=== PATIENT | male | born 1945 | race Caucasian/White ===

== ENCOUNTER 2017-08-07 07:53 | Inpatient (IN) | payer MEDICARE, OTHER ==
[2017-08-07] MEDS: FOLIC ACID 1 MG TAB PO (09:00)
[2017-08-07] MEDS: ENOXAPARIN 40 MG/0.4 ML SYRINGE (J1650) SC (09:00)
[2017-08-07] MEDS: THIAMINE 100 MG TAB PO (09:00)
[2017-08-07 09:31] LABS: BASO # 0.1 10^3/uL (0.0-0.2); BASO % 0.8 % (0.0-1.0); EOS # 0.2 10^3/uL (0.0-0.50); EOS % 1.8 % (0.0-3.0); HEMATOCRIT 31.6 % (42.0-52.0); HEMOGLOBIN 11.3 g/dl (13.5-17.5); IMMATURE GRANULOCYTE % 0.3 % (0-3.0); LYMPH # 0.7 10^3/uL (1.5-4.5); LYMPH % 6.9 % (24.0-44.0); MEAN CORPUSCULAR HEMOGLOBIN 30.7 pg (27.0-33.0); MEAN CORPUSCULAR HGB CONC 35.8 g/dl (32.0-36.5); MEAN CORPUSCULAR VOLUME 85.9 fl (80.0-96.0); MONO # 1.3 10^3/uL (0.0-0.8); NEUTROPHILS # 8.2 10^3/uL (1.8-7.7); NEUTROPHILS % 78.2 % (36.0-66.0); PLATELET COUNT, AUTOMATED 610 10^3/uL (150-450); RED BLOOD COUNT 3.68 10^6/uL (4.30-6.10); RED CELL DISTRIBUTION WIDTH 13.3 % (11.5-14.5); WHITE BLOOD COUNT 10.5 10^3/uL (4.0-10.0)
[2017-08-07 09:49] LABS: ALBUMIN 3.4 GM/DL (3.2-5.2); ALBUMIN/GLOBULIN RATIO 0.79 (1.00-1.93); ALKALINE PHOSPHATASE 136 U/L (45-117); ALT/SGPT 34 U/L (12-78); ANION GAP 12 MEQ/L (8-16); AST/SGOT 28 U/L (7-37); BILIRUBIN,TOTAL 0.5 MG/DL (0.2-1.0); BLOOD UREA NITROGEN 9 MG/DL (7-18); CALCIUM LEVEL 8.9 MG/DL (8.8-10.2); CARBON DIOXIDE LEVEL 22 MEQ/L (21-32); CHLORIDE LEVEL 92 MEQ/L (98-107); CPK CREATINE PHOSPHOKINASE 120 U/L (39-308); CREATININE FOR GFR 0.65 MG/DL (0.70-1.30); ETHYL ALCOHOL (ETHANOL) < 0.003 % (0.000-0.010); GLOMERULAR FILTRATION RATE > 60.0 (>42); GLUCOSE, FASTING 98 MG/DL (70-100); INR 1.14; MAGNESIUM LEVEL 1.8 MG/DL (1.8-2.4); NT-PRO BNP 3193 PG/ML (<125); PROTHROMBIN TIME 14.8 SECONDS (12.4-14.5); SODIUM LEVEL 126 MEQ/L (136-145); TOTAL PROTEIN 7.7 GM/DL (6.4-8.2); TROPONIN I < 0.02 NG/ML (< 0.10)
[2017-08-07 09:54] LABS: CK-MB VALUE MASS 3.5 NG/ML (<3.6); MB/CK RELATIVE INDEX 2.91 (< OR =4)
[2017-08-07] MEDS: FUROSEMIDE 40 MG/4 ML VIAL (J1940) IV ×2 (10:00→17:49)
[2017-08-07] MEDS ORDERED: ISOVUE-370 76% 100ML VIAL (Q9967) As Ordered (10:01)
[2017-08-07] MEDS ORDERED: IPRATROPIUM 0.5MG/ALBUTEROL 2.5MG INH SOL UD 3ML (DUONEB)(J7620) NEB (11:45)
[2017-08-07 11:53] LABS: REASON FOR REVIEW PLATELET MORPHOLOGY; SLIDE REVIEW Report; SOURCE PERIPHERAL SMEAR
[2017-08-07 12:05] LABS: CHOLESTEROL LEVEL 73 MG/DL (<200); CHOLESTEROL RISK RATIO 1.921 (<5); HDL CHOLESTEROL 38 MG/DL (>40); LDL CHOLESTEROL 25.2 MG/DL (<100); NON-HDL-C 35 MG/DL; TRIGLYCERIDES LEVEL 49 MG/DL (<150)
[2017-08-07] MEDS ORDERED: ACETAMINOPHEN TAB 650MG DOSE (2X325MG) PO (12:15)
[2017-08-07] MEDS: IPRATROPIUM 0.5MG/ALBUTEROL 2.5MG INH SOL UD 3ML (DUONEB)(J7620) NEB ×2 (13:49→20:00)
[2017-08-07] MEDS: SYMBICORT 160/4.5MCG INHALER 6GM INH (20:31)
[2017-08-07] MEDS: METOPROLOL TART 25 MG TABLET PO (21:00)
[2017-08-07] MEDS: NICOTINE 21MG/24HR 1 EA TRANSDERMAL TD (21:55)
[2017-08-08] MEDS: IPRATROPIUM 0.5MG/ALBUTEROL 2.5MG INH SOL UD 3ML (DUONEB)(J7620) NEB ×4 (00:47→20:00)
[2017-08-08] MEDS: FUROSEMIDE 40 MG/4 ML VIAL (J1940) IV (02:51)
[2017-08-08 05:09] LABS: BASO # 0.1 10^3/uL (0.0-0.2); BASO % 0.8 % (0.0-1.0); EOS # 0.3 10^3/uL (0.0-0.50); EOS % 3.2 % (0.0-3.0); IMMATURE GRANULOCYTE % 0.4 % (0-3.0); LYMPH # 1.1 10^3/uL (1.5-4.5); LYMPH % 13.1 % (24.0-44.0); MEAN CORPUSCULAR HEMOGLOBIN 30.3 pg (27.0-33.0); MEAN CORPUSCULAR HGB CONC 35.7 g/dl (32.0-36.5); MEAN CORPUSCULAR VOLUME 84.8 fl (80.0-96.0); MONO # 1.6 10^3/uL (0.0-0.8); MONO % 19.3 % (0.0-5.0); NEUTROPHILS # 5.3 10^3/uL (1.8-7.7); NEUTROPHILS % 63.2 % (36.0-66.0); PLATELET COUNT, AUTOMATED 560 10^3/uL (150-450); RED CELL DISTRIBUTION WIDTH 13.2 % (11.5-14.5); WHITE BLOOD COUNT 8.3 10^3/uL (4.0-10.0)
[2017-08-08 05:22] LABS: ANION GAP 8 MEQ/L (8-16); BLOOD UREA NITROGEN 12 MG/DL (7-18); CALCIUM LEVEL 8.4 MG/DL (8.8-10.2); CARBON DIOXIDE LEVEL 27 MEQ/L (21-32); CHLORIDE LEVEL 92 MEQ/L (98-107); CREATININE FOR GFR 0.77 MG/DL (0.70-1.30); GLOMERULAR FILTRATION RATE > 60.0 (>42); GLUCOSE, FASTING 101 MG/DL (70-100); SODIUM LEVEL 127 MEQ/L (136-145)
[2017-08-08] MEDS: SYMBICORT 160/4.5MCG INHALER 6GM INH ×2 (07:18→20:44)
[2017-08-08 08:30] LABS: FERRITIN 621 NG/ML (26-388); IRON (FE) 17 UG/DL (65-175); PERCENT SATURATION 8.1 % (19.7-50.0); TOTAL IRON BINDING CAPACITY 209 UG/DL (250-450)
[2017-08-08] MEDS: CALCIUM CARBONATE 500 MG CHEW U/D PO (09:19)
[2017-08-08] MEDS: FUROSEMIDE 100 MG/10 ML VIAL (J1940) IV ×2 (09:19→17:12)
[2017-08-08] MEDS: NICOTINE 21MG/24HR 1 EA TRANSDERMAL TD (09:19)
[2017-08-08] MEDS: ATORVASTATIN 20 MG TAB PO (09:19)
[2017-08-08] MEDS: TAMSULOSIN 0.4 MG CAP PO (09:19)
[2017-08-08] MEDS: FERROUS SULFATE 325MG TAB PO (09:20)
[2017-08-08] MEDS: FOLIC ACID 1 MG TAB PO (09:20)
[2017-08-08] MEDS: MULTIVITAMINS/MINERALS THERAP 1 TAB PO (09:20)
[2017-08-08] MEDS: LISINOPRIL 40 MG TAB PO (09:20)
[2017-08-08] MEDS: amLODIPine 10 MG TAB PO (09:20)
[2017-08-08] MEDS: APIXABAN 5 MG TAB (ELIQUIS) PO ×2 (09:20→21:30)
[2017-08-08] MEDS: THIAMINE 100 MG TAB PO (09:20)
[2017-08-08] MEDS: ASCORBIC ACID 500 MG TAB PO (09:20)
[2017-08-08] MEDS: METOPROLOL TART 25 MG TABLET PO ×2 (09:20→21:30)
[2017-08-08 12:03] LABS: VITAMIN B12 LEVEL 1072 PG/ML (247-911)
[2017-08-08 12:22] LABS: FOLATE > 24.0 NG/ML (>5.4)
[2017-08-09] MEDS: IPRATROPIUM 0.5MG/ALBUTEROL 2.5MG INH SOL UD 3ML (DUONEB)(J7620) NEB ×4 (01:53→20:00)
[2017-08-09] MEDS: FUROSEMIDE 100 MG/10 ML VIAL (J1940) IV (02:22)
[2017-08-09 04:55] LABS: BASO # 0.1 10^3/uL (0.0-0.2); BASO % 0.7 % (0.0-1.0); EOS # 0.2 10^3/uL (0.0-0.50); EOS % 2.2 % (0.0-3.0); HEMATOCRIT 27.8 % (42.0-52.0); HEMOGLOBIN 9.8 g/dl (13.5-17.5); IMMATURE GRANULOCYTE % 0.6 % (0-3.0); LYMPH % 10.1 % (24.0-44.0); MEAN CORPUSCULAR HEMOGLOBIN 30.2 pg (27.0-33.0); MEAN CORPUSCULAR HGB CONC 35.3 g/dl (32.0-36.5); MEAN CORPUSCULAR VOLUME 85.5 fl (80.0-96.0); MONO # 1.8 10^3/uL (0.0-0.8); MONO % 17.9 % (0.0-5.0); NEUTROPHILS % 68.5 % (36.0-66.0); PLATELET COUNT, AUTOMATED 543 10^3/uL (150-450); RED BLOOD COUNT 3.25 10^6/uL (4.30-6.10); RED CELL DISTRIBUTION WIDTH 13.1 % (11.5-14.5); WHITE BLOOD COUNT 10.3 10^3/uL (4.0-10.0)
[2017-08-09 05:09] LABS: ANION GAP 7 MEQ/L (8-16); BLOOD UREA NITROGEN 14 MG/DL (7-18); CALCIUM LEVEL 8.7 MG/DL (8.8-10.2); CARBON DIOXIDE LEVEL 28 MEQ/L (21-32); CHLORIDE LEVEL 91 MEQ/L (98-107); CREATININE FOR GFR 0.86 MG/DL (0.70-1.30); GLOMERULAR FILTRATION RATE > 60.0 (>42); GLUCOSE, FASTING 106 MG/DL (70-100); SODIUM LEVEL 126 MEQ/L (136-145)
[2017-08-09] MEDS: SYMBICORT 160/4.5MCG INHALER 6GM INH ×2 (07:34→20:25)
[2017-08-09] MEDS: THIAMINE 100 MG TAB PO (08:21)
[2017-08-09] MEDS: MULTIVITAMINS/MINERALS THERAP 1 TAB PO (08:21)
[2017-08-09] MEDS: ATORVASTATIN 20 MG TAB PO (08:22)
[2017-08-09] MEDS: FOLIC ACID 1 MG TAB PO (08:22)
[2017-08-09] MEDS: LISINOPRIL 40 MG TAB PO (08:22)
[2017-08-09] MEDS: ASCORBIC ACID 500 MG TAB PO (08:22)
[2017-08-09] MEDS: TAMSULOSIN 0.4 MG CAP PO (08:22)
[2017-08-09] MEDS: FERROUS SULFATE 325MG TAB PO (08:22)
[2017-08-09] MEDS: amLODIPine 10 MG TAB PO (08:22)
[2017-08-09] MEDS: APIXABAN 5 MG TAB (ELIQUIS) PO ×2 (08:22→20:27)
[2017-08-09] MEDS: NICOTINE 21MG/24HR 1 EA TRANSDERMAL TD (08:23)
[2017-08-09] MEDS: FUROSEMIDE 40 MG/4 ML VIAL (J1940) IV ×2 (08:24→18:17)
[2017-08-09] MEDS: METOPROLOL TART 50 MG TAB PO ×2 (08:55→20:27)
[2017-08-09] MEDS: CALCIUM CARBONATE 500 MG CHEW U/D PO ×2 (12:51→18:16)
[2017-08-10] MEDS: IPRATROPIUM 0.5MG/ALBUTEROL 2.5MG INH SOL UD 3ML (DUONEB)(J7620) NEB ×4 (02:00→19:25)
[2017-08-10] MEDS: FUROSEMIDE 40 MG/4 ML VIAL (J1940) IV ×2 (02:01→09:01)
[2017-08-10 05:06] LABS: BASO # 0.1 10^3/uL (0.0-0.2); BASO % 0.7 % (0.0-1.0); EOS # 0.4 10^3/uL (0.0-0.50); EOS % 3.7 % (0.0-3.0); HEMATOCRIT 29.3 % (42.0-52.0); HEMOGLOBIN 10.2 g/dl (13.5-17.5); IMMATURE GRANULOCYTE % 0.6 % (0-3.0); LYMPH # 1.2 10^3/uL (1.5-4.5); MEAN CORPUSCULAR HEMOGLOBIN 30.2 pg (27.0-33.0); MEAN CORPUSCULAR HGB CONC 34.8 g/dl (32.0-36.5); MEAN CORPUSCULAR VOLUME 86.7 fl (80.0-96.0); MONO % 21.6 % (0.0-5.0); NEUTROPHILS # 5.7 10^3/uL (1.8-7.7); NEUTROPHILS % 60.4 % (36.0-66.0); PLATELET COUNT, AUTOMATED 529 10^3/uL (150-450); RED BLOOD COUNT 3.38 10^6/uL (4.30-6.10); RED CELL DISTRIBUTION WIDTH 13.3 % (11.5-14.5); WHITE BLOOD COUNT 9.5 10^3/uL (4.0-10.0)
[2017-08-10 05:23] LABS: ANION GAP 8 MEQ/L (8-16); BLOOD UREA NITROGEN 18 MG/DL (7-18); CALCIUM LEVEL 8.7 MG/DL (8.8-10.2); CARBON DIOXIDE LEVEL 29 MEQ/L (21-32); CHLORIDE LEVEL 89 MEQ/L (98-107); GLOMERULAR FILTRATION RATE > 60.0 (>42); GLUCOSE, FASTING 94 MG/DL (70-100); POTASSIUM SERUM 4.3 MEQ/L (3.5-5.1); SODIUM LEVEL 126 MEQ/L (136-145)
[2017-08-10 05:45] LABS: POSITIVE DIFF POS FLAG
[2017-08-10] MEDS: METOPROLOL TART 50 MG TAB PO ×3 (06:00→21:00)
[2017-08-10] MEDS: SYMBICORT 160/4.5MCG INHALER 6GM INH ×2 (07:22→19:25)
[2017-08-10] MEDS: CALCIUM CARBONATE 500 MG CHEW U/D PO ×3 (08:00→16:51)
[2017-08-10] MEDS: ASCORBIC ACID 500 MG TAB PO (08:47)
[2017-08-10] MEDS: APIXABAN 5 MG TAB (ELIQUIS) PO ×2 (08:47→20:59)
[2017-08-10] MEDS: THIAMINE 100 MG TAB PO (08:47)
[2017-08-10] MEDS: FOLIC ACID 1 MG TAB PO (08:47)
[2017-08-10] MEDS: ATORVASTATIN 20 MG TAB PO (08:47)
[2017-08-10] MEDS: TAMSULOSIN 0.4 MG CAP PO (08:47)
[2017-08-10] MEDS: MULTIVITAMINS/MINERALS THERAP 1 TAB PO (08:48)
[2017-08-10] MEDS: FERROUS SULFATE 325MG TAB PO (08:48)
[2017-08-10] MEDS: NICOTINE 21MG/24HR 1 EA TRANSDERMAL TD (08:51)
[2017-08-10] MEDS: LISINOPRIL 40 MG TAB PO (08:52)
[2017-08-10] MEDS: amLODIPine 10 MG TAB PO (08:52)
[2017-08-11] MEDS: IPRATROPIUM 0.5MG/ALBUTEROL 2.5MG INH SOL UD 3ML (DUONEB)(J7620) NEB ×2 (01:55→07:32)
[2017-08-11] MEDS: METOPROLOL TART 50 MG TAB PO (05:16)
[2017-08-11 05:25] LABS: BASO # 0.1 10^3/uL (0.0-0.2); BASO % 0.8 % (0.0-1.0); EOS # 0.3 10^3/uL (0.0-0.50); EOS % 3.4 % (0.0-3.0); HEMATOCRIT 29.1 % (42.0-52.0); HEMOGLOBIN 10.2 g/dl (13.5-17.5); IMMATURE GRANULOCYTE % 0.4 % (0-3.0); LYMPH # 1.1 10^3/uL (1.5-4.5); MEAN CORPUSCULAR HEMOGLOBIN 29.9 pg (27.0-33.0); MEAN CORPUSCULAR HGB CONC 35.1 g/dl (32.0-36.5); MEAN CORPUSCULAR VOLUME 85.3 fl (80.0-96.0); MONO # 1.8 10^3/uL (0.0-0.8); MONO % 19.1 % (0.0-5.0); NEUTROPHILS # 5.9 10^3/uL (1.8-7.7); NEUTROPHILS % 64.3 % (36.0-66.0); PLATELET COUNT, AUTOMATED 532 10^3/uL (150-450); RED BLOOD COUNT 3.41 10^6/uL (4.30-6.10); RED CELL DISTRIBUTION WIDTH 13.2 % (11.5-14.5); WHITE BLOOD COUNT 9.2 10^3/uL (4.0-10.0)
[2017-08-11 05:45] LABS: ANION GAP 9 MEQ/L (8-16); BLOOD UREA NITROGEN 21 MG/DL (7-18); CALCIUM LEVEL 8.4 MG/DL (8.8-10.2); CARBON DIOXIDE LEVEL 25 MEQ/L (21-32); CHLORIDE LEVEL 90 MEQ/L (98-107); CREATININE FOR GFR 1.01 MG/DL (0.70-1.30); GLOMERULAR FILTRATION RATE > 60.0 (>42); GLUCOSE, FASTING 96 MG/DL (70-100); SODIUM LEVEL 124 MEQ/L (136-145)
[2017-08-11] MEDS: SYMBICORT 160/4.5MCG INHALER 6GM INH (07:32)
[2017-08-11] MEDS: CALCIUM CARBONATE 500 MG CHEW U/D PO ×2 (08:09→11:24)
[2017-08-11] MEDS: amLODIPine 10 MG TAB PO (08:09)
[2017-08-11] MEDS: ATORVASTATIN 20 MG TAB PO (08:09)
[2017-08-11] MEDS: TAMSULOSIN 0.4 MG CAP PO (08:09)
[2017-08-11] MEDS: APIXABAN 5 MG TAB (ELIQUIS) PO (08:09)
[2017-08-11] MEDS: FOLIC ACID 1 MG TAB PO (08:09)
[2017-08-11] MEDS: FUROSEMIDE 40 MG TAB PO (08:09)
[2017-08-11] MEDS: LISINOPRIL 40 MG TAB PO (08:10)
[2017-08-11] MEDS: THIAMINE 100 MG TAB PO (08:10)
[2017-08-11] MEDS: MULTIVITAMINS/MINERALS THERAP 1 TAB PO (08:10)
[2017-08-11] MEDS: NICOTINE 21MG/24HR 1 EA TRANSDERMAL TD (08:11)
[2017-08-11 09:51] LABS: CORTISOL AM 24.9 UG/DL (4.3-22.4)
[2017-08-11 10:17] LABS: OSMOLALITY SERUM 266 MOSM/KG (280-301)
[2017-08-11] MEDS ORDERED: METOPROLOL TART 25 MG TABLET PO (14:00)
== END 2017-08-11 13:10 | disposition home or self-care (01) | DRG 292 ==
LOC: M ED 07:53 → M ED INP 11:45 → M PCU 15:42
DX: I11.0 Hypertensive heart disease with heart failure (principal); J44.1 Chronic obstructive pulmonary disease with (acute) exacerbation; E87.1 Hypo-osmolality and hyponatremia; I48.92 Unspecified atrial flutter; I31.3 Pericardial effusion (noninflammatory); F10.20 Alcohol dependence, uncomplicated; D64.9 Anemia, unspecified; R91.8 Other nonspecific abnormal finding of lung field; E78.5 Hyperlipidemia, unspecified; I50.31 Acute diastolic (congestive) heart failure; F17.200 Nicotine dependence, unspecified, uncomplicated; Z79.01 Long term (current) use of anticoagulants; I27.20 Pulmonary hypertension, unspecified; I48.91 Unspecified atrial fibrillation; I49.1 Atrial premature depolarization; M54.5 Low back pain; D47.3 Essential (hemorrhagic) thrombocythemia; I08.2 Rheumatic disorders of both aortic and tricuspid valves

== ENCOUNTER 2017-09-04 11:36 | Inpatient (IN) | payer MEDICARE, OTHER ==
[2017-09-04 12:12] LABS: BASO # 0.1 10^3/uL (0.0-0.2); BASO % 0.6 % (0.0-1.0); EOS # 0.4 10^3/uL (0.0-0.50); EOS % 3.6 % (0.0-3.0); HEMATOCRIT 27.6 % (42.0-52.0); HEMOGLOBIN 9.6 g/dl (13.5-17.5); IMMATURE GRANULOCYTE % 0.4 % (0-3.0); LYMPH % 10.2 % (24.0-44.0); MEAN CORPUSCULAR HEMOGLOBIN 29.8 pg (27.0-33.0); MEAN CORPUSCULAR HGB CONC 34.8 g/dl (32.0-36.5); MEAN CORPUSCULAR VOLUME 85.7 fl (80.0-96.0); MONO % 10.2 % (0.0-5.0); NEUTROPHILS # 7.7 10^3/uL (1.8-7.7); PLATELET COUNT, AUTOMATED 360 10^3/uL (150-450); RED BLOOD COUNT 3.22 10^6/uL (4.30-6.10); RED CELL DISTRIBUTION WIDTH 14.6 % (11.5-14.5); WHITE BLOOD COUNT 10.2 10^3/uL (4.0-10.0)
[2017-09-04 12:17] LABS: INR 1.48; PROTHROMBIN TIME 18.3 SECONDS (12.4-14.5)
[2017-09-04 12:18] LABS: PARTIAL THROMBOPLASTIN TIME 37.8 SECONDS (26.8-37.9)
[2017-09-04 12:36] LABS: ANION GAP 11 MEQ/L (8-16); BLOOD UREA NITROGEN 13 MG/DL (7-18); CALCIUM LEVEL 8.2 MG/DL (8.8-10.2); CARBON DIOXIDE LEVEL 21 MEQ/L (21-32); CHLORIDE LEVEL 92 MEQ/L (98-107); CK-MB VALUE MASS 2.6 NG/ML (<3.6); CPK CREATINE PHOSPHOKINASE 102 U/L (39-308); CREATININE FOR GFR 0.81 MG/DL (0.70-1.30); ETHYL ALCOHOL (ETHANOL) 0.075 % (0.000-0.010); GLOMERULAR FILTRATION RATE > 60.0 (>42); GLUCOSE, FASTING 91 MG/DL (70-100); MAGNESIUM LEVEL 1.6 MG/DL (1.8-2.4); MB/CK RELATIVE INDEX 2.54 (< OR =4); POTASSIUM SERUM 4.7 MEQ/L (3.5-5.1); SODIUM LEVEL 124 MEQ/L (136-145); TROPONIN I < 0.02 NG/ML (< 0.10)
[2017-09-04] MEDS: FUROSEMIDE 40 MG/4 ML VIAL (J1940) IV (13:46)
[2017-09-04] MEDS: MAG SULF 1GM/100ML (MAG RUN) 1 GM in APPROPRIATE DILUENT 1 EA IV (13:47)
[2017-09-04] MEDS ORDERED: ALBUTEROL SULFATE 2.5 MG/0.5 ML INH NEB SOLN INH (14:45)
[2017-09-04] MEDS: ALBUTEROL SULFATE 2.5 MG/0.5 ML INH NEB SOLN NEB ×3 (16:29→23:29)
[2017-09-04] MEDS: VERAPAMIL 40 MG TAB PO ×2 (16:52→22:00)
[2017-09-04 17:05] LABS: CHOLESTEROL LEVEL 64 MG/DL (<200); CHOLESTEROL RISK RATIO 1.641 (<5); HDL CHOLESTEROL 39 MG/DL (>40); NON-HDL-C 25 MG/DL; TRIGLYCERIDES LEVEL 60 MG/DL (<150)
[2017-09-04] MEDS: CALCIUM CARBONATE 500 MG CHEW U/D PO (17:27)
[2017-09-04] MEDS: methylPREDNISolone INJ 125 MG/2 ML VIAL (J2930) IV (17:27)
[2017-09-04] MEDS: TORSEMIDE 20 MG TAB PO (17:27)
[2017-09-04 18:24] LABS: CPK CREATINE PHOSPHOKINASE 99 U/L (39-308); MB/CK RELATIVE INDEX 3.03 (< OR =4); TROPONIN I < 0.02 NG/ML (< 0.10)
[2017-09-04] MEDS: SYMBICORT 160/4.5MCG INHALER 6GM INH (20:43)
[2017-09-04] MEDS ORDERED: APIXABAN 5 MG TAB (ELIQUIS) PO (21:00)
[2017-09-04] MEDS: MULTIVITAMINS/MINERALS THERAP 1 TAB PO (22:21)
[2017-09-04] MEDS: TAMSULOSIN 0.4 MG CAP PO (22:21)
[2017-09-04] MEDS: MAGNESIUM CHLORIDE 64 MG TABCR (SLO MAG) PO (22:22)
[2017-09-05] MEDS: MAGNESIUM CHLORIDE 64 MG TABCR (SLO MAG) PO ×5 (00:37→21:27)
[2017-09-05 03:06] LABS: HEMATOCRIT 29.7 % (42.0-52.0); HEMOGLOBIN 10.4 g/dl (13.5-17.5); MEAN CORPUSCULAR HEMOGLOBIN 29.6 pg (27.0-33.0); MEAN CORPUSCULAR VOLUME 84.6 fl (80.0-96.0); PLATELET COUNT, AUTOMATED 378 10^3/uL (150-450); RED BLOOD COUNT 3.51 10^6/uL (4.30-6.10); RED CELL DISTRIBUTION WIDTH 14.4 % (11.5-14.5); WHITE BLOOD COUNT 5.5 10^3/uL (4.0-10.0)
[2017-09-05 03:15] LABS: ALBUMIN 3.4 GM/DL (3.2-5.2); ALBUMIN/GLOBULIN RATIO 0.85 (1.00-1.93); ALKALINE PHOSPHATASE 146 U/L (45-117); ALT/SGPT 30 U/L (12-78); ANION GAP 11 MEQ/L (8-16); AST/SGOT 15 U/L (7-37); BILIRUBIN,TOTAL 0.6 MG/DL (0.2-1.0); BLOOD UREA NITROGEN 16 MG/DL (7-18); CALCIUM LEVEL 8.5 MG/DL (8.8-10.2); CARBON DIOXIDE LEVEL 22 MEQ/L (21-32); CHLORIDE LEVEL 94 MEQ/L (98-107); CK-MB VALUE MASS 2.4 NG/ML (<3.6); CPK CREATINE PHOSPHOKINASE 101 U/L (39-308); CREATININE FOR GFR 0.89 MG/DL (0.70-1.30); GLOMERULAR FILTRATION RATE > 60.0 (>42); GLUCOSE, FASTING 145 MG/DL (70-100); MAGNESIUM LEVEL 1.7 MG/DL (1.8-2.4); MB/CK RELATIVE INDEX 2.37 (< OR =4); POTASSIUM SERUM 4.5 MEQ/L (3.5-5.1); SODIUM LEVEL 127 MEQ/L (136-145); TOTAL PROTEIN 7.4 GM/DL (6.4-8.2); TROPONIN I < 0.02 NG/ML (< 0.10)
[2017-09-05] MEDS: ALBUTEROL SULFATE 2.5 MG/0.5 ML INH NEB SOLN NEB ×4 (03:26→20:00)
[2017-09-05] MEDS: VERAPAMIL 40 MG TAB PO ×3 (05:47→21:28)
[2017-09-05] MEDS: methylPREDNISolone INJ 125 MG/2 ML VIAL (J2930) IV ×2 (05:47→17:26)
[2017-09-05] MEDS: SYMBICORT 160/4.5MCG INHALER 6GM INH ×2 (08:12→20:28)
[2017-09-05] MEDS: TIOTROPIUM INHALER/CAPSULE (SPIRIVA) INH (08:12)
[2017-09-05] MEDS: SPIRONOLACTONE 25 MG TAB PO (08:25)
[2017-09-05] MEDS: CALCIUM CARBONATE 500 MG CHEW U/D PO ×3 (08:25→17:26)
[2017-09-05] MEDS: THIAMINE 100 MG TAB PO (08:25)
[2017-09-05] MEDS: ATORVASTATIN 20 MG TAB PO (08:25)
[2017-09-05] MEDS: TORSEMIDE 20 MG TAB PO ×2 (08:25→17:27)
[2017-09-05] MEDS: MULTIVITAMINS/MINERALS THERAP 1 TAB PO ×2 (08:26→21:28)
[2017-09-05] MEDS: FOLIC ACID 1 MG TAB PO (08:26)
[2017-09-05] MEDS ORDERED: amLODIPine 10 MG TAB PO (09:00)
[2017-09-05] MEDS ORDERED: LISINOPRIL 20 MG TAB PO (09:00)
[2017-09-05] MEDS: APIXABAN 5 MG TAB (ELIQUIS) PO ×2 (09:00→21:28)
[2017-09-05 10:28] LABS: CPK CREATINE PHOSPHOKINASE 116 U/L (39-308); TROPONIN I < 0.02 NG/ML (< 0.10)
[2017-09-05 10:29] LABS: CK-MB VALUE MASS 2.7 NG/ML (<3.6); MB/CK RELATIVE INDEX 2.32 (< OR =4)
[2017-09-05] MEDS: TAMSULOSIN 0.4 MG CAP PO (21:28)
[2017-09-06] MEDS: ALBUTEROL SULFATE 2.5 MG/0.5 ML INH NEB SOLN NEB ×4 (02:00→20:00)
[2017-09-06] MEDS ORDERED: SLF 3 ML SYR IV (03:30)
[2017-09-06 04:54] LABS: HEMATOCRIT 25.5 % (42.0-52.0); MEAN CORPUSCULAR HEMOGLOBIN 29.4 pg (27.0-33.0); MEAN CORPUSCULAR HGB CONC 35.3 g/dl (32.0-36.5); MEAN CORPUSCULAR VOLUME 83.3 fl (80.0-96.0); PLATELET COUNT, AUTOMATED 370 10^3/uL (150-450); RED BLOOD COUNT 3.06 10^6/uL (4.30-6.10); RED CELL DISTRIBUTION WIDTH 14.6 % (11.5-14.5); WHITE BLOOD COUNT 14.2 10^3/uL (4.0-10.0)
[2017-09-06 05:15] LABS: ALBUMIN 3.3 GM/DL (3.2-5.2); ALBUMIN/GLOBULIN RATIO 0.97 (1.00-1.93); ALKALINE PHOSPHATASE 124 U/L (45-117); ALT/SGPT 36 U/L (12-78); ANION GAP 7 MEQ/L (8-16); AST/SGOT 20 U/L (7-37); BILIRUBIN,TOTAL 0.3 MG/DL (0.2-1.0); BLOOD UREA NITROGEN 33 MG/DL (7-18); CALCIUM LEVEL 8.6 MG/DL (8.8-10.2); CARBON DIOXIDE LEVEL 25 MEQ/L (21-32); CHLORIDE LEVEL 96 MEQ/L (98-107); CREATININE FOR GFR 1.08 MG/DL (0.70-1.30); GLOMERULAR FILTRATION RATE > 60.0 (>42); GLUCOSE, FASTING 155 MG/DL (70-100); POTASSIUM SERUM 4.2 MEQ/L (3.5-5.1); SODIUM LEVEL 128 MEQ/L (136-145); TOTAL PROTEIN 6.7 GM/DL (6.4-8.2)
[2017-09-06] MEDS: VERAPAMIL 40 MG TAB PO ×3 (05:55→21:56)
[2017-09-06] MEDS: methylPREDNISolone INJ 125 MG/2 ML VIAL (J2930) IV (05:58)
[2017-09-06] MEDS: SLF 3 ML SYR IV ×3 (05:58→21:56)
[2017-09-06] MEDS: ATORVASTATIN 20 MG TAB PO (08:43)
[2017-09-06] MEDS: MAGNESIUM CHLORIDE 64 MG TABCR (SLO MAG) PO ×4 (08:43→21:56)
[2017-09-06] MEDS: CALCIUM CARBONATE 500 MG CHEW U/D PO ×3 (08:43→16:52)
[2017-09-06 08:44] LABS: OSMOLALITY URINE 279 MOSM/KG (500-800)
[2017-09-06] MEDS: MULTIVITAMINS/MINERALS THERAP 1 TAB PO ×2 (08:44→21:56)
[2017-09-06] MEDS: FOLIC ACID 1 MG TAB PO (08:44)
[2017-09-06] MEDS: APIXABAN 5 MG TAB (ELIQUIS) PO ×2 (08:44→21:56)
[2017-09-06] MEDS: THIAMINE 100 MG TAB PO (08:44)
[2017-09-06] MEDS: TORSEMIDE 20 MG TAB PO ×2 (08:44→16:51)
[2017-09-06] MEDS: SPIRONOLACTONE 25 MG TAB PO (08:44)
[2017-09-06 08:48] LABS: SODIUM,RANDOM URINE 46 MEQ/L
[2017-09-06] MEDS: TIOTROPIUM INHALER/CAPSULE (SPIRIVA) INH (09:10)
[2017-09-06] MEDS: SYMBICORT 160/4.5MCG INHALER 6GM INH ×2 (09:10→21:50)
[2017-09-06] MEDS: TAMSULOSIN 0.4 MG CAP PO (21:56)
[2017-09-07] MEDS: ALBUTEROL SULFATE 2.5 MG/0.5 ML INH NEB SOLN NEB ×3 (02:00→14:38)
[2017-09-07] MEDS: SLF 3 ML SYR IV ×2 (05:54→14:00)
[2017-09-07] MEDS: VERAPAMIL 40 MG TAB PO ×3 (05:54→14:26)
[2017-09-07 07:13] LABS: HEMATOCRIT 29.3 % (42.0-52.0); HEMOGLOBIN 10.3 g/dl (13.5-17.5); MEAN CORPUSCULAR HEMOGLOBIN 29.7 pg (27.0-33.0); MEAN CORPUSCULAR HGB CONC 35.2 g/dl (32.0-36.5); MEAN CORPUSCULAR VOLUME 84.4 fl (80.0-96.0); PLATELET COUNT, AUTOMATED 421 10^3/uL (150-450); RED BLOOD COUNT 3.47 10^6/uL (4.30-6.10); WHITE BLOOD COUNT 13.1 10^3/uL (4.0-10.0)
[2017-09-07 07:34] LABS: ALBUMIN 3.8 GM/DL (3.2-5.2); ALBUMIN/GLOBULIN RATIO 0.97 (1.00-1.93); ALKALINE PHOSPHATASE 118 U/L (45-117); ALT/SGPT 64 U/L (12-78); ANION GAP 10 MEQ/L (8-16); AST/SGOT 34 U/L (7-37); BILIRUBIN,TOTAL 0.3 MG/DL (0.2-1.0); BLOOD UREA NITROGEN 36 MG/DL (7-18); CALCIUM LEVEL 9.1 MG/DL (8.8-10.2); CARBON DIOXIDE LEVEL 25 MEQ/L (21-32); CHLORIDE LEVEL 96 MEQ/L (98-107); CREATININE FOR GFR 1.07 MG/DL (0.70-1.30); GLOMERULAR FILTRATION RATE > 60.0 (>42); GLUCOSE, FASTING 118 MG/DL (70-100); POTASSIUM SERUM 4.2 MEQ/L (3.5-5.1); SODIUM LEVEL 131 MEQ/L (136-145); TOTAL PROTEIN 7.7 GM/DL (6.4-8.2)
[2017-09-07] MEDS: THIAMINE 100 MG TAB PO (07:39)
[2017-09-07] MEDS: CALCIUM CARBONATE 500 MG CHEW U/D PO ×2 (07:39→12:53)
[2017-09-07] MEDS: SPIRONOLACTONE 25 MG TAB PO (07:39)
[2017-09-07] MEDS: predniSONE 20 MG TAB PO (07:39)
[2017-09-07] MEDS: MULTIVITAMINS/MINERALS THERAP 1 TAB PO (07:40)
[2017-09-07] MEDS: FOLIC ACID 1 MG TAB PO (07:40)
[2017-09-07] MEDS: TORSEMIDE 20 MG TAB PO (07:40)
[2017-09-07] MEDS: APIXABAN 5 MG TAB (ELIQUIS) PO (07:40)
[2017-09-07] MEDS: ATORVASTATIN 20 MG TAB PO (07:40)
[2017-09-07] MEDS: MAGNESIUM CHLORIDE 64 MG TABCR (SLO MAG) PO ×2 (07:40→12:53)
[2017-09-07] MEDS: SYMBICORT 160/4.5MCG INHALER 6GM INH (09:06)
[2017-09-07] MEDS: TIOTROPIUM INHALER/CAPSULE (SPIRIVA) INH (09:06)
== END 2017-09-07 17:25 | disposition home or self-care (01) | DRG 314 ==
LOC: M MSPAV 09-06 11:49 → M ED 11:36 → M ED INP 14:15 → M PCU 17:02
DX: I27.29 Other secondary pulmonary hypertension (principal); I50.33 Acute on chronic diastolic (congestive) heart failure; J44.1 Chronic obstructive pulmonary disease with (acute) exacerbation; E87.1 Hypo-osmolality and hyponatremia; I31.3 Pericardial effusion (noninflammatory); I48.2 Chronic atrial fibrillation; I11.0 Hypertensive heart disease with heart failure; R55 Syncope and collapse; D64.9 Anemia, unspecified; E83.42 Hypomagnesemia; E78.5 Hyperlipidemia, unspecified; N40.0 Benign prostatic hyperplasia without lower urinary tract symptoms; R91.8 Other nonspecific abnormal finding of lung field; Z79.899 Other long term (current) drug therapy; Z79.01 Long term (current) use of anticoagulants; F17.200 Nicotine dependence, unspecified, uncomplicated; F10.10 Alcohol abuse, uncomplicated

== ENCOUNTER 2018-03-08 09:26 | Emergency (ER) | payer MEDICARE, OTHER ==
[2018-03-08 10:19] LABS: BASO # 0.1 10^3/uL (0.0-0.2); BASO % 0.8 % (0.0-1.0); EOS # 0.2 10^3/uL (0.0-0.50); HEMOGLOBIN 13.9 g/dl (13.5-17.5); IMMATURE GRANULOCYTE % 0.6 % (0-3.0); LYMPH % 9.9 % (24.0-44.0); MEAN CORPUSCULAR HEMOGLOBIN 32.3 pg (27.0-33.0); MEAN CORPUSCULAR HGB CONC 35.6 g/dl (32.0-36.5); MEAN CORPUSCULAR VOLUME 90.7 fl (80.0-96.0); MONO # 1.3 10^3/uL (0.0-0.8); NEUTROPHILS # 7.2 10^3/uL (1.8-7.7); NEUTROPHILS % 73.7 % (36.0-66.0); PLATELET COUNT, AUTOMATED 362 10^3/uL (150-450); RED CELL DISTRIBUTION WIDTH 14.4 % (11.5-14.5); WHITE BLOOD COUNT 9.8 10^3/uL (4.0-10.0)
[2018-03-08 10:41] LABS: ANION GAP 10 MEQ/L (8-16); BLOOD UREA NITROGEN 26 MG/DL (7-18); CALCIUM LEVEL 8.9 MG/DL (8.8-10.2); CARBON DIOXIDE LEVEL 25 MEQ/L (21-32); CHLORIDE LEVEL 91 MEQ/L (98-107); CREATININE FOR GFR 1.34 MG/DL (0.70-1.30); GLOMERULAR FILTRATION RATE 55.8 (>42); GLUCOSE, FASTING 102 MG/DL (70-100); POTASSIUM SERUM 4.5 MEQ/L (3.5-5.1); SODIUM LEVEL 126 MEQ/L (136-145)
[2018-03-08] MEDS: predniSONE 20 MG TAB PO (10:52)
[2018-03-08] MEDS: IPRATROPIUM 0.5MG/ALBUTEROL 2.5MG INH SOL UD 3ML (DUONEB)(J7620) NEB ×3 (10:54→11:30)
[2018-03-08 10:55] LABS: NT-PRO BNP 915 PG/ML (<125)
== END 2018-03-08 12:34 | disposition home or self-care (01) ==
LOC: M ED 09:26
DX: J44.1 Chronic obstructive pulmonary disease with (acute) exacerbation (principal); I48.91 Unspecified atrial fibrillation; I11.0 Hypertensive heart disease with heart failure; I50.9 Heart failure, unspecified
CPT/HCPCS: 71046

== ENCOUNTER 2018-09-28 16:22 | Inpatient (IN) | payer MEDICARE, OTHER ==
[~2018-09-28] VITALS: Ht 175.3 cm; Wt 75.9 kg
[2018-09-28] MEDS: NICOTINE 21MG/24HR 1 EA TRANSDERMAL TD SCH (09:00)
[~2018-09-28 16:22] MED LIST: ALBU17IN INH; ALDA25TA2 PO; ALEV220T26 PO; AMLO10TA5 PO; ATOR40TA75 PO; ATOR80TA59 PO; AZIT500T2 PO; CALC500C16 PO; DEMA20TA6 PO; ELIQ5TAB PO; FLOM0.4C39 PO; FOLI1TAB11 PO; LASI20TA3 PO; LISI-538 PO; LISI40TA PO; LISI40TA52 PO; MAGN64TASA PO; METO1TAB87 PO; METO25TA4 PO; METO50TA7 PO; PRED10TA2 PO; SPIR1CAP INH; SYMB16INH INH; THIA100TA PO; TYLE325T5 PO; VENTAER IN; VERA40TA PO; VITMTA PO
[2018-09-28 17:17] LABS: BASO # 0.1 10^3/uL (0.0-0.2); BASO % 0.4 % (0.0-1.0); EOS # 0.2 10^3/uL (0.0-0.50); EOS % 1.2 % (0.0-3.0); HEMOGLOBIN 13.5 g/dl (13.5-17.5); LYMPH # 1.2 10^3/uL (1.5-4.5); LYMPH % 7.2 % (24.0-44.0); MEAN CORPUSCULAR HEMOGLOBIN 32.5 pg (27.0-33.0); MEAN CORPUSCULAR HGB CONC 36.5 g/dl (32.0-36.5); MEAN CORPUSCULAR VOLUME 88.9 fl (80.0-96.0); MONO # 1.1 10^3/uL (0.0-0.8); MONO % 6.8 % (0.0-5.0); NEUTROPHILS # 13.7 10^3/uL (1.8-7.7); NEUTROPHILS % 83.9 % (36.0-66.0); PLATELET COUNT, AUTOMATED 346 10^3/uL (150-450); RED BLOOD COUNT 4.16 10^6/uL (4.30-6.10); WHITE BLOOD COUNT 16.3 10^3/uL (4.0-10.0)
[2018-09-28 17:25] LABS: INR 1.09; PROTHROMBIN TIME 14.2 SECONDS (12.1-14.4)
--- NOTE | 2018-09-28 17:26 | REP ---
CT of the brain without IV contrast for patient fall: The patient reportedly is an anticoagulant therapy. There is no hemorrhage, edema, mass effect or midline shift. There is no subdural hematoma. There are areas of decreased attenuation in the subcortical/periventricular white matter, unchanged, compatible with microvascular ischemic disease. This is unchanged. The ventricles and sulci are diffusely dilated compatible with diffuse volume loss. This is unchanged. There is a left middle cranial fossa arachnoid cyst, unchanged. The visualized paranasal sinuses and mastoid air cells are clear. Impression: There is no hemorrhage, edema, mass effect or midline shift. There is microvascular ischemia, unchanged. There is diffuse volume loss, unchanged. There is a left middle cranial fossa arachnoid cyst, unchanged. Electronically Signed by Blair Luther MD 09/28/2018 05:18 P
--- NOTE | 2018-09-28 17:45 | REP ---
Left knee five views: There are calcifications superomedial to the medial femoral condyle. These are nonspecific and could represent a avulsion fractures or could represent degenerative ligamentous Pelligrini Stieda calcification. Correlation with clinical point tenderness is recommended. Depending on symptomatology, CT might be considered for confirmation. There is no evidence of hemarthrosis. On the cross-table lateral view. There is no other evidence of fracture. Mineralization is normal. The joint spaces are unremarkable. Impression: Fracture versus Pelligrini Stieda calcification of the medial femoral condyle. Electronically Signed by Blair Luther MD 09/28/2018 05:37 P
--- NOTE | 2018-09-28 17:56 | REP ---
Fifth digit left hand four views: I suspect there is soft tissue injury. This should be confirmed clinically. There is no fracture or dislocation. There is no foreign body. There is mild joint space narrowing of the PIP and DIP articulations. Electronically Signed by Blair Luther MD 09/28/2018 05:48 P
--- NOTE | 2018-09-28 17:57 | REP ---
PA and lateral chest: Comparison is 03/08/2018. The lung lopez are clear. The cardiac size is normal. The jony, mediastinum, and skeletal structures are unremarkable. Impression: Negative PA and lateral chest. There is no interval change Electronically Signed by Blair Luther MD 09/28/2018 05:49 P
[2018-09-28 18:18] LABS: ALBUMIN 3.8 GM/DL (3.2-5.2); ALT/SGPT 60 U/L (12-78); BILIRUBIN,DIRECT 0.2 MG/DL (0.0-0.2); BILIRUBIN,TOTAL 0.5 MG/DL (0.2-1.0); BLOOD UREA NITROGEN 24 MG/DL (7-18); CARBON DIOXIDE LEVEL 22 MEQ/L (21-32); CHLORIDE LEVEL 87 MEQ/L (98-107); CK-MB VALUE MASS 50.9 NG/ML (<3.6); CPK CREATINE PHOSPHOKINASE 3928 U/L (39-308); CREATININE FOR GFR 1.13 MG/DL (0.70-1.30); ETHYL ALCOHOL (ETHANOL) 0.092 % (0.000-0.010); GLOMERULAR FILTRATION RATE > 60.0 (>42); GLUCOSE, FASTING 84 MG/DL (70-100); POTASSIUM SERUM 4.3 MEQ/L (3.5-5.1); SODIUM LEVEL 123 MEQ/L (136-145); TOTAL PROTEIN 6.7 GM/DL (6.4-8.2); TROPONIN I 0.03 NG/ML (< 0.10)
[2018-09-28] MEDS ORDERED: NS 1,000 ML IV ONE (18:30)
[2018-09-28] MEDS ORDERED: LIDOCAINE 2% MDV 20 ML VIAL SC ONE (18:45)
--- NOTE | 2018-09-28 19:48 | HPEPDOC ---
[facility] Medical History & Physical Date of Admission Sep 28, 2018 Date of Service: Sep 28, 2018 History and Physical CHIEF COMPLAINT: s/p fall, found on the ground HISTORY OF PRESENT ILLNESS: Pt is 73 y/o M with Hx of COPD, Afib on eliquis, ETOH use who was found on the floor by his . Pt's called EMS to bring him to ER. Upon my encounter in the ED, pt is awake and alert. Pt is in no acute distress. He states that he fell in his house while he was trying to go up the stairs. He did not loose consciousness, did not have any head trauma. He remembers what has happened, however he was not able to get up due to muscle weakness and fatigue. He denies any chest pain or palpitations. ED course: He found to have lacerations in finger and Lt knee which was sutured. CPK 3928 Cr. WNL. Hyponatremia Na 123. S/P [address] no hemorrhage, no acute finding. 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 REVIEW OF SYSTEMS: 10 point negative except above HOME MEDICATIONS: Please see below. PHYSICAL EXAMINATION: GENERAL APPEARANCE: pt is awake and alert oriented HEENT: facial erythema, no discharge, no head laceration, no ecchymoses CARDIOVASCULAR: S1 S2 no murmur LUNGS: scattered wheezing ABDOMEN: soft NT ND EXTREMITIES: Lt knee edematous with erythema , not warm, no drainage NEUROLOGICAL: CN intact, motor intact PSYCHIATRIC: mood affect NL LABORATORY DATA: See below. IMAGING: Head CT no acute finding CXR no infiltrates Lt Knee can not rule out fracture , possible calcification, recommended CT MICROBIOLOGY: Please see below. A/P 1-Fall 2-Syncope 3-Rhabdomyolysis 4-Hyponatremia 5-Alcoholic Liver Disease S/P IVF NS 1 Lt in ED cont 150 ml/hr will decrease in morning to 80 ml/hr Last Echo reviewed EF 65% Na 123 in the setting of daily beer use, monitor closely Wound care for laceration on finger and Lt knee CT of Lt knee to rule out fracture, consider Ortho consult SW/CM Consult for chronic ETOH Use PT/OT DVT Prophylaxis Vital Signs Vital Signs Date Time Temp Pulse Resp B/P (MAP) Pulse Ox O2 Delivery O2 Flow Rate FiO2 09/28/18 19:37 89 20 95 Room Air 09/28/18 19:30 141/81 (101) 09/28/18 18:31 97.9 Laboratory Data Labs 24H Laboratory Tests 2 09/28/18 16:54: Immature Granulocyte % (Auto) 0.5, White Blood Count 16.3H, Red Blood Count 4.16L, Hemoglobin 13.5, Hematocrit 37.0L, Mean Corpuscular Volume 88.9, Mean Corpuscular Hemoglobin 32.5, Mean Corpuscular Hemoglobin Concent 36.5, Red Cell Distribution Width 12.8, Platelet Count 346, Neutrophils (%) (Auto) 83.9H, Lymphocytes (%) (Auto) 7.2L, Monocytes (%) (Auto) 6.8H, Eosinophils (%) (Auto) 1.2, Basophils (%) (Auto) 0.4, Neutrophils # (Auto) 13.7H, Lymphocytes # (Auto) 1.2L, Monocytes # (Auto) 1.1H, Eosinophils # (Auto) 0.2, Basophils # (Auto) 0.1, Nucleated Red Blood Cells % (auto) 0.0, Prothrombin Time 14.2, Prothromb Time International Ratio 1.09, Activated Partial Thromboplast Time 31.0, Anion Gap 14, Glomerular Filtration Rate > 60.0, Calcium Level 9.0, Aspartate Amino Transf (AST/SGOT) 126H, Alanine Aminotransferase (ALT/SGPT) 60, Alkaline Phosphatase 104, Total Bilirubin 0.5, Direct Bilirubin 0.2, Total Creatine Kinase 3928H, Creatine Kinase MB 50.9H, Creatine Kinase MB Relative Index 1.30, Troponin I 0.03, Total Protein 6.7, Albumin 3.8, Albumin/Globulin Ratio 1.31, Ethyl Alcohol Level 0.092H CBC/BMP Laboratory Tests 09/28/18 16:54 Red Blood Count 4.16 L, Mean Corpuscular Volume 88.9, Mean Corpuscular Hemoglobin 32.5, Mean Corpuscular Hemoglobin Concent 36.5, Red Cell Distribution Width 12.8, Neutrophils (%) (Auto) 83.9 H, Lymphocytes (%) (Auto) 7.2 L, Monocytes (%) (Auto) 6.8 H, Eosinophils (%) (Auto) 1.2, Basophils (%) (Auto) 0.4, Neutrophils # (Auto) 13.7 H, Lymphocytes # (Auto) 1.2 L, Monocytes # (Auto) 1.1 H, Eosinophils # (Auto) 0.2, Basophils # (Auto) 0.1 Home Medications Scheduled Allopurinol (Allopurinol) 100 Mg Tablet, 100 MG PO BID TAKES WITH BREAKFAST AND DINNER Apixaban (Eliquis) 5 Mg Tab, 5 MG PO BID Atorvastatin Calcium (Atorvastatin Calcium) 20 Mg Tablet, 20 MG PO QHS Budesonide/Formoterol (Symbicort 160-4.5 Mcg Inhaler) 60 Puff/Inhaler Aers, 2 PUFF INH BID Calcium Carbonate (Calcium) 500 Mg Chw, 1,000 MG PO WM Folic Acid (Folic Acid) 1 Mg Tab, 1 MG PO DAILY Magnesium Chloride (Mag64) 64 Mg Tablet.dr, 64 MG PO BID Multivitamins (Thera M Plus Tablet) 1 Tab Tab, 1 TAB PO BID Spironolactone (Spironolactone) 25 Mg Tablet, 25 MG PO DAILY Tamsulosin HCl (Flomax) 0.4 Mg Cap, 0.4 MG PO QPM PATIENT TAKES AFTER DINNER Thiamine Hcl (Vitamin B-1) 100 Mg Tab, 100 MG PO DAILY Tiotropium Mckenna (Spiriva) 18 Mcg Cap, 1 INHALATION INH DAILY Torsemide (Torsemide) 20 Mg Tablet, 20 MG PO BID TAKES AT 0500 AND 1700 Verapamil HCl (Verapamil HCl) 40 Mg Tablet, 40 MG PO TID PATIENT TAKES AT 0200, 1000, AND 1800 Scheduled PRN Acetaminophen (Acetaminophen) 500 Mg Tablet, 500 MG PO QAM PRN for PAIN Albuterol Sulfate (Ventolin Hfa) 18 Gm Hfa.aer.ad, 2 PUFF INH Q4H PRN for SHORTNESS OF BREATH Miscellaneous Medications [Pharmacy Comment] MEDS VERIFIED WITH [facility] Allergies Coded Allergies: No Known Allergies (Unverified , 09/28/18) A-FIB/CHADSVASC A-FIB History Current/History of A-Fib/PAF?: Yes Current PO Anticoag Therapy: Yes LIEN SARGENT MD Sep 28, 2018 19:48
[2018-09-28] MEDS ORDERED: VENTAER INH (20:14)
[2018-09-28] MEDS ORDERED: ATOR40TA75 PO (20:14)
[2018-09-28] MEDS ORDERED: ACET-683 PO (20:14)
[2018-09-28] MEDS ORDERED: ATOR1TAB21 PO (20:25)
[2018-09-28] MEDS ORDERED: MAGN64TASA PO (20:25)
[2018-09-28] MEDS ORDERED: SPIR-10 PO (20:25)
[2018-09-28] MEDS ORDERED: TORS20TA2 PO (20:25)
[2018-09-28] MEDS ORDERED: VERA40TA PO (20:25)
[2018-09-28] MEDS ORDERED: ALLO10TA PO (20:26)
[2018-09-28] MEDS ORDERED: PHARMACY COMMENT (20:27)
[2018-09-28] MEDS: MAGNESIUM CHLORIDE 64 MG TABCR (SLO MAG) PO SCH (21:00)
[2018-09-28] MEDS ORDERED: ACETAMINOPHEN TAB 650MG DOSE (2X325MG) PO ONE (22:15)
[2018-09-28] MEDS ORDERED: IPRATROPIUM 0.5MG/ALBUTEROL 2.5MG INH SOL UD 3ML (DUONEB)(J7620) NEB PRN (22:45)
[2018-09-28 23:10] VITALS: BP 140/106
[2018-09-29] MEDS ORDERED: ACETAMINOPHEN TAB 650MG DOSE (2X325MG) PO PRN (00:45)
[2018-09-29] MEDS: VERAPAMIL 40 MG TAB PO SCH ×4 (00:49→22:02)
[2018-09-29] MEDS: ATORVASTATIN 20 MG TAB PO SCH ×2 (00:49→21:17)
[2018-09-29] MEDS: TAMSULOSIN 0.4 MG CAP PO SCH ×2 (00:49→18:08)
[2018-09-29] MEDS: APIXABAN 5 MG TAB (ELIQUIS) PO SCH ×3 (00:49→21:17)
[2018-09-29] MEDS: IPRATROPIUM 0.5MG/ALBUTEROL 2.5MG INH SOL UD 3ML (DUONEB)(J7620) NEB SCH ×4 (02:00→20:00)
[2018-09-29 04:00] VITALS: BP 130/72
[2018-09-29] MEDS ORDERED: HEPARIN SOD (PORCINE) 5000 UNITS/ML VIAL SC SCH (06:00)
[2018-09-29 06:23] LABS: HEMATOCRIT 37.3 % (42.0-52.0); HEMOGLOBIN 13.5 g/dl (13.5-17.5); MEAN CORPUSCULAR HEMOGLOBIN 33.3 pg (27.0-33.0); MEAN CORPUSCULAR HGB CONC 36.2 g/dl (32.0-36.5); MEAN CORPUSCULAR VOLUME 92.1 fl (80.0-96.0); PLATELET COUNT, AUTOMATED 314 10^3/uL (150-450); RED BLOOD COUNT 4.05 10^6/uL (4.30-6.10); WHITE BLOOD COUNT 9.8 10^3/uL (4.0-10.0)
[2018-09-29 06:35] LABS: INR 1.41; PROTHROMBIN TIME 17.5 SECONDS (12.1-14.4)
[2018-09-29 06:55] LABS: ALBUMIN 3.5 GM/DL (3.2-5.2); ALT/SGPT 78 U/L (12-78); BILIRUBIN,TOTAL 1.1 MG/DL (0.2-1.0); BLOOD UREA NITROGEN 20 MG/DL (7-18); CALCIUM LEVEL 8.8 MG/DL (8.8-10.2); CARBON DIOXIDE LEVEL 26 MEQ/L (21-32); CHLORIDE LEVEL 94 MEQ/L (98-107); CREATININE FOR GFR 0.95 MG/DL (0.70-1.30); GLOMERULAR FILTRATION RATE > 60.0 (>42); GLUCOSE, FASTING 94 MG/DL (70-100); MAGNESIUM LEVEL 1.9 MG/DL (1.8-2.4); POTASSIUM SERUM 3.9 MEQ/L (3.5-5.1); SODIUM LEVEL 127 MEQ/L (136-145); TOTAL PROTEIN 6.9 GM/DL (6.4-8.2)
[2018-09-29 08:00] VITALS: BP 154/83
[2018-09-29] MEDS ORDERED: GLUCAGON FOR INJ 1 MG VIAL (J1610) SC PRN (08:15)
[2018-09-29] MEDS ORDERED: ALBUTEROL SULFATE 2.5 MG/0.5 ML INH NEB SOLN INH PRN (08:15)
[2018-09-29] MEDS ORDERED: GLUCOSE 4 GM CHEW TABLET PO PRN (08:15)
[2018-09-29] MEDS ORDERED: DEXTROSE 50% 50 ML SYRINGE IV PRN (08:15)
[2018-09-29] MEDS: THIAMINE 100 MG TAB PO SCH (08:55)
[2018-09-29] MEDS: FOLIC ACID 1 MG TAB PO SCH (08:55)
[2018-09-29] MEDS: MULTIVITAMINS/MINERALS THERAP 1 TAB PO SCH ×2 (08:56→21:17)
[2018-09-29] MEDS: ALLOPURINOL 100 MG TAB PO SCH ×2 (08:56→21:17)
[2018-09-29] MEDS: MAGNESIUM CHLORIDE 64 MG TABCR (SLO MAG) PO SCH ×2 (08:57→21:17)
[2018-09-29] MEDS: NICOTINE 21MG/24HR 1 EA TRANSDERMAL TD SCH (08:57)
[2018-09-29] MEDS ORDERED: SPIRONOLACTONE 25 MG TAB PO SCH (09:00)
[2018-09-29 09:08] LABS: CPK CREATINE PHOSPHOKINASE 4706 U/L (39-308)
--- NOTE | 2018-09-29 10:02 | REP ---
CT LEFT KNEE: CT left knee was performed in the axial plane. Sagittal and coronal reconstruction images are performed. There is no evidence of acute fracture or dislocation. There are linear ligamentous calcifications seen along the medial femoral condyle at the insertion of the medial collateral ligament. Vascular calcifications are seen posteriorly. There is a mild medial joint space narrowing and mild subchondral sclerosis. There is mild patellofemoral compartment narrowing. There is mild diffuse subcutaneous soft tissue edema anteriorly. There is not a significant joint effusion. IMPRESSION: No acute fracture or dislocation. Mild ligamentous calcifications in the medial collateral ligament at its insertion on to the medial femoral condyle. Mild degenerative changes. Electronically Signed by Blair Lima MD 09/29/2018 04:29 P
[2018-09-29] MEDS: OXAZEPAM 15 MG CAP PO SCH ×3 (11:03→21:17)
--- NOTE | 2018-09-29 11:29 | IPNPDOC ---
Date Seen The patient was seen on 09/29/18. Progress Note SUBJECTIVE: Mr. Victoria is a 73 year-old man with Hx of COPD, A fib on Eliquis, ETOH use, who presented to the ER after a syncopal episode yesterday in which his found him on the floor. He reports that he was walking towards the stairs on his porch when he experienced sob and stopped walking to catch his breath. He stated that the next thing he knew, he had fallen down into the mulch and was too weak to stand or pull himself up. He reports being stuck in that location from 11:30 am to 4:00 pm until EMS was called and he was taken to the ER. Patient states that he thinks he blacked out during this episode and believes he came to shortly after the syncopal episode. He reports having 2 episodes like this in the past that prompted evaluation in the ER with no definitive etiology of his syncope. He states that he did not black out during these past episodes. Patient reports that he often has trouble with his balance and requires a few moments before ambulation to get his feet under him due to dizziness and leg weakness. Patient denies lightheadedness, headache, palpitations, convulsions, urination, defecation, biting tongue, or changes in vision before he fell. Mr. Victoria said he must have hit his head during his fall due to a small abrasion noticed on his left forehead by his hairline. He states that there is a little soreness in that area but no significant pain or lacerations. He thinks that he must have grabbed onto the railing during his fall which cut open the pa lmar aspect of his left 5th digit, requiring sutures. He states that the finger is bothersome but there is no significant pain. Any discomfort in his finger is relieved with Acetaminophen. He also has superficial abrasions, swelling and erythema located over his left knee. He states that there is only soreness of the knee, no sharp pain on movement or palpation, no decreased ROM and he is able to ambulate fine. Patient denies paresthesias, changes in sensation, or weakness more than normal of the left leg. Patient denies cp, sob different from his normal dyspnea on exertion, nausea, vomiting, fever, chills, headaches, or excessive fatigue. He reports a resting tremor and some constipation today. Patient denies signs of ETOH withdrawal such as hallucinations, visual changes, GI upset, diaphoresis, or palpitations. OBJECTIVE PHYSICAL EXAMINATION: VITAL SIGNS: Please see below. GENERAL: pleasant male sitting at the edge of his bed, AAOx3, NAD, speaking in full sentences although a little hard of hearing, comfortable appearing HEENT: Moist mucus membranes, EOMI, no JVD appreciated, superficial abrasion on left forehead by hairline, no head lacerations CARDIO: normal s1 and s2., no murmurs, gallops, rubs RESP: +wheezing ABDOMEN: no hepatosplenomegaly, no masses, nabsx4, no pain to palpation, no distension, no rebound rigidity or guarding EXTREMITIES: Left 5th digit is bandaged and has sutures, mild erythema and swelling, no discharge or purulent debris. Left knee sore to palpation over the knee cap. Normal ROM b/l of LE. Normal gait and no pain on ambulation. Erythema and swelling over the left knee with superficial abrasions, no lacerations present. Healed incision over medial left knee from arthroplasty performed in 1981. No pitting edema of legs b/l. Left elbow bandaged, no significant swelling or erythema. No cyanosis or clubbing. Ecchymoses present on left forearm, patient is on Eliquis for A fib. NEUROLOGICAL: Spontaneously moving all 4 limbs. Symmetric 5/5 strength in legs and ankles b/l. Symmetric sensation in legs b/l. PSYCHOLOGICAL: Appropriate affect LABORATORY DATA, IMAGING STUDIES, MICROBIOLOGY: Please see below. IMAGING: - Head CT: No acute findings - Knee X-ray: Fracture versus Pelligrini Stieda calcification of the medial femoral condyle. - Finger X-ray: I suspect there is soft tissue injury. This should be confirmed clinically. There is no fracture or dislocation. There is no foreign body. There is mild joint space narrowing of the PIP and DIP articulations. - Chest X-ray: Negative PA and lateral chest. There is no interval change - Left Leg CT: No acute fracture or dislocation. Mild ligamentous calcifications in the medial collateral ligament at its insertion on to the medial femoral condyle. Mild degenerative changes. DVT prophylaxis ordered?: Eliquis ASSESSMENT AND PLAN: This is a 73-year-old male who presented to the ER after a syncopal episode, left 5th digit laceration that required sutures, and left knee swelling and erythema PROBLEMS: 1. Fall, left knee and left 5th digit wound care - Monitor superficial wounds on left elbow, and left knee and sutures in left palmar 5th digit for signs of infection - Wound care - Will work with PT - Left Leg CT: No acute fracture or dislocation. Mild ligamentous calcifications in the medial collateral ligament at its insertion on to the medial femoral condyle. Mild degenerative changes. Will hold Ortho cx for now 2. Syncope -Do not suspect cardiac etiology, he is monitored on tele, 1x troponin negative, ETOH level was .09 on admission, likely secondary to patients ETOH abuse, he denied preceding cp, sob, palpitations, urinating or deficating himself prior to event, no light headedness either was admitted -CT head negative for intracranial bleed 3. Traumatic Rhabdomyolysis - likely 2/2 fall - Total CK: 4706 today up from 3928 yesterday, c/w IVF 4. Hyponatremia - Na 127 today in the setting of daily beer use, monitor closely - Has improved with IV fluid hydration - Will c/w IV fluid hydration for next 24 hours; with close follow up 5. Alcoholic Liver Disease -he will likely need outpt ref for ETOH abuse and work up, his AST is classically 2x ALT, he should have outpt work up for other causes of liver dysfunction such as hematochromatosis and autoimmune cirrhosis, liver u/s, afp- this doesn't have to be done right now 6. Tremulousness - possibly 2/2 ETOH withdrawal - Patient had resting tremor of his upper extremities on physical exam this morning, has denied visual or auditory hallucinations - Will start Serax to reduce tremors and taper as tolerated 7. Shortness of breath - Rhonchi heard throughout on physical exam, patient has history of COPD - Breathing treatments as needed -CXR without focal consolidation 8.-ETOH abuse PFS Consult for chronic ETOH Use, c/w thiamine and folate 9. DVT px -scd/teds DISPOSITION: Favorable but still guarded given heavy ETOH abuse and falls/passing out spells. Patient denies pain on ambulation and movement of left knee. He has preserved ROM and symmetric 5/5 strength and sensation in both lower extremities. Left Leg CT: No acute fracture or dislocation. Mild ligamentous calcifications in the medial collateral ligament at its insertion on to the medial femoral condyle. Mild degenerative changes. Left 5th digit sutures appear mildly erythematous with no significant swelling, pain, or purulent discharge. Continue Acetaminophen for pain control. Serax was given due to tremulousness 2/2 ETOH withdrawal. Wound care for left knee and left 5th digit, work with PT. Breathing treatments as needed for sob due to PMHx of COPD. Monitor hyponatremia and CK levels. VS, I&O, 24H, Fishbone Vital Signs/I&O Vital Signs Date Time Temp Pulse Resp B/P (MAP) Pulse Ox O2 Delivery O2 Flow Rate FiO2 09/29/18 08:56 91 154/83 09/29/18 08:00 97.3 20 97 09/28/18 19:37 Room Air I&O- Last 24 Hours up to 6 AM 09/29/18 06:00 Intake Total 0 ml Output Total 0 ml Balance 0 ml Laboratory Data 24H LABS Laboratory Tests 2 09/28/18 16:54: Immature Granulocyte % (Auto) 0.5, White Blood Count 16.3H, Red Blood Count 4.16L, Hemoglobin 13.5, Hematocrit 37.0L, Mean Corpuscular Volume 88.9, Mean Corpuscular Hemoglobin 32.5, Mean Corpuscular Hemoglobin Concent 36.5, Red Cell Distribution Width 12.8, Platelet Count 346, Neutrophils (%) (Auto) 83.9H, Lymphocytes (%) (Auto) 7.2L, Monocytes (%) (Auto) 6.8H, Eosinophils (%) (Auto) 1.2, Basophils (%) (Auto) 0.4, Neutrophils # (Auto) 13.7H, Lymphocytes # (Auto) 1.2L, Monocytes # (Auto) 1.1H, Eosinophils # (Auto) 0.2, Basophils # (Auto) 0.1, Nucleated Red Blood Cells % (auto) 0.0, Prothrombin Time 14.2, Prothromb Time International Ratio 1.09, Activated Partial Thromboplast Time 31.0, Anion Gap 14, Glomerular Filtration Rate > 60.0, Calcium Level 9.0, Aspartate Amino Transf (AST/SGOT) 126H, Alanine Aminotransferase (ALT/SGPT) 60, Alkaline Phosphatase 104, Total Bilirubin 0.5, Direct Bilirubin 0.2, Total Creatine Kinase 3928H, Creatine Kinase MB 50.9H, Creatine Kinase MB Relative Index 1.30, Troponin I 0.03, Total Protein 6.7, Albumin 3.8, Albumin/Globulin Ratio 1.31, Ethyl Alcohol Level 0.092H 09/29/18 05:59: Nucleated Red Blood Cells % (auto) 0.0, Prothrombin Time 17.5H, Prothromb Time International Ratio 1.41, Anion Gap 7L, Glomerular Filtration Rate > 60.0, Calcium Level 8.8, Aspartate Amino Transf (AST/SGOT) 192H, Alanine Aminotransferase (ALT/SGPT) 78, Alkaline Phosphatase 104, Total Bilirubin 1.1#H, Total Creatine Kinase 4706H, Total Protein 6.9, Albumin 3.5, Albumin/Globulin Ratio 1.03, Blood Urea Nitrogen 20H, Creatinine 0.95, Sodium Level 127L, Potassium Level 3.9, Chloride Level 94L, Carbon Dioxide Level 26, Magnesium Level 1.9 CBC/BMP Laboratory Tests 09/28/18 16:54 Red Blood Count 4.16 L, Mean Corpuscular Volume 88.9, Mean Corpuscular Hemoglobin 32.5, Mean Corpuscular Hemoglobin Concent 36.5, Red Cell Distribution Width 12.8, Neutrophils (%) (Auto) 83.9 H, Lymphocytes (%) (Auto) 7.2 L, Monocytes (%) (Auto) 6.8 H, Eosinophils (%) (Auto) 1.2, Basophils (%) (Auto) 0.4, Neutrophils # (Auto) 13.7 H, Lymphocytes # (Auto) 1.2 L, Monocytes # (Auto) 1.1 H, Eosinophils # (Auto) 0.2, Basophils # (Auto) 0.1 09/29/18 05:59 Red Blood Count 4.05 L, Mean Corpuscular Volume 92.1, Mean Corpuscular Hemoglobin 33.3 H, Mean Corpuscular Hemoglobin Concent 36.2, Red Cell Distribution Width 13.0, Calcium Level 8.8, Aspartate Amino Transf (AST/SGOT) 192 H, Alanine Aminotransferase (ALT/SGPT) 78, Total Creatine Kinase 4706 H, Alkaline Phosphatase 104, Total Bilirubin 1.1 #H, Total Protein 6.9, Albumin 3.5 GME ATTESTATION GME ATTESTATION My faculty preceptor for this patient encounter was physically present during the encounter and was fully available. All aspects of the patient interview, examination, medical decision making process, and medical care plan development were reviewed and approved by the faculty preceptor. The faculty preceptor is aware and concurs with the plan as stated in the body of this note and will attest to such by his/her cosignature. ATTENDING NOTE I, Darling Ann, have both independently examined this patient as well as reviewed the documentation. I have discussed in detail with the resident the findings and plan of treatment as documented in the residents documentation and I agree with what is stated. I will continue to follow the patient and offer further guidance to the patients care as necessary during this hospital stay. KEENAN YOUNG OMS-3 Sep 29, 2018 11:29 CARMITA SCHUMACHER DO Sep 29, 2018 18:26 DARLING ANN MD Sep 29, 2018 20:24
[2018-09-29] MEDS: SYMBICORT 160/4.5MCG INHALER 6GM INH SCH ×2 (11:31→20:07)
[2018-09-29] MEDS: TIOTROPIUM INHALER/CAPSULE (SPIRIVA) INH SCH (11:32)
[2018-09-29 11:36] VITALS: BP 133/67
[2018-09-29] MEDS: HumaLOG INSULIN (NovoLOG) PER UNIT SC SCH ×2 (11:53→17:21)
[2018-09-29] MEDS: NS 1,000 ML IV SCH ×2 (11:54→21:16)
[2018-09-29] MEDS: ALBUTEROL SULFATE 2.5 MG/0.5 ML INH NEB SOLN INH SCH ×2 (12:00→20:00)
[2018-09-29 14:08] VITALS: BP 140/80
[2018-09-29 15:45] LABS: BLOOD UREA NITROGEN 24 MG/DL (7-18); CALCIUM LEVEL 8.8 MG/DL (8.8-10.2); CARBON DIOXIDE LEVEL 24 MEQ/L (21-32); CHLORIDE LEVEL 94 MEQ/L (98-107); GLOMERULAR FILTRATION RATE > 60.0 (>42); GLUCOSE, FASTING 110 MG/DL (70-100); POTASSIUM SERUM 4.2 MEQ/L (3.5-5.1); SODIUM LEVEL 127 MEQ/L (136-145)
[2018-09-29 18:00] VITALS: BP 136/60
[2018-09-29] MEDS ORDERED: HumaLOG INSULIN (NovoLOG) PER UNIT SC SCH (21:00)
[2018-09-29 21:30] LABS: BLOOD UREA NITROGEN 20 MG/DL (7-18); CALCIUM LEVEL 8.4 MG/DL (8.8-10.2); CARBON DIOXIDE LEVEL 27 MEQ/L (21-32); CHLORIDE LEVEL 98 MEQ/L (98-107); CREATININE FOR GFR 0.76 MG/DL (0.70-1.30); GLOMERULAR FILTRATION RATE > 60.0 (>42); GLUCOSE, FASTING 121 MG/DL (70-100); POTASSIUM SERUM 3.5 MEQ/L (3.5-5.1); SODIUM LEVEL 130 MEQ/L (136-145)
[2018-09-29 22:00] VITALS: BP 138/77
[2018-09-30] MEDS: IPRATROPIUM 0.5MG/ALBUTEROL 2.5MG INH SOL UD 3ML (DUONEB)(J7620) NEB SCH ×2 (02:00→08:00)
[2018-09-30 06:00] VITALS: BP_SYST 130; BP_SYST 153; BP_DIAS 60; BP_DIAS 67
[2018-09-30 06:16] LABS: INR 1.24; PROTHROMBIN TIME 15.8 SECONDS (12.1-14.4)
[2018-09-30 06:32] LABS: BLOOD UREA NITROGEN 15 MG/DL (7-18); CALCIUM LEVEL 9.2 MG/DL (8.8-10.2); CARBON DIOXIDE LEVEL 24 MEQ/L (21-32); CHLORIDE LEVEL 102 MEQ/L (98-107); CREATININE FOR GFR 0.65 MG/DL (0.70-1.30); GLOMERULAR FILTRATION RATE > 60.0 (>42); GLUCOSE, FASTING 105 MG/DL (70-100); POTASSIUM SERUM 3.8 MEQ/L (3.5-5.1); SODIUM LEVEL 134 MEQ/L (136-145)
[2018-09-30] MEDS: NS 1,000 ML IV SCH (07:00)
[2018-09-30] MEDS: HumaLOG INSULIN (NovoLOG) PER UNIT SC SCH ×2 (07:47→11:49)
[2018-09-30] MEDS: ALBUTEROL SULFATE 2.5 MG/0.5 ML INH NEB SOLN INH SCH ×2 (08:00→10:01)
[2018-09-30] MEDS: SYMBICORT 160/4.5MCG INHALER 6GM INH SCH (08:41)
[2018-09-30] MEDS: MULTIVITAMINS/MINERALS THERAP 1 TAB PO SCH (08:56)
[2018-09-30] MEDS: ALLOPURINOL 100 MG TAB PO SCH (08:56)
[2018-09-30] MEDS: FOLIC ACID 1 MG TAB PO SCH (08:56)
[2018-09-30] MEDS: THIAMINE 100 MG TAB PO SCH (08:56)
[2018-09-30] MEDS: APIXABAN 5 MG TAB (ELIQUIS) PO SCH (08:57)
[2018-09-30] MEDS: NICOTINE 21MG/24HR 1 EA TRANSDERMAL TD SCH (08:57)
[2018-09-30 08:58] VITALS: BP 153/67
[2018-09-30] MEDS: MAGNESIUM CHLORIDE 64 MG TABCR (SLO MAG) PO SCH (08:58)
[2018-09-30] MEDS: VERAPAMIL 40 MG TAB PO SCH (08:58)
[2018-09-30] MEDS ORDERED: OXAZEPAM 15 MG CAP PO SCH (09:00)
[2018-09-30] MEDS: TIOTROPIUM INHALER/CAPSULE (SPIRIVA) INH SCH (10:01)
--- NOTE | 2018-09-30 10:13 | IPNPDOC ---
Date Seen The patient was seen on 09/30/18. Progress Note SUBJECTIVE: Mr. Victoria is seen this morning on rounds sitting in his chair by the window. He reports that he is improving from yesterday, he slept well and has had an increased appetite. He states that the abrasion on his left forehead by his hairline and his left elbow are not bothersome to him, that they are only slightly sore to palpation. He states that his left 5th digit is doing well tod ay and that he only experiences some mild discomfort that is relieved by Tylenol. His left knee continues to have some swelling and erythema with superficial abrasions. He states that there is only soreness of the knee on palpation. He has no difficulty ambulating and he denies pain with movement, p aresthesias, weakness more than normal or decreased ROM of his left LE. He does state that he is having some mild bilateral soreness from his knees to buttocks region. The breathing treatments he received yesterday helped his sob. He noticed the Serax has decreased some of his resting b/l UE tremors. Patient denies cp, sob different from his normal dyspnea on exertion, nausea, vomiting, fever, chills, headaches, or excessive fatigue. Patient denies signs of ETOH withdrawal such as hallucinations, visual changes, GI upset, diaphoresis, or palpitations. OBJECTIVE PHYSICAL EXAMINATION: VITAL SIGNS: Please see below. GENERAL: pleasant male sitting in his chair by the window, AAOx3, NAD, speaking in full sentences, comfortable appearing HEENT: Moist mucus membranes, EOMI, no JVD appreciated, superficial abrasion on left forehead by hairline, no head lacerations CARDIO: normal s1 and s2., no murmurs, gallops, rubs RESP: +wheezing throughout all lung lopez ABDOMEN: no hepatosplenomegaly, no masses, nabsx4, no pain to palpation, no distension, no rebound rigidity or guarding EXTREMITIES: Left 5th digit is bandaged and has sutures, mild erythema and swelling, no discharge or purulent debris. Left knee sore to palpation over the knee cap. Normal ROM b/l of LE. Normal gait and no pain on ambulation. Erythema and swelling over the left knee with superficial abrasions, no lacerations present. Healed incision over medial left knee from arthroplasty performed in 1981. No pitting edema of legs b/l. Left elbow bandaged, no significant swelling or erythema. No cyanosis or clubbing. Ecchymoses present on left forearm, patient is on Eliquis for A fib. Tremulousness improved from yesterday. NEUROLOGICAL: Spontaneously moving all 4 limbs. Symmetric 5/5 strength in legs and ankles b/l. Symmetric sensation in legs b/l. PSYCHOLOGICAL: Appropriate affect LABORATORY DATA, IMAGING STUDIES, MICROBIOLOGY: Please see below. IMAGING: - Head CT: No acute findings - Knee X-ray: Fracture versus Pelligrini Stieda calcification of the medial femoral condyle. - Finger X-ray: I suspect there is soft tissue injury. This should be confirmed clinically. There is no fracture or dislocation. There is no foreign body. There is mild joint space narrowing of the PIP and DIP articulations. - Chest X-ray: Negative PA and lateral chest. There is no interval change - Left Leg CT: No acute fracture or dislocation. Mild ligamentous calcifications in the medial collateral ligament at its insertion on to the medial femoral condyle. Mild degenerative changes. DVT prophylaxis ordered?: Eliquis ASSESSMENT AND PLAN: This is a 73-year-old male who presented to the ER after a syncopal episode, left 5th digit laceration that required sutures, and left knee swelling and erythema PROBLEMS: 1. Fall, left knee and left 5th digit wound care - Monitor superficial wounds on left elbow, and left knee and sutures in left palmar 5th digit for signs of infection - Wound care - Will work with PT today - Left Leg CT: No acute fracture or dislocation. Mild ligamentous calcifications in the medial collateral ligament at its insertion on to the medial femoral condyle. Mild degenerative changes. Will hold Ortho cx for now 2. Syncope -Do not suspect cardiac etiology, he is monitored on tele, 1x troponin negative, ETOH level was .09 on admission, likely secondary to patients ETOH abuse, he denied preceding cp, sob, palpitations, urinating or deficating himself prior to event, no light headedness either was admitted -CT head negative for intracranial bleed 3. Traumatic Rhabdomyolysis - likely 2/2 fall - Total CK: 4706 yesterday up from 3928 the day before 4. Hyponatremia - Na 134 today in the setting of daily beer use, monitor closely - Has improved with IV fluid hydration - IVF were d/c; will monitor 5. Alcoholic Liver Disease -he will likely need outpt ref for ETOH abuse and work up, his AST is classically 2x ALT, he should have outpt work up for other causes of liver dysfunction such as hematochromatosis and autoimmune cirrhosis, liver u/s, afp- this doesn't have to be done right now 6. Tremulousness - possibly 2/2 ETOH withdrawal - Patient had resting tremor of his upper extremities on physical exam this morning, has denied visual or auditory hallucinations - Serax improved symptoms, will taper this today and monitor 7. Shortness of breath - Wheezing heard throughout on physical exam, patient has history of COPD - Breathing treatments as needed -CXR without focal consolidation 8.-ETOH abuse PFS Consult for chronic ETOH Use, c/w thiamine and folate 9. DVT px -scd/teds DISPOSITION: Favorable but still guarded given heavy ETOH abuse and falls/passing out spells. Patient denies pain on ambulation and movement of left knee. He has preserved ROM and symmetric 5/5 strength and sensation in both lower extremities. Left 5th digit sutures appear mildly erythematous with no significant swelling, pain, or purulent discharge. Continue Acetaminophen for pain control. Serax has helped his tremulousness 2/2 ETOH withdrawal. Wound care for left knee and left 5th digit, work with PT. Breathing treatments as needed for sob due to PMHx of COPD. Monitor hyponatremia and CK levels. VS, I&O, 24H, [place] Vital Signs/I&O Vital Signs Date Time Temp Pulse Resp B/P (MAP) Pulse Ox O2 Delivery O2 Flow Rate FiO2 09/30/18 08:58 84 153/67 09/30/18 06:00 96.7 18 92 09/28/18 19:37 Room Air l I&O- Last 24 Hours up to 6 AM 09/30/18 06:00 Intake Total 2770 ml Output Total 925 ml Balance 1845 ml Laboratory Data 24H LABS Laboratory Tests 2 09/29/18 11:36: Bedside Glucose (Misc Panel) 94 09/29/18 14:45: Anion Gap 9, Glomerular Filtration Rate > 60.0, Blood Urea Nitrogen 24H, Creat inine 0.90, Sodium Level 127L, Potassium Level 4.2, Chloride Level 94L, Carbon Dioxide Level 24, Calcium Level 8.8 09/29/18 16:42: Bedside Glucose (Misc Panel) 84 09/29/18 20:51: Bedside Glucose (Misc Panel) 111H 09/29/18 20:57: Anion Gap 5L, Glomerular Filtration Rate > 60.0, Blood Urea Nitrogen 20H, Creatinine 0.76, Sodium Level 130L, Potassium Level 3.5, Chloride Level 98, Carbon Dioxide Level 27, Calcium Level 8.4L 09/30/18 05:28: Anion Gap 8, Glomerular Filtration Rate > 60.0, Blood Urea Nitrogen 15, Creatin ine 0.65L, Sodium Level 134L, Potassium Level 3.8, Chloride Level 102, Carbon Dioxide Level 24, Calcium Level 9.2, Prothrombin Time 15.8H, Prothromb Time International Ratio 1.24 CBC/BMP Laboratory Tests 09/29/18 14:45 Calcium Level 8.8 09/29/18 20:57 Calcium Level 8.4 L 09/30/18 05:28 Calcium Level 9.2 GME ATTESTATION GME ATTESTATION My faculty preceptor for this patient encounter was physically present during the encounter and was fully available. All aspects of the patient interview, examination, medical decision making process, and medical care plan development were reviewed and approved by the faculty preceptor. The faculty preceptor is aware and concurs with the plan as stated in the body of this note and will attest to such by his/her cosignature. KEENAN YOUNG OMS-3 Sep 30, 2018 10:13
--- NOTE | 2018-09-30 11:37 | DS.PDOC ---
Discharge Summary General Date of Admission Sep 28, 2018 at 19:52 Date of Discharge Sep 30, 2018 Discharge Summary DISCHARGE DIAGNOSIS: Fall, left knee contusion and left 5th digit wound care 2/2 syncopal episode SECONDARY DIAGNOSIS: 1. Syncope - likely 2/2 to ETOH abuse, do not suspect cardiac etiology 2. Traumatic Rhabdomyolysis - likely 2/2 fall 3. Hyponatremia 4. Alcoholic Liver Disease 5. Tremulousness - possibly 2/2 ETOH withdrawal 6. Shortness of breath, Hx of COPD 7. ETOH abuse PROCEDURES PERFORMED DURING STAY: Sutures left 5th digit, palmar aspect CONSULTANTS: None HPI & HOSPITAL COURSE: Mr. Victoria is a 73 year-old man with Hx of COPD, A fib on Eliquis, ETOH use, who presented to the ER on 09/28 after a syncopal episode in which his found him. He reported that he was walking towards the stairs on his porch when he experienced sob and stopped walking to catch his breath. He s tated that the next thing he knew, he had fallen down into the mulch and was too weak to stand or pull himself up. He reports being stuck in that location from 11:30 am to 4:00 pm until EMS was called and he was taken to the ER. He was apparently too weak to get up himself. Patient thought he blacked out during this episode and believes he came to shortly after the syncopal episode. He reported having 2 episodes like this in the past that prompted evaluation in the ER with no definitive etiology of his syncope and no blacking out. Patient denied lightheadedness, headache, palpitations, convulsions, urination, defecation, biting tongue, or changes in vision before he fell. Mr. Victoria said he must have hit his head during his fall due to a small abrasion noticed on his left forehead by his hairline. Head CT in ER demonstrated no acute findings. He thinks that he must have grabbed onto the railing during his fall which cut open the palmar aspect of his left 5th digit, requiring sutures in the ED. Dressing changes were performed throughout his stay. He also has superficial abrasions, swelling and erythema located over his left knee. He states that there is only soreness of the knee, no sharp pain on movement or palpation, no decreased ROM and he is able to ambulate fine. Patient had Knee X-ray, Finger X-ray, and CXR on 09/28, results below. He also had a left lower extremity CT performed on 09/29 which showed no acute fracture or dislocation, mild ligamentous calcifications in the medial collateral ligament at its insertion on to the medial femoral condyle and mild degenerative changes. Due to these imaging results, Ortho cx was not needed. He received IVF for traumatic rhabdomyolysis likely 2/2 to his fall with improvement in CK. Hyponatremia was noted on admission and monitored throughout his stay, improved after IV fluid hydration. Wound care was provided for the laceration on his finger and left knee. Patient was put on Serax to improve his resting tremors possibly secondary to ETOH withdrawal. He denied signs of ETOH withdrawal such as hallucinations, diaphoresis, palpitations, or visual changes during his stay. He received breathing treatments for wheezing 2/2 to past history of COPD throughout his stay. DISCHARGE MEDICATIONS: Please see below. ALLERGIES: Please see below. SUBJECTIVE: Mr. Victoria is seen this morning on rounds sitting in his chair by e andrea. He reports that he is improving from yesterday, he slept well and has had an increased appetite. He states that the abrasion on his left forehead by his hairline and his left elbow are only slightly sore to palpation. He states that his left 5th digit is doing well today and that he only experiences some mild discomfort that is relieved by Tylenol. His left knee continues to have some swelling and erythema with superficial abrasions. He states that there is only soreness of the knee on palpation. He has no difficulty ambulating and he denies pain with movement, paresthesias, weakness more than normal or decreased ROM of his left LE. He does state that he is having some mild bilateral soreness from his knees to buttocks region. The breathing treatments he received yesterday helped his sob. He noticed the Serax has decreased some of his resting b/l UE tremors. Patient denies cp, sob different from his normal dyspnea on exertion, nausea, vomiting, fever, chills, headaches, or excessive fatigue. OBJECTIVE: PHYSICAL EXAMINATION: VITAL SIGNS: Please see below. GENERAL: pleasant male sitting in his chair by the window, AAOx3, NAD, speaking in full sentences, comfortable appearing HEENT: Moist mucus membranes, EOMI, no JVD appreciated, superficial abrasion on left forehead by hairline, no head lacerations CARDIO: normal s1 and s2., no murmurs, gallops, rubs RESP: mild wheezing throughout all lung lopez ABDOMEN: no hepatosplenomegaly, no masses, nabsx4, no pain to palpation, no distension, no rebound rigidity or guarding EXTREMITIES: Left 5th digit is bandaged and has sutures, mild erythema and swelling, no discharge or purulent debris. Left knee sore to palpation over the knee cap. Normal ROM b/l of LE. Normal gait and no pain on ambulation. Erythema and swelling over the left knee with superficial abrasions, no lacerations present. Healed incision over medial left knee from arthroplasty performed in 1981. No pitting edema of legs b/l. Left elbow bandaged, no significant swelling or erythema. No cyanosis or clubbing. Ecchymoses present on left forearm, patient is on Eliquis for A fib. Tremulousness improved from yesterday. NEUROLOGICAL: Spontaneously moving all 4 limbs. Symmetric 5/5 strength in legs and ankles b/l. Symmetric sensation in legs b/l. PSYCHOLOGICAL: Appropriate affect LABORATORY DATA, MICROBIOLOGY: Please see below. IMAGING STUDIES: - Head CT: No acute findings - Knee X-ray: Fracture versus Pelligrini Stieda calcification of the medial femoral condyle. - Finger X-ray: I suspect there is soft tissue injury. This should be confirmed clinically. There is no fracture or dislocation. There is no foreign body. There is mild joint space narrowing of the PIP and DIP articulations. - Chest X-ray: Negative PA and lateral chest. There is no interval change - Left Leg CT: No acute fracture or dislocation. Mild ligamentous calcifications in the medial collateral ligament at its insertion on to the medial femoral condyle. Mild degenerative changes. DVT prophylaxis ordered: Eliquis ASSESSMENT AND PLAN: This is a 73-year-old male who presented to the ER after a syncopal episode, left 5th digit laceration that required sutures, and left knee swelling and erythema PROBLEMS: 1. Fall, left knee and left 5th digit wound care 2. Syncope - likely 2/2 to ETOH abuse, do not suspect cardiac etiology 3. Traumatic Rhabdomyolysis - likely 2/2 fall 4. Hyponatremia 5. Alcoholic Liver Disease 6. Tremulousness - possibly 2/2 ETOH withdrawal 7. Shortness of breath, Hx of COPD 8. ETOH abuse DISPOSITION: Patient is showing clinical improvement and feels well enough to go home. Favorable prognosis but still guarded given heavy ETOH abuse and falls/passing out spells, not suspected to be cardiac etiology. Troponin negative. Pt was monitored on telemetry. Cleared by PT. Patient denies pain on ambulation. He has preserved ROM and symmetric 5/5 strength and sensation in both lower extremities. Left 5th digit sutures appear mildly erythematous with no significant swelling, pain, or purulent discharge, continue Acetaminophen for pain control. Serax has helped his tremulousness 2/2 ETOH withdrawal. He will likely need outpatient referral for ETOH abuse and work up, his AST is classically 2x ALT, he should have out-patient work up for other causes of liver dysfunction such as hematochromatosis and autoimmune cirrhosis, liver u/s, afp by PCP. He appeared to have wheezing throughout lung lopez on physical exam today on discharge, he received a breathing tx and felt better after, we will send for referral for [facility] cuff maker outpatient and would likely benefit from additional medication to control COPD symptoms at home, perhaps a PDE4 inhibitor. DISCHARGE CONDITION: Improved and Stable. FOLLOW UP: - With PCP 7-10 days after discharge. - Referral to pulmonology, would likely benefit from additional medication to control COPD symptoms. - Remain compliant with treatment plan and medications - Return to the ER if you experience any problems ACTIVITY: As prior to admission DIET: As prior to admission TIME SPENT ON DISCHARGE: 45 minutes Vital Signs/I&Os Vital Signs Date Time Temp Pulse Resp B/P (MAP) Pulse Ox O2 Delivery O2 Flow Rate FiO2 09/30/18 08:58 84 153/67 09/30/18 06:00 96.7 18 92 09/28/18 19:37 Room Air I&O- Last 24 Hours up to 6 AM 09/30/18 06:00 Intake Total 2770 ml Output Total 925 ml Balance 1845 ml Laboratory Data Labs 24H Laboratory Tests 2 09/29/18 11:36: Bedside Glucose (Misc Panel) 94 09/29/18 14:45: Anion Gap 9, Glomerular Filtration Rate > 60.0, Blood Urea Nitrogen 24H, Creatinine 0.90, Sodium Level 127L, Potassium Level 4.2, Chloride Level 94L, Carbon Dioxide Level 24, Calcium Level 8.8 09/29/18 16:42: Bedside Glucose (Misc Panel) 84 09/29/18 20:51: Bedside Glucose (Misc Panel) 111H 09/29/18 20:57: Anion Gap 5L, Glomerular Filtration Rate > 60.0, Blood Urea Nitrogen 20H, Creatinine 0.76, Sodium Level 130L, Potassium Level 3.5, Chloride Level 98, Carbon Dioxide Level 27, Calcium Level 8.4L 09/30/18 05:28: Anion Gap 8, Glomerular Filtration Rate > 60.0, Blood Urea Nitrogen 15, Creatinine 0.65L, Sodium Level 134L, Potassium Level 3.8, Chloride Level 102, Carbon Dioxide Level 24, Calcium Level 9.2, Prothrombin Time 15.8H, Prothromb Time International Ratio 1.24 CBC/BMP Laboratory Tests 09/29/18 14:45 Calcium Level 8.8 09/29/18 20:57 Calcium Level 8.4 L 09/30/18 05:28 Calcium Level 9.2 FSBS Laboratory Tests Test 09/29/18 11:36 09/29/18 16:42 09/29/18 20:51 Range/Units Bedside Glucose (Misc Panel) 94 84 111 83-110 MG/DL Discharge Medications Scheduled Allopurinol (Allopurinol) 100 Mg Tablet, 100 MG PO BID, (Reported) TAKES WITH BREAKFAST AND DINNER Apixaban (Eliquis) 5 Mg Tab, 5 MG PO BID, (Reported) Atorvastatin Calcium (Atorvastatin Calcium) 20 Mg Tablet, 20 MG PO QHS, (Reported) Budesonide/Formoterol (Symbicort 160-4.5 Mcg Inhaler) 60 Puff/Inhaler Aers, 2 PUFF INH BID, (Reported) Calcium Carbonate (Calcium) 500 Mg Chw, 1,000 MG PO WM, (Reported) Folic Acid (Folic Acid) 1 Mg Tab, 1 MG PO DAILY, (Reported) Magnesium Chloride (Mag64) 64 Mg Tablet.dr, 64 MG PO BID, (Reported) Multivitamins (Thera M Plus Tablet) 1 Tab Tab, 1 TAB PO BID, (Reported) Spironolactone (Spironolactone) 25 Mg Tablet, 25 MG PO DAILY, (Reported) Tamsulosin HCl (Flomax) 0.4 Mg Cap, 0.4 MG PO QPM, (Reported) PATIENT TAKES AFTER DINNER Thiamine Hcl (Vitamin B-1) 100 Mg Tab, 100 MG PO DAILY, (Reported) Tiotropium [place] (Spiriva) 18 Mcg Cap, 1 INHALATION INH DAILY, (Reported) Torsemide (Torsemide) 20 Mg Tablet, 20 MG PO BID, (Reported) TAKES AT 0500 AND 1700 Verapamil HCl (Verapamil HCl) 40 Mg Tablet, 40 MG PO TID, (Reported) PATIENT TAKES AT 0200, 1000, AND 1800 Scheduled PRN Acetaminophen (Acetaminophen) 500 Mg Tablet, 500 MG PO QAM PRN for PAIN, (Reported) Albuterol Sulfate (Ventolin Hfa) 18 Gm Hfa.aer.ad, 2 PUFF INH Q4H PRN for SHORTNESS OF BREATH, (Reported) Miscellaneous Medications [Pharmacy Comment] , (Reported) [facility]S [facility] WITH [facility] Allergies Coded Allergies: No Known Allergies (Unverified , 09/28/18) GME ATTESTATION GME ATTESTATION My faculty preceptor for this patient encounter was physically present during the encounter and was fully available. All aspects of the patient interview, examination, medical decision making process, and medical care plan development were reviewed and approved by the faculty preceptor. The faculty preceptor is aware and concurs with the plan as stated in the body of this note and will attest to such by his/her cosignature. ATTENDING NOTE I, Darling Ann, have independently examined this patient and performed my own physical exam, as well as reviewed the documentation and edited where necessary. I have discussed in detail with the resident / student the findings and plan of treatment as documented by the resident / student and edited their note. I agree with their findings and treatment plan and have edited their documentation. I will continue to follow the patient during this hospital stay. KEENAN YOUNG S-3 Sep 30, 2018 11:37 CARMITA SCHUMACHER DO Sep 30, 2018 13:28 DARLING ANN MD Sep 30, 2018 13:43
== END 2018-09-30 12:47 | disposition home or self-care (01) | DRG 565 ==
LOC: EDBD 16:22 → M ED 16:22 → M ED INP 19:52 → M PCU 23:16 → M MSPAV 09-29 14:02
PROVIDERS: ADMIT Hospitalist; ATTEND Internal Medicine
DX: T79.6XXA Traumatic ischemia of muscle, initial encounter (principal); E87.1 Hypo-osmolality and hyponatremia; F10.239 Alcohol dependence with withdrawal, unspecified; I50.32 Chronic diastolic (congestive) heart failure; K70.30 Alcoholic cirrhosis of liver without ascites; G25.2 Other specified forms of tremor; R55 Syncope and collapse; S80.02XA Contusion of left knee, initial encounter; J44.9 Chronic obstructive pulmonary disease, unspecified; I48.91 Unspecified atrial fibrillation; Z79.01 Long term (current) use of anticoagulants; W10.9XXA Fall (on) (from) unspecified stairs and steps, initial encounter; Y92.009 Unspecified place in unspecified non-institutional (private) residence as the place of occurrence of the external cause; E78.5 Hyperlipidemia, unspecified; I11.0 Hypertensive heart disease with heart failure; I27.20 Pulmonary hypertension, unspecified; F17.200 Nicotine dependence, unspecified, uncomplicated; Z79.899 Other long term (current) drug therapy; S61.217A Laceration without foreign body of left little finger without damage to nail, initial encounter

== ENCOUNTER 2018-11-03 07:52 | Emergency (ER) | payer OTHER, MEDICARE ==
[~2018-11-03] VITALS: Ht 175.3 cm; Wt 79.5 kg
[~2018-11-03 07:52] MED LIST changes: +ACET-683 PO; +ALLO10TA PO; +ATOR1TAB21 PO; +PHARMACY COMMENT; +SPIR-10 PO; +TORS20TA2 PO; +VENTAER INH
[2018-11-03] MEDS ORDERED: FERR325T16 PO (09:36)
[2018-11-03 09:39] LABS: HEMATOCRIT 39.9 % (42.0-52.0); HEMOGLOBIN 14.3 g/dl (13.5-17.5); MEAN CORPUSCULAR HEMOGLOBIN 33.6 pg (27.0-33.0); MEAN CORPUSCULAR HGB CONC 35.8 g/dl (32.0-36.5); MEAN CORPUSCULAR VOLUME 93.7 fl (80.0-96.0); PLATELET COUNT, AUTOMATED 318 10^3/uL (150-450); RED BLOOD COUNT 4.26 10^6/uL (4.30-6.10); WHITE BLOOD COUNT 10.1 10^3/uL (4.0-10.0)
[2018-11-03 10:04] LABS: BLOOD UREA NITROGEN 23 MG/DL (7-18); CALCIUM LEVEL 9.7 MG/DL (8.8-10.2); CARBON DIOXIDE LEVEL 25 MEQ/L (21-32); CHLORIDE LEVEL 93 MEQ/L (98-107); CREATININE FOR GFR 0.98 MG/DL (0.70-1.30); GLOMERULAR FILTRATION RATE > 60.0 (>42); GLUCOSE, FASTING 95 MG/DL (70-100); POTASSIUM SERUM 4.1 MEQ/L (3.5-5.1); SODIUM LEVEL 128 MEQ/L (136-145)
[2018-11-03 10:19] LABS: FREE T4 1.29 NG/DL (0.76-1.46); THYROID STIMULATING HORMONE 1.8 uIU/ML (0.358-3.740)
[2018-11-03 10:28] LABS: CREATININE,RANDOM URINE 24.8 MG/DL
[2018-11-03 11:30] VITALS: BP 107/70
== END 2018-11-03 12:34 | disposition home or self-care (01) ==
LOC: M ED 07:52
DX: E87.1 Hypo-osmolality and hyponatremia (principal); T50.905A Adverse effect of unspecified drugs, medicaments and biological substances, initial encounter; I11.0 Hypertensive heart disease with heart failure; I50.9 Heart failure, unspecified; I48.91 Unspecified atrial fibrillation; I27.20 Pulmonary hypertension, unspecified; E78.5 Hyperlipidemia, unspecified; F44.9 Dissociative and conversion disorder, unspecified; F10.20 Alcohol dependence, uncomplicated; F17.200 Nicotine dependence, unspecified, uncomplicated; Z79.899 Other long term (current) drug therapy; Z79.51 Long term (current) use of inhaled steroids; Z79.01 Long term (current) use of anticoagulants

== ENCOUNTER 2019-04-29 06:24 | Emergency (ER) | payer MEDICARE, OTHER ==
[~2019-04-29 06:24] MED LIST changes: -AZIT500T2 PO; +AZIT500T5 PO; +FERR325T16 PO
[2019-04-29] MEDS: IPRATROPIUM 0.5MG/ALBUTEROL 2.5MG INH SOL UD 3ML (DUONEB)(J7620) NEB PRN ×2 (06:29→06:44)
[2019-04-29] MEDS ORDERED: methylPREDNISolone INJ 125 MG/2 ML VIAL (J2930) IV ONE (06:30)
[2019-04-29 06:42] LABS: ABG BASE EXCESS 1.4 (-2.0-2.0); ABG HCO3 24.1 MEQ/L (22.0-26.0); ABG O2 SATURATION 99.7 % (95.0-99.0); ABG PARTIAL PRESSURE CO2 32.5 mmHg (35.0-45.0); ABG PARTIAL PRESSURE O2 234.2 mmHg (75.0-100.0); ABG STANDARD HCO3 25.8 MEQ/L (22.0-26.0); ABG TOTAL CO2 25.1 MEQ/L (23.0-31.0); ABG pH (ARTERIAL) 7.488 UNITS (7.350-7.450)
[2019-04-29 06:46] LABS: BASO # 0.1 10^3/uL (0.0-0.2); BASO % 0.6 % (0.0-1.0); EOS # 0.3 10^3/uL (0.0-0.5); EOS % 2.7 % (0.0-3.0); HEMATOCRIT 43.1 % (42.0-52.0); HEMOGLOBIN 15.1 g/dl (13.5-17.5); LYMPH # 1.2 10^3/uL (1.5-5.0); LYMPH % 12.4 % (24.0-44.0); MEAN CORPUSCULAR HEMOGLOBIN 32.1 pg (27.0-33.0); MEAN CORPUSCULAR VOLUME 91.5 fl (80.0-96.0); MONO # 1.4 10^3/uL (0.0-0.8); MONO % 15.3 % (0.0-5.0); NEUTROPHILS # 6.3 10^3/uL (1.5-8.5); NEUTROPHILS % 68.1 % (36.0-66.0); PLATELET COUNT, AUTOMATED 424 10^3/uL (150-450); RED BLOOD COUNT 4.71 10^6/uL (4.30-6.10); WHITE BLOOD COUNT 9.3 10^3/uL (4.0-10.0)
[2019-04-29 07:22] LABS: ALBUMIN 4.7 GM/DL (3.2-5.2); ALT/SGPT 39 U/L (12-78); BILIRUBIN,DIRECT 0.3 MG/DL (0.0-0.2); BILIRUBIN,TOTAL 0.7 MG/DL (0.2-1.0); CK-MB VALUE MASS 8.7 NG/ML (<3.6); CPK CREATINE PHOSPHOKINASE 355 U/L (39-308); MB/CK RELATIVE INDEX 2.45 (< OR =4); NT-PRO BNP 653 PG/ML (<125); THYROXINE (T4) 8.7 UG/DL (4.5-12.0); TOTAL PROTEIN 8.4 GM/DL (6.4-8.2); TROPONIN I < 0.02 NG/ML (< 0.10)
[2019-04-29] MEDS ORDERED: PRED20TA PO (08:38)
[2019-04-29] MEDS ORDERED: ALBU83IN NEB (08:40)
[2019-04-29] MEDS ORDERED: EASY-106 XX (08:41)
[2019-04-29 08:51] VITALS: O2SAT 94
--- NOTE | 2019-04-29 08:57 | ECGEPIP ---
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
[2019-04-29] MEDS ORDERED: IPRATROPIUM 0.5MG/ALBUTEROL 2.5MG INH SOL UD 3ML (DUONEB)(J7620) NEB ONE (09:15)
[2019-04-29 09:56] VITALS: BP 160/82
--- NOTE | 2019-04-29 19:43 | REP ---
CHEST: Single view: COMPARISON: 09/28/2018 There is no evidence of acute infiltrate. No pleural effusion is seen. The heart is normal in size. The mediastinal silhouette is unremarkable. The visualized osseous structures are intact. IMPRESSION: No acute pulmonary disease. Electronically Signed by Blair Lima MD 04/29/2019 07:53 P
[2019-04-30] MEDS ORDERED: ALBU83IN NEB (19:36)
[2019-04-30] MEDS ORDERED: VERAP80TA PO (19:36)
== END 2019-04-29 10:14 | disposition home or self-care (01) ==
LOC: M ED 06:24
DX: J44.1 Chronic obstructive pulmonary disease with (acute) exacerbation (principal); I48.91 Unspecified atrial fibrillation; R94.31 Abnormal electrocardiogram [ECG] [EKG]; I50.9 Heart failure, unspecified; I10 Essential (primary) hypertension; E78.5 Hyperlipidemia, unspecified; I27.20 Pulmonary hypertension, unspecified; F17.200 Nicotine dependence, unspecified, uncomplicated; Z79.01 Long term (current) use of anticoagulants; Z79.899 Other long term (current) drug therapy

== ENCOUNTER 2019-04-30 17:12 | Inpatient (IN) | payer MEDICARE, OTHER ==
[~2019-04-30] VITALS: Ht 177.8 cm; Wt 75.7 kg
[~2019-04-30 17:12] MED LIST changes: +ALBU83IN NEB; +EASY-106 XX; +PRED20TA PO
[2019-04-30] MEDS ORDERED: NS 1,000 ML IV SCH (17:28)
[2019-04-30] MEDS ORDERED: ASPIRIN 81 MG CHEW TABLET PO ONE (17:30)
[2019-04-30] MEDS: IPRATROPIUM 0.5MG/ALBUTEROL 2.5MG INH SOL UD 3ML (DUONEB)(J7620) NEB PRN ×3 (17:40→17:56)
--- NOTE | 2019-04-30 17:56 | REP ---
Portable chest x-ray: Single view. History: Dyspnea and cough. Comparison chest x-ray: April 29, 2019. Findings: Monitoring electrodes are seen. Lungs are symmetrically aerated and clear. Heart is not enlarged. Pulmonary vasculature is not increased. There is an old healed rib fracture on the left. Impression: No active disease. Electronically Signed by Jens Bullock MD 04/30/2019 05:48 P
[2019-04-30 17:57] LABS: BASO % 0.1 % (0.0-1.0); EOS % 0.1 % (0.0-3.0); HEMATOCRIT 38.6 % (42.0-52.0); HEMOGLOBIN 13.8 g/dl (13.5-17.5); LYMPH # 0.9 10^3/uL (1.5-5.0); LYMPH % 4.7 % (24.0-44.0); MEAN CORPUSCULAR HEMOGLOBIN 32.2 pg (27.0-33.0); MEAN CORPUSCULAR HGB CONC 35.8 g/dl (32.0-36.5); MEAN CORPUSCULAR VOLUME 90.2 fl (80.0-96.0); MONO # 1.7 10^3/uL (0.0-0.8); MONO % 9.3 % (0.0-5.0); NEUTROPHILS # 15.8 10^3/uL (1.5-8.5); NEUTROPHILS % 84.9 % (36.0-66.0); PLATELET COUNT, AUTOMATED 375 10^3/uL (150-450); RED BLOOD COUNT 4.28 10^6/uL (4.30-6.10); WHITE BLOOD COUNT 18.6 10^3/uL (4.0-10.0)
[2019-04-30 18:03] LABS: ABG BASE EXCESS -4.8 (-2.0-2.0); ABG HCO3 19.4 MEQ/L (22.0-26.0); ABG O2 SATURATION 99.7 % (95.0-99.0); ABG PARTIAL PRESSURE CO2 33.4 mmHg (35.0-45.0); ABG PARTIAL PRESSURE O2 188.5 mmHg (75.0-100.0); ABG STANDARD HCO3 20.6 MEQ/L (22.0-26.0); ABG TOTAL CO2 20.4 MEQ/L (23.0-31.0); ABG pH (ARTERIAL) 7.381 UNITS (7.350-7.450)
[2019-04-30] MEDS ORDERED: LABETALOL HCL 100 MG/20 ML VIAL IV STA (18:07)
[2019-04-30 18:09] LABS: INR 1.14; PROTHROMBIN TIME 14.4 SECONDS (11.8-14.0)
[2019-04-30 18:36] LABS: ALBUMIN 4.1 GM/DL (3.2-5.2); ALT/SGPT 49 U/L (12-78); BILIRUBIN,DIRECT 0.2 MG/DL (0.0-0.2); BILIRUBIN,TOTAL 0.3 MG/DL (0.2-1.0); BLOOD UREA NITROGEN 22 MG/DL (7-18); CALCIUM LEVEL 8.7 MG/DL (8.8-10.2); CARBON DIOXIDE LEVEL 19 MEQ/L (21-32); CHLORIDE LEVEL 75 MEQ/L (98-107); CK-MB VALUE MASS 26.5 NG/ML (<3.6); CPK CREATINE PHOSPHOKINASE 838 U/L (39-308); CREATININE FOR GFR 0.89 MG/DL (0.70-1.30); GLOMERULAR FILTRATION RATE > 60.0 (>42); GLUCOSE, FASTING 109 MG/DL (70-100); MB/CK RELATIVE INDEX 3.16 (< OR =4); POTASSIUM SERUM 5.3 MEQ/L (3.5-5.1); SODIUM LEVEL 109 MEQ/L (136-145); TOTAL PROTEIN 7.2 GM/DL (6.4-8.2); TROPONIN I 0.02 NG/ML (< 0.10)
[2019-04-30 19:07] LABS: ETHYL ALCOHOL (ETHANOL) 0.122 % (0.000-0.010)
[2019-04-30] MEDS ORDERED: ACETAMINOPHEN TAB 650MG DOSE (2X325MG) PO PRN (19:30)
[2019-04-30] MEDS ORDERED: ALBU83IN NEB (19:36)
[2019-04-30] MEDS ORDERED: VERAP80TA PO (19:36)
[2019-04-30] MEDS ORDERED: OXAZEPAM 10 MG CAP PO PRN (19:45)
[2019-04-30] MEDS ORDERED: IPRATROPIUM 0.5MG/ALBUTEROL 2.5MG INH SOL UD 3ML (DUONEB)(J7620) NEB PRN (19:45)
[2019-04-30] MEDS: IPRATROPIUM 0.5MG/ALBUTEROL 2.5MG INH SOL UD 3ML (DUONEB)(J7620) NEB SCH (20:45)
[2019-04-30] MEDS: methylPREDNISolone INJ 40 MG/1 ML VIAL (J2920) IV SCH (20:47)
[2019-04-30 21:00] LABS: OSMOLALITY SERUM 246 MOSM/KG (280-301)
[2019-04-30] MEDS: CALCIUM CARBONATE 500 MG CHEW U/D PO SCH (21:00)
[2019-04-30 21:10] LABS: BLOOD UREA NITROGEN 22 MG/DL (7-18); CALCIUM LEVEL 8.2 MG/DL (8.8-10.2); CARBON DIOXIDE LEVEL 22 MEQ/L (21-32); CHLORIDE LEVEL 77 MEQ/L (98-107); GLOMERULAR FILTRATION RATE > 60.0 (>42); GLUCOSE, FASTING 92 MG/DL (70-100); POTASSIUM SERUM 4.9 MEQ/L (3.5-5.1); SODIUM LEVEL 113 MEQ/L (136-145)
[2019-04-30 21:11] LABS: FREE T4 1.18 NG/DL (0.76-1.46)
[2019-04-30 21:50] VITALS: BP 162/82
[2019-04-30 22:00] VITALS: BP 162/82
[2019-04-30] MEDS: SYMBICORT 160/4.5MCG INHALER 6GM INH SCH (22:15)
--- NOTE | 2019-04-30 22:41 | HPEPDOC ---
General Date of Admission Apr 30, 2019 at 19:30 Date of Service: Apr 30, 2019 Chief Complaint The patient is a 73-year-old male who presented to the emergency room after he fell while getting out of his truck History of Present Illness Patient is a 73-year-old male with a PMHx of COPD, A. 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. Patient presented to the emergency room after he had fallen while getting out of his truck. Patient reported that he was on the ground for approximately 1 hour before EMS assistance arrived. Upon arrival to emergency room, patient was found to have hypothermic with a temperature of 94.8F. Clinically patient did not describe any problems other than generalized weakness. Lab work, however, did reveal significant hyponatremia at 109. Hospitalist service was called for an elevated CK level and management of rhabdomyolysis. On arrival to ER, I discontinued IV fluids and a stat BMP was acquired to check current level of sodium. Patient reported that when he got out of his truck. He had fallen but denied any loss of consciousness or head trauma. He denied any prodromal symptoms, such as dizziness or lightheadedness. Currently patient denies any chest pain, shortness breath, palpitations, or change in his baseline cough. He denies nausea, vomiting, abdominal pain, constipation, diarrhea, or urinary discomfort. Patient has denied experiencing any fevers or chills over the last 2 weeks. Patient reports that his appetite varies and his weight has been relatively consistent. Home Medications Scheduled Allopurinol (Allopurinol) 100 Mg Tablet, 100 MG PO BID, (Reported) TAKES WITH BREAKFAST AND DINNER Apixaban (Eliquis) 5 Mg Tab, 5 MG PO BID, (Reported) Atorvastatin Calcium (Atorvastatin Calcium) 20 Mg Tablet, 20 MG PO Q2D, (Reported) Budesonide/Formoterol (Symbicort 160-4.5 Mcg Inhaler) 60 Puff/Inhaler Aers, 2 PUFF INH BID, (Reported) Calcium Carbonate (Calcium) 500 Mg Chw, 1,000 MG PO TID, (Reported) Ferrous Gluconate (Ferrous Gluconate) 324 Mg Tablet, 324 MG PO BID, (Reported) Folic Acid (Folic Acid) 1 Mg Tab, 1 MG PO DAILY, (Reported) Magnesium Chloride (Mag64) 64 Mg Tablet.dr, 64 MG PO BID, (Reported) Multivitamins (Thera M Plus Tablet) 1 Tab Tab, 1 TAB PO BID, (Reported) Spironolactone (Spironolactone) 25 Mg Tablet, 25 MG PO DAILY, (Reported) Tamsulosin HCl (Flomax) 0.4 Mg Cap, 0.4 MG PO QPM, (Reported) PATIENT TAKES AFTER DINNER Tiotropium [place] (Spiriva) 18 Mcg Cap, 1 INHALATION INH DAILY, (Reported) Torsemide (Torsemide) 20 Mg Tablet, 20 MG PO BID, (Reported) TAKES AT 0500 AND 1700 Verapamil HCl (Verapamil HCl) 80 Mg Tablet, 80 MG PO TID, (Reported) Scheduled PRN Acetaminophen (Acetaminophen) 500 Mg Tablet, 500 MG PO DAILY PRN for PAIN, (Reported) Albuterol Sulf (Albuterol Sulfate) 2.5 Mg/3 Ml Vial.neb, 1 VIAL NEB Q6HP PRN for wheezing Albuterol Sulf (Albuterol Sulfate) 2.5 Mg/3 Ml Vial.neb, 1 VIAL NEB Q6H PRN for wheezing, (Reported) Albuterol Sulfate (Ventolin Hfa) 18 Gm Hfa.aer.ad, 2 PUFF INH Q4H PRN for SHORTNESS OF BREATH, (Reported) Miscellaneous Medications [Pharmacy Comment] , (Reported) MEDICATIONS VERIFIED WITH [facility], PATIENT IS A POOR HISTORIAN, HE DOESN'T REMEMB ER THE NAMES OF HIS MEDICATIONS BUT STATES HE IS SURE HE TOOK HIS BLOOD THINNER. PATIENT STATES HE TOOK ALL HIS MORNING MEDICATIONS Allergies Coded Allergies: No Known Allergies (Unverified , 09/28/18) Past Medical History Medical History COPD, A. 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 Bilateral lung lopez - Abdomen: Soft, Non-distended, Non-tender - Extremities: No lower extremity edema, No calf tenderness - Neuro: No focal motor or sensory deficit - Skin: No visible rashes Laboratory Data Labs 24H Laboratory Tests 2 04/30/19 17:43: Immature Granulocyte % (Auto) 0.9, Neutrophils (%) (Auto) 84.9H, Lymphocytes (%) (Auto) 4.7L, Monocytes (%) (Auto) 9.3H, Eosinophils (%) (Auto) 0.1, Basophils (%) (Auto) 0.1, Neutrophils # (Auto) 15.8H, Lymphocytes # (Auto) 0.9L, Monocytes # (Auto) 1.7H, Eosinophils # (Auto) 0.0, Basophils # (Auto) 0.0, Nucleated Red Blood Cells % (auto) 0.0, Prothrombin Time 14.4H, Prothromb Time International Ratio 1.14, Anion Gap 15, Glomerular Filtration Rate > 60.0, Lactic Acid Level 3.4*H, Calcium Level 8.7L, Total Bilirubin 0.3#, Direct Bilirubin 0.2, Aspartate Amino Transf (AST/SGOT) 58H, Alanine Aminotransferase (ALT/SGPT) 49, Alkaline P hosphatase 100, Total Creatine Kinase 838#H, Creatine Kinase MB 26.5H, Creatine Kinase MB Relative Index 3.16, Troponin I 0.02, Total Protein 7.2, Albumin 4.1, Albumin/Globulin Ratio 1.32, Ethyl Alcohol Level 0.122H 04/30/19 17:48: Blood Gas Bicarbonate Standard 20.6L, Arterial Blood pH 7.381, Arterial Blood Partial Pressure CO2 33.4L, Arterial Blood Partial Pressure O2 188.5H, Arterial Blood Total CO2 20.4L, Arterial Blood HCO3 19.4L, Arterial Blood Base Excess - 4.8L, Arterial Blood Oxygen Saturation 99.7H 04/30/19 20:23: Anion Gap 14, Glomerular Filtration Rate > 60.0, Calcium Level 8.2L, Osmolality 246L, Thyroid Stimulating Hormone (TSH) 1.190, Free Thyroxine 1.18, Total Triiodothyronine 80.0 04/30/19 22:16: CBC/BMP Laboratory Tests 04/30/19 17:43 04/30/19 20:23 Microbiology Microbiology 04/30/19 Blood Culture, Received Pending 04/30/19 Blood Culture, Received Pending Plan / VTE VTE Prophylaxis Ordered?: Yes Plan Plan Acute on chronic hyponatremia - likely 2/2 hypotonic euvolemic etiology - Currently patient is asymptomatic - Hemodynamically stable and afebrile - Patients baseline sodium is approximately 130; currently. Upon arrival, his sodium was 109 - Upon my arrival, patient had already received approximately close to a liter of fluid - Fluids were immediately discontinued; repeat lab work has revealed a sodium of the 113 - At this point, we will continue to hold off on all further IV fluid resu scitation - Will check urine electrolytes / thyroid function / coritisol / BMP q4-6 hours - Continue with fluid restrictions to avoid excessive increase in sodium levels within 24 hours Hypothermia - Patients temperature initially upon arrival was 94.8; this has improved to 98.3 - s/p warming blankets and heating lamps Leukocytosis - Review of systems is negative for any source of infection - Patient is hemodynamically stable and afebrile - Patient was recently started on prednisone after presenting to the emergency room on 04/29/2019 for COPD exacerbation - Will hold off on antibiotic therapy at this time Lactic acidosis - s/p fluids in the ER - Fluids have been discontinued (re: slow increase in sodium) COPD - Patient was recently diagnosed with an acute COPD exacerbation and was given prednisone - Continue with Soumedrol as an inpatient - Continue with inhaled therapy as ordered A. fib - c/w full anticoagulation with Eliquis Severe pulmonary HTN HTN - BP moderately elevated - c/w Verapamil with holding parameters DLP - c/w Atorvastatin Chronic alcoholism - Patient with consumption of 1-2 beers on a daily basis - Will start serax - Will start Multivitamins, Thiamine and Folate Gout - c/w Allopurinol BPH - c/w Tamsulosin DVT prophylaxis - Will c/w full anticoagulation with CARLOS Milligan MD Apr 30, 2019 22:41
[2019-04-30] MEDS: MAGNESIUM CHLORIDE 64 MG TABCR (SLO MAG) PO SCH (23:11)
[2019-04-30] MEDS: TAMSULOSIN 0.4 MG CAP PO SCH (23:11)
[2019-04-30] MEDS: FERROUS GLUCONATE 324 MG TAB PO SCH (23:11)
[2019-04-30] MEDS: APIXABAN 5 MG TAB (ELIQUIS) PO SCH (23:11)
[2019-04-30] MEDS: VERAPAMIL 80 MG TAB PO SCH (23:12)
[2019-05-01] VITALS: BP 155/71
[2019-05-01 01:17] LABS: BLOOD UREA NITROGEN 20 MG/DL (7-18); CALCIUM LEVEL 8.1 MG/DL (8.8-10.2); CARBON DIOXIDE LEVEL 24 MEQ/L (21-32); CHLORIDE LEVEL 78 MEQ/L (98-107); CREATININE FOR GFR 0.73 MG/DL (0.70-1.30); GLOMERULAR FILTRATION RATE > 60.0 (>42); GLUCOSE, FASTING 85 MG/DL (70-100); POTASSIUM SERUM 4.5 MEQ/L (3.5-5.1); SODIUM LEVEL 112 MEQ/L (136-145)
[2019-05-01] MEDS: IPRATROPIUM 0.5MG/ALBUTEROL 2.5MG INH SOL UD 3ML (DUONEB)(J7620) NEB SCH ×4 (01:43→20:00)
[2019-05-01 04:00] VITALS: BP 145/72
[2019-05-01] MEDS: methylPREDNISolone INJ 40 MG/1 ML VIAL (J2920) IV SCH ×3 (04:00→20:26)
[2019-05-01 05:48] LABS: BASO % 0.1 % (0.0-1.0); EOS # 0.1 10^3/uL (0.0-0.5); EOS % 0.3 % (0.0-3.0); HEMATOCRIT 35.1 % (42.0-52.0); LYMPH # 0.7 10^3/uL (1.5-5.0); LYMPH % 4.5 % (24.0-44.0); MEAN CORPUSCULAR HEMOGLOBIN 32.7 pg (27.0-33.0); MEAN CORPUSCULAR VOLUME 88.2 fl (80.0-96.0); MONO # 1.5 10^3/uL (0.0-0.8); MONO % 10.1 % (0.0-5.0); NEUTROPHILS # 12.4 10^3/uL (1.5-8.5); NEUTROPHILS % 84.4 % (36.0-66.0); PLATELET COUNT, AUTOMATED 357 10^3/uL (150-450); RED BLOOD COUNT 3.98 10^6/uL (4.30-6.10); WHITE BLOOD COUNT 14.7 10^3/uL (4.0-10.0)
[2019-05-01] MEDS: allopurinoL 100 MG TAB PO SCH ×2 (06:08→17:08)
[2019-05-01 06:17] LABS: BLOOD UREA NITROGEN 18 MG/DL (7-18); CALCIUM LEVEL 8.9 MG/DL (8.8-10.2); CARBON DIOXIDE LEVEL 24 MEQ/L (21-32); CHLORIDE LEVEL 77 MEQ/L (98-107); CREATININE FOR GFR 0.75 MG/DL (0.70-1.30); GLOMERULAR FILTRATION RATE > 60.0 (>42); GLUCOSE, FASTING 98 MG/DL (70-100); MAGNESIUM LEVEL 1.8 MG/DL (1.8-2.4); POTASSIUM SERUM 4.7 MEQ/L (3.5-5.1); SODIUM LEVEL 113 MEQ/L (136-145)
[2019-05-01 08:00] VITALS: BP 125/58
[2019-05-01] MEDS: THIAMINE 100 MG TAB PO SCH (08:10)
[2019-05-01] MEDS: FOLIC ACID 1 MG TAB PO SCH (08:10)
[2019-05-01] MEDS: MAGNESIUM CHLORIDE 64 MG TABCR (SLO MAG) PO SCH ×2 (08:10→20:25)
[2019-05-01] MEDS: FERROUS GLUCONATE 324 MG TAB PO SCH ×2 (08:11→20:26)
[2019-05-01] MEDS: MULTIVITAMINS/MINERALS THERAP 1 TAB PO SCH (08:11)
[2019-05-01] MEDS: VERAPAMIL 80 MG TAB PO SCH ×3 (08:11→20:25)
[2019-05-01] MEDS: CALCIUM CARBONATE 500 MG CHEW U/D PO SCH ×3 (08:11→20:33)
[2019-05-01] MEDS: APIXABAN 5 MG TAB (ELIQUIS) PO SCH ×2 (08:11→20:26)
[2019-05-01] MEDS: SYMBICORT 160/4.5MCG INHALER 6GM INH SCH ×2 (08:19→18:10)
[2019-05-01] MEDS: TIOTROPIUM INHALER/CAPSULE (SPIRIVA) INH SCH (08:19)
[2019-05-01 08:49] LABS: BLOOD UREA NITROGEN 18 MG/DL (7-18); CALCIUM LEVEL 9.1 MG/DL (8.8-10.2); CARBON DIOXIDE LEVEL 25 MEQ/L (21-32); CHLORIDE LEVEL 78 MEQ/L (98-107); GLOMERULAR FILTRATION RATE > 60.0 (>42); GLUCOSE, FASTING 119 MG/DL (70-100); SODIUM LEVEL 114 MEQ/L (136-145)
[2019-05-01 09:16] LABS: CPK CREATINE PHOSPHOKINASE 1116 U/L (39-308)
--- NOTE | 2019-05-01 10:01 | ECGEPIP ---
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
[2019-05-01 12:00] VITALS: BP 148/88
[2019-05-01 14:56] LABS: BLOOD UREA NITROGEN 17 MG/DL (7-18); CALCIUM LEVEL 9.2 MG/DL (8.8-10.2); CARBON DIOXIDE LEVEL 27 MEQ/L (21-32); CHLORIDE LEVEL 78 MEQ/L (98-107); CREATININE FOR GFR 0.74 MG/DL (0.70-1.30); GLOMERULAR FILTRATION RATE > 60.0 (>42); GLUCOSE, FASTING 117 MG/DL (70-100); SODIUM LEVEL 113 MEQ/L (136-145)
[2019-05-01 16:00] VITALS: BP 136/68
--- NOTE | 2019-05-01 16:00 | IPNPDOC ---
Subjective Date Seen The patient was seen on 05/01/19. Subjective Chief Complaint/HPI Feels that his breathing is no worse, not labored at rest but wheezy. A+O x 4 Objective Physical Examination General Exam: Positive: Alert, Mild Distress Eye Exam: Positive: Conjunctiva & lids normal, EOMI; Negative: Sclera icteric ENT Exam: Positive: Atraumatic, Mucous membr. moist/pink, Pharynx Normal Chest Exam: Positive: Wheezing Heart Exam: Positive: Rate Normal, Regular Rhythm; Negative: Tachycardic Abdomen Exam: Positive: Normal bowel sounds Extremity Exam: Positive: Edema (trace); Negative: Clubbing, Cyanosis Neuro Exam: Positive: Normal Speech, Strength at 5/5 X4 ext, Normal Tone Psych Exam: Positive: Mental status NL, Oriented x 3; Negative: Anxiety Assessment /Plan Assessment # Acute on chronic asymptomatic hyponatremia due to hypovolemia - continue with fluid restriction - BMP q 6 - No more than 6 point rise in Na+ in 1st 24 hours - will reconsider adding IVFs in am at low infusion rate - TSH nl, cortisol pending # Hypothermia - resolved # Leukocytosis - doubt infectious source likely from fall and stress reaction - no abx - improved # Lactic acidosis due to dehydration - resolved with fluids given in ED # Acute on chronic COPD exacerbation, POA # Secondary pulmonary hypertension - nebs, solumedrol, consider adding budesonide neb - spiriva # Paroxysmal A. fib rate controlled # HTN - continue Eliquis - verapamil # Chronic alcoholism - on ETOH withdrawal protocol Plan/VTE VTE Prophylaxis Ordered?: Yes VTE Exclusion Mechanical Proph: N/A:VTE Prophy Ordered VTE Exclusion Pharmacological: N/A:VTE Prophy Ordered (eliquis) VS, I&O, 24H, Fishbone Vital Signs/I&O Vital Signs Date Time Temp Pulse Resp B/P (MAP) Pulse Ox O2 Delivery O2 Flow Rate FiO2 05/01/19 12:00 97.0 75 24 148/88 (108) 97 Nasal Cannula 2.0 I&O- Last 24 Hours up to 6 AM 05/01/19 06:00 Intake Total 925 ml Output Total 1100 ml Balance -175 ml Laboratory Data 24H LABS Laboratory Tests 2 04/30/19 17:43: Immature Granulocyte % (Auto) 0.9, Neutrophils (%) (Auto) 84.9H, Lymphocytes (%) (Auto) 4.7L, Monocytes (%) (Auto) 9.3H, Eosinophils (%) (Auto) 0.1, Basophils (%) (Auto) 0.1, Neutrophils # (Auto) 15.8H, Lymphocytes # (Auto) 0.9L, Monocytes # (Auto) 1.7H, Eosinophils # (Auto) 0.0, Basophils # (Auto) 0.0, Nucleated Red Blood Cells % (auto) 0.0, Prothrombin Time 14.4H, Prothromb Time International Ratio 1.14, Anion Gap 15, Glomerular Filtration Rate > 60.0, Lactic Acid Level 3.4*H, Calcium Level 8.7L, Total Bilirubin 0.3#, Direct Bilirubin 0.2, Aspartate Amino Transf (AST/SGOT) 58H, Alanine Aminotransferase (ALT/SGPT) 49, Alkaline Phosphatase 100, Total Creatine Kinase 838#H, Creatine Kinase MB 26.5H, Creatine Kinase MB Relative Index 3.16, Troponin I 0.02, Total Protein 7.2, Albumin 4.1, Albumin/Globulin Ratio 1.32, Ethyl Alcohol Level 0.122H 04/30/19 17:48: Blood Gas Bicarbonate Standard 20.6L, Arterial Blood pH 7.381, Arterial Blood Pa rtial Pressure CO2 33.4L, Arterial Blood Partial Pressure O2 188.5H, Arterial Blood Total CO2 20.4L, Arterial Blood HCO3 19.4L, Arterial Blood Base Excess - 4.8L, Arterial Blood Oxygen Saturation 99.7H 04/30/19 20:23: Anion Gap 14, Glomerular Filtration Rate > 60.0, Calcium Level 8.2L, Osmolality 246L, Thyroid Stimulating Hormone (TSH) 1.190, Free Thyroxine 1.18, Total Triiodothyronine 80.0 04/30/19 22:16: Lactic Acid Followup at 4 Hours 1.5 05/01/19 00:43: Anion Gap 10, Glomerular Filtration Rate > 60.0, Calcium Level 8.1L 05/01/19 05:33: Anion Gap 12, Glomerular Filtration Rate > 60.0, Calcium Level 8.9, Immature Granulocyte % (Auto) 0.6, Neutrophils (%) (Auto) 84.4H, Lymphocytes (%) (Auto) 4.5L, Monocytes (%) (Auto) 10.1H, Eosinophils (%) (Auto) 0.3, Basophils (%) (Auto) 0.1, Neutrophils # (Auto) 12.4H, Lymphocytes # (Auto) 0.7L, Monocytes # (Auto) 1.5H, Eosinophils # (Auto) 0.1, Basophils # (Auto) 0.0, Nucleated Red Blood Cells % (auto) 0.0, Magnesium Level 1.8, Total Creatine Kinase 1116H 05/01/19 08:09: Anion Gap 11, Glomerular Filtration Rate > 60.0, Calcium Level 9.1 05/01/19 14:03: Anion Gap 8, Glomerular Filtration Rate > 60.0, Calcium Level 9.2 CBC/BMP Laboratory Tests 04/30/19 17:43 04/30/19 20:23 05/01/19 00:43 05/01/19 05:33 05/01/19 08:09 05/01/19 14:03 Microbiology Microbiology 04/30/19 Blood Culture, Received Pending 04/30/19 Blood Culture, Received Pending INGA VELEZ MD May 01, 2019 16:00
[2019-05-01 20:00] VITALS: BP_SYST 136; BP_SYST 157; BP_DIAS 68; BP_DIAS 78
[2019-05-01] MEDS: TAMSULOSIN 0.4 MG CAP PO SCH (20:26)
[2019-05-01 20:47] LABS: BLOOD UREA NITROGEN 16 MG/DL (7-18); CALCIUM LEVEL 8.4 MG/DL (8.8-10.2); CARBON DIOXIDE LEVEL 21 MEQ/L (21-32); CHLORIDE LEVEL 82 MEQ/L (98-107); GLOMERULAR FILTRATION RATE > 60.0 (>42); GLUCOSE, FASTING 122 MG/DL (70-100); POTASSIUM SERUM 5.2 MEQ/L (3.5-5.1); SODIUM LEVEL 113 MEQ/L (136-145)
[2019-05-02] VITALS: BP 162/90
[2019-05-02] MEDS: IPRATROPIUM 0.5MG/ALBUTEROL 2.5MG INH SOL UD 3ML (DUONEB)(J7620) NEB SCH ×4 (01:58→19:42)
[2019-05-02 02:41] LABS: APPEARANCE, URINE CLEAR (CLEAR); BACTERIA, URINE AUTO NEGATIVE (NEGATIVE); BILIRUBIN, URINE AUTO NEGATIVE (NEGATIVE); BLOOD, URINE BLOOD NEGATIVE (NEGATIVE); COLOR, URINE YELLOW (YELLOW); GLUCOSE, URINE (UA) AUTO NEGATIVE (NEGATIVE); KETONE, URINE AUTO NEGATIVE (NEGATIVE); LEUKOCYTE ESTERASE, URINE AUTO NEGATIVE (NEGATIVE); NITRITE, URINE AUTO NEGATIVE (NEGATIVE); PROTEIN, URINE AUTO NEGATIVE (NEGATIVE); RBC, URINE AUTO 1 /HPF (0-3); SPECIFIC GRAVITY URINE AUTO 1.005 (1.002-1.035); SQUAMOUS EPITHELIAL CELL UR AU 0 /HPF (0-6); UROBILINOGEN, URINE AUTO 0.2 mg/dL (0.0-2.0); WBC, URINE AUTO 0 /HPF (0-3)
[2019-05-02 02:55] LABS: CREATININE,RANDOM URINE 32.7 MG/DL
[2019-05-02 04:00] VITALS: BP 142/78
[2019-05-02] MEDS: allopurinoL 100 MG TAB PO SCH ×2 (05:34→18:32)
[2019-05-02] MEDS: methylPREDNISolone INJ 40 MG/1 ML VIAL (J2920) IV SCH ×3 (05:34→20:14)
[2019-05-02 06:10] LABS: BASO % 0.1 % (0.0-1.0); HEMOGLOBIN 13.4 g/dl (13.5-17.5); LYMPH # 0.6 10^3/uL (1.5-5.0); LYMPH % 5.6 % (24.0-44.0); MEAN CORPUSCULAR HEMOGLOBIN 31.9 pg (27.0-33.0); MEAN CORPUSCULAR HGB CONC 35.3 g/dl (32.0-36.5); MEAN CORPUSCULAR VOLUME 90.5 fl (80.0-96.0); MONO # 0.9 10^3/uL (0.0-0.8); MONO % 8.7 % (0.0-5.0); NEUTROPHILS # 8.9 10^3/uL (1.5-8.5); NEUTROPHILS % 84.8 % (36.0-66.0); PLATELET COUNT, AUTOMATED 342 10^3/uL (150-450); WHITE BLOOD COUNT 10.5 10^3/uL (4.0-10.0)
[2019-05-02 06:33] LABS: BLOOD UREA NITROGEN 16 MG/DL (7-18); CALCIUM LEVEL 8.7 MG/DL (8.8-10.2); CARBON DIOXIDE LEVEL 27 MEQ/L (21-32); CHLORIDE LEVEL 84 MEQ/L (98-107); CREATININE FOR GFR 0.73 MG/DL (0.70-1.30); GLOMERULAR FILTRATION RATE > 60.0 (>42); GLUCOSE, FASTING 128 MG/DL (70-100); MAGNESIUM LEVEL 2.4 MG/DL (1.8-2.4); POTASSIUM SERUM 4.9 MEQ/L (3.5-5.1); SODIUM LEVEL 119 MEQ/L (136-145)
[2019-05-02 08:00] VITALS: BP 148/82
[2019-05-02] MEDS: TIOTROPIUM INHALER/CAPSULE (SPIRIVA) INH SCH (08:04)
[2019-05-02] MEDS: SYMBICORT 160/4.5MCG INHALER 6GM INH SCH ×2 (08:04→19:42)
[2019-05-02 08:25] LABS: BLOOD UREA NITROGEN 17 MG/DL (7-18); CALCIUM LEVEL 8.8 MG/DL (8.8-10.2); CARBON DIOXIDE LEVEL 26 MEQ/L (21-32); CHLORIDE LEVEL 84 MEQ/L (98-107); GLOMERULAR FILTRATION RATE > 60.0 (>42); GLUCOSE, FASTING 146 MG/DL (70-100); POTASSIUM SERUM 4.8 MEQ/L (3.5-5.1); SODIUM LEVEL 119 MEQ/L (136-145)
[2019-05-02] MEDS: MAGNESIUM CHLORIDE 64 MG TABCR (SLO MAG) PO SCH ×2 (08:38→20:14)
[2019-05-02] MEDS: ATORVASTATIN 20 MG TAB PO SCH (08:38)
[2019-05-02] MEDS: THIAMINE 100 MG TAB PO SCH (08:38)
[2019-05-02] MEDS: CALCIUM CARBONATE 500 MG CHEW U/D PO SCH ×4 (08:38→20:19)
[2019-05-02] MEDS: MULTIVITAMINS/MINERALS THERAP 1 TAB PO SCH (08:38)
[2019-05-02] MEDS: FERROUS GLUCONATE 324 MG TAB PO SCH ×2 (08:39→20:14)
[2019-05-02] MEDS: APIXABAN 5 MG TAB (ELIQUIS) PO SCH ×2 (08:39→20:14)
[2019-05-02] MEDS: FOLIC ACID 1 MG TAB PO SCH (08:39)
[2019-05-02] MEDS: VERAPAMIL 80 MG TAB PO SCH ×3 (08:39→20:14)
[2019-05-02] MEDS: NS 1,000 ML IV SCH (09:33)
--- NOTE | 2019-05-02 09:39 | IPNPDOC ---
Subjective Date Seen The patient was seen on 05/02/19. Subjective Chief Complaint/HPI " I feel better." Less wheezing and labored breathing this morning. Not confused Objective Physical Examination General Exam: Positive: Alert, No Acute Distress Eye Exam: Positive: Conjunctiva & lids normal, EOMI; Negative: Sclera icteric ENT Exam: Positive: Atraumatic, Mucous membr. moist/pink, Pharynx Normal Chest Exam: Positive: Wheezing (less wheezing audible this morning) Heart Exam: Positive: Rate Normal, Regular Rhythm; Negative: Tachycardic Abdomen Exam: Positive: Normal bowel sounds Extremity Exam: Positive: Edema (trace); Negative: Clubbing, Cyanosis Neuro Exam: Positive: Normal Speech, Cranial Nerves 3-12 NL Psych Exam: Positive: Mental status NL, Oriented x 3; Negative: Anxiety Assessment /Plan Assessment # Acute on chronic asymptomatic hyponatremia due to hypovolemia - continue with fluid restriction - BMP q 6 - Na+ 119 this morning, has increased appropriately over past 36 hours - TSH nl, cortisol pending - urine studies reviewed, Joi 14, indicating dehydration - ok to transfer to floor - NS @ 50 ml/hr # Hypothermia - resolved # Leukocytosis - doubt infectious source likely from fall, outpatient steroids and stress reaction, - no abx - continues to improve # Lactic acidosis due to dehydration - resolved with fluids given in ED # Acute on chronic COPD exacerbation, POA # Secondary pulmonary hypertension - nebs, solumedrol, improved - can switch to prednisone in am - spiriva # Paroxysmal A. fib rate controlled # HTN - continue Eliquis - verapamil # Chronic alcoholism - on ETOH withdrawal protocol Plan/VTE VTE Prophylaxis Ordered?: Yes VTE Exclusion Mechanical Proph: N/A:VTE Prophy Ordered VTE Exclusion Pharmacological: N/A:VTE Prophy Ordered (eliquis) VS, I&O, 24H, Fishbone Vital Signs/I&O Vital Signs Date Time Temp Pulse Resp B/P (MAP) Pulse Ox O2 Delivery O2 Flow Rate FiO2 05/02/19 08:39 85 142/78 05/02/19 08:00 96.5 24 97 Nasal Cannula 2.0 I&O- Last 24 Hours up to 6 AM 05/02/19 06:00 Intake Total 880 ml Output Total 2175 ml Balance -1295 ml Laboratory Data 24H LABS Laboratory Tests 2 05/01/19 14:03: Anion Gap 8, Glomerular Filtration Rate > 60.0, Calcium Level 9.2 05/01/19 19:45: Anion Gap 10, Glomerular Filtration Rate > 60.0, Calcium Level 8.4L 05/02/19 02:26: Urine Color YELLOW, Urine Appearance CLEAR, Urine pH 6.0, Urine Specific Bim 1.005, Urine Protein NEGATIVE, Urine Glucose (Auto)(UA) NEGATIVE, Urine Ketones (Auto) NEGATIVE, Urine Blood NEGATIVE, Urine Nitrite NEGATIVE, Urine Bilirubin NEGATIVE, Urine Urobilinogen 0.2, Urine Leukocyte Esterase (Auto) NEGATIVE, Urine WBC (Auto) 0, Urine RBC (Auto) 1, Urine Hyaline Casts (Auto) 0, Urine Bacteria (Auto) NEGATIVE, Urine Squamous Epithelial Cells 0, Urine Sperm (Auto) , Urine Random Osmolality 224L, Urine Random Creatinine 32.7, Urine Random Sodium 14 05/02/19 05:39: Anion Gap 8, Glomerular Filtration Rate > 60.0, Calcium Level 8.7L, Immature Granulocyte % (Auto) 0.8, Neutrophils (%) (Auto) 84.8H, Lymphocytes (%) (Auto) 5.6L, Monocytes (%) (Auto) 8.7H, Eosinophils (%) (Auto) 0.0, Basophils (%) (Auto) 0.1, Neutrophils # (Auto) 8.9H, Lymphocytes # (Auto) 0.6L, Monocytes # ( Auto) 0.9H, Eosinophils # (Auto) 0.0, Basophils # (Auto) 0.0, Nucleated Red Blood Cells % (auto) 0.0, Magnesium Level 2.4 05/02/19 07:33: Anion Gap 9, Glomerular Filtration Rate > 60.0, Calcium Level 8.8 CBC/BMP Laboratory Tests 05/01/19 14:03 05/01/19 19:45 05/02/19 05:39 05/02/19 07:33 Microbiology Microbiology 04/30/19 Blood Culture - Preliminary, Resulted No growth after 24 hours . All specim... 04/30/19 Blood Culture - Preliminary, Resulted No growth after 24 hours . All specim... INGA VELEZ MD May 02, 2019 09:39
[2019-05-02 09:46] VITALS: BP 135/78
[2019-05-02 14:00] VITALS: BP 125/79
[2019-05-02 14:23] LABS: BLOOD UREA NITROGEN 21 MG/DL (7-18); CALCIUM LEVEL 8.9 MG/DL (8.8-10.2); CARBON DIOXIDE LEVEL 26 MEQ/L (21-32); CHLORIDE LEVEL 83 MEQ/L (98-107); CREATININE FOR GFR 0.91 MG/DL (0.70-1.30); GLOMERULAR FILTRATION RATE > 60.0 (>42); GLUCOSE, FASTING 158 MG/DL (70-100); POTASSIUM SERUM 4.8 MEQ/L (3.5-5.1); SODIUM LEVEL 119 MEQ/L (136-145)
[2019-05-02] MEDS: TAMSULOSIN 0.4 MG CAP PO SCH (20:14)
[2019-05-02 22:00] VITALS: BP_SYST 125; BP_SYST 136; BP_DIAS 58; BP_DIAS 81
[2019-05-03] MEDS: IPRATROPIUM 0.5MG/ALBUTEROL 2.5MG INH SOL UD 3ML (DUONEB)(J7620) NEB SCH ×4 (02:00→19:38)
[2019-05-03] MEDS: methylPREDNISolone INJ 40 MG/1 ML VIAL (J2920) IV SCH ×3 (04:25→20:11)
[2019-05-03] MEDS: NS 1,000 ML IV SCH (04:26)
[2019-05-03] MEDS: allopurinoL 100 MG TAB PO SCH ×2 (05:53→16:12)
[2019-05-03 06:00] VITALS: BP_SYST 136; BP_SYST 151; BP_DIAS 74; BP_DIAS 82
[2019-05-03 06:13] LABS: BASO % 0.1 % (0.0-1.0); HEMATOCRIT 35.2 % (42.0-52.0); HEMOGLOBIN 12.7 g/dl (13.5-17.5); LYMPH # 0.7 10^3/uL (1.5-5.0); MEAN CORPUSCULAR HEMOGLOBIN 32.6 pg (27.0-33.0); MEAN CORPUSCULAR HGB CONC 36.1 g/dl (32.0-36.5); MEAN CORPUSCULAR VOLUME 90.5 fl (80.0-96.0); MONO # 0.9 10^3/uL (0.0-0.8); MONO % 8.2 % (0.0-5.0); NEUTROPHILS # 9.7 10^3/uL (1.5-8.5); NEUTROPHILS % 84.9 % (36.0-66.0); PLATELET COUNT, AUTOMATED 347 10^3/uL (150-450); RED BLOOD COUNT 3.89 10^6/uL (4.30-6.10); WHITE BLOOD COUNT 11.4 10^3/uL (4.0-10.0)
[2019-05-03 06:26] LABS: MAGNESIUM LEVEL 2.4 MG/DL (1.8-2.4)
[2019-05-03] MEDS: SYMBICORT 160/4.5MCG INHALER 6GM INH SCH ×2 (07:33→19:38)
[2019-05-03] MEDS: TIOTROPIUM INHALER/CAPSULE (SPIRIVA) INH SCH (07:33)
[2019-05-03 07:46] LABS: BLOOD UREA NITROGEN 20 MG/DL (7-18); CALCIUM LEVEL 8.5 MG/DL (8.8-10.2); CARBON DIOXIDE LEVEL 28 MEQ/L (21-32); CHLORIDE LEVEL 91 MEQ/L (98-107); CREATININE FOR GFR 0.72 MG/DL (0.70-1.30); GLOMERULAR FILTRATION RATE > 60.0 (>42); GLUCOSE, FASTING 141 MG/DL (70-100); POTASSIUM SERUM 4.6 MEQ/L (3.5-5.1); SODIUM LEVEL 125 MEQ/L (136-145)
[2019-05-03] MEDS: FOLIC ACID 1 MG TAB PO SCH (09:22)
[2019-05-03] MEDS: APIXABAN 5 MG TAB (ELIQUIS) PO SCH ×2 (09:22→20:12)
[2019-05-03] MEDS: VERAPAMIL 80 MG TAB PO SCH ×3 (09:22→20:14)
[2019-05-03] MEDS: CALCIUM CARBONATE 500 MG CHEW U/D PO SCH ×3 (09:22→20:12)
[2019-05-03] MEDS: FERROUS GLUCONATE 324 MG TAB PO SCH ×2 (09:22→20:12)
[2019-05-03] MEDS: MULTIVITAMINS/MINERALS THERAP 1 TAB PO SCH (09:22)
[2019-05-03] MEDS: THIAMINE 100 MG TAB PO SCH (09:22)
[2019-05-03] MEDS: MAGNESIUM CHLORIDE 64 MG TABCR (SLO MAG) PO SCH ×2 (09:22→20:12)
[2019-05-03 11:00] LABS: CORTISOL BASELINE 10.4 UG/DL (4.3-22.4)
[2019-05-03 14:00] VITALS: BP 151/82
[2019-05-03] MEDS: TAMSULOSIN 0.4 MG CAP PO SCH (20:12)
[2019-05-03 21:00] VITALS: BP 148/86
--- NOTE | 2019-05-03 21:28 | IPNPDOC ---
Subjective Date Seen The patient was seen on 05/03/19. Subjective Chief Complaint/HPI Sebastian is resting in bed, his breathing is improved. Sodium is correcting appropriately. Objective Physical Examination General Exam: Positive: Alert, No Acute Distress Eye Exam: Positive: Conjunctiva & lids normal, EOMI; Negative: Sclera icteric ENT Exam: Positive: Atraumatic, Mucous membr. moist/pink, Pharynx Normal Chest Exam: Positive: Wheezing (less wheezing audible this morning) Heart Exam: Positive: Rate Normal, Regular Rhythm; Negative: Tachycardic Abdomen Exam: Positive: Normal bowel sounds Extremity Exam: Positive: Edema (trace); Negative: Clubbing, Cyanosis Neuro Exam: Positive: Normal Speech, Cranial Nerves 3-12 NL Psych Exam: Positive: Mental status NL, Oriented x 3; Negative: Anxiety Assessment /Plan Assessment # Acute on chronic asymptomatic hyponatremia due to hypovolemia - can liberalize fluid restriction at discharge - BMP daily - Na+ 125 this morning, likely home in am, usually runs baseline Na 130 - TSH nl, cortisol 10.4 (drawn at 8 pm) - urine studies reviewed, Joi 14, indicating dehydration - NS @ 50 ml/hr # Hypothermia - resolved # Leukocytosis - doubt infectious source likely from fall, outpatient steroids and stress reaction - no abx, blood cx negative - continues to improve # Lactic acidosis due to dehydration - resolved with fluids given in ED # Acute on chronic COPD exacerbation, POA # Secondary pulmonary hypertension - nebs, solumedrol, improved - switch to prednisone in am - spiriva # Paroxysmal A. fib rate controlled # HTN - continue Eliquis - verapamil # Chronic alcoholism - on ETOH withdrawal protocol, no signs of acute DTs - acutely intoxicated on admission lab Plan/VTE VTE Prophylaxis Ordered?: Yes VTE Exclusion Mechanical Proph: N/A:VTE Prophy Ordered VTE Exclusion Pharmacological: N/A:VTE Prophy Ordered (eliquis) VS, I&O, 24H, Fishbone Vital Signs/I&O Vital Signs Date Time Temp Pulse Resp B/P (MAP) Pulse Ox O2 Delivery O2 Flow Rate FiO2 05/03/19 20:14 91 143/82 05/03/19 14:00 97.9 18 98 Room Air 05/03/19 09:00 1.0 I&O- Last 24 Hours up to 6 AM 05/03/19 09:00 Intake Total 1990 ml Output Total 825 ml Balance 1165 ml Laboratory Data 24H LABS Laboratory Tests 2 05/03/19 05:34: Immature Granulocyte % (Auto) 0.8, Neutrophils (%) (Auto) 84.9H, Lymphocytes (%) (Auto) 6.0L, Monocytes (%) (Auto) 8.2H, Eosinophils (%) (Auto) 0.0, Basophils (%) (Auto) 0.1, Neutrophils # (Auto) 9.7H, Lymphocytes # (Auto) 0.7L, Monocytes # (Auto) 0.9H, Eosinophils # (Auto) 0.0, Basophils # (Auto) 0.0, Nucleated Red Blood Cells % (auto) 0.0, Anion Gap 6L, Glomerular Filtration Rate > 60.0, Calcium Level 8.5L, Magnesium Level 2.4 CBC/BMP Laboratory Tests 05/03/19 05:34 Microbiology Microbiology 04/30/19 Blood Culture - Preliminary, Resulted No Growth after 72 hours. All specime... 04/30/19 Blood Culture - Preliminary, Resulted No Growth after 72 hours. All specime... INGA VELEZ MD May 03, 2019 21:28
[2019-05-03 22:00] VITALS: BP 144/85
[2019-05-04] MEDS: IPRATROPIUM 0.5MG/ALBUTEROL 2.5MG INH SOL UD 3ML (DUONEB)(J7620) NEB SCH ×3 (00:05→13:35)
[2019-05-04] MEDS: NS 1,000 ML IV SCH (00:32)
[2019-05-04] MEDS: allopurinoL 100 MG TAB PO SCH ×2 (05:03→18:15)
[2019-05-04 06:00] VITALS: BP 143/80
[2019-05-04 06:10] LABS: BASO % 0.1 % (0.0-1.0); HEMATOCRIT 37.7 % (42.0-52.0); LYMPH # 0.7 10^3/uL (1.5-5.0); MEAN CORPUSCULAR HEMOGLOBIN 32.3 pg (27.0-33.0); MEAN CORPUSCULAR HGB CONC 34.5 g/dl (32.0-36.5); MEAN CORPUSCULAR VOLUME 93.8 fl (80.0-96.0); MONO % 7.3 % (0.0-5.0); NEUTROPHILS # 12.2 10^3/uL (1.5-8.5); NEUTROPHILS % 86.7 % (36.0-66.0); PLATELET COUNT, AUTOMATED 343 10^3/uL (150-450); RED BLOOD COUNT 4.02 10^6/uL (4.30-6.10)
[2019-05-04] MEDS: SYMBICORT 160/4.5MCG INHALER 6GM INH SCH (07:52)
[2019-05-04] MEDS: TIOTROPIUM INHALER/CAPSULE (SPIRIVA) INH SCH (07:52)
[2019-05-04] MEDS ORDERED: predniSONE 20 MG TAB PO SCH (09:00)
[2019-05-04] MEDS: FERROUS GLUCONATE 324 MG TAB PO SCH (09:38)
[2019-05-04] MEDS: ATORVASTATIN 20 MG TAB PO SCH (09:38)
[2019-05-04] MEDS: APIXABAN 5 MG TAB (ELIQUIS) PO SCH (09:38)
[2019-05-04] MEDS: FOLIC ACID 1 MG TAB PO SCH (09:38)
[2019-05-04] MEDS: MULTIVITAMINS/MINERALS THERAP 1 TAB PO SCH (09:38)
[2019-05-04] MEDS: THIAMINE 100 MG TAB PO SCH (09:38)
[2019-05-04] MEDS: VERAPAMIL 80 MG TAB PO SCH ×2 (09:39→16:12)
[2019-05-04] MEDS: MAGNESIUM CHLORIDE 64 MG TABCR (SLO MAG) PO SCH (09:39)
[2019-05-04] MEDS: CALCIUM CARBONATE 500 MG CHEW U/D PO SCH ×2 (09:39→16:11)
[2019-05-04 11:59] LABS: BLOOD UREA NITROGEN 21 MG/DL (7-18); CALCIUM LEVEL 8.6 MG/DL (8.8-10.2); CARBON DIOXIDE LEVEL 24 MEQ/L (21-32); CHLORIDE LEVEL 94 MEQ/L (98-107); CREATININE FOR GFR 0.81 MG/DL (0.70-1.30); GLOMERULAR FILTRATION RATE > 60.0 (>42); GLUCOSE, FASTING 137 MG/DL (70-100); POTASSIUM SERUM 4.7 MEQ/L (3.5-5.1); SODIUM LEVEL 127 MEQ/L (136-145)
[2019-05-04] MEDS ORDERED: predniSONE 50 MG TAB PO ONE (13:30)
[2019-05-04] MEDS ORDERED: PRED10TA2 PO ×2 (13:36→13:37)
[2019-05-04 14:00] VITALS: BP 162/87
--- NOTE | 2019-05-04 14:33 | REP ---
Portable chest, single AP view with the patient sitting, 02:08 p.m.: Comparison is the portable chest dated 04/30/2019. There is minor atelectasis in the left costophrenic angle as an interval change. Lung lopez otherwise clear. The cardiac size is normal. The jony, mediastinum, skeletal structures are unremarkable. Impression: Minor atelectasis in the left costophrenic angle, otherwise, negative portable chest. Electronically Signed by Blair Luther MD 05/04/2019 02:24 P
[2019-05-04] MEDS: SODIUM CHLORIDE 1 GM TAB PO SCH ×2 (14:37→18:15)
[2019-05-04] MEDS ORDERED: SODIUM CHLORIDE 1 GM TAB PO ONE (15:00)
[2019-05-04 16:12] VITALS: BP 162/87
--- NOTE | 2019-05-04 16:45 | IPN ---
DATE: 05/04/2019 Patient denies any shortness of breath, headaches, changes in vision, altered mental status despite sodium level of 109 on admission. Patient has had no issues overnight and says that despite not being on torsemide, the patient denies any shortness of breath. IV fluids have been discontinued. He is tolerating his diet, would like to go home soon. No chest pain, pressure, tightness, lightheadedness or dizziness. Temperature 97.3, pulse 88, respiratory rate 18, blood pressure 143/80, 95% on one liter nasal cannula. Generally, awake, alert, oriented times three, answering questions appropriately. No icterus, no jaundice. Pupils are round and reactive. No jugular venous distention (JVD)/thyromegaly. Lungs: Diminished with bilateral wheezing seen with diminished breath sounds. Heart: S1, S2, sinus rhythm. Abdomen is soft, nontender, nondistended. Extremities: Trace edema bilaterally. LABORATORY DATA: White count 14, hemoglobin 13, hematocrit 37, platelet count 343. Sodium 127, potassium 4.7, chloride 94, bicarbonate 24, BUN 21, creatinine 0.81, glucose of 137. ASSESSMENT AND PLAN: This is a 73-year-old male with a history of congestive heart failure, chronic obstructive pulmonary disease (COPD), atrial fibrillation (a fib), on chronic Eliquis, chronic alcoholism, chronic hyponatremia secondary to beer potomania, hypertension, dyslipidemia. Had a fall while getting out of his truck, was found to be severely hyponatremic with sodium of 109 on admission. The patient has been on fluid restriction and intravenous fluids. Previous echo was in 2018; ejection fraction (EF) of 65% and right-sided heart failure with preserved ejection fraction and severe pulmonary hypertension. Patient is treated for the following issues: 1. Severe hyponatremia with gait abnormality secondary to beer potomania. Patient has been placed on fluid restriction, increased normal saline fluids over the past couple of days, appears to be significantly improved with mentation stable, has passed a home safety evaluation. 2. Diastolic heart failure with a history of cor pulmonale. On chronic spironolactone and torsemide. Torsemide has been restarted 20 mg twice a day with holding parameters. 3. Chronic obstructive pulmonary disease (COPD) exacerbation, improved. Currently on prednisone taper. 4. Gait abnormality due to chronic alcoholism, on folic acid, thiamine. 5. Atrial fibrillation, rate controlled, on verapamil 80 mg three times a day and apixaban 5 mg twice a day for CVA prophylaxis. 6. Chronic alcohol abuse. On Serax 10 mg every 8 hours as needed. DISPOSITION: The patient has passed a home safety evaluation and may be discharged home if sodium level appears to be at 130. MTDD
[2019-05-04] MEDS ORDERED: TORSEMIDE 20 MG TAB PO SCH (17:00)
[2019-05-04 18:29] LABS: BLOOD UREA NITROGEN 24 MG/DL (7-18); CALCIUM LEVEL 9.3 MG/DL (8.8-10.2); CARBON DIOXIDE LEVEL 25 MEQ/L (21-32); CHLORIDE LEVEL 93 MEQ/L (98-107); CREATININE FOR GFR 0.93 MG/DL (0.70-1.30); GLOMERULAR FILTRATION RATE > 60.0 (>42); GLUCOSE, FASTING 127 MG/DL (70-100); POTASSIUM SERUM 4.9 MEQ/L (3.5-5.1); SODIUM LEVEL 128 MEQ/L (136-145)
[2019-05-05] MEDS ORDERED: predniSONE 20 MG TAB PO SCH (09:00)
== END 2019-05-04 20:19 | disposition home or self-care (01) | DRG 191 ==
LOC: M ED 17:12 → M ED INP 19:30 → ENRESERVDT 20:50 → ENRESERVTM 20:50 → M PCU 21:50 → M MSPAV 05-02 09:40
PROVIDERS: ADMIT Internal Medicine; ATTEND General Practice
DX: J44.1 Chronic obstructive pulmonary disease with (acute) exacerbation (principal); E87.1 Hypo-osmolality and hyponatremia; E87.2 Acidosis; I50.32 Chronic diastolic (congestive) heart failure; D72.829 Elevated white blood cell count, unspecified; I48.0 Paroxysmal atrial fibrillation; I11.0 Hypertensive heart disease with heart failure; E78.5 Hyperlipidemia, unspecified; E86.0 Dehydration; E86.1 Hypovolemia; I27.20 Pulmonary hypertension, unspecified; R26.89 Other abnormalities of gait and mobility; F10.20 Alcohol dependence, uncomplicated; M10.9 Gout, unspecified; T68.XXXA Hypothermia, initial encounter; Y92.89 Other specified places as the place of occurrence of the external cause; X31.XXXA Exposure to excessive natural cold, initial encounter; Z79.01 Long term (current) use of anticoagulants; Z79.899 Other long term (current) drug therapy

== ENCOUNTER 2019-08-04 07:26 | Inpatient (IN) | payer OTHER, MEDICARE ==
[~2019-08-04] VITALS: Ht 175.3 cm; Wt 74.9 kg
[~2019-08-04 07:26] MED LIST changes: +VERAP80TA PO
[2019-08-04] MEDS ORDERED: methylPREDNISolone INJ 125 MG/2 ML VIAL (J2930) IV ONE (08:00)
[2019-08-04] MEDS: COMBIVENT RESPIMAT 100-20MCG INHALER 4GM INH PRN ×3 (08:13→08:57)
[2019-08-04 08:22] LABS: BASO # 0.1 10^3/uL (0.0-0.2); BASO % 0.5 % (0.0-1.0); EOS # 0.2 10^3/uL (0.0-0.5); HEMATOCRIT 41.4 % (42.0-52.0); HEMOGLOBIN 14.6 g/dl (13.5-17.5); LYMPH # 0.9 10^3/uL (1.5-5.0); LYMPH % 8.4 % (24.0-44.0); MEAN CORPUSCULAR HEMOGLOBIN 32.4 pg (27.0-33.0); MEAN CORPUSCULAR HGB CONC 35.3 g/dl (32.0-36.5); MONO # 1.3 10^3/uL (0.0-0.8); MONO % 11.8 % (0.0-5.0); NEUTROPHILS # 8.3 10^3/uL (1.5-8.5); PLATELET COUNT, AUTOMATED 393 10^3/uL (150-450); WHITE BLOOD COUNT 10.7 10^3/uL (4.0-10.0)
[2019-08-04 08:48] LABS: ALBUMIN 3.9 GM/DL (3.2-5.2); ALT/SGPT 43 U/L (12-78); BILIRUBIN,DIRECT 0.2 MG/DL (0.0-0.2); BILIRUBIN,TOTAL 0.5 MG/DL (0.2-1.0); BLOOD UREA NITROGEN 21 MG/DL (7-18); CALCIUM LEVEL 9.5 MG/DL (8.8-10.2); CARBON DIOXIDE LEVEL 30 MEQ/L (21-32); CHLORIDE LEVEL 86 MEQ/L (98-107); CK-MB VALUE MASS 8.3 NG/ML (<3.6); CPK CREATINE PHOSPHOKINASE 343 U/L (39-308); CREATININE FOR GFR 1.21 MG/DL (0.70-1.30); GLOMERULAR FILTRATION RATE > 60.0 (>42); GLUCOSE, FASTING 106 MG/DL (70-100); MB/CK RELATIVE INDEX 2.42 (< OR =4); NT-PRO BNP 523 PG/ML (<125); POTASSIUM SERUM 4.2 MEQ/L (3.5-5.1); SODIUM LEVEL 126 MEQ/L (136-145); TOTAL PROTEIN 7.4 GM/DL (6.4-8.2); TROPONIN I 0.02 NG/ML (< 0.10)
--- NOTE | 2019-08-04 08:49 | REP ---
REASON: Cough and dyspnea. COMPARISON: 05/04/2019 FINDINGS: The technique utilized in obtaining the radiograph has magnified the cardiac silhouette and accentuated the interstitial markings. The superior mediastinal structures are midline. The cardiac silhouette is unremarkable in size, shape, and position. The diaphragmatic surfaces of the lungs are regular, and the costophrenic angles are clear. The pulmonary lopez are clear. The imaged osseous structures are intact. IMPRESSION: There is no acute cardiopulmonary disease. Electronically Signed by David Conteh DO 08/04/2019 11:39 A
[2019-08-04] MEDS ORDERED: ACET-907 PO (10:53)
[2019-08-04] MEDS ORDERED: ALBU83IN INH (10:53)
[2019-08-04] MEDS ORDERED: SPIR-10 PO (10:54)
[2019-08-04] MEDS ORDERED: ACETAMINOPHEN TAB 650MG DOSE (2X325MG) PO PRN (12:15)
[2019-08-04] MEDS: IPRATROPIUM 0.5MG/ALBUTEROL 2.5MG INH SOL UD 3ML (DUONEB)(J7620) NEB SCH ×3 (13:00→19:34)
--- NOTE | 2019-08-04 13:32 | HPEPDOC ---
[facility] [place] Medical History & Physical Date of Admission Aug 04, 2019 Date of Service: Aug 04, 2019 Attending Physician: Brandy Lucero MD History and Physical CHIEF COMPLAINT: Worsening shortness of breath HISTORY OF PRESENT ILLNESS: The patient is a 74-year-old male with past medical history of COPD, hypomagnesemia, hyperlipidemia, atrial fibrillation, diastolic congestive heart failure, alcohol abuse, iron deficiency anemia who presented to the emergency room with the chief complaint of worsening shortness of breath over the past 34 days. He states he often feels short of breath at baseline; however, over the past several days he couldn't walk around his home without being very fatigued and wheezy. He states he has never felt this short of breath in the past. He denies chest pain, nausea, vomiting, fevers, chills, abdominal pain, recent illnesses, recent sick contacts, lightheadedness or dizziness. Other associated symptoms include a cough which is different from his baseline cough with clear frothy sputum at times. He is also more unsteady on his feet than baseline due to increased weakness, decreased appetite, decreased intake to food and fluids. EMS states he was wheezy on arrival and the patient had just uses rescue inhaler. He denies it helping his shortness of breath. Due to his worsening symptoms the patient came into the ER today to be evaluated. In the emergency room the patient was persistently tachycardic with a heart rate between 15460, temperature 97.7, blood pressure 136/73, respiratory rate 1721, 9398 percent on room air. Chest x-ray showed no acute changes. On examination the patient was extremely wheezy with scattered rhonchi. PH on VBG showed 7.5. WBC 10.7, sodium 126, chloride 86, CK was 343, BNP 523. Troponin negative. He was given the fluids, Solu-Medrol, duo nebs. The patient had persistent wheezing with shortness of breath with minimal activity. The patient was ultimately admitted for COPD exacerbation, dehydration. REVIEW OF SYSTEMS: CONSTITUTIONAL: Denies unexplained weight gain or weight loss, loss of appetite, fever, night sweats EYES: Denies eye drainage, eye pain, visual changes, dry/irritated eye EARS, NOSE, MOUTH, THROAT: Denies difficulty hearing, ringing in ears, mouth sores, loose teeth, sore throat, facial numbness or pain NECK: Denies swollen glands CARDIOVASCULAR: Denies irregular heartbeat, racing heart, chest pains, swelling of feet or legs, pain in legs with walking RESPIRATORY: Denies night sweats, oxygen at home, coughing up blood GASTROINTESTINAL: Denies abdominal pain, constipation, bloody stool, diarrhea, heartburn, nausea, vomiting GENITOURINARY: Denies painful urination, bloody urine, frequent urination, urgency, leaking urine, impotence MUSCULOSKELETAL: Denies joint pain, muscle pain, leg swelling INTEGUMENTARY: Denies rash, itching, new skin lesion, change in existing skin lesion, hair loss or increase, breast changes. NEUROLOGICAL: Denies headaches, dizziness, difficulty walking, numbness or tingling PSYCHIATRIC: Denies depression, anxiety, recurrent bad thoughts, mood swings, hallucinations PAST MEDICAL HISTORY: Atrial fib, on Eliquis. Hypomagnesemia Gout Iron deficiency anemia H/O Syncopal episode Severe pulmonary hypertension CHF/ Diastolic dysfunction with left ventricular ejection fraction 65% Hypertension Dyslipidemia Chronic obstructive pulmonary disease BPH Alcohol use Tobacco use PSHX: Left knee arthroscopy Colonoscopy SOCHX: Resides in: [facility] Marital Status: Employment: Retired [employer] de[employer] Tobacco use: 1 ppd x 50 years, recently 4-5 per day ETOH: 4-5 beers per day hx, currently states to drink 3x/week Illicit Drugs: Denies Advanced directives: none, Full Code FAMHX: Father: , 50 years old, leukemia Mother: , 83 years old, stroke Siblings: - Sister: Alive, 88 years old, unknown health history - Brother: , unknown age, alcoholism ALLERGIES: Please see below. HOME MEDICATIONS: Please see below. PHYSICAL EXAMINATION: CONSTITUTIONAL: No respiratory distress, AAO x 3 EYES: PERRLA, EOM intact HENT, MOUTH: Normocephalic, atraumatic,dry oral mucous membranes NECK: SUPPLE, no JVD, no lymphadenopathy, no carotid bruit CV: tachycardia, irregularly irregular rhythm, S1S2 normal, no murmurs/rubs/gallops RESPIRATORY: Expiratory wheezing bilaterally, scattered rhonchi. no rales GI: BS positive in 4 quadrants, soft, nontender, nondistended, no rebound or guarding, no organomegaly : Deferred MUSCULOSKELETAL: Normal ROM. No cyanosis, clubbing, swelling, joint deformity, extremity edema INTEGUMENTARY: Dry extremities, Intact, no rashes, no lesions, no erythema NEUROLOGIC: Cranial Nerves II-XII are intact, no focal deficits PSYCHIATRIC: Mood and affect are normal LABORATORY DATA: Please see below IMAGING: CXR: No acute CP disease ASSESSMENT: The patient is a 74-year-old male admitted for COPD exacerbation, dehydration. PLAN: 1. Acute COPD exacerbation. Wheezing along with minimal shortness of breath persisted after treatment in the ER. Continue with methylprednisolone every 8 hours, DuoNeb around the clock, albuterol when necessary, Symbicort. 2. Dehydration likely secondary to decreased PO intake. Continue with IV fluids at 100 mL per hour. Holding torsemide twice a day for now. Monitor electrolytes closely. 3. Hyponatremia, chronic. Hx of alcohol abuse, on diuretics. Sodium 126- very near baseline, chloride 86. In presence of dehydration, will continue with IV fluids as mentioned above. Holding torsemide and following up labs daily. 4. Elevated CK. Likely 2/2 to dehydration. C/w treatment above. 5. Diastolic congestive heart failure. Troponin negative, BNP 523. The patient has no signs or symptoms of fluid overload. Holding torsemide twice a day, continue spironolactone at daily dose, verapamil. 6. Atrial fibrillation, chronic. Slightly tachycardic but likely due to dehydration. Rate goal <110. Continue with verapamil, Eliquis BID. 7. HLD. statin. 8. Iron deficiency anemia. C/w iron supplement. 9. Gout. C/w home meds. 10. BPH. C/w home meds. 11. Tobacco use. Nicotine patch. 12. Alcohol abuse. Denies drinking daily. N signs of withdrawl currently. C/w home thiamine, folic acid. 13. DVT px. Eliquis BID. DISPOSITION: Plan is discharge home when medically improved. Vital Signs Vital Signs Date Time Temp Pulse Resp B/P (MAP) Pulse Ox O2 Delivery O2 Flow Rate FiO2 08/04/19 13:21 97.8 105 20 155/90 (111) 96 Room Air 08/04/19 07:34 2.0 Laboratory Data Labs 24H Laboratory Tests 2 08/04/19 07:46: Immature Granulocyte % (Auto) 0.3, Neutrophils (%) (Auto) 77.0H, Lymphocytes (%) (Auto) 8.4L, Monocytes (%) (Auto) 11.8H, Eosinophils (%) (Auto) 2.0, Basophils (%) (Auto) 0.5, Neutrophils # (Auto) 8.3, Lymphocytes # (Auto) 0.9L, Monocytes # (Auto) 1.3H, Eosinophils # (Auto) 0.2, Basophils # (Auto) 0.1, Nucleated Red Blood Cells % (auto) 0.0, Anion Gap 10, Glomerular Filtration Rate > 60.0, Lactic Acid Level 1.7, Calcium Level 9.5, Total Bilirubin 0.5, Direct Bilirubin 0.2, Aspartate Amino Transf (AST/SGOT) 39H, Alanine Aminotransferase (ALT/SGPT) 43, Alkaline Phosphatase 124H, Total Creatine Kinase 343H, Creatine Kinase MB 8.3H, Creatine Kinase MB Relative Index 2.42, Troponin I 0.02, HP-Tsw-D-Type Natriuretic Peptide 523H, Total Protein 7.4, Albumin 3.9, Albumin/Globulin Ratio 1.11 08/04/19 08:14: Coronavirus (COVID-19)(PCR) NEGATIVE 08/04/19 08:25: POC pH (Misc Panel) 7.500H, POC Base Excess (Misc Panel) 5.0H, POC Saturated Percent O2 (Misc) 96, POC pO2 (Misc Panel) 71.0L, POC pCO2 (Misc Panel) 36.1, POC HCO3 (Misc Panel) 28.1H, POC Total CO2 (Misc Panel) 29.0H CBC/BMP Laboratory Tests 08/04/19 07:46 Microbiology Microbiology 08/04/19 Respiratory Virus Panel (PCR) ([facility]) - Final, Complete 08/04/19 Blood Culture, Received Pending 08/04/19 Blood Culture, Received Pending Home Medications Scheduled Allopurinol (Allopurinol) 100 Mg Tablet, 100 MG PO BID TAKES WITH BREAKFAST AND DINNER Apixaban (Eliquis) 5 Mg Tab, 5 MG PO Q12H Atorvastatin Calcium (Atorvastatin Calcium) 20 Mg Tablet, 20 MG PO Q2D Budesonide/Formoterol (Symbicort 160-4.5 Mcg Inhaler) 60 Puff/Inhaler Aers, 2 PUFF INH BID Calcium Carbonate (Calcium) 500 Mg Chw, 1,000 MG PO AC Ferrous Gluconate (Ferrous Gluconate) 324 Mg Tablet, 324 MG PO BID Folic Acid (Folic Acid) 1 Mg Tab, 1 MG PO DAILY Magnesium Chloride (Mag64) 64 Mg Tablet.dr, 64 MG PO BID Multivitamins (Thera M Plus Tablet) 1 Tab Tab, 1 TAB PO BID Spironolactone (Spironolactone) 25 Mg Tablet, 25 MG PO DAILY Tamsulosin HCl (Flomax) 0.4 Mg Cap, 0.4 MG PO QPM PATIENT TAKES AFTER DINNER Tiotropium [place] (Spiriva) 18 Mcg Cap, 1 INHALATION INH DAILY Torsemide (Torsemide) 20 Mg Tablet, 20 MG PO BID TAKES AT 0500 AND 1700 Verapamil HCl (Verapamil HCl) 80 Mg Tablet, 80 MG PO TID Scheduled PRN Acetaminophen (Tylenol) 325 Mg Tablet, 325 MG PO Q4HP PRN for PAIN Albuterol Sulf (Albuterol Sulfate) 2.5 Mg/3 Ml Vial.neb, 2.5 MG INH QID PRN for WHEEZING Albuterol Sulfate (Ventolin Hfa) 18 Gm Hfa.aer.ad, 2 PUFF INH QID PRN for SHORTNESS OF BREATH Allergies Coded Allergies: No Known Allergies (Unverified , 09/28/18) A-FIB/CHADSVASC A-FIB History Current/History of A-Fib/PAF?: Yes Current PO Anticoag Therapy: Yes Age/Risk Factor Scoring CHADSVASC: CHADSVASC Response (Comments) Value Age Risk Factor Age 65-74 years old 1 Gender Risk Factor Male 0 Hx of CHF Yes 1 Hx of HTN Yes 1 Hx of Stroke/TIA/or VTE No 0 Hx of Diabetes No 0 Hx of Vascular Disease No 0 Total 3 Treatment Treatment ordered: Other Other anticoagulant ordered: Brandy Nagy MD Aug 04, 2019 13:32
[2019-08-04 13:38] VITALS: BP 151/100
[2019-08-04 14:00] VITALS: BP 148/95
[2019-08-04] MEDS: NS 1,000 ML IV SCH ×2 (14:24→23:50)
[2019-08-04 14:46] LABS: APPEARANCE, URINE CLEAR (CLEAR); BACTERIA, URINE AUTO NEGATIVE (NEGATIVE); BILIRUBIN, URINE AUTO NEGATIVE (NEGATIVE); BLOOD, URINE BLOOD NEGATIVE (NEGATIVE); COLOR, URINE YELLOW (YELLOW); GLUCOSE, URINE (UA) AUTO NEGATIVE (NEGATIVE); KETONE, URINE AUTO NEGATIVE (NEGATIVE); LEUKOCYTE ESTERASE, URINE AUTO NEGATIVE (NEGATIVE); NITRITE, URINE AUTO NEGATIVE (NEGATIVE); PROTEIN, URINE AUTO NEGATIVE (NEGATIVE); RBC, URINE AUTO 3 /HPF (0-3); SPECIFIC GRAVITY URINE AUTO 1.006 (1.002-1.035); SQUAMOUS EPITHELIAL CELL UR AU 0 /HPF (0-6); UROBILINOGEN, URINE AUTO 0.2 mg/dL (0.0-2.0); WBC, URINE AUTO 0 /HPF (0-3)
[2019-08-04] MEDS: VERAPAMIL 80 MG TAB PO SCH ×2 (16:52→21:31)
[2019-08-04] MEDS: methylPREDNISolone INJ 40 MG/1 ML VIAL (J2920) IV SCH ×2 (16:53→23:51)
[2019-08-04] MEDS: allopurinoL 100 MG TAB PO SCH (18:32)
[2019-08-04] MEDS: SYMBICORT 160/4.5MCG INHALER 6GM INH SCH (19:38)
[2019-08-04] MEDS: TAMSULOSIN 0.4 MG CAP PO SCH (21:30)
[2019-08-04] MEDS: APIXABAN 5 MG TAB (ELIQUIS) PO SCH (21:30)
[2019-08-04] MEDS: FERROUS SULFATE 325MG TAB PO SCH (21:30)
[2019-08-04] MEDS: MAGNESIUM CHLORIDE 64 MG TABCR (SLO MAG) PO SCH (21:31)
[2019-08-04 22:00] VITALS: BP 135/81
--- NOTE | 2019-08-04 22:08 | ECGEPIP ---
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
[2019-08-04] MEDS: ALBUTEROL SULFATE 2.5 MG/0.5 ML INH NEB SOLN NEB PRN (23:57)
[2019-08-05 06:00] VITALS: BP 125/62
[2019-08-05] MEDS: ALBUTEROL SULFATE 2.5 MG/0.5 ML INH NEB SOLN NEB PRN (06:08)
[2019-08-05 06:47] LABS: HEMATOCRIT 38.1 % (42.0-52.0); HEMOGLOBIN 13.7 g/dl (13.5-17.5); MEAN CORPUSCULAR HEMOGLOBIN 32.8 pg (27.0-33.0); MEAN CORPUSCULAR VOLUME 91.1 fl (80.0-96.0); PLATELET COUNT, AUTOMATED 364 10^3/uL (150-450); RED BLOOD COUNT 4.18 10^6/uL (4.30-6.10); WHITE BLOOD COUNT 6.9 10^3/uL (4.0-10.0)
[2019-08-05] MEDS: SYMBICORT 160/4.5MCG INHALER 6GM INH SCH ×2 (07:12→19:26)
[2019-08-05 07:13] LABS: ALBUMIN 3.6 GM/DL (3.2-5.2); ALT/SGPT 42 U/L (12-78); BILIRUBIN,TOTAL 0.7 MG/DL (0.2-1.0); BLOOD UREA NITROGEN 26 MG/DL (7-18); CALCIUM LEVEL 9.3 MG/DL (8.8-10.2); CARBON DIOXIDE LEVEL 25 MEQ/L (21-32); CHLORIDE LEVEL 94 MEQ/L (98-107); CREATININE FOR GFR 1.03 MG/DL (0.70-1.30); GLOMERULAR FILTRATION RATE > 60.0 (>42); GLUCOSE, FASTING 133 MG/DL (70-100); SODIUM LEVEL 128 MEQ/L (136-145); TOTAL PROTEIN 6.9 GM/DL (6.4-8.2)
[2019-08-05] MEDS: MULTIVITAMINS/MINERALS THERAP 1 TAB PO SCH (07:55)
[2019-08-05] MEDS: SPIRONOLACTONE 25 MG TAB PO SCH (07:55)
[2019-08-05] MEDS: MAGNESIUM CHLORIDE 64 MG TABCR (SLO MAG) PO SCH ×2 (07:55→20:21)
[2019-08-05] MEDS: VERAPAMIL 80 MG TAB PO SCH ×3 (07:57→20:21)
[2019-08-05] MEDS: APIXABAN 5 MG TAB (ELIQUIS) PO SCH ×2 (07:58→20:21)
[2019-08-05] MEDS: CALCIUM CARBONATE 500 MG CHEW U/D PO SCH (07:58)
[2019-08-05] MEDS: allopurinoL 100 MG TAB PO SCH ×2 (07:58→17:39)
[2019-08-05] MEDS: FERROUS SULFATE 325MG TAB PO SCH ×2 (07:58→20:21)
[2019-08-05] MEDS: FOLIC ACID 1 MG TAB PO SCH (07:58)
[2019-08-05] MEDS: IPRATROPIUM 0.5MG/ALBUTEROL 2.5MG INH SOL UD 3ML (DUONEB)(J7620) NEB SCH ×4 (08:00→19:25)
[2019-08-05] MEDS ORDERED: methylPREDNISolone INJ 125 MG/2 ML VIAL (J2930) IV SCH (09:00)
[2019-08-05] MEDS: NS 1,000 ML IV SCH ×2 (09:42→17:39)
[2019-08-05 14:00] VITALS: BP 139/85
--- NOTE | 2019-08-05 16:34 | IPNPDOC ---
Date Seen The patient was seen on 08/05/19. Progress Note SUBJECTIVE: Wheezing, rhonchi still present and similar to on admission. Patient becomes very SOB with activity currently, worse than baseline. Doing well on RA; however. Denies chest pain, n/v/d, fevers or chills. OBJECTIVE: VITAL SIGNS: please see below. PHYSICAL EXAMINATION: CONSTITUTIONAL: No respiratory distress, AAO x 3 EYES: PERRLA, EOM intact HENT, MOUTH: Normocephalic, atraumatic,dry oral mucous membranes NECK: SUPPLE, no JVD, no lymphadenopathy, no carotid bruit CV: tachycardia, irregularly irregular rhythm, S1S2 normal, no murmurs/rubs/gallops RESPIRATORY: Expiratory wheezing bilaterally, scattered rhonchi. no rales GI: BS positive in 4 quadrants, soft, nontender, nondistended, no rebound or guarding, no organomegaly : Deferred MUSCULOSKELETAL: Normal ROM. No cyanosis, clubbing, swelling, joint deformity, extremity edema INTEGUMENTARY: Dry extremities, Intact, no rashes, no lesions, no erythema NEUROLOGIC: Cranial Nerves II-XII are intact, no focal deficits PSYCHIATRIC: Mood and affect are normal LABORATORY DATA: Please see below IMAGING: No new imaging. ASSESSMENT: The patient is a 74-year-old male admitted for acute COPD exacerbation, dehydration. PLAN: 1. Acute COPD exacerbation. Wheezing and rhonchi persists, not much improved from admission. Although on RA, patient far from baseline. Requires continued treatment with TID methylprednisolone every 8 hours, DuoNeb ATC, albuterol PRN, Symbicort, acapella Q2 hrs while awake. 2. Dehydration likely secondary to decreased PO intake. Na and Cl improving slowly. Continue with IV fluids at 100 mL per hour. Holding torsemide twice a day for now. Monitor electrolytes closely and for signs of fluid overload with hx of CHF. 3. Hyponatremia, chronic. Hx of alcohol abuse, on diuretics. Improved some to 128. In presence of dehydration, will continue with IV fluids as mentioned above. Holding torsemide and following up labs daily. 4. Elevated CK. Likely 2/2 to dehydration. C/w treatment above. 5. Diastolic congestive heart failure. Currently no signs or symptoms of fluid overload. Holding torsemide twice a day, continue spironolactone at daily dose, verapamil. Restart when dehydration resolves. 6. Atrial fibrillation, chronic. Slightly tachycardic at times. Rate goal <110. Continue with verapamil, Eliquis BID. 7. HLD. statin. 8. Iron deficiency anemia. C/w iron supplement. 9. Gout. C/w home meds. 10. BPH. C/w home meds. 11. Tobacco use. Nicotine patch. 12. Alcohol abuse. Denies drinking daily. No signs of withdrawl currently. C/w home thiamine, folic acid. 13. DVT px. Eliquis BID. DISPOSITION: Plan is discharge home when medically improved. VS, I&O, 24H, Fishbone Vital Signs/I&O Vital Signs Date Time Temp Pulse Resp B/P (MAP) Pulse Ox O2 Delivery O2 Flow Rate FiO2 08/05/19 16:11 104 126/55 08/05/19 14:00 98.0 24 95 Room Air 08/04/19 07:34 2.0 I&O- Last 24 Hours up to 6 AM 08/05/19 06:00 Intake Total 2160 ml Output Total 575 ml Balance 1585 ml Laboratory Data 24H LABS Laboratory Tests 2 08/05/19 06:36: Nucleated Red Blood Cells % (auto) 0.0, Anion Gap 9, Glomerular Filtration Rate > 60.0, Calcium Level 9.3, Total Bilirubin 0.7, Aspartate Amino Transf (AST/SGOT) 33, Alanine Aminotransferase (ALT/SGPT) 42, Alkaline Phosphatase 99, Total Protein 6.9, Albumin 3.6, Albumin/Globulin Ratio 1.09 CBC/BMP Laboratory Tests 08/05/19 06:36 Microbiology Microbiology 08/04/19 Respiratory Virus Panel (PCR) ([facility]) - Final, Complete 08/04/19 Blood Culture - Preliminary, Resulted No growth after 24 hours . All specim... 08/04/19 Blood Culture - Preliminary, Resulted No growth after 24 hours . All specim... Current Medications Current Medications Medications (Trade) Dose Ordered Sig/Neftali Route PRN Reason Start Time Stop Time Status Last Admin Dose Admin Acetaminophen (Tylenol Tab) 650 mg Q4H PRN PO PAIN OR FEVER 08/04/19 12:15 Albuterol Sulfate (Proventil Neb) 2.5 mg Q2HP PRN NEB SOB/WHEEZING 08/04/19 12:30 08/05/19 06:08 Albuterol/ Ipratropium (Combivent Respimat 100-20mcg) 2 puff Q20M PRN INH SHORTNESS OF BREATH 08/04/19 08:00 08/04/19 08:57 DC 08/04/19 08:57 Albuterol/ Ipratropium (Duoneb (Ipr 0.5mg/Alb 2.5mg)) 3 ml RQID NEB 08/04/19 12:00 08/05/19 15:01 Allopurinol (Zyloprim) 100 mg BID@0800,1800 PO 08/04/19 18:00 08/05/19 07:58 Apixaban (Eliquis) 5 mg BID PO 08/04/19 21:00 08/05/19 07:58 Atorvastatin Calcium (Lipitor) 20 mg Q2D PO 08/06/19 09:00 Budesonide/ Formoterol Fumarate (Symbicort 160/ 4.5mcg) 2 puff BID INH 08/04/19 21:00 08/05/19 07:12 Calcium Carbonate (Tums) 1,000 mg DAILY PO 08/05/19 09:00 08/05/19 07:58 Ferrous Sulfate (Ferrous Sulfate) 325 mg BID PO 08/04/19 21:00 08/05/19 07:58 Folic Acid (Folic Acid) 1 mg DAILY PO 08/05/19 09:00 08/05/19 07:58 Home Med (Med Rec Complete!) ASDIRECTED XX 08/04/19 11:00 08/04/19 11:07 DC Magnesium Chloride (Slow-Mag) 64 mg BID PO 08/04/19 21:00 08/05/19 07:55 Methylprednisolone (SOLU medrol) 60 mg Q8H IV 08/04/19 16:00 08/05/19 07:52 DC 08/04/19 23:51 Methylprednisolone (SOLUmedrol) 60 mg BID IV 08/05/19 09:00 08/05/19 10:48 DC 08/05/19 08:53 Methylprednisolone (SOLUmedrol) 60 mg Q8H IV 08/05/19 17:00 Multivitamins (Theragram-M) 1 tab DAILY PO 08/05/19 09:00 08/05/19 07:55 Sodium Chloride 1,000 ml @ 100 mls/hr Q10H IV 08/04/19 12:30 08/05/19 09:42 Spironolactone (Aldactone) 25 mg QAM PO 08/05/19 09:00 08/05/19 07:55 Tamsulosin HCl (Flomax) 0.4 mg QPM PO 08/04/19 21:00 08/04/19 21:30 Verapamil HCl (Isoptin, Calan) 80 mg TID PO 08/04/19 16:00 08/05/19 16:11 Allergies Coded Allergies: No Known Allergies (Unverified , 09/28/18) Brandy Lucero MD Aug 05, 2019 16:34
[2019-08-05] MEDS: methylPREDNISolone INJ 125 MG/2 ML VIAL (J2930) IV SCH (17:39)
[2019-08-05] MEDS: TAMSULOSIN 0.4 MG CAP PO SCH (20:21)
[2019-08-05 22:00] VITALS: BP 135/75
[2019-08-06] MEDS: methylPREDNISolone INJ 125 MG/2 ML VIAL (J2930) IV SCH ×3 (01:31→17:01)
[2019-08-06] MEDS: NS 1,000 ML IV SCH ×3 (03:44→23:00)
[2019-08-06 06:00] VITALS: BP 125/68
[2019-08-06 06:56] LABS: HEMATOCRIT 37.3 % (42.0-52.0); MEAN CORPUSCULAR HEMOGLOBIN 32.5 pg (27.0-33.0); MEAN CORPUSCULAR HGB CONC 34.9 g/dl (32.0-36.5); MEAN CORPUSCULAR VOLUME 93.3 fl (80.0-96.0); PLATELET COUNT, AUTOMATED 366 10^3/uL (150-450); WHITE BLOOD COUNT 10.7 10^3/uL (4.0-10.0)
[2019-08-06] MEDS: IPRATROPIUM 0.5MG/ALBUTEROL 2.5MG INH SOL UD 3ML (DUONEB)(J7620) NEB SCH ×4 (07:11→19:46)
[2019-08-06] MEDS: SYMBICORT 160/4.5MCG INHALER 6GM INH SCH ×2 (07:11→19:42)
[2019-08-06 07:16] LABS: ALBUMIN 3.3 GM/DL (3.2-5.2); ALT/SGPT 54 U/L (12-78); BILIRUBIN,TOTAL 0.6 MG/DL (0.2-1.0); BLOOD UREA NITROGEN 26 MG/DL (7-18); CALCIUM LEVEL 8.4 MG/DL (8.8-10.2); CARBON DIOXIDE LEVEL 22 MEQ/L (21-32); CHLORIDE LEVEL 102 MEQ/L (98-107); CREATININE FOR GFR 0.91 MG/DL (0.70-1.30); GLOMERULAR FILTRATION RATE > 60.0 (>42); GLUCOSE, FASTING 136 MG/DL (70-100); POTASSIUM SERUM 4.2 MEQ/L (3.5-5.1); SODIUM LEVEL 131 MEQ/L (136-145); TOTAL PROTEIN 6.4 GM/DL (6.4-8.2)
[2019-08-06] MEDS: MAGNESIUM CHLORIDE 64 MG TABCR (SLO MAG) PO SCH ×2 (08:06→20:23)
[2019-08-06] MEDS: MULTIVITAMINS/MINERALS THERAP 1 TAB PO SCH (08:06)
[2019-08-06] MEDS: CALCIUM CARBONATE 500 MG CHEW U/D PO SCH (08:06)
[2019-08-06] MEDS: allopurinoL 100 MG TAB PO SCH ×2 (08:07→17:02)
[2019-08-06] MEDS: ATORVASTATIN 20 MG TAB PO SCH (08:09)
[2019-08-06] MEDS: VERAPAMIL 80 MG TAB PO SCH ×3 (08:09→20:22)
[2019-08-06] MEDS: FOLIC ACID 1 MG TAB PO SCH (08:09)
[2019-08-06] MEDS: APIXABAN 5 MG TAB (ELIQUIS) PO SCH ×2 (08:09→20:22)
[2019-08-06] MEDS: FERROUS SULFATE 325MG TAB PO SCH ×2 (08:09→20:22)
[2019-08-06] MEDS: SPIRONOLACTONE 25 MG TAB PO SCH (08:10)
[2019-08-06 14:00] VITALS: BP 130/70
--- NOTE | 2019-08-06 17:50 | IPNPDOC ---
Date Seen The patient was seen on 08/06/19. Progress Note SUBJECTIVE: Wheezing and rhonchi slightly improved, patient dropped to 72-75% O2 saturation after walking 15 feet today with PT. When rested increased to 82% on RA. O2 ordered. Kept TID methlylprednisolone, ATC duonebs. Feels slightly overall improved despite hypoxia. Denies chest pain, n/v/d, fevers or chills. OBJECTIVE: VITAL SIGNS: please see below. PHYSICAL EXAMINATION: CONSTITUTIONAL: No respiratory distress, AAO x 3 EYES: PERRLA, EOM intact HENT, MOUTH: Normocephalic, atraumatic,dry oral mucous membranes NECK: SUPPLE, no JVD, no lymphadenopathy, no carotid bruit CV: tachycardia, irregularly irregular rhythm, S1S2 normal, no murmurs/rubs/gallops RESPIRATORY: Expiratory wheezing bilaterally, scattered rhonchi. no rales GI: BS positive in 4 quadrants, soft, nontender, nondistended, no rebound or guarding, no organomegaly : Deferred MUSCULOSKELETAL: Normal ROM. No cyanosis, clubbing, swelling, joint deformity, extremity edema INTEGUMENTARY: Intact, no rashes, no lesions, no erythema NEUROLOGIC: Cranial Nerves II-XII are intact, no focal deficits PSYCHIATRIC: Mood and affect are normal LABORATORY DATA: Please see below IMAGING: No new imaging. ASSESSMENT: The patient is a 74-year-old male admitted for acute COPD exacerbation, dehydration. PLAN: 1. Acute COPD exacerbation. Hypoxic with ambulation today in 72-75% on RA. Will likely need O2 with ambulation, will ask respiratory to do walking desat test and see if we see improvement over this hospitalization. Wheezing and rhonchi persists, not much improved from admission. F/u BNP. C/w TID methylprednisolone Q8H, DuoNeb ATC, albuterol PRN, Symbicort, acapella Q2 hrs while awake. 2. Dehydration likely secondary to decreased PO intake. Na and Cl improving slowly. Continue with IV fluids at 100 mL per hour. Holding torsemide twice a day for now. Monitor electrolytes closely and for signs of fluid overload with hx of CHF. 3. Hyponatremia, chronic. Hx of alcohol abuse, on diuretics. Improved further to 131. In presence of dehydration, will continue with IV fluids as mentioned above. Holding torsemide and following up labs daily. 5. Diastolic congestive heart failure, chronic. Currently no signs or symptoms of fluid overload. Holding torsemide twice a day, continue spironolactone at daily dose, verapamil. Restart when dehydration resolves. 6. Atrial fibrillation, chronic. Stable. Rate goal <110. Continue with verapamil, Eliquis BID. 7. HLD. statin. 8. Iron deficiency anemia. C/w iron supplement. 9. Gout. C/w home meds. 10. BPH. C/w home meds. 11. Tobacco use. Nicotine patch. 12. Alcohol abuse. No signs of withdrawl. C/w home thiamine, folic acid. 13. DVT px. Eliquis BID. DISPOSITION: Patient is currently admitted under inpatient status. Plan is discharge home when medically improved. VS, I&O, 24H, [place] Vital Signs/I&O Vital Signs Date Time Temp Pulse Resp B/P (MAP) Pulse Ox O2 Delivery O2 Flow Rate FiO2 08/06/19 17:02 92 130/70 08/06/19 14:00 97.1 19 90 Room Air 08/04/19 07:34 2.0 I&O- Last 24 Hours up to 6 AM 08/06/19 06:00 Intake Total 2920 ml Output Total 1875 ml Balance 1045 ml Laboratory Data 24H LABS Laboratory Tests 2 08/06/19 06:28: Nucleated Red Blood Cells % (auto) 0.0, Anion Gap 7L, Glomerular Filtration Rate > 60.0, Calcium Level 8.4L, Total Bilirubin 0.6, Aspartate Amino Transf (AST/SGOT) 37, Alanine Aminotransferase (ALT/SGPT) 54, Alkaline Phosphatase 83, Total Protein 6.4, Albumin 3.3, Albumin/Globulin Ratio 1.06 CBC/BMP Laboratory Tests 08/06/19 06:28 Microbiology Microbiology 08/04/19 Respiratory Virus Panel (PCR) ([facility]) - Final, Complete 08/04/19 Blood Culture - Preliminary, Resulted No Growth after 48 hours. All Specime... 08/04/19 Blood Culture - Preliminary, Resulted No Growth after 48 hours. All Specime... Current Medications Current Medications Medications (Trade) Dose Ordered Sig/Neftali Route PRN Reason Start Time Stop Time Status Last Admin Dose Admin Acetaminophen (Tylenol Tab) 650 mg Q4H PRN PO PAIN OR FEVER 08/04/19 12:15 Albuterol Sulfate (Proventil Neb) 2.5 mg Q2HP PRN NEB SOB/WHEEZING 08/04/19 12:30 08/05/19 06:08 Albuterol/ Ipratropium (Combivent Respimat 100-20mcg) 2 puff Q20M PRN INH SHORTNESS OF BREATH 08/04/19 08:00 08/04/19 08:57 DC 08/04/19 08:57 Albuterol/ Ipratropium (Duoneb (Ipr 0.5mg/Alb 2.5mg)) 3 ml RQID NEB 08/04/19 12:00 08/06/19 14:57 Allopurinol (Zyloprim) 100 mg BID@0800,1800 PO 08/04/19 18:00 08/06/19 17:02 Apixaban (Eliquis) 5 mg BID PO 08/04/19 21:00 08/06/19 08:09 Atorvastatin Calcium (Lipitor) 20 mg Q2D PO 08/06/19 09:00 08/06/19 08:09 Budesonide/ Formoterol Fumarate (Symbicort 160/ 4.5mcg) 2 puff BID INH 08/04/19 21:00 08/06/19 07:11 Calcium Carbonate (Tums) 1,000 mg DAILY PO 08/05/19 09:00 08/06/19 08:06 Ferrous Sulfate (Ferrous Sulfate) 325 mg BID PO 08/04/19 21:00 08/06/19 08:09 Folic Acid (Folic Acid) 1 mg DAILY PO 08/05/19 09:00 08/06/19 08:09 Home Med (Med Rec Complete!) ASDIRECTED XX 08/04/19 11:00 08/04/19 11:07 DC Magnesium Chloride (Slow-Mag) 64 mg BID PO 08/04/19 21:00 08/06/19 08:06 Methylprednisolone (SOLU medrol) 60 mg Q8H IV 08/04/19 16:00 08/05/19 07:52 DC 08/04/19 23:51 Methylprednisolone (SOLUmedrol) 60 mg BID IV 08/05/19 09:00 08/05/19 10:48 DC 08/05/19 08:53 Methylprednisolone (SOLUmedrol) 60 mg Q8H IV 08/05/19 17:00 08/06/19 17:01 Multivitamins (Theragram-M) 1 tab DAILY PO 08/05/19 09:00 08/06/19 08:06 Sodium Chloride 1,000 ml @ 100 mls/hr Q10H IV 08/04/19 12:30 08/06/19 13:17 Spironolactone (Aldactone) 25 mg QAM PO 08/05/19 09:00 08/06/19 08:10 Tamsulosin HCl (Flomax) 0.4 mg QPM PO 08/04/19 21:00 08/05/19 20:21 Verapamil HCl (Isoptin, Calan) 80 mg TID PO 08/04/19 16:00 08/06/19 17:02 Allergies Coded Allergies: No Known Allergies (Unverified , 09/28/18) Brandy Lucero MD Aug 06, 2019 17:50
[2019-08-06] MEDS: TAMSULOSIN 0.4 MG CAP PO SCH (20:22)
[2019-08-06 22:00] VITALS: BP 146/86
[2019-08-06] MEDS: ALBUTEROL SULFATE 2.5 MG/0.5 ML INH NEB SOLN NEB PRN (23:22)
[2019-08-07] MEDS: methylPREDNISolone INJ 125 MG/2 ML VIAL (J2930) IV SCH ×3 (00:12→16:57)
[2019-08-07] MEDS: ALBUTEROL SULFATE 2.5 MG/0.5 ML INH NEB SOLN NEB PRN (04:34)
[2019-08-07 06:00] VITALS: BP 150/86
[2019-08-07 06:28] LABS: ABG BASE EXCESS -4.9 (-2.0-2.0); ABG HCO3 18.8 MEQ/L (22.0-26.0); ABG O2 SATURATION 98.3 % (95.0-99.0); ABG PARTIAL PRESSURE CO2 30.8 mmHg (35.0-45.0); ABG PARTIAL PRESSURE O2 108.9 mmHg (75.0-100.0); ABG STANDARD HCO3 20.5 MEQ/L (22.0-26.0); ABG TOTAL CO2 19.7 MEQ/L (23.0-31.0); ABG pH (ARTERIAL) 7.403 UNITS (7.350-7.450)
[2019-08-07 06:39] LABS: HEMATOCRIT 37.7 % (42.0-52.0); HEMOGLOBIN 13.1 g/dl (13.5-17.5); MEAN CORPUSCULAR HEMOGLOBIN 32.8 pg (27.0-33.0); MEAN CORPUSCULAR HGB CONC 34.7 g/dl (32.0-36.5); MEAN CORPUSCULAR VOLUME 94.5 fl (80.0-96.0); PLATELET COUNT, AUTOMATED 362 10^3/uL (150-450); RED BLOOD COUNT 3.99 10^6/uL (4.30-6.10)
[2019-08-07 07:05] LABS: ALBUMIN 3.3 GM/DL (3.2-5.2); ALT/SGPT 61 U/L (12-78); BILIRUBIN,TOTAL 0.2 MG/DL (0.2-1.0); BLOOD UREA NITROGEN 23 MG/DL (7-18); CALCIUM LEVEL 8.6 MG/DL (8.8-10.2); CARBON DIOXIDE LEVEL 22 MEQ/L (21-32); CHLORIDE LEVEL 104 MEQ/L (98-107); CREATININE FOR GFR 0.84 MG/DL (0.70-1.30); GLOMERULAR FILTRATION RATE > 60.0 (>42); GLUCOSE, FASTING 137 MG/DL (70-100); NT-PRO BNP 3819 PG/ML (<125); POTASSIUM SERUM 4.6 MEQ/L (3.5-5.1); SODIUM LEVEL 134 MEQ/L (136-145); TOTAL PROTEIN 6.1 GM/DL (6.4-8.2)
[2019-08-07] MEDS: SYMBICORT 160/4.5MCG INHALER 6GM INH SCH ×2 (07:16→19:52)
[2019-08-07] MEDS: IPRATROPIUM 0.5MG/ALBUTEROL 2.5MG INH SOL UD 3ML (DUONEB)(J7620) NEB SCH ×4 (07:16→19:52)
[2019-08-07] MEDS: allopurinoL 100 MG TAB PO SCH ×2 (08:10→16:57)
[2019-08-07] MEDS: FERROUS SULFATE 325MG TAB PO SCH ×2 (08:10→20:24)
[2019-08-07] MEDS: APIXABAN 5 MG TAB (ELIQUIS) PO SCH ×2 (08:10→20:24)
[2019-08-07] MEDS: CALCIUM CARBONATE 500 MG CHEW U/D PO SCH (08:10)
[2019-08-07] MEDS: FOLIC ACID 1 MG TAB PO SCH (08:10)
[2019-08-07] MEDS: MULTIVITAMINS/MINERALS THERAP 1 TAB PO SCH (08:10)
[2019-08-07] MEDS: SPIRONOLACTONE 25 MG TAB PO SCH (08:10)
[2019-08-07] MEDS: MAGNESIUM CHLORIDE 64 MG TABCR (SLO MAG) PO SCH ×2 (08:11→20:24)
[2019-08-07] MEDS: TORSEMIDE 20 MG TAB PO SCH ×2 (08:13→20:24)
[2019-08-07] MEDS: VERAPAMIL 80 MG TAB PO SCH ×3 (08:13→20:24)
--- NOTE | 2019-08-07 10:12 | REP ---
CHEST, SINGLE VIEW: There is no evidence of acute infiltrate. No pleural effusion is seen. The heart is normal in size. The mediastinal silhouette is unremarkable. The visualized osseous structures are intact. IMPRESSION: No acute pulmonary disease. Electronically Signed by Blair Lima MD 08/07/2019 10:50 A
[2019-08-07 14:00] VITALS: BP 140/80
--- NOTE | 2019-08-07 14:10 | IPNPDOC ---
Date Seen The patient was seen on 08/07/19. Progress Note SUBJECTIVE: Very wheezy and rhonchorous still but slightly improved. He is using acapella at bedside Q2 hrs while awake. He states normally he can walk for long periods of time without having to stop. Patient walked several times with nurse and dropped once <88% on RA. With rest improved. O2 ordered. Kept TID methlylprednisolone, ATC duonebs. Denies chest pain, n/v/d, fevers or chills. OBJECTIVE: VITAL SIGNS: please see below. PHYSICAL EXAMINATION: CONSTITUTIONAL: No respiratory distress, AAO x 3 EYES: PERRLA, EOM intact HENT, MOUTH: Poor dental hygiene. Normocephalic, atraumatic,moist oral mucous membranes NECK: SUPPLE, no JVD, no lymphadenopathy, no carotid bruit CV: irregularly irregular rhythm, S1S2 normal, no murmurs/rubs/gallops RESPIRATORY: Expiratory wheezing bilaterally, scattered rhonchi- slightly improved. no rales GI: BS positive in 4 quadrants, soft, nontender, nondistended, no rebound or guarding, no organomegaly : Deferred MUSCULOSKELETAL: Normal ROM. No cyanosis, clubbing, swelling, joint deformity, extremity edema INTEGUMENTARY: Intact, no rashes, no lesions, no erythema NEUROLOGIC: Cranial Nerves II-XII are intact, no focal deficits PSYCHIATRIC: Mood and affect are normal LABORATORY DATA: Please see below IMAGING: No new imaging. CURRENT MEDICATIONS: Please see below ASSESSMENT: The patient is a 74-year-old male admitted for acute COPD exacerbation, dehydration. PLAN: 1. Acute COPD exacerbation. Wheezing and rhonchi persists, slightly improved. C/w TID methylprednisolone Q8H, DuoNeb ATC, albuterol PRN, Symbicort, acapella Q2 hrs while awake. 2. Diastolic congestive heart failure excerabation, mild. BNP 3819. Nonpitting e jamila in bilateral lower ext. Stopped IVFs. Restarted home torsemide twice a day, continue spironolactone at daily dose, verapamil. Monitor BP, daily wts, I&O's closely. 3. Dehydration likely secondary to decreased PO intake. Improved 4. Hyponatremia, chronic. Hx of alcohol abuse, on diuretics. Improved further to 134 (baseline) . Stopped IVFs 5. Atrial fibrillation, chronic. Stable. Rate goal <110. Continue with verapamil, Eliquis BID. 6. HLD. statin. 7. Iron deficiency anemia. C/w iron supplement. 8. Gout. C/w home meds. 9. BPH. C/w home meds. 10. Tobacco use. Nicotine patch. 11. Alcohol abuse. No signs of withdrawl. C/w home thiamine, folic acid. 12. DVT px. Eliquis BID. DISPOSITION: Patient is currently admitted under inpatient status. Plan is discharge home when medically improved. VS, I&O, 24H, Fishbone Vital Signs/I&O Vital Signs Date Time Temp Pulse Resp B/P (MAP) Pulse Ox O2 Delivery O2 Flow Rate FiO2 08/07/19 11:05 90 Room Air 08/07/19 08:13 96 128/74 08/07/19 06:00 98.0 17 08/07/19 04:49 1.0 I&O- Last 24 Hours up to 6 AM 08/07/19 06:00 Intake Total 2860 ml Output Total 1575 ml Balance 1285 ml Laboratory Data 24H LABS Laboratory Tests 2 08/07/19 06:16: Nucleated Red Blood Cells % (auto) 0.0, Anion Gap 8, Glomerular Filtration Rate > 60.0, Calcium Level 8.6L, Total Bilirubin 0.2#, Aspartate Amino Transf (AST/SGOT) 36, Alanine Aminotransferase (ALT/SGPT) 61, Alkaline Phosphatase 79, BL-[id number]-[id number]-Type Natriuretic Peptide 3819H, Total Protein 6.1L, Albumin 3.3, Album in/Globulin Ratio 1.18 08/07/19 06:23: Blood Gas Bicarbonate Standard 20.5L, Arterial Blood pH 7.403, Arterial Blood Partial Pressure CO2 30.8L, Arterial Blood Partial Pressure O2 108.9H, Arterial Blood Total CO2 19.7L, Arterial Blood HCO3 18.8L, Arterial Blood Base Excess -4.9L, Arterial Blood Oxygen Saturation 98.3 CBC/BMP Laboratory Tests 08/07/19 06:16 Microbiology Microbiology 08/07/19 Gram Stain, Received Pending 08/07/19 Sputum Culture, Received Pending 08/04/19 Respiratory Virus Panel (PCR) ([facility]) - Final, Complete 08/04/19 Blood Culture - Preliminary, Resulted No Growth after 72 hours. All specime... 4/22/20 Blood Culture - Preliminary, Resulted No Growth after 72 hours. All specime... Current Medications Current Medications Medications (Trade) Dose Ordered Sig/Neftali Route PRN Reason Start Time Stop Time Status Last Admin Dose Admin Acetaminophen (Tylenol Tab) 650 mg Q4H PRN PO PAIN OR FEVER 08/04/19 12:15 Albuterol Sulfate (Proventil Neb) 2.5 mg Q2HP PRN NEB SOB/WHEEZING 08/04/19 12:30 08/07/19 04:34 Albuterol/ Ipratropium (Combivent Respimat 100-20mcg) 2 puff Q20M PRN INH SHORTNESS OF BREATH 08/04/19 08:00 08/04/19 08:57 DC 08/04/19 08:57 Albuterol/ Ipratropium (Duoneb (Ipr 0.5mg/Alb 2.5mg)) 3 ml RQID NEB 08/04/19 12:00 08/07/19 11:40 Allopurinol (Zyloprim) 100 mg BID@0800,1800 PO 08/04/19 18:00 08/07/19 08:10 Apixaban (Eliquis) 5 mg BID PO 08/04/19 21:00 08/07/19 08:10 Atorvastatin Calcium (Lipitor) 20 mg Q2D PO 08/06/19 09:00 08/06/19 08:09 Budesonide/ Formoterol Fumarate (Symbicort 160/ 4.5mcg) 2 puff BID INH 08/04/19 21:00 08/07/19 07:16 Calcium Carbonate (Tums) 1,000 mg DAILY PO 08/05/19 09:00 08/07/19 08:10 Ferrous Sulfate (Ferrous Sulfate) 325 mg BID PO 08/04/19 21:00 08/07/19 08:10 Folic Acid (Folic Acid) 1 mg DAILY PO 08/05/19 09:00 08/07/19 08:10 Home Med (Med Rec Complete!) ASDIRECTED XX 08/04/19 11:00 08/04/19 11:07 DC Magnesium Chloride (Slow-Mag) 64 mg BID PO 08/04/19 21:00 08/07/19 08:11 Methylprednisolone (SOLU medrol) 60 mg Q8H IV 08/04/19 16:00 08/05/19 07:52 DC 08/04/19 23:51 Methylprednisolone (SOLUmedrol) 60 mg BID IV 08/05/19 09:00 08/05/19 10:48 DC 08/05/19 08:53 Methylprednisolone (SOLUmedrol) 60 mg Q8H IV 08/05/19 17:00 08/07/19 08:11 Multivitamins (Theragram-M) 1 tab DAILY PO 08/05/19 09:00 08/07/19 08:10 Sodium Chloride 1,000 ml @ 100 mls/hr Q10H IV 08/04/19 12:30 08/07/19 08:02 DC 08/06/19 23:00 Spironolactone (Aldactone) 25 mg QAM PO 08/05/19 09:00 08/07/19 08:10 Tamsulosin HCl (Flomax) 0.4 mg QPM PO 08/04/19 21:00 08/06/19 20:22 Torsemide (Demadex) 20 mg Q12H PO 08/07/19 09:00 08/07/19 08:13 Verapamil HCl (Isoptin, Calan) 80 mg TID PO 08/04/19 16:00 08/07/19 08:13 Allergies Coded Allergies: No Known Allergies (Unverified , 09/28/18) Brandy Lucero MD Aug 07, 2019 14:10
[2019-08-07] MEDS: PANTOPRAZOLE 20 MG TAB PO SCH (16:57)
[2019-08-07] MEDS: CALCIUM CARBONATE 500 MG CHEW U/D PO PRN (20:22)
[2019-08-07] MEDS: TAMSULOSIN 0.4 MG CAP PO SCH (20:23)
[2019-08-07 22:00] VITALS: BP 147/79
[2019-08-08] MEDS: ALBUTEROL SULFATE 2.5 MG/0.5 ML INH NEB SOLN NEB PRN (00:33)
[2019-08-08] MEDS: methylPREDNISolone INJ 125 MG/2 ML VIAL (J2930) IV SCH ×3 (01:13→21:17)
[2019-08-08 06:00] VITALS: BP 155/88
[2019-08-08 06:43] LABS: HEMATOCRIT 41.3 % (42.0-52.0); HEMOGLOBIN 14.7 g/dl (13.5-17.5); MEAN CORPUSCULAR HEMOGLOBIN 32.7 pg (27.0-33.0); MEAN CORPUSCULAR HGB CONC 35.6 g/dl (32.0-36.5); MEAN CORPUSCULAR VOLUME 91.8 fl (80.0-96.0); PLATELET COUNT, AUTOMATED 378 10^3/uL (150-450)
[2019-08-08] MEDS: SYMBICORT 160/4.5MCG INHALER 6GM INH SCH ×2 (07:02→19:45)
[2019-08-08] MEDS: IPRATROPIUM 0.5MG/ALBUTEROL 2.5MG INH SOL UD 3ML (DUONEB)(J7620) NEB SCH ×4 (07:02→19:45)
[2019-08-08 07:11] LABS: ALBUMIN 3.6 GM/DL (3.2-5.2); ALT/SGPT 73 U/L (12-78); BILIRUBIN,TOTAL 0.2 MG/DL (0.2-1.0); BLOOD UREA NITROGEN 28 MG/DL (7-18); CALCIUM LEVEL 9.3 MG/DL (8.8-10.2); CARBON DIOXIDE LEVEL 29 MEQ/L (21-32); CHLORIDE LEVEL 94 MEQ/L (98-107); CREATININE FOR GFR 0.98 MG/DL (0.70-1.30); GLOMERULAR FILTRATION RATE > 60.0 (>42); GLUCOSE, FASTING 150 MG/DL (70-100); POTASSIUM SERUM 3.6 MEQ/L (3.5-5.1); SODIUM LEVEL 131 MEQ/L (136-145); TOTAL PROTEIN 6.4 GM/DL (6.4-8.2)
[2019-08-08] MEDS: MAGNESIUM CHLORIDE 64 MG TABCR (SLO MAG) PO SCH ×2 (08:52→21:17)
[2019-08-08] MEDS: ATORVASTATIN 20 MG TAB PO SCH (08:52)
[2019-08-08] MEDS: SPIRONOLACTONE 25 MG TAB PO SCH (08:52)
[2019-08-08] MEDS: TORSEMIDE 20 MG TAB PO SCH (08:52)
[2019-08-08] MEDS: allopurinoL 100 MG TAB PO SCH ×2 (08:53→18:01)
[2019-08-08] MEDS: APIXABAN 5 MG TAB (ELIQUIS) PO SCH ×2 (08:53→21:17)
[2019-08-08] MEDS: MULTIVITAMINS/MINERALS THERAP 1 TAB PO SCH (08:53)
[2019-08-08] MEDS: FOLIC ACID 1 MG TAB PO SCH (08:53)
[2019-08-08] MEDS: PANTOPRAZOLE 20 MG TAB PO SCH (08:53)
[2019-08-08] MEDS: FERROUS SULFATE 325MG TAB PO SCH ×2 (08:53→21:17)
[2019-08-08] MEDS: VERAPAMIL 80 MG TAB PO SCH ×3 (08:55→21:00)
[2019-08-08] MEDS: CALCIUM CARBONATE 500 MG CHEW U/D PO PRN ×3 (09:14→18:02)
[2019-08-08 10:33] LABS: NT-PRO BNP 3523 PG/ML (<125)
[2019-08-08 14:00] VITALS: BP 154/84
--- NOTE | 2019-08-08 15:23 | IPNPDOC ---
Date Seen The patient was seen on 08/08/19. Progress Note SUBJECTIVE: Improved wheezing and rhonchi with increased steroids, acapella and duonebs. Decreased to 60 mg IV BID methylprenisolone today. If can deescalate further tomorrow to PO prednisone, possible d/c. Denies chest pain, n/v/d, fevers or chills. OBJECTIVE: VITAL SIGNS: please see below. PHYSICAL EXAMINATION: CONSTITUTIONAL: No respiratory distress, AAO x 3 EYES: PERRLA, EOM intact HENT, MOUTH: Poor dental hygiene. Normocephalic, atraumatic,moist oral mucous membranes NECK: SUPPLE, no JVD, no lymphadenopathy, no carotid bruit CV: irregularly irregular rhythm, S1S2 normal, no murmurs/rubs/gallops RESPIRATORY: Decreased expiratory wheezing bilaterally, no rhonchi or rales GI: BS positive in 4 quadrants, soft, nontender, nondistended, no rebound or guarding, no organomegaly : Deferred MUSCULOSKELETAL: Normal ROM. No cyanosis, clubbing, swelling, joint deformity, extremity edema INTEGUMENTARY: Intact, no rashes, no lesions, no erythema NEUROLOGIC: Cranial Nerves II-XII are intact, no focal deficits PSYCHIATRIC: Mood and affect are normal LABORATORY DATA: Please see below IMAGING: No new imaging. CURRENT MEDICATIONS: Please see below ASSESSMENT: The patient is a 74-year-old male admitted for acute COPD exacerbation. PLAN: 1. Acute COPD exacerbation. Wheezing and rhonchi improved, decreased IV steroids. C/w BID methylprednisolone Q8H, DuoNeb ATC, albuterol PRN, Symbicort, acapella Q2 hrs while awake. 2. Diastolic congestive heart failure excerabation, mild. BNP 3819. Nonpitting edema in bilateral lower ext. -1650 after starting home torsemide twice a day. C/w spironolactone at daily dose, verapamil. Monitor BP, daily wts, I&O's closely. 3. Hyponatremia, chronic. Na 131. Hx of alcohol abuse, on diuretics. 4. Atrial fibrillation, chronic. Stable. Continue with verapamil, Eliquis BID. 5. HLD. statin. 6. Iron deficiency anemia. C/w iron supplement. 7. Gout. C/w home meds. 8. BPH. C/w home meds. 9. Tobacco use. Nicotine patch. 10. Alcohol abuse. No signs of withdrawl. C/w home thiamine, folic acid. 11. DVT px. Eliquis BID. DISPOSITION: Patient is currently admitted under inpatient status. Hopeful for discharge tomorrow if breathing continues to improve. VS, I&O, 24H, Fishbone Vital Signs/I&O Vital Signs Date Time Temp Pulse Resp B/P (MAP) Pulse Ox O2 Delivery O2 Flow Rate FiO2 08/08/19 14:00 98.3 88 18 154/84 (107) 95 Room Air 08/07/19 04:49 1.0 I&O- Last 24 Hours up to 6 AM 08/08/19 05:59 Intake Total 3990 ml Output Total 6315 ml Balance -2325 ml Laboratory Data 24H LABS Laboratory Tests 2 08/08/19 06:23: Nucleated Red Blood Cells % (auto) 0.0, Anion Gap 8, Glomerular Filtration Rate > 60.0, Calcium Level 9.3, Total Bilirubin 0.2, Aspartate Amino Transf (AST/SGOT) 41H, Alanine Aminotransferase (ALT/SGPT) 73, Alkaline Phosphatase 81, IQ-Uem-W-Type Natriuretic Peptide 3523H, Total Protein 6.4, Albumin 3.6, Albumin/Globulin Ratio 1.29 CBC/BMP Laboratory Tests 08/08/19 06:23 Microbiology Microbiology 08/07/19 Gram Stain - Final, Resulted 08/07/19 Sputum Culture, Resulted Pending 08/04/19 Respiratory Virus Panel (PCR) ([facility]) - Final, Complete 08/04/19 Blood Culture - Preliminary, Resulted No Growth after 72 hours. All specime... 08/04/19 Blood Culture - Preliminary, Resulted No Growth after 72 hours. All specime... Current Medications Current Medications Medications (Trade) Dose Ordered Sig/Neftali Route PRN Reason Start Time Stop Time Status Last Admin Dose Admin Acetaminophen (Tylenol Tab) 650 mg Q4H PRN PO PAIN OR FEVER 08/04/19 12:15 Albuterol Sulfate (Proventil Neb) 2.5 mg Q2HP PRN NEB SOB/WHEEZING 08/04/19 12:30 08/08/19 00:33 Albuterol/ Ipratropium (Combivent Respimat 100-20mcg) 2 puff Q20M PRN INH SHORTNESS OF BREATH 08/04/19 08:00 08/04/19 08:57 DC 08/04/19 08:57 Albuterol/ Ipratropium (Duoneb (Ipr 0.5mg/Alb 2.5mg)) 3 ml RQID NEB 08/04/19 12:00 08/08/19 11:22 Allopurinol (Zyloprim) 100 mg BID@0800,1800 PO 08/04/19 18:00 08/08/19 08:53 Apixaban (Eliquis) 5 mg BID PO 08/04/19 21:00 08/08/19 08:53 Atorvastatin Calcium (Lipitor) 20 mg Q2D PO 08/06/19 09:00 08/08/19 08:52 Budesonide/ Formoterol Fumarate (Symbicort 160/ 4.5mcg) 2 puff BID INH 08/04/19 21:00 08/08/19 07:02 Calcium Carbonate (Tums) 1,000 mg DAILY PO 08/05/19 09:00 08/07/19 19:54 DC 08/07/19 08:10 Calcium Carbonate (Tums) 1,000 mg Q4HP PRN PO heartburn 08/07/19 20:00 08/08/19 13:14 Ferrous Sulfate (Ferrous Sulfate) 325 mg BID PO 08/04/19 21:00 08/08/19 08:53 Folic Acid (Folic Acid) 1 mg DAILY PO 08/05/19 09:00 08/08/19 08:53 Home Med (Med Rec Complete!) ASDIRECTED XX 08/04/19 11:00 08/04/19 11:07 DC Magnesium Chloride (Slow-Mag) 64 mg BID PO 08/04/19 21:00 08/08/19 08:52 Methylprednisolone (SOLU medrol) 60 mg Q8H IV 08/04/19 16:00 08/05/19 07:52 DC 08/04/19 23:51 Methylprednisolone (SOLUmedrol) 60 mg BID IV 08/05/19 09:00 08/05/19 10:48 DC 08/05/19 08:53 Methylprednisolone (SOLUmedrol) 60 mg BID IV 08/08/19 21:00 Methylprednisolone (SOLUmedrol) 60 mg Q8H IV 08/05/19 17:00 08/08/19 09:38 DC 08/08/19 08:52 Multivitamins (Theragram-M) 1 tab DAILY PO 08/05/19 09:00 08/08/19 08:53 Pantoprazole Sodium (Protonix) 20 mg DAILY PO 08/07/19 09:00 08/08/19 08:53 Sodium Chloride 1,000 ml @ 100 mls/hr Q10H IV 08/04/19 12:30 08/07/19 08:02 DC 08/06/19 23:00 Spironolactone (Aldactone) 25 mg QAM PO 08/05/19 09:00 08/08/19 08:52 Tamsulosin HCl (Flomax) 0.4 mg QPM PO 08/04/19 21:00 08/07/19 20:23 Torsemide (Demadex) 20 mg Q12H PO 08/07/19 09:00 08/08/19 08:52 Verapamil HCl (Isoptin, Calan) 80 mg TID PO 08/04/19 16:00 08/08/19 08:55 Allergies Coded Allergies: No Known Allergies (Unverified , 09/28/18) Brandy Lucero MD Aug 08, 2019 15:22
[2019-08-08] MEDS: lisinopriL 5 MG TAB PO SCH (16:09)
[2019-08-08] MEDS: TAMSULOSIN 0.4 MG CAP PO SCH (21:17)
[2019-08-08 22:00] VITALS: BP 101/60
[2019-08-09 06:00] VITALS: BP 133/77
[2019-08-09 06:23] LABS: HEMATOCRIT 41.7 % (42.0-52.0); HEMOGLOBIN 14.7 g/dl (13.5-17.5); MEAN CORPUSCULAR HEMOGLOBIN 32.6 pg (27.0-33.0); MEAN CORPUSCULAR HGB CONC 35.3 g/dl (32.0-36.5); MEAN CORPUSCULAR VOLUME 92.5 fl (80.0-96.0); PLATELET COUNT, AUTOMATED 377 10^3/uL (150-450); RED BLOOD COUNT 4.51 10^6/uL (4.30-6.10); WHITE BLOOD COUNT 8.6 10^3/uL (4.0-10.0)
[2019-08-09 06:42] LABS: ALBUMIN 3.2 GM/DL (3.2-5.2); ALT/SGPT 94 U/L (12-78); BILIRUBIN,TOTAL 0.3 MG/DL (0.2-1.0); BLOOD UREA NITROGEN 33 MG/DL (7-18); CALCIUM LEVEL 8.9 MG/DL (8.8-10.2); CARBON DIOXIDE LEVEL 32 MEQ/L (21-32); CHLORIDE LEVEL 93 MEQ/L (98-107); GLOMERULAR FILTRATION RATE > 60.0 (>42); GLUCOSE, FASTING 138 MG/DL (70-100); POTASSIUM SERUM 4.3 MEQ/L (3.5-5.1); SODIUM LEVEL 132 MEQ/L (136-145); TOTAL PROTEIN 5.8 GM/DL (6.4-8.2)
[2019-08-09] MEDS: SYMBICORT 160/4.5MCG INHALER 6GM INH SCH (07:15)
[2019-08-09] MEDS: IPRATROPIUM 0.5MG/ALBUTEROL 2.5MG INH SOL UD 3ML (DUONEB)(J7620) NEB SCH ×2 (07:15→11:51)
[2019-08-09] MEDS ORDERED: PRED20TA PO (08:29)
[2019-08-09] MEDS: allopurinoL 100 MG TAB PO SCH (08:57)
[2019-08-09] MEDS ORDERED: TORSEMIDE 20 MG TAB PO SCH (09:00)
[2019-08-09] MEDS: MAGNESIUM CHLORIDE 64 MG TABCR (SLO MAG) PO SCH (10:02)
[2019-08-09] MEDS: MULTIVITAMINS/MINERALS THERAP 1 TAB PO SCH (10:03)
[2019-08-09] MEDS: FERROUS SULFATE 325MG TAB PO SCH (10:03)
[2019-08-09] MEDS: APIXABAN 5 MG TAB (ELIQUIS) PO SCH (10:03)
[2019-08-09] MEDS: FOLIC ACID 1 MG TAB PO SCH (10:03)
[2019-08-09] MEDS: PANTOPRAZOLE 20 MG TAB PO SCH (10:03)
[2019-08-09] MEDS: SPIRONOLACTONE 25 MG TAB PO SCH (10:03)
[2019-08-09] MEDS: methylPREDNISolone INJ 125 MG/2 ML VIAL (J2930) IV SCH (10:03)
[2019-08-09 10:05] VITALS: BP 130/78
[2019-08-09] MEDS: VERAPAMIL 80 MG TAB PO SCH (10:05)
[2019-08-09] MEDS: lisinopriL 5 MG TAB PO SCH (10:06)
--- NOTE | 2019-08-09 16:56 | DS.PDOC ---
Discharge Summary General Date of Admission Aug 04, 2019 at 12:08 Date of Discharge 08/09/19 Attending Physician: Brandy Lucero MD Discharge Summary HISTORY OF PRESENT ILLNESS: The patient is a 74-year-old male with past medical history of COPD, hypomagnesemia, hyperlipidemia, atrial fibrillation, diastolic congestive heart failure, alcohol abuse, iron deficiency anemia who presented to the emergency room with the chief complaint of worsening shortness of breath over the past 34 days. He states he often feels short of breath at baseline; however, over the past several days he couldn't walk around his home without being very fatigued and wheezy. He states he has never felt this short of breath in the past. He denies chest pain, nausea, vomiting, fevers, chills, abdominal pain, recent illnesses, recent sick contacts, lightheadedness or dizziness. Other associated symptoms include a cough which is different from his baseline cough with clear frothy sputum at times. He is also more unsteady on his feet than baseline due to increased weakness, decreased appetite, decreased intake to food and fluids. EMS states he was wheezy on arrival and the patient had just uses rescue inhaler. He denies it helping his shortness of breath. Due to his worsening symptoms the patient came into the ER today to be evaluated. In the emergency room the patient was persistently tachycardic with a heart rate between 74357, temperature 97.7, blood pressure 136/73, respiratory rate 1721, 9398 percent on room air. Chest x-ray showed no acute changes. On examination the patient was extremely wheezy with scattered rhonchi. PH on VBG showed 7.5. WBC 10.7, sodium 126, chloride 86, CK was 343, BNP 523. Troponin negative. He was given the fluids, Solu-Medrol, duo nebs. The patient had persistent wheezing with shortness of breath with minimal activity. The patient was ultimately admi tted for COPD exacerbation, dehydration. HOSPITAL COURSE: The patient was initially treated with IV fluids for acute dehydration and lower than normal sodium. He has chronic hyponatremia and baseline is normally around 599143. Acute dehydration resolved after several days in the patient's IV flui ds were stopped. His diuretics were resumed due to an increased BNP. He tolerated negative fluid balance for total of 3 days showing improvement in his breathing and lower extremity edema. The patient's wheezing, rhonchi and rales also improved significantly over his time in the hospital. On 08/08/2019 the patient was deescalated from Q8H methylprednisolone to twice a day. On 08/09/2019 the patient was transitioned off of IV steroids to oral 60 mg prednisone daily. He both felt better and tolerated activity and rest well on room air. He was discharged home on 08/09/2019 with a 10 day oral prednisone taper and resume his home medications for COPD. At the time of discharge the patient denied shortness of breath, chest pain, nausea, vomiting, fevers or chills. REVIEW OF SYSTEMS: CONSTITUTIONAL: Denies unexplained weight gain or weight loss, loss of appetite, fever, night sweats EYES: Denies eye drainage, eye pain, visual changes, dry/irritated eye EARS, NOSE, MOUTH, THROAT: Denies difficulty hearing, ringing in ears, mouth sores, loose teeth, sore throat, facial numbness or pain NECK: Denies swollen glands CARDIOVASCULAR: Denies irregular heartbeat, racing heart, chest pains, swelling of feet or legs, pain in legs with walking RESPIRATORY: Denies night sweats, oxygen at home, coughing up blood GASTROINTESTINAL: Denies abdominal pain, constipation, bloody stool, diarrhea, heartburn, nausea, vomiting GENITOURINARY: Denies painful urination, bloody urine, frequent urination, u rgency, leaking urine, impotence MUSCULOSKELETAL: Denies joint pain, muscle pain, leg swelling INTEGUMENTARY: Denies rash, itching, new skin lesion, change in existing skin lesion, hair loss or increase, breast changes. NEUROLOGICAL: Denies headaches, dizziness, difficulty walking, numbness or tin gling PSYCHIATRIC: Denies depression, anxiety, recurrent bad thoughts, mood swings, hallucinations PAST MEDICAL HISTORY: Atrial fib, on Eliquis. Hypomagnesemia Gout Iron deficiency anemia H/O Syncopal episode Severe pulmonary hypertension CHF/ Diastolic dysfunction with left ventricular ejection fraction 65% Hypertension Dyslipidemia Chronic obstructive pulmonary disease BPH Alcohol use Tobacco use PSHX: Left knee arthroscopy Colonoscopy SOCHX: Resides in: [facility] Marital Status: Employment: Retired [employer] de[employer] Tobacco use: 1 ppd x 50 years, recently 4-5 per day ETOH: 4-5 beers per day hx, currently states to drink 3x/week Illicit Drugs: Denies Advanced directives: none, Full Code FAMHX: Father: , 50 years old, leukemia Mother: , 83 years old, stroke Siblings: - Sister: Alive, 88 years old, unknown health history - Brother: , unknown age, alcoholism ALLERGIES: Please see below. HOME MEDICATIONS: Please see below. PHYSICAL EXAMINATION: CONSTITUTIONAL: Resting comfortably in bedside chair, AAO x 3 EYES: PERRLA, EOM intact HENT, MOUTH: Poor dental hygiene. Normocephalic, atraumatic,moist oral mucous membranes NECK: SUPPLE, no JVD, no lymphadenopathy, no carotid bruit CV: irregularly irregular rhythm, S1S2 normal, no murmurs/rubs/gallops RESPIRATORY: CTAB, No wheezing, no rhonchi or rales GI: BS positive in 4 quadrants, soft, nontender, nondistended, no rebound or guarding, no organomegaly : Deferred MUSCULOSKELETAL: Normal ROM. No cyanosis, clubbing, swelling, joint deformity, extremity edema INTEGUMENTARY: Intact, no rashes, no lesions, no erythema NEUROLOGIC: Cranial Nerves II-XII are intact, no focal deficits PSYCHIATRIC: Mood and affect are normal LABORATORY DATA: Please see below IMAGING: CXR: No acute pulmonary disease. DISCHARGE MEDICATIONS: Please see below ASSESSMENT: The patient is a 74-year-old male treated for acute COPD exacerbation. PLAN: 1. Acute COPD exacerbation- resolved. Wheezing and rhonchi resolved, tolerated decreased IV steroids. C/w PO prednisone taper over 10 days, home nebulizer treatments and meds. 2. Diastolic congestive heart failure excerabation, mild. Tolerating neg fluid balance for past 3 days after after starting home torsemide twice a day, home spironolactone. He is to continue all home cardiac medications. 3. Hyponatremia, chronic. Na 132. Hx of alcohol abuse, on diuretics. F/u with PCP 4. Atrial fibrillation, chronic. Stable. Continue with verapamil, Eliquis BID. 5. HLD. statin. 6. Iron deficiency anemia. C/w iron supplement. 7. Gout. C/w home meds. 8. BPH. C/w home meds. 9. Tobacco use. Tobacco cessation counselling given. 10. Alcohol abuse. C/w home thiamine, folic acid. DISPOSITION: Discharged home with f/u with PCP. TIME SPENT ON DISCHARGE: 25 minutes. Vital Signs/I&Os Vital Signs Date Time Temp Pulse Resp B/P (MAP) Pulse Ox O2 Delivery O2 Flow Rate FiO2 08/09/19 14:00 97.6 95 17 98 Room Air 08/09/19 10:05 130/78 08/07/19 04:49 1.0 I&O- Last 24 Hours up to 6 AM 08/09/19 06:00 Intake Total 1700 ml Output Total 2735 ml Balance -1035 ml Laboratory Data Labs 24H Laboratory Tests 2 08/09/19 05:41: Nucleated Red Blood Cells % (auto) 0.0, Anion Gap 7L, Glomerular Filtration Rate > 60.0, Calcium Level 8.9, Total Bilirubin 0.3, Aspartate Amino Transf (AST/SGOT) 41H, Alanine Aminotransferase (ALT/SGPT) 94H, Alkaline Phosphatase 76, Total Protein 5.8L, Albumin 3.2, Albumin/Globulin Ratio 1.23 CBC/BMP Laboratory Tests 08/09/19 05:41 Microbiology Microbiology 08/07/19 Gram Stain - Final, Complete 08/07/19 Sputum Culture - Final, Complete 08/04/19 Respiratory Virus Panel (PCR) ([facility]) - Final, Complete 08/04/19 Blood Culture - Final, Complete NO GROWTH AFTER 5 DAYS 08/04/19 Blood Culture - Final, Complete NO GROWTH AFTER 5 DAYS Discharge Medications Scheduled Allopurinol (Allopurinol) 100 Mg Tablet, 100 MG PO BID, (Reported) TAKES WITH BREAKFAST AND DINNER Apixaban (Eliquis) 5 Mg Tab, 5 MG PO Q12H, (Reported) Atorvastatin Calcium (Atorvastatin Calcium) 20 Mg Tablet, 20 MG PO Q2D, (Reported) Budesonide/Formoterol (Symbicort 160-4.5 Mcg Inhaler) 60 Puff/Inhaler Aers, 2 PUFF INH BID, (Reported) Calcium Carbonate (Calcium) 500 Mg Chw, 1,000 MG PO AC, (Reported) Ferrous Gluconate (Ferrous Gluconate) 324 Mg Tablet, 324 MG PO BID, (Reported) Folic Acid (Folic Acid) 1 Mg Tab, 1 MG PO DAILY, (Reported) Magnesium Chloride (Mag64) 64 Mg Tablet.dr, 64 MG PO BID, (Reported) Multivitamins (Thera M Plus Tablet) 1 Tab Tab, 1 TAB PO BID, (Reported) Prednisone (Prednisone) 20 Mg Tablet, 60 MG PO DAILY Prednisone taper: 60 mg PO x 4 days, 40 mg PO x 4 days, 20 mg Po x 2 days Spironolactone (Spironolactone) 25 Mg Tablet, 25 MG PO DAILY, (Reported) Tamsulosin HCl (Flomax) 0.4 Mg Cap, 0.4 MG PO QPM, (Reported) PATIENT TAKES AFTER DINNER Tiotropium Cope (Spiriva) 18 Mcg Cap, 1 INHALATION INH DAILY, (Reported) Torsemide (Torsemide) 20 Mg Tablet, 20 MG PO BID, (Reported) TAKES AT 0500 AND 1700 Verapamil HCl (Verapamil HCl) 80 Mg Tablet, 80 MG PO TID, (Reported) Scheduled PRN Acetaminophen (Tylenol) 325 Mg Tablet, 325 MG PO Q4HP PRN for PAIN, (Reported) Albuterol Sulf (Albuterol Sulfate) 2.5 Mg/3 Ml Vial.neb, 2.5 MG INH QID PRN for WHEEZING, (Reported) Albuterol Sulfate (Ventolin Hfa) 18 Gm Hfa.aer.ad, 2 PUFF INH QID PRN for SHORTNESS OF BREATH, (Reported) Allergies Coded Allergies: No Known Allergies (Unverified , 09/28/18) Brandy Lucero MD Aug 09, 2019 16:56
== END 2019-08-09 16:01 | disposition home or self-care (01) | DRG 190 ==
LOC: M ED 07:26 → EDBD 07:26 → M ED INP 12:08 → ENRESERV 12:35 → M MSPAV 13:29
PROVIDERS: ADMIT Internal Medicine; ATTEND Internal Medicine
DX: J44.1 Chronic obstructive pulmonary disease with (acute) exacerbation (principal); I50.33 Acute on chronic diastolic (congestive) heart failure; I48.20 Chronic atrial fibrillation, unspecified; E87.1 Hypo-osmolality and hyponatremia; D50.9 Iron deficiency anemia, unspecified; M10.9 Gout, unspecified; N40.0 Benign prostatic hyperplasia without lower urinary tract symptoms; F10.10 Alcohol abuse, uncomplicated; Z79.899 Other long term (current) drug therapy; Z79.01 Long term (current) use of anticoagulants; F17.200 Nicotine dependence, unspecified, uncomplicated

== ENCOUNTER 2019-11-11 07:54 | Inpatient (IN) | payer OTHER, MEDICARE, MEDICAID ==
[~2019-11-11 07:54] MED LIST changes: +ACET-907 PO; +ALBU83IN INH
[2019-11-11] MEDS ORDERED: predniSONE 20 MG TAB ONE ×2 (08:32→17:54)
[2019-11-11] MEDS ORDERED: MAGNESIUM CHLORIDE 64 MG TABCR (SLO MAG) ONE (17:00)
[2019-11-11] MEDS ORDERED: VERAPAMIL 180MG EXTENDED RELEASE TABLET ONE (17:00)
[2019-11-11] MEDS ORDERED: CALCIUM CARBONATE 500 MG CHEW U/D ONE ×2 (17:54→21:20)
[2019-11-11] MEDS ORDERED: TAMSULOSIN 0.4 MG CAP ONE (21:20)
[2019-11-11] MEDS ORDERED: MULTIVITAMINS/MINERALS THERAP 1 TAB ONE (21:20)
[2019-11-11] MEDS ORDERED: APIXABAN 5 MG TAB (ELIQUIS) ONE (21:20)
[2019-11-11] MEDS ORDERED: allopurinoL 100 MG TAB ONE (21:20)
[2019-11-11] MEDS ORDERED: TORSEMIDE 20 MG TAB ONE (21:20)
[2019-11-11] MEDS ORDERED: SENOKOT S TAB ONE (21:20)
[2019-11-11] MEDS ORDERED: FERROUS GLUCONATE 324 MG TAB ONE (21:20)
== END 2019-11-14 07:15 | disposition home or self-care (01) | DRG 191 ==
LOC: M ED 07:54 → M MSPAV 11:20
PROVIDERS: ADMIT Internal Medicine; ATTEND Internal Medicine
DX: J44.1 Chronic obstructive pulmonary disease with (acute) exacerbation (principal); I48.20 Chronic atrial fibrillation, unspecified; E87.1 Hypo-osmolality and hyponatremia; F17.200 Nicotine dependence, unspecified, uncomplicated; F10.20 Alcohol dependence, uncomplicated; I10 Essential (primary) hypertension; I27.20 Pulmonary hypertension, unspecified; Z79.899 Other long term (current) drug therapy; Z79.01 Long term (current) use of anticoagulants

== ENCOUNTER 2020-05-19 08:31 | Inpatient (IN) | payer OTHER, MEDICARE ==
[2020-05-18] MEDS: SODIUM CHLORIDE 1 GM TAB PO SCH (12:30)
[~2020-05-19] VITALS: Ht 177.8 cm; Wt 71.1 kg
[~2020-05-19 08:31] MED LIST changes: -AMLO10TA5 PO; +AMLO1TAB25 PO; -LISI-538 PO; +LISI20TA33 PO; -LISI40TA PO; +LISI40TA4 PO
--- NOTE | 2020-05-19 09:09 | REP ---
INDICATION: DYSPNEA/COUGH COMPARISON: 10/15/2019 TECHNIQUE: Portable AP view of the chest FINDINGS: Cardiomegaly is suggested. Lung lopez demonstrate diffuse increased interstitial markings along with very subtle scattered airspace disease and basilar atelectasis. IMPRESSION: Newly developed cardiomegaly along with possible interstitial edema cannot be excluded. Differential diagnosis includes interstitial/viral pneumonia pattern with lower lobe atelectasis. <Electronically signed by Tyrese Moser > 05/19/20 0920
[2020-05-19 09:21] LABS: VENOUS BASE EXCESS -0.3 (-2.0-2.0); VENOUS HCO3 23.3 MEQ/L (23.0-27.0); VENOUS O2 SATURATION 95.3 % (60.0-80.0); VENOUS PARTIAL PRESSURE CO2 34.4 mmHg (38.0-50.0); VENOUS PARTIAL PRESSURE O2 75.4 mmHg (30.0-50.0); VENOUS PH 7.448 UNITS (7.330-7.430); VENOUS STANDARD HCO3 24.2 MEQ/L; VENOUS TOTAL CO2 24.3 MEQ/L (24.0-28.0)
[2020-05-19 09:31] LABS: BASO % 0.2 % (0.0-1.0); EOS % 0.2 % (0.0-3.0); HEMATOCRIT 29.6 % (42.0-52.0); HEMOGLOBIN 10.5 g/dl (13.5-17.5); LYMPH # 0.4 10^3/uL (1.5-5.0); LYMPH % 3.8 % (24.0-44.0); MEAN CORPUSCULAR HEMOGLOBIN 31.4 pg (27.0-33.0); MEAN CORPUSCULAR HGB CONC 35.5 g/dl (32.0-36.5); MEAN CORPUSCULAR VOLUME 88.6 fl (80.0-96.0); MONO # 1.3 10^3/uL (0.0-0.8); MONO % 11.2 % (0.0-5.0); NEUTROPHILS # 9.7 10^3/uL (1.5-8.5); NEUTROPHILS % 84.1 % (36.0-66.0); PLATELET COUNT, AUTOMATED 443 10^3/uL (150-450); RED BLOOD COUNT 3.34 10^6/uL (4.30-6.10)
[2020-05-19 09:32] LABS: WHITE BLOOD COUNT 11.5 10^3/uL (4.0-10.0)
--- OUTSIDE RECORDS SUMMARY | 2020-05-19 09:37 | CCD ---
Author Author [facility] Organization [facility] Address Unknown Phone Unavailable Care Team Providers Care Hostess Host Name Role Phone NRI, 441 Unavailable Unavailable Re-disclosure Warning The records that you are about to access may contain information from federally-assisted alcohol or drug abuse programs. If such information is present, then the following federally mandated warning applies: This information has been disclosed to you from records protected by federal confidentiality rules (42 CFR part 2). The federal rules prohibit you from making any further disclosure of this information unless further disclosure is expressly permitted by the written consent of the person to whom it pertains or as otherwise permitted by 42 CFR part 2. A general authorization for the release of medical or other information is NOT sufficient for this purpose. The Federal rules restrict any use of the information to criminally investigate or prosecute any alcohol or drug abuse patient.The records that you are about to access may contain highly sensitive health information, the redisclosure of which is protected by Article 27-F of the [facility] Public Health law. If you continue you may have access to information: Regarding HIV / AIDS; Provided by facilities licensed or operated by the [facility] Office of Mental Health; or Provided by the [facility] Office for People With Developmental Disabilities. If such information is present, then the following [facility] mandated warning applies: This information has been disclosed to you from confidential records which are protected by state law. State law prohibits you from making any further disclosure of this information without the specific written consent of the person to whom it pertains, or as otherwise permitted by law. Any unauthorized further disclosure in violation of state law may result in a fine or skilled nursing sentence or both. A general authorization for the release of medical or other information is NOT sufficient authorization for further disc losure. Encounters Encounter Providers Location Date Indications Data Source(s ) Outpatient Referrer: [address] [place] [address] 08/25/2019 11:18:00 AM EDT [facility] Outpatient Referrer: [address] [facility] 08/20/2019 06:17:00 AM EDT [facility] Outpatient Referrer: [address] [facility] 08/17/2019 05:43:00 AM EDT [facility] Outpatient Referrer: [address] [facility] 08/02/2019 01:06:00 PM EDT [facility] Outpatient Referrer: [address] [facility] 05/06/2019 02:21:00 PM EST [facility] Outpatient Referrer: [address] [place] [address] 05/05/2019 03:17:00 PM EST [facility] Medications Medication Brand Name Start Date Product Form Dose Route Admi nistrative Instructions Pharmacy Instructions Status Indications Reaction Description Data Source(s) 10 mg 11/15/2019 12:00:00 AM EDT tablet 30 TAKE 4 TABLETS BY MOUTH ONCE DAILY FOR 3 DAYS THEN 3 TABLETS ONCE DAILY FOR 3 DAYS THEN 2 TABLETS ONCE DAILY FOR 3 DAYS THEN 1 TABLET ONCE DAILY FOR 3 DAYS TAKE 4 TABLETS BY MOUTH ONCE DAILY FOR 3 DAYS THEN 3 TABLETS ONCE DAILY FOR 3 DAYS THEN 2 TABLETS ONCE DAILY FOR 3 DAYS THEN 1 TABLET ONCE DAILY FOR 3 DAYS SOLD: 11/15/2019 [facility] 400 mg 11/15/2019 12:00:00 AM EDT tablet 7 TAKE ONE TABLET BY MOUTH EVERY DAY TAKE ONE TABLET BY MOUTH EVERY DAY SOLD: 11/15/2019 [facility] 20 mg 08/09/2019 12:00:00 AM EDT tablet 22 TAKE 3 TABLETS BY MOUTH ONCE DAILY FOR 4 DAYS THEN 2 TABLETS DAILY FOR 4 DAYS THEN 1 TABLET DAILY FOR 2 DAYS TAKE 3 TABLETS BY MOUTH ONCE DAILY FOR 4 DAYS THEN 2 TABLETS DAILY FOR 4 DAYS THEN 1 TABLET DAILY FOR 2 DAYS SOLD: 08/09/2019 [facility] 10 mg 05/04/2019 12:00:00 AM EST tablet 30 TAKE 4 TABLETS BY MOUTH ONCE DAILY FOR 3 DAYS THEN 3 TABLETS ONCE DAILY FOR 3 DAYS THEN 2 TABLETS ONCE DAILY FOR 3 DAYS THEN 1 TABLET ONCE DAILY FOR 3 DAYS AND STOP TAKE 4 TABLETS BY MOUTH ONCE DAILY FOR 3 DAYS THEN 3 TABLETS ONCE DAILY FOR 3 DAYS THEN 2 TABLETS ONCE DAILY FOR 3 DAYS THEN 1 TABLET ONCE DAILY FOR 3 DAYS AND STOP SOLD: 05/05/2019 [facility] 2.5 mg /3 mL (0.083 %) 04/29/2019 12:00:00 AM EST solu tion for nebulization 150 INHALE ONE VIAL VIA NEBULIZER EVERY 6 HO URS NEEDED FOR WHEEZING INHALE ONE VIAL VIA NEBULIZER EVERY 6 HOURS NEEDED FOR WHEEZING SOLD: 04/29/2019 [facility] 20 mg 04/29/2019 12:00:00 AM EST tablet 15 TAKE THREE TABLETS BY MOUTH EVERY DAY TAKE THREE TABLETS BY MOUTH EVERY DAY SOLD: 04/29/2019 [facility] Insurance Providers Payer name Policy type / Coverage type Policy ID Covered green party ID Covered green party's relationship to dowling Policy Dowling Plan Information MEDICARE [id number] SP [id number] 'S ADMINISTRATION [id number] SP [id number] [place] [id number] SP [id number] MEDICARE [id number] SP [id number] [place]UM [place] CCN [id number] SP [id number] WPS MV[facility]-VAP[facility] TRIWEST [id number] SP [id number] OPTUM [place] O [id number] S [id number] WEST O [id number] S [id number] 01 MEDICARE C [id number] S [id number] MEDICARE [id number] SP [id number] [facility]/136E O [id number] S [id number] MEDICARE [id number] SP [id number] A MEDICARE C [id number] S [id number] A MEDICARE OUTPATIENT M [id number] S [id number] [facility] O [id number] S [id number] MEDICARE INPATIENT M [id number] S [id number] VA & FT DRUM SPEC P [id number] S [id number] [facility] P [id number] S [id number] [facility] P [id number] S [id number]
[2020-05-19 09:40] LABS: INR 1.57; PROTHROMBIN TIME 19.1 SECONDS (12.5-14.3)
[2020-05-19 09:58] LABS: ALBUMIN 3.5 GM/DL (3.2-5.2); ALT/SGPT 34 U/L (12-78); BILIRUBIN,DIRECT 0.3 MG/DL (0.0-0.2); BILIRUBIN,TOTAL 0.6 MG/DL (0.2-1.0); BLOOD UREA NITROGEN 23 MG/DL (7-18); CALCIUM LEVEL 9.8 MG/DL (8.8-10.2); CARBON DIOXIDE LEVEL 26 MEQ/L (21-32); CHLORIDE LEVEL 89 MEQ/L (98-107); CK-MB VALUE MASS 5.9 NG/ML (<3.6); CPK CREATINE PHOSPHOKINASE 141 U/L (39-308); CREATININE FOR GFR 0.88 MG/DL (0.70-1.30); GLOMERULAR FILTRATION RATE > 60.0 (>42); GLUCOSE, FASTING 104 MG/DL (70-100); MB/CK RELATIVE INDEX 4.18 (< OR =4); NT-PRO BNP 4335 PG/ML (<125); POTASSIUM SERUM 4.2 MEQ/L (3.5-5.1); SODIUM LEVEL 125 MEQ/L (136-145); THYROXINE (T4) 9.9 UG/DL (4.5-12.0); TOTAL PROTEIN 6.5 GM/DL (6.4-8.2); TROPONIN I < 0.02 NG/ML (< 0.10)
[2020-05-19] MEDS ORDERED: FUROSEMIDE 100MG/10ML VIAL (J1940) IV ONE (11:30)
--- OUTSIDE RECORDS SUMMARY | 2020-05-19 12:43 | CCD ---
Author Author [facility] Organization [facility] Address Unknown Phone Unavailable Care Team Providers Care Side Boss Name Role Phone NRI, 441 Unavailable Unavailable [...] is protected by Article 27-F of the [facility] Public Health law. If you continue you may have access to information: Regarding HIV / AIDS; Provided by facilities licensed or operated by the [facility] Office of Mental Health; or Provided by the [facility] Office for People With Developmental Disabilities. If such information is present, then the following [facility] mandated warning applies: This information has been [...] law may result in a fine or senior living sentence or both. A general authorization for the release of medical or other information is NOT sufficient authorization for further disc losure. Encounters Encounter Providers Location Date Indications Data Source(s ) Outpatient Referrer: [address] [place] [address] 08/25/2019 11:18:00 AM EDT [facility] Outpatient Referrer: [address] [facility] 08/20/2019 06:17:00 AM EDT [facility] Outpatient Referrer: [address] [facility] 08/17/2019 05:43:00 AM EDT [facility] Outpatient Referrer: [address] [facility] 08/02/2019 01:06:00 PM EDT [facility] Outpatient Referrer: [address] [facility] 05/06/2019 02:21:00 PM EST [facility] Outpatient Referrer: [address] [place] [address] 05/05/2019 03:17:00 PM EST [facility] [...] type / Coverage type Policy ID Covered constitution party ID Covered constitution party's relationship to dowling Policy Dowling Plan Information MEDICARE [id number] SP [id number] G20 'S ADMINISTRATION [id number] SP [id number] EMEDNY [id number] SP [id number] MEDICARE [id number] SP [id number] OPTUM [place] CCN [id number] SP [id number] 01 WPS MVH-VAPCCC [facility]ST [id number] SP [id number] OPTUM [place] O [id number] S [id number] WEST O [id number] S [id number] 01 MEDICARE C [id number] S [id number] MEDICARE [id number] SP [id number] [facility]/136E O [id number] S [id number] MEDICARE [id number] SP [id number] A MEDICARE C [id number] S [id number] A MEDICARE OUTPATIENT M [id number] S [id number] [facility] O [id number] S [id number] MEDICARE INPATIENT M [id number] S [id number] VA & FT [facility]UM SPEC P [id number] S [id number] [place] [facility] P [id number] S [id number] [place] [facility] P [id number] S [id number]
[2020-05-19] MEDS ORDERED: SPIR12.9 INH (12:44)
[2020-05-19] MEDS ORDERED: ATOR40TA75 PO (12:44)
[2020-05-19] MEDS ORDERED: LORazepam 1 MG TAB PO PRN (12:45)
[2020-05-19] MEDS ORDERED: methylPREDNISolone 125MG 2ML VIAL IV ONE (12:45)
[2020-05-19] MEDS ORDERED: LEVALBUTEROL 1.25 MG/0.5 ML CONCENTRATE NEB INH PRN (12:45)
--- NOTE | 2020-05-19 13:10 | HPEPDOC ---
[facility] Medical History & Physical Date of Admission May 19, 2020 Date of Service: May 19, 2020 History and Physical CHIEF COMPLAINT: SHORTNESS OF BREATH FOR 2 MONTHS HISTORY OF PRESENTING ILLNESS: 74-year-old male with history of chronic alcoholism, atrial fibrillation, diastolic heart failure. Hypomagnesemia. 9. Deficiency anemia, severe pulmonary hypertension, dyslipidemia, COPD, presents to emergency room with 2 month history of worsening shortness of breath and lower extremity edema worsening over the past few days, paroxysmal nocturnal dyspnea, 3 pillow orthopnea at home and able to ambulate without shortness of breath more than 10-15 feet without any accompanying chest pain, diaphoresis, nausea, vomiting, epigastric discomfort, fever, chills. He admits to having cough productive of yellow-green sputum at home which she has noted for the past few days. Despite using his inhalers, he has had no relief. He denies coffee-ground emesis, hematemesis, bright red per rectum, melena, black tarry stools, diarrhea. In the emergency room, coronavirus 19 was negative, Chest x-ray shows pulmonary edema, EKG shows chronic A. fib ventricular rate of 100 without acute ischemic changes, incomplete right bundle branch block. He is afebrile, tachypneic with respiratory rate of 26. Patient does not weigh himself and is not aware of any weight gain but admits to having worsening swelling in his bilateral lower extre mities, he admits to noncompliance with low sodium diet diet and fluid restriction at home. He, Otherwise denies any dysuria, urgency, frequency, flank pain, constipation, diarrhea, headache, sore throat, rhinorrhea, loss of taste, dysphagia, odynophagia. He does admit to chronic BPH. Hospitalist was called to admit for congestive heart failure exacerbation/copd exacerbation. PAST MEDICAL HISTORY: Atrial fib, on Eliquis. Hypomagnesemia Gout Iron deficiency anemia H/O Syncopal episode Severe pulmonary hypertension CHF/ Diastolic dysfunction with left ventricular ejection fraction 65% Hypertension Dyslipidemia Chronic obstructive pulmonary disease BPH Alcohol use Tobacco use PSHX: Left knee arthroscopy Colonoscopy SOCHX: Resides in: [facility] Marital Status: Employment: Retired [employer] de[employer] Tobacco use: 1 ppd x 50 years, recently 4-5 per day ETOH: 4-5 beers per day hx, currently states to drink 3x/week Illicit Drugs: Denies Advanced directives: none, Full Code FAMHX: Father: , 50 years old, leukemia Mother: , 83 years old, stroke Siblings: - Sister: Alive, 88 years old, unknown health history - Brother: , unknown age, alcoholism REVIEW OF SYSTEMS: 12 POINT SYSTEMS NEGATIVE ASIDE FROM + findings on HPI ALLERGIES: Please see below. HOME MEDICATIONS: Please see below. PHYSICAL EXAMINATION: CONSTITUTIONAL: Patient has conversational dyspnea with positive use of respiratory accessory muscles with abdominal muscle retractions No tripod positioning., Answers questions appropriately . HEENT: PERRLA, EOM intactNormocephalic, atraumatic, moist oral mucous membranes Positive JVD, no lymphadenopathy, no carotid bruit. No stridor or tracheal deviation . Heart: tachycardia, irregularly irregular rhythm, S1S2 normal, positive S3 . Lungs: scattered rhonchi., Bilateral rales. Diminished breath sounds . Abdomen: BS positive in 4 quadrants, soft, nontender, nondistended, no rebound or guarding, no organomegaly . Ext: 3+ pitting edema to the sacrum Laboratory data/imaging studies/microbiology: See below Assessment and plan: 74-year-old male with history of chronic alcoholism, atrial fibrillation, diastolic heart failure. Hypomagnesemia. Iron Deficiency anemia, severe pulmonary hypertension, dyslipidemia, COPD, presents to emergency room with 2 month history of worsening shortness of breath and lower extremity edema w orsening over the past few days, paroxysmal nocturnal dyspnea, 3 pillow orthopnea at home and able to ambulate without shortness of breath more than 10- 15 feet without any accompanying chest pain, diaphoresis, nausea, vomiting, epigastric discomfort, fever, chills. He admits to having cough productive of yellow-green sputum at home which she has noted for the past few days. Despite using his inhalers, he has had no relief. He denies coffee-ground emesis, hematemesis, bright red per rectum, melena, black tarry stools, diarrhea. In the emergency room, coronavirus 19 was negative, Chest x-ray shows pulmonary edema, EKG shows chronic A. fib ventricular rate of 100 without acute ischemic changes, incomplete right bundle branch block. He is afebrile, tachypneic with respiratory rate of 26. Patient does not weigh himself and is not aware of any weight gain but admits to having worsening swelling in his bilateral lower extremities, he admits to noncompliance with low sodium diet diet and fluid restriction at home. He, Otherwise denies any dysuria, urgency, frequency, flank pain, constipation, diarrhea, headache, sore throat, rhinorrhea, loss of taste, dysphagia, odynophagia. He does admit to chronic BPH. Hospitalist was called to admit for congestive heart failure exacerbation/copd exacerbation. Acute on chronic diastolic congestive heart failure exacerbation , ejection fraction 65% with preserved systolic function -Secondary to noncompliance with low salt diet and fluid restriction -Admitted to PCU, telemetry monitoring, cardiac markers every 6 hourly -Strict I's and O's, daily weights, fluid restriction 1.5 liters daily -Lasix 40 mg IV every 6 hourly. Serial metabolic panel, magnesium to Supplement potassium and magnesium as needed -Telemetry monitoring Hypervolemic hypotonic Hyponatremia -Secondary to decompensated congestive heart failure exacerbation -Monitor serial metabolic panel. -Continue with IV Lasix diuresis and sodium with meals -Possible beer poyomania Acute COPD exacerbation -Solu-Medrol IV every 6 hourly and ask -xopenex to decrease risk of tachycardia every 4 hourly and she one hourly as needed -Supple, mental oxygen to keep O2 sat at 80-92% -Check pro calcitonin. if positive, Doxycycline -Check sputum culture Alcohol abuse -Last drink was yesterday. -CIWA protocol with by mouth Ativan as needed for withdrawal Atrial fib, on Eliquis. -Rate controlled Gout -Chronic Iron deficiency anemia -Chronic Severe pulmonary hypertension -Contributing to right-sided congestive heart failure/cor pulmonale -Continue with Lasix diuresis Hypertension -Controlled Dyslipidemia -Chronic BPH -Resume home meds Tobacco use - cessation counseling CODE STATUS full code Diet regular DVT prophylaxis: eliquis Vital Signs Vital Signs Date Time Temp Pulse Resp B/P (MAP) Pulse Ox O2 Delivery O2 Flow Rate FiO2 05/19/20 09:37 98.4 05/19/20 08:58 88 26 130/77 96 Room Air Laboratory Data Labs 24H Laboratory Tests 2 05/19/20 09:08: Immature Granulocyte % (Auto) 0.5, Neutrophils (%) (Auto) 84.1H, Lymphocytes (%) (Auto) 3.8L, Monocytes (%) (Auto) 11.2H, Eosinophils (%) (Auto) 0.2, Basophils (%) (Auto) 0.2, Neutrophils # (Auto) 9.7H, Lymphocytes # (Auto) 0.4L, Monocytes # (Auto) 1.3H, Eosinophils # (Auto) 0.0, Basophils # (Auto) 0.0, Nucleated Red Blood Cells % (auto) 0.0, Prothrombin Time 19.1H, Prothromb Time International Ratio 1.57, Blood Gas Bicarbonate Standard 24.2, Venous Blood pH 7.448H, Venous Blood Partial Pressure CO2 34.4L, Venous Blood Partial Pressure O2 75.4H, Venous Blood Total Carbon Dioxide 24.3, Venous Blood HCO3 23.3, Venous Blood Oxygen Saturation 95.3H, Venous Blood Base Excess -0.3, Anion Gap 10, Glomerular Filtration Rate > 60.0, Calcium Level 9.8, Total Bilirubin 0.6, Direct Bilirubin 0.3H, Aspartate Amino Transf (AST/SGOT) 22, Alanine Aminotransferase (ALT/SGPT) 34, Alkaline Phosphatase 119H, Total Creatine Kinase 141, Creatine Kinase MB 5.9H, Creatine Kinase MB Relative Index 4.18H, Troponin I < 0.02, FH-Vcq-J-Type Natriuretic Peptide 4335H, Total Protein 6.5, Albumin 3.5, Albumin/Globulin Ratio 1.2, Thyroid Stimulating Hormone (TSH) 1.240, Thyroxine (T4) 9.9 CBC/BMP Laboratory Tests 05/19/20 09:08 Microbiology Microbiology 05/19/20 Blood Culture, Received Pending 05/19/20 Respiratory Virus Panel (PCR) (JESSEE) - Final, Complete 05/19/20 Blood Culture, Received Pending Home Medications Scheduled Albuterol Sulf (Albuterol Sulfate) 2.5 Mg/3 Ml Vial.neb, 2.5 MG INH BID Allopurinol (Allopurinol) 100 Mg Tablet, 100 MG PO BID TAKES WITH BREAKFAST AND DINNER Apixaban (Eliquis) 5 Mg Tab, 5 MG PO Q12H Atorvastatin Calcium (Atorvastatin Calcium) 40 Mg Tablet, 20 MG PO Q2D QHS Budesonide/Formoterol (Symbicort 160-4.5 Mcg Inhaler) 60 Puff/Inhaler Aers, 2 PUFF INH BID Calcium Carbonate (Calcium) 500 Mg Chw, 1,000 MG PO BID Ferrous Gluconate (Ferrous Gluconate) 324 Mg Tablet, 324 MG PO BID Folic Acid (Folic Acid) 1 Mg Tab, 1 MG PO DAILY Magnesium Chloride (Mag64) 64 Mg Tablet.dr, 64 MG PO BID Multivitamins (Thera M Plus Tablet) 1 Tab Tab, 1 TAB PO BID Spironolactone (Spironolactone) 25 Mg Tablet, 25 MG PO DAILY Tamsulosin HCl (Flomax) 0.4 Mg Cap, 0.4 MG PO DAILY Tiotropium [place] (Spiriva Respimat) 4 Gm Mist.inhal, 2 INHALATION INH DAILY Torsemide (Torsemide) 20 Mg Tablet, 20 MG PO BID TAKES AT 0500 AND 1700 Verapamil HCl (Verapamil HCl) 80 Mg Tablet, 80 MG PO TID Scheduled PRN Acetaminophen (Tylenol) 325 Mg Tablet, 325 MG PO Q4H PRN for PAIN Albuterol Sulfate (Ventolin Hfa) 18 Gm Hfa.aer.ad, 2 PUFF INH QID PRN for SHORTNESS OF BREATH Allergies Coded Allergies: No Known Allergies (Unverified , 09/28/18) A-FIB/CHADSVASC A-FIB History Current/History of A-Fib/PAF?: Yes Current PO Anticoag Therapy: Yes Age/Risk Factor Scoring CHADSVASC: CHADSVASC Response (Comments) Value Age Risk Factor Age 65-74 years old 1 Gender Risk Factor Male 0 Hx of CHF Yes 1 Hx of HTN Yes 1 Hx of Stroke/TIA/or VTE No 0 Hx of Diabetes No 0 Hx of Vascular Disease No 0 Total 3 Treatment Treatment ordered: Apixaban CONY RIVERA MD May 19, 2020 12:49
[2020-05-19] MEDS ORDERED: ACETAMINOPHEN 325 MG TAB PO PRN (13:15)
[2020-05-19] MEDS ORDERED: ALBUTEROL 90 MCG/ACT 8GM HFA INHALER INH PRN (13:15)
[2020-05-19 14:00] VITALS: BP 137/60
[2020-05-19] MEDS: FOLIC ACID 1 MG TAB PO SCH (14:10)
[2020-05-19] MEDS: MULTIVITAMINS/MINERALS THERAP 1 TAB PO SCH (14:11)
[2020-05-19] MEDS: THIAMINE 100 MG TAB PO SCH ×2 (14:11→20:11)
[2020-05-19 14:15] VITALS: BP 138/83
--- NOTE | 2020-05-19 14:44 | REP ---
INDICATION: r/o dvt b/l LE edema. COMPARISON: None. TECHNIQUE: Bilateral lower extremity duplex venous ultrasound. FINDINGS: The deep veins are anechoic and fully compressible from the groin to the popliteal fossa in the left and right lower extremity. Color flow imaging is homogeneous. Spectral Doppler interrogation demonstrates intact respiratory variation in flow and normal manual augmentation of flow. There is no evidence of deep vein thrombosis. IMPRESSION: Negative bilateral lower extremity duplex venous ultrasound. No evidence of deep vein thrombosis. <Electronically signed by Jabier Bullock > 05/19/20 0129
[2020-05-19] MEDS ORDERED: SLF 3 ML SYR IV PRN (14:45)
[2020-05-19] MEDS: LEVALBUTEROL 1.25 MG/0.5 ML CONCENTRATE NEB INH SCH ×2 (15:03→20:39)
[2020-05-19] MEDS ORDERED: metOLazone 5 MG TAB PO ONE (15:30)
[2020-05-19] MEDS: VERAPAMIL 80 MG TAB PO SCH ×2 (15:32→20:10)
[2020-05-19 15:47] VITALS: BP 134/66
[2020-05-19 16:00] VITALS: BP 134/66
[2020-05-19] MEDS: FUROSEMIDE 40MG/4ML VIAL (J1940) IV SCH ×2 (16:04→20:08)
[2020-05-19] MEDS ORDERED: PREVNAR 13 VACCINE SYRINGE IM PRN (16:15)
[2020-05-19] MEDS ORDERED: FUROSEMIDE 40MG/4ML VIAL (J1940) IV SCH (17:00)
[2020-05-19] MEDS: methylPREDNISolone 125MG 2ML VIAL IV SCH (18:23)
[2020-05-19] MEDS: SODIUM CHLORIDE 1 GM TAB PO SCH (18:24)
[2020-05-19 19:07] LABS: CK-MB VALUE MASS 5.3 NG/ML (<3.6); CPK CREATINE PHOSPHOKINASE 127 U/L (39-308); MB/CK RELATIVE INDEX 4.17 (< OR =4); TROPONIN I < 0.02 NG/ML (< 0.10)
--- NOTE | 2020-05-19 19:41 | ECGEPIP ---
[facility] - ED Test Date: 2020-05-19 Pat Name: LASHAE LOUIS Department: Room: - Gender: Male Tool Room Supervisor: : [id number] Requested By: CHRIS Tolliver Order Number: [id number] Reading MD: Agustín Buck Measurements Intervals [place] Rate: 100 P: UT: 0 QRS: 100 QRSD: 98 T: 16 QT: 367 QTc: 473 Interpretive Statements ATRIAL FIBRILLATION/FLUTTER WITH RAPID VENTRICULAR RESPONSE BORDERLINE RIGHT AXIS DEVIATION INCOMPLETE RIGHT BUNDLE BRANCH BLOCK NONSPECIFIC T-WAVE ABNORMALITY SIMILAR TO 08/04/19 Electronically Signed on 05-19-2020 19:40:57 EST by Agustín uBck
[2020-05-19 20:00] VITALS: BP 133/63
[2020-05-19 20:08] VITALS: BP 133/63
[2020-05-19] MEDS: CALCIUM CARBONATE 500 MG CHEW U/D PO SCH (20:09)
[2020-05-19] MEDS: allopurinoL 100 MG TAB PO SCH (20:10)
[2020-05-19] MEDS: APIXABAN 5 MG TAB (ELIQUIS) PO SCH (20:11)
[2020-05-19] MEDS: FERROUS GLUCONATE 324 MG TAB PO SCH (20:11)
[2020-05-19] MEDS: SLF 3 ML SYR IV SCH (20:12)
[2020-05-19] MEDS: SYMBICORT 160/4.5MCG INHALER 6GM INH SCH (20:39)
[2020-05-20] VITALS (12 sets, daily range): BP systolic 112–140; BP diastolic 55–70
[2020-05-20] MEDS: FUROSEMIDE 40MG/4ML VIAL (J1940) IV SCH ×6 (00:40→20:38)
[2020-05-20] MEDS: methylPREDNISolone 125MG 2ML VIAL IV SCH ×4 (00:41→18:00)
[2020-05-20 00:45] LABS: CK-MB VALUE MASS 3.9 NG/ML (<3.6); CPK CREATINE PHOSPHOKINASE 104 U/L (39-308); MB/CK RELATIVE INDEX 3.75 (< OR =4); TROPONIN I < 0.02 NG/ML (< 0.10)
[2020-05-20] MEDS: LEVALBUTEROL 1.25 MG/0.5 ML CONCENTRATE NEB INH SCH ×5 (01:07→20:00)
[2020-05-20] MEDS: SLF 3 ML SYR IV SCH ×3 (04:58→20:42)
[2020-05-20 05:34] LABS: BASO % 0.2 % (0.0-1.0); HEMATOCRIT 28.7 % (42.0-52.0); HEMOGLOBIN 10.2 g/dl (13.5-17.5); LYMPH # 0.4 10^3/uL (1.5-5.0); LYMPH % 8.1 % (24.0-44.0); MEAN CORPUSCULAR HEMOGLOBIN 31.3 pg (27.0-33.0); MEAN CORPUSCULAR HGB CONC 35.5 g/dl (32.0-36.5); MONO # 0.1 10^3/uL (0.0-0.8); NEUTROPHILS # 3.8 10^3/uL (1.5-8.5); PLATELET COUNT, AUTOMATED 423 10^3/uL (150-450); RED BLOOD COUNT 3.26 10^6/uL (4.30-6.10); WHITE BLOOD COUNT 4.3 10^3/uL (4.0-10.0)
[2020-05-20 06:00] LABS: BLOOD UREA NITROGEN 27 MG/DL (7-18); CALCIUM LEVEL 9.2 MG/DL (8.8-10.2); CARBON DIOXIDE LEVEL 27 MEQ/L (21-32); CHLORIDE LEVEL 89 MEQ/L (98-107); CREATININE FOR GFR 1.01 MG/DL (0.70-1.30); GLOMERULAR FILTRATION RATE > 60.0 (>42); GLUCOSE, FASTING 140 MG/DL (70-100); MAGNESIUM LEVEL 1.8 MG/DL (1.8-2.4); POTASSIUM SERUM 3.8 MEQ/L (3.5-5.1); SODIUM LEVEL 128 MEQ/L (136-145)
[2020-05-20] MEDS: SYMBICORT 160/4.5MCG INHALER 6GM INH SCH ×2 (07:39→20:35)
[2020-05-20] MEDS ORDERED: MAG SULF 1GM/100ML (MAG RUN) 1 GM in IV 1 EA IV ONE (08:00)
[2020-05-20] MEDS: CALCIUM CARBONATE 500 MG CHEW U/D PO SCH ×2 (08:22→20:41)
[2020-05-20] MEDS: SODIUM CHLORIDE 1 GM TAB PO SCH ×3 (08:22→18:00)
[2020-05-20] MEDS: VERAPAMIL 80 MG TAB PO SCH ×3 (08:22→20:41)
[2020-05-20] MEDS: TAMSULOSIN 0.4 MG CAP PO SCH (08:23)
[2020-05-20] MEDS: APIXABAN 5 MG TAB (ELIQUIS) PO SCH ×2 (08:23→20:40)
[2020-05-20] MEDS: POTASSIUM CHLORIDE 10 MEQ SR TABLET PO SCH (08:23)
[2020-05-20] MEDS: THIAMINE 100 MG TAB PO SCH ×2 (08:23→20:40)
[2020-05-20] MEDS: FOLIC ACID 1 MG TAB PO SCH (08:23)
[2020-05-20] MEDS: FERROUS GLUCONATE 324 MG TAB PO SCH ×2 (08:23→20:40)
[2020-05-20] MEDS: allopurinoL 100 MG TAB PO SCH ×2 (08:23→20:40)
[2020-05-20] MEDS: MULTIVITAMINS/MINERALS THERAP 1 TAB PO SCH (08:23)
--- NOTE | 2020-05-20 08:58 | IPNPDOC ---
Date Seen The patient was seen on 05/20/20. Progress Note S: c/o sob decreased cough nonproductive no chill or fever still w valerio, wheezing, pnd, 30degree bed elevation due to orthopnea denies cp, pressure, tightness, lightheadedness, or dizziness O: PHYSICAL EXAMINATION: vitals: see below i/o: see below wt: see below GEN: disheveled, dry mm. aaox 3 mild resp distress but able to complete sentences HEENT: PERRLA, EOM intactNormocephalic, atraumatic, moist oral mucous membranes Positive JVD, no lymphadenopathy, no carotid bruit. No stridor or tracheal deviation . Heart: irregularly irregular rhythm, S1S2 normal, positive S3 . Lungs: scattered wheezes diminished bs. . Abdomen: BS positive in 4 quadrants, soft, nontender, nondistended, no rebou nd or guarding, no organomegaly . Ext: 3+ pitting edema to the sacrum Laboratory data/imaging studies/microbiology: See below Assessment and plan: 74-year-old male with history of chronic alcoholism, atrial fibrillation, diastolic heart failure. Hypomagnesemia. Iron Deficiency anemia, severe pulm onary hypertension, dyslipidemia, COPD, presents to emergency room with 2 month history of worsening shortness of breath and lower extremity edema worsening over the past few days, paroxysmal nocturnal dyspnea, 3 pillow orthopnea at home and able to ambulate without shortness of breath more than 10-15 feet without any accompanying chest pain, diaphoresis, nausea, vomiting, epigastric discomfort, fever, chills. He admits to having cough productive of yellow-green sputum at home which she has noted for the past few days. Despite using his inhalers, he has had no relief. He denies coffee-ground emesis, hematemesis, bright red per rectum, melena, black tarry stools, diarrhea. In the emergency room, coronavirus 19 was negative, Chest x-ray shows pulmonary edema, EKG shows chronic A. fib ventricular rate of 100 without acute ischemic changes, incomplete right bundle branch block. He is afebrile, tachypneic with respiratory rate of 26. Patient does not weigh himself and is not aware of any weight gain but admits to having worsening swelling in his bilateral lower extremities, he admits to noncompliance with low sodium diet diet and fluid restriction at home. He, Otherwise denies any dysuria, urgency, frequency, flank pain, constipation, diarrhea, headache, sore throat, rhinorrhea, loss of taste, dysphagia, odynophagia. He does admit to chronic BPH. Hospitalist was called to admit for congestive heart failure exacerbation/copd exacerbation. Acute on chronic diastolic congestive heart failure exacerbation , ejection fraction 65% with preserved systolic function -Secondary to noncompliance with low salt diet and fluid restriction -diuresing well with lasix w net negative balance and no orthostasis -kept on fluid restriction. Hypervolemic hypotonic Hyponatremia -Secondary to decompensated congestive heart failure exacerbation -salt tabs and lasix Acute COPD exacerbation -Solu-Medrol IV every 6 hourly xopenex Alcohol abuse -CIWA protocol with by mouth Ativan as needed for withdrawal Atrial fib, on Eliquis. -Rate controlled Gout -Chronic Iron deficiency anemia -Chronic Severe pulmonary hypertension -Contributing to right-sided congestive heart failure/cor pulmonale -Continue with Lasix diuresis Hypertension -Controlled Dyslipidemia -Chronic BPH -Resume home meds Tobacco use - cessation counseling CODE STATUS full code Diet regular DVT prophylaxis: eliquis VS, I&O, 24H, Fishbone Vital Signs/I&O Vital Signs Date Time Temp Pulse Resp B/P (MAP) Pulse Ox O2 Delivery O2 Flow Rate FiO2 05/20/20 08:22 94 140/69 05/20/20 07:16 98.3 24 92 Nasal Cannula 2.0 I&O- Last 24 Hours up to 6 AM 05/20/20 06:00 Intake Total 390 ml Output Total 1875 ml Balance -1485 ml Laboratory Data 24H LABS Laboratory Tests 2 05/19/20 09:08: Immature Granulocyte % (Auto) 0.5, Neutrophils (%) (Auto) 84.1H, Lymphocytes (%) (Auto) 3.8L, Monocytes (%) (Auto) 11.2H, Eosinophils (%) (Auto) 0.2, Basophils (%) (Auto) 0.2, Neutrophils # (Auto) 9.7H, Lymphocytes # (Auto) 0.4L, Monocytes # (Auto) 1.3H, Eosinophils # (Auto) 0.0, Basophils # (Auto) 0.0, Nucleated Red Blood Cells % (auto) 0.0, Prothrombin Time 19.1H, Prothromb Time International Ratio 1.57, Blood Gas Bicarbonate Standard 24.2, Venous Blood pH 7.448H, Venous Blood Partial Pressure CO2 34.4L, Venous Blood Partial Pressure O2 75.4H, Venous Blood Total Carbon Dioxide 24.3, Venous Blood HCO3 23.3, Venous Blood Oxygen Saturation 95.3H, Venous Blood Base Excess -0.3, Anion Gap 10, Glomerular Filtration Rate > 60.0, Calcium Level 9.8, Total Bilirubin 0.6, Direct Bilirubin 0.3H, Aspartate Amino Transf (AST/SGOT) 22, Alanine Aminotransferase (ALT/SGPT) 34, Alkaline Phosphatase 119H, Total Creatine Kinase 141, Creatine Kinase MB 5.9H, Creatine Kinase MB Relative Index 4.18H, Troponin I < 0.02, UX-Die-N-Type Natriuretic Peptide 4335H, Total Protein 6.5, Albumin 3.5, Albumin/Globulin Ratio 1.2, Thyroid Stimulating Hormone (TSH) 1.240, Thyroxine (T4) 9.9 05/19/20 18:18: Total Creatine Kinase 127, Creatine Kinase MB 5.3H, Creatine Kinase MB Relative Index 4.17H, Troponin I < 0.02 05/19/20 23:50: Total Creatine Kinase 104, Creatine Kinase MB 3.9H, Creatine Kinase MB Relative Index 3.75, Troponin I < 0.02 05/20/20 04:59: Immature Granulocyte % (Auto) 0.7, Neutrophils (%) (Auto) 88.0H, Lymphocytes (%) (Auto) 8.1L, Monocytes (%) (Auto) 3.0, Eosinophils (%) (Auto) 0.0, Basophils (%) (Auto) 0.2, Neutrophils # (Auto) 3.8, Lymphocytes # (Auto) 0.4L, Monocytes # (Auto) 0.1, Eosinophils # (Auto) 0.0, Basophils # (Auto) 0.0, Nucleated Red Blood Cells % (auto) 0.0, Anion Gap 12, Glomerular Filtration Rate > 60.0, Calcium Level 9.2, Magnesium Level 1.8 CBC/BMP Laboratory Tests 05/19/20 09:08 05/20/20 04:59 Microbiology Microbiology 05/19/20 Blood Culture, Received Pending 05/19/20 Respiratory Virus Panel (PCR) ([facility]) - Final, Complete 2/5/21 Blood Culture, Received Pending CONY RIVERA MD May 20, 2020 08:58
[2020-05-20] MEDS: ATORVASTATIN 20 MG TAB PO SCH (20:40)
[2020-05-21] VITALS (8 sets, daily range): BP systolic 110–127; BP diastolic 55–71
[2020-05-21] MEDS: methylPREDNISolone 125MG 2ML VIAL IV SCH ×3 (01:10→12:02)
[2020-05-21] MEDS: FUROSEMIDE 40MG/4ML VIAL (J1940) IV SCH ×2 (01:11→03:49)
[2020-05-21] MEDS: LEVALBUTEROL 1.25 MG/0.5 ML CONCENTRATE NEB INH SCH ×6 (04:00→20:00)
[2020-05-21] MEDS: SLF 3 ML SYR IV SCH ×3 (05:59→22:05)
[2020-05-21 06:02] LABS: HEMATOCRIT 29.1 % (42.0-52.0); HEMOGLOBIN 10.3 g/dl (13.5-17.5); LYMPH # 0.4 10^3/uL (1.5-5.0); LYMPH % 4.7 % (24.0-44.0); MEAN CORPUSCULAR HEMOGLOBIN 31.3 pg (27.0-33.0); MEAN CORPUSCULAR HGB CONC 35.4 g/dl (32.0-36.5); MEAN CORPUSCULAR VOLUME 88.4 fl (80.0-96.0); MONO # 0.5 10^3/uL (0.0-0.8); MONO % 5.7 % (0.0-5.0); NEUTROPHILS % 88.7 % (36.0-66.0); PLATELET COUNT, AUTOMATED 449 10^3/uL (150-450); RED BLOOD COUNT 3.29 10^6/uL (4.30-6.10)
[2020-05-21 06:16] LABS: CALCIUM LEVEL 9.6 MG/DL (8.8-10.2); CREATININE FOR GFR 1.39 MG/DL (0.70-1.30); GLOMERULAR FILTRATION RATE 53.2 (>42); POTASSIUM SERUM 3.1 MEQ/L (3.5-5.1)
[2020-05-21] MEDS: SODIUM CHLORIDE 1 GM TAB PO SCH ×4 (08:00→17:46)
[2020-05-21] MEDS: allopurinoL 100 MG TAB PO SCH ×2 (08:45→20:01)
[2020-05-21] MEDS: POTASSIUM CHLORIDE 10 MEQ SR TABLET PO SCH ×3 (08:45→12:02)
[2020-05-21] MEDS: CALCIUM CARBONATE 500 MG CHEW U/D PO SCH ×2 (08:45→20:04)
[2020-05-21] MEDS: THIAMINE 100 MG TAB PO SCH ×2 (08:46→20:04)
[2020-05-21] MEDS: FOLIC ACID 1 MG TAB PO SCH (08:46)
[2020-05-21] MEDS: FERROUS GLUCONATE 324 MG TAB PO SCH ×2 (08:46→20:01)
[2020-05-21] MEDS: MULTIVITAMINS/MINERALS THERAP 1 TAB PO SCH (08:46)
[2020-05-21] MEDS: TAMSULOSIN 0.4 MG CAP PO SCH (08:46)
[2020-05-21] MEDS: VERAPAMIL 80 MG TAB PO SCH ×3 (08:47→20:03)
[2020-05-21] MEDS: APIXABAN 5 MG TAB (ELIQUIS) PO SCH ×2 (08:47→20:01)
[2020-05-21] MEDS: SYMBICORT 160/4.5MCG INHALER 6GM INH SCH ×2 (08:49→21:00)
--- NOTE | 2020-05-21 08:55 | REP ---
INDICATION: sob COMPARISON: 05/19/2020. TECHNIQUE: PA/Lateral FINDINGS: Lungs: The diffuse bilateral interstitial infiltrates have resolved. There is no acute infiltrate at this time. Heart: The heart is upper limits of normal in size. Mediastinum: Mediastinal silhouette unremarkable. Pleural angles: There is blunting of the costophrenic angles bilaterally compatible with small bilateral pleural effusions.. Bones and soft tissues: There are mild degenerative changes of the spine without compression deformity. IMPRESSION: Diffuse bilateral infiltrates have resolved. There are small bilateral pleural effusions. <Electronically signed by Blair Lima > 05/21/20 0852
[2020-05-21] MEDS ORDERED: LEVALBUTEROL 1.25 MG/0.5 ML CONCENTRATE NEB INH PRN (09:00)
[2020-05-21] MEDS ORDERED: LEVALBUTEROL 1.25 MG/0.5 ML CONCENTRATE NEB INH SCH (09:00)
--- NOTE | 2020-05-21 10:24 | IPNPDOC ---
Date Seen The patient was seen on 05/21/20. Progress Note S: no c/o cp, but still sob especially w exertion going from bed to bathroom. denies any lightheadedness or dizziness.c/o slight thirst. TELE:pvcs O: PHYSICAL EXAMINATION: vitals: see below i/o: see below wt: see below GEN: disheveled, dry mm. aaox 3 mild resp distress but able to complete s entences HEENT: PERRLA, EOM intactNormocephalic, atraumatic, moist oral mucous membranes Positive JVD, no lymphadenopathy, no carotid bruit. No stridor or tracheal deviation . Heart: irregularly irregular rhythm, S1S2 normal, positive S3 . Lungs: bilaeral scattered wheezes diminished bs.fine crackles at the bases . Abdomen: BS positive in 4 quadrants, soft, nontender, nondistended, no rebound or guarding, no organomegaly . Ext: 2+ pitting edema to the sacrum Laboratory data/imaging studies/microbiology: See below Assessment and plan: 74-year-old male with history of chronic alcoholism, atrial fibrillation, diastolic heart failure. Hypomagnesemia. Iron Deficiency anemia, severe pulmonar y hypertension, dyslipidemia, COPD, presents to emergency room with 2 month history of worsening shortness of breath and lower extremity edema worsening over the past few days, paroxysmal nocturnal dyspnea, 3 pillow orthopnea at home and able to ambulate without shortness of breath more than 10-15 feet without any accompanying chest pain, diaphoresis, nausea, vomiting, epigastric discomfort, fever, chills. He admits to having cough productive of yellow-green sputum at home which she has noted for the past few days. Despite using his inhalers, he has had no relief. He denies coffee-ground emesis, hematemesis, bright red per rectum, melena, black tarry stools, diarrhea. In the emergency room, coronavirus 19 was negative, Chest x-ray shows pulmonary edema, EKG shows chronic A. fib ventricular rate of 100 without acute ischemic changes, incomplete right bundle branch block. He is afebrile, tachypneic with respiratory rate of 26. Patient does not weigh himself and is not aware of any weight gain but admits to having worsening swelling in his bilateral lower extremities, he admits to noncompliance with low sodium diet diet and fluid restriction at home. He, Otherwise denies any dysuria, urgency, frequency, flank pain, constipation, diarrhea, headache, sore throat, rhinorrhea, loss of taste, dysphagia, odynophagia. He does admit to chronic BPH. Hospitalist was called to admit for congestive heart failure exacerbation/copd exacerbation. Acute on chronic diastolic congestive heart failure exacerbation , ejection fraction 65% with preserved systolic function -Secondary to noncompliance with low salt diet and fluid restriction -diuresing well with lasix w net negative balance and no orthostasis -kept on fluid restriction. -still w valerio and pnd. but now with acute kidney injury so we will transition to po meds and dc iv lasix -pt is normally on torsemide 20 mg bid, but will try one dose and recheck bmp to prevent worsening azotemia. -if renal function stable, may give additional evening dose of torsemide. -if worsening azotemia, will hold off o n 2nd dose and reassess clinically and repeat creatinine in am. -encourage ambulation as pt does not seem orthostatic w/o c/o dizziness/or lightheadedness. Hypervolemic hypotonic Hyponatremia -Secondary to decompensated congestive heart failure exacerbation -salt tabs and lasix PVCs -optimized k>4, and mg>2 Acute COPD exacerbation -Solu-Medrol IV every 6 hourly xopenex -still wheezing. Alcohol abuse -CIWA protocol with by mouth Ativan as needed for withdrawal chronic Atrial fib, on Eliquis. -Rate controlled Gout -Chronic Iron deficiency anemia -Chronic Severe pulmonary hypertension -Contributing to right-sided congestive heart failure/cor pulmonale -Continue with Lasix diuresis Hypertension -Controlled Dyslipidemia -Chronic BPH -Resume home meds Tobacco use - cessation counseling CODE STATUS full code Diet regular DVT prophylaxis: eliquis VS, I&O, 24H, Fishbone VS, I&O, 24H, Fishbone Vital Signs/I&O Vital Signs Date Time Temp Pulse Resp B/P (MAP) Pulse Ox O2 Delivery O2 Flow Rate FiO2 05/21/20 08:47 90 116/58 05/21/20 08:05 98.7 22 98 Nasal Cannula 1.0 I&O- Last 24 Hours up to 6 AM 05/21/20 06:00 Intake Total 2010 ml Output Total 2550 ml Balance -540 ml Laboratory Data 24H LABS Laboratory Tests 2 2/7/21 05:17: Immature Granulocyte % (Auto) 0.9, Neutrophils (%) (Auto) 88.7H, Lymphocytes (%) (Auto) 4.7L, Monocytes (%) (Auto) 5.7H, Eosinophils (%) (Auto) 0.0, Basophils (%) (Auto) 0.0, Neutrophils # (Auto) 8.0, Lymphocytes # (Auto) 0.4L, Monocytes # (Auto) 0.5, Eosinophils # (Auto) 0.0, Basophils # (Auto) 0.0, Nucleated Red Blood Cells % (auto) 0.0, Anion Gap 7L, Glomerular Filtration Rate 53.2, Calcium Level 9.6, Magnesium Level 2.0 CBC/BMP Laboratory Tests 05/21/20 05:17 Microbiology Microbiology 05/19/20 Blood Culture - Preliminary, Resulted No Growth after 48 hours. All Specime... 05/19/20 Respiratory Virus Panel (PCR) ([facility]) - Final, Complete 05/19/20 Blood Culture - Preliminary, Resulted No Growth after 48 hours. All Specime... CONY RIVERA MD May 21, 2020 10:22
[2020-05-21] MEDS: SENOKOT S TAB PO SCH ×2 (10:46→20:04)
[2020-05-21] MEDS: MIRALAX *UNIT DOSE* 17GM PACKET PO SCH (10:46)
[2020-05-21] MEDS ORDERED: metOLazone 5 MG TAB PO ONE (12:00)
[2020-05-21] MEDS ORDERED: TORSEMIDE 20 MG TAB PO ONE ×2 (12:30→21:00)
[2020-05-21 13:10] LABS: CALCIUM LEVEL 9.8 MG/DL (8.8-10.2); CREATININE FOR GFR 1.67 MG/DL (0.70-1.30); POTASSIUM SERUM 3.2 MEQ/L (3.5-5.1)
[2020-05-21] MEDS ORDERED: POTASSIUM CHLORIDE 10 MEQ SR TABLET PO ONE (18:00)
[2020-05-21 20:04] LABS: CALCIUM LEVEL 9.6 MG/DL (8.8-10.2); CREATININE FOR GFR 1.71 MG/DL (0.70-1.30); GLOMERULAR FILTRATION RATE 41.9 (>42); POTASSIUM SERUM 4.9 MEQ/L (3.5-5.1)
[2020-05-22] MEDS: LEVALBUTEROL 1.25 MG/0.5 ML CONCENTRATE NEB INH SCH ×7 (00:46→23:24)
[2020-05-22] MEDS: methylPREDNISolone 125MG 2ML VIAL IV SCH ×2 (00:46→13:15)
[2020-05-22] MEDS: SLF 3 ML SYR IV SCH ×3 (05:12→21:24)
[2020-05-22] MEDS ORDERED: MOM 30ML SUSPENSION UDC PO PRN (05:15)
[2020-05-22 06:00] VITALS: BP 112/62
[2020-05-22 06:38] LABS: BASO % 0.1 % (0.0-1.0); HEMATOCRIT 31.5 % (42.0-52.0); LYMPH # 0.4 10^3/uL (1.5-5.0); LYMPH % 4.4 % (24.0-44.0); MEAN CORPUSCULAR HEMOGLOBIN 31.4 pg (27.0-33.0); MEAN CORPUSCULAR HGB CONC 34.9 g/dl (32.0-36.5); MONO # 0.5 10^3/uL (0.0-0.8); NEUTROPHILS # 8.7 10^3/uL (1.5-8.5); NEUTROPHILS % 89.6 % (36.0-66.0); PLATELET COUNT, AUTOMATED 500 10^3/uL (150-450); WHITE BLOOD COUNT 9.7 10^3/uL (4.0-10.0)
[2020-05-22 07:07] LABS: CALCIUM LEVEL 9.6 MG/DL (8.8-10.2); CREATININE FOR GFR 1.48 MG/DL (0.70-1.30); GLOMERULAR FILTRATION RATE 49.5 (>42); POTASSIUM SERUM 4.1 MEQ/L (3.5-5.1)
[2020-05-22] MEDS: VERAPAMIL 80 MG TAB PO SCH ×3 (09:00→21:00)
[2020-05-22] MEDS: SYMBICORT 160/4.5MCG INHALER 6GM INH SCH ×2 (09:00→21:00)
[2020-05-22] MEDS: POTASSIUM CHLORIDE 10 MEQ SR TABLET PO SCH (09:41)
[2020-05-22] MEDS: SODIUM CHLORIDE 1 GM TAB PO SCH ×3 (09:41→17:33)
[2020-05-22] MEDS: FOLIC ACID 1 MG TAB PO SCH (09:41)
[2020-05-22] MEDS: allopurinoL 100 MG TAB PO SCH ×2 (09:41→21:23)
[2020-05-22] MEDS: MULTIVITAMINS/MINERALS THERAP 1 TAB PO SCH (09:41)
[2020-05-22] MEDS: THIAMINE 100 MG TAB PO SCH ×2 (09:41→21:23)
[2020-05-22] MEDS: APIXABAN 5 MG TAB (ELIQUIS) PO SCH ×2 (09:41→21:23)
[2020-05-22] MEDS: CALCIUM CARBONATE 500 MG CHEW U/D PO SCH ×2 (09:41→21:23)
[2020-05-22] MEDS: SENOKOT S TAB PO SCH ×2 (09:41→21:00)
[2020-05-22] MEDS: TAMSULOSIN 0.4 MG CAP PO SCH (09:41)
[2020-05-22] MEDS: MIRALAX *UNIT DOSE* 17GM PACKET PO SCH ×2 (09:41→21:00)
[2020-05-22] MEDS: FERROUS GLUCONATE 324 MG TAB PO SCH ×2 (09:41→21:23)
--- NOTE | 2020-05-22 10:23 | IPNPDOC ---
Date Seen The patient was seen on 05/22/20. Progress Note S: denies STARR, chest pain. sob is better no fever chills or cough creatinine improved to 1.34 after stopping lasix. still c/o weakness, but able to ambulate better now. O: PHYSICAL EXAMINATION: vitals: see below i/o: see below wt: see below GEN: erythemtous cheeks, dry skin, aaox 3 no resp distress but able to complete sentences HEENT: PERRLA, EOM intactNormocephalic, atraumatic, moist oral mucous membranes Positive JVD, no lymphadenopathy, no carotid bruit. No stridor or tracheal devia tion . Heart: irregularly irregular rhythm, S1S2 normal, positive S3 . Lungs: coarse breath sounds no wheezes diminished no use of resp acc mm no tripod positioning. . Abdomen: BS positive in 4 quadrants, soft, nontender, nondistended, no rebound or guarding, no organomegaly . Ext: 1+ pitting edema bl Laboratory data/imaging studies/microbiology: See below Assessment and plan: 74-year-old male with history of chronic alcoholism, atrial fibrillation, diastolic heart failure. Hypomagnesemia. Iron Deficiency anemia, severe pulmonary hypertension, dyslipidemia, COPD, presents to emergency room with 2 month history of worsening shortness of breath and lower extremity edema worsening over the past few days, paroxysmal nocturnal dyspnea, 3 pillow orthopnea at home and able to ambulate without shortness of breath more than 10- 15 feet without any accompanying chest pain, diaphoresis, nausea, vomiting, epigastric discomfort, fever, chills. He admits to having cough productive of yellow-green sputum at home which she has noted for the past few days. Despite using his inhalers, he has had no relief. He denies coffee-ground emesis, hematemesis, bright red per rectum, melena, black tarry stools, diarrhea. In the emergency room, coronavirus 19 was negative, Chest x-ray shows pulmonary edema, EKG shows chronic A. fib ventricular rate of 100 without acute ischemic changes, incomplete right bundle branch block. He is afebrile, tachypneic with respiratory rate of 26. Patient does not weigh himself and is not aware of any weight gain but admits to having worsening swelling in his bilateral lower extremities, he admits to noncompliance with low sodium diet diet and fluid restriction at home. He, Otherwise denies any dysuria, urgency, frequency, flank pain, constipation, diarrhea, headache, sore throat, rhinorrhea, loss of taste, dysphagia, odynophagia. He does admit to chronic BPH. Hospitalist was called to admit for congestive heart failure exacerbation/copd exacerbation. Acute on chronic diastolic congestive heart failure exacerbation , ejection fraction 65% with preserved systolic function -Secondary to noncompliance with low salt diet and fluid restriction -kept on fluid restriction. -encourage ambulation as pt does not seem orthostatic w/o c/o dizziness/or lightheadedness. -taken off diuretics due to acute kidney injury which is improving -resume home dose torsemide once renal function is normal Acute Kidney injury -due to lasix -may resume home torsemide in am if creatinine is normal. Hypervolemic hypotonic Hyponatremia -Secondary to decompensated congestive heart failure exacerbation -salt tabs and s/p lasix -asymptomatic without cognitive impairment, headache,seizure activity PVCs -optimized k>4, and mg>2 Acute COPD exacerbation -iv solumedrol -change to po prednisone in am w rapid taper. Alcohol abuse -CIWA protocol with by mouth Ativan as needed for withdrawal chronic Atrial fib, on Eliquis. -Rate controlled Gout -Chronic Iron deficiency anemia -Chronic Severe pulmonary hypertension -Contributing to right-sided congestive heart failure/cor pulmonale -s/p iv lasix, held due to ramon. Hypertension -Controlled Dyslipidemia -Chronic BPH -Resume home meds Tobacco use - cessation counseling CODE STATUS full code Diet regular DVT prophylaxis: eliquis disposition : dc in 1-2 days, change to po prednisone and resume torsemide in am. VS, I&O, 24H, Fishbone Vital Signs/I&O Vital Signs Date Time Temp Pulse Resp B/P (MAP) Pulse Ox O2 Delivery O2 Flow Rate FiO2 05/22/20 09:00 97 113/63 05/22/20 06:00 97.7 18 94 Room Air 05/21/20 08:45 1.0 I&O- Last 24 Hours up to 6 AM 05/22/20 06:00 Intake Total 1080 ml Output Total 4500 ml Balance -3420 ml Laboratory Data 24H LABS Laboratory Tests 2 05/21/20 12:33: Anion Gap 10, Glomerular Filtration Rate 43.0, Calcium Level 9.8 05/21/20 15:58: Magnesium Level 2.0 05/21/20 18:59: Anion Gap 7L, Glomerular Filtration Rate 41.9L, Calcium Level 9.6 05/22/20 05:48: Anion Gap 9, Glomerular Filtration Rate 49.5, Calcium Level 9.6, Magnesium Level 2.0, Immature Granulocyte % (Auto) 0.9, Neutrophils (%) (Auto) 89.6H, Lymphocytes (%) (Auto) 4.4L, Monocytes (%) (Auto) 5.0, Eosinophils (%) (Auto) 0.0, Basophils (%) (Auto) 0.1, Neutrophils # (Auto) 8.7H, Lymphocytes # (Auto) 0.4L, Monocytes # (Auto) 0.5, Eosinophils # (Auto) 0.0, Basophils # (Auto) 0.0, Nucleated Red Blood Cells % (auto) 0.0 CBC/BMP Laboratory Tests 05/21/20 12:33 05/21/20 18:59 05/22/20 05:48 Microbiology Microbiology 05/19/20 Blood Culture - Preliminary, Resulted No Growth after 72 hours. All specime... 05/19/20 Respiratory Virus Panel (PCR) ([facility]) - Final, Complete 05/19/20 Blood Culture - Preliminary, Resulted No Growth after 72 hours. All specime... CONY RIVERA MD May 22, 2020 10:23
[2020-05-22 13:52] VITALS: BP 114/68
--- NOTE | 2020-05-22 13:56 | REP ---
INDICATION: ABD PAIN COMPARISON: None. TECHNIQUE: Supine view of the abdomen and pelvis. FINDINGS: Bowel gas pattern is nonspecific and without obstruction or perforation. No organomegaly. No abnormal calcifications. Skeletal structures demonstrate age-related changes. IMPRESSION: Nonspecific bowel gas pattern. <Electronically signed by Tyrese Moser > 05/22/20 [id number]
[2020-05-22 14:00] VITALS: BP 114/68
[2020-05-22] MEDS ORDERED: POLYETHYLENE GLYCOL (MIRALAX) 238GM BOTTLE PO ONE (14:30)
[2020-05-22] MEDS: ATORVASTATIN 20 MG TAB PO SCH (21:23)
[2020-05-22 22:00] VITALS: BP 114/51
[2020-05-23] MEDS: methylPREDNISolone 125MG 2ML VIAL IV SCH ×2 (00:27→12:42)
[2020-05-23] MEDS: LEVALBUTEROL 1.25 MG/0.5 ML CONCENTRATE NEB INH SCH ×3 (03:18→11:30)
[2020-05-23 06:00] VITALS: BP 116/57
[2020-05-23] MEDS: SLF 3 ML SYR IV SCH ×2 (06:09→12:42)
[2020-05-23 06:14] LABS: BASO % 0.1 % (0.0-1.0); EOS % 0.1 % (0.0-3.0); HEMATOCRIT 32.9 % (42.0-52.0); HEMOGLOBIN 11.3 g/dl (13.5-17.5); LYMPH # 0.5 10^3/uL (1.5-5.0); LYMPH % 4.7 % (24.0-44.0); MEAN CORPUSCULAR HEMOGLOBIN 31.5 pg (27.0-33.0); MEAN CORPUSCULAR HGB CONC 34.3 g/dl (32.0-36.5); MEAN CORPUSCULAR VOLUME 91.6 fl (80.0-96.0); MONO # 0.6 10^3/uL (0.0-0.8); MONO % 5.9 % (0.0-5.0); NEUTROPHILS # 9.1 10^3/uL (1.5-8.5); NEUTROPHILS % 87.8 % (36.0-66.0); PLATELET COUNT, AUTOMATED 480 10^3/uL (150-450); RED BLOOD COUNT 3.59 10^6/uL (4.30-6.10); WHITE BLOOD COUNT 10.4 10^3/uL (4.0-10.0)
[2020-05-23 06:29] LABS: BLOOD UREA NITROGEN 49 MG/DL (7-18); CARBON DIOXIDE LEVEL 28 MEQ/L (21-32); CHLORIDE LEVEL 97 MEQ/L (98-107); GLOMERULAR FILTRATION RATE > 60.0 (>42); GLUCOSE, FASTING 151 MG/DL (70-100); MAGNESIUM LEVEL 2.2 MG/DL (1.8-2.4); POTASSIUM SERUM 4.7 MEQ/L (3.5-5.1); SODIUM LEVEL 136 MEQ/L (136-145)
[2020-05-23] MEDS: SYMBICORT 160/4.5MCG INHALER 6GM INH SCH (06:34)
[2020-05-23] MEDS: CALCIUM CARBONATE 500 MG CHEW U/D PO SCH (08:38)
[2020-05-23] MEDS: allopurinoL 100 MG TAB PO SCH (08:38)
[2020-05-23] MEDS: FERROUS GLUCONATE 324 MG TAB PO SCH (08:38)
[2020-05-23] MEDS: APIXABAN 5 MG TAB (ELIQUIS) PO SCH (08:38)
[2020-05-23] MEDS: SODIUM CHLORIDE 1 GM TAB PO SCH (08:38)
[2020-05-23] MEDS: TAMSULOSIN 0.4 MG CAP PO SCH (08:38)
[2020-05-23] MEDS: MULTIVITAMINS/MINERALS THERAP 1 TAB PO SCH (08:38)
[2020-05-23] MEDS: THIAMINE 100 MG TAB PO SCH (08:38)
[2020-05-23] MEDS: FOLIC ACID 1 MG TAB PO SCH (08:38)
[2020-05-23] MEDS: POTASSIUM CHLORIDE 10 MEQ SR TABLET PO SCH (08:39)
[2020-05-23 08:40] VITALS: BP 121/70
[2020-05-23] MEDS: SENOKOT S TAB PO SCH (08:40)
[2020-05-23] MEDS: VERAPAMIL 80 MG TAB PO SCH (08:40)
[2020-05-23] MEDS: MIRALAX *UNIT DOSE* 17GM PACKET PO SCH (08:40)
[2020-05-23] MEDS ORDERED: TORS20TA2 PO (09:06)
--- NOTE | 2020-05-23 20:26 | DS.PDOC ---
Discharge Summary General Date of Admission May 19, 2020 at 12:31 Date of Discharge 05/23/20 Attending Physician: Brandy Lucero MD Discharge Summary HISTORY OF PRESENTING ILLNESS: 74-year-old male with history of chronic alcoholism, atrial fibrillation, diastolic heart failure. Hypomagnesemia. 9. Deficiency anemia, severe pulmonary hypertension, dyslipidemia, COPD, presents to emergency room with 2 month history of worsening shortness of breath and lower extremity edema worsening over the past few days, paroxysmal nocturnal dyspnea, 3 pillow orthopnea at home and able to ambulate without shortness of breath more than 10-15 feet without any accompanying chest pain, diaphoresis, nausea, vomiting, epigastric discomfort, fever, chills. He admits to having cough productive of yellow-green sputum at home which she has noted for the past few days. Despite using his inhalers, he has had no relief. He denies coffee-ground emesis, hematemesis, bright red per rectum, melena, black tarry stools, diarrhea. In the emergency room, coronavirus 19 was negative, Chest x-ray shows pulmonary edema, EKG shows chronic A. fib ventricular rate of 100 without acute ischemic changes, incomp lete right bundle branch block. He is afebrile, tachypneic with respiratory rate of 26. Patient does not weigh himself and is not aware of any weight gain but admits to having worsening swelling in his bilateral lower extremities, he admits to noncompliance with low sodium diet diet and fluid restriction at home. He, Otherwise denies any dysuria, urgency, frequency, flank pain, constipation, diarrhea, headache, sore throat, rhinorrhea, loss of taste, dysphagia, odynophagia. He does admit to chronic BPH. Hospitalist was called to admit for congestive heart failure exacerbation/copd exacerbation. HOSPITAL COURSE: Acute on chronic diastolic congestive heart failure exacerbation , ejection fr action 65% with preserved systolic function was likely 2/2 to noncompliance with low salt diet and fluid restriction. Diuretics were held due to GUCCI for some time but patient overall improved. He remained on RA, not symptomatic with ambulation-cleared by PT. Torsemide was resumed at home dose at half, c/w other medications. GUCCI resolved with holding diuretics. Hypervolemic hypotonic Hyponatremia was likely 2/2 to decompensated congestive heart failure exacerbation- this also improved over time. He is advised to closely f/u with PCP, cardiology if he is able. At time of discharge on 05/23/20 patient had no acute complaints. He denied chest pain, n/v/d, fevers, chills. Other chronic issues remained stable. PAST MEDICAL HISTORY: Atrial fib, on Eliquis. 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 DISCHARGE MEDICATIONS: Please see below. PHYSICAL EXAMINATION: vitals: see below i/o: see below wt: see below GEN: erythemtous cheeks, dry skin, aaox 3 no resp distress but able to complete sentences HEENT: PERRLA, EOM intactNormocephalic, atraumatic, moist oral mucous membranes Positive JVD, no lymphadenopathy, no carotid bruit. No stridor or tracheal deviation . Heart: irregularly irregular rhythm, S1S2 normal, positive S3 . Lungs: coarse breath sounds no wheezes diminished no use of resp acc mm no tripod positioning. . Abdomen: BS positive in 4 quadrants, soft, nontender, nondistended, no rebound or guarding, no organomegaly . Ext: 1+ pitting edema bl Laboratory data/imaging studies/microbiology: See below ASSESSMENT: 74-year-old male with history of chronic alcoholism, atrial fibrillation, diastolic heart failure. Hypomagnesemia. Iron Deficiency anemia, severe pulmonary hypertension, dyslipidemia, COPD admitted for congestive heart failure exacerbation/copd exacerbation. PLAN: Acute on chronic diastolic congestive heart failure exacerbation , ejection fraction 65% with preserved systolic function -Secondary to noncompliance with low salt diet and fluid restriction -Much improved, on RA, not symptomatic with ambulation-cleared by PT -Resumed torsemide home dose at half, c/w other medications -F/u with cardiology and PCP o/p. Acute Kidney injury likely 2/2 to diuretics- resolved -Cr 1.10 -due to lasix -C/w home torsemide at half dose, f/u with PCP Hypervolemic hypotonic Hyponatremia -Secondary to decompensated congestive heart failure exacerbation -Improved -STopped salt tabs, monitor closely as o/p -asymptomatic without cognitive impairment, headache,seizure activity PVCs- resolved Acute COPD exacerbation - resolved Alcohol abuse - No s/s of alcohol withdrawl -CIWA protocol with by mouth Ativan as needed for withdrawal chronic Atrial fib, on Eliquis. -Rate controlled Gout -Chronic Iron deficiency anemia -Chronic -No s/s of bleeding Severe pulmonary hypertension -Contributing to right-sided congestive heart failure/cor pulmonale -C/w current home meds Hypertension -Controlled Dyslipidemia -Chronic BPH -Resume home meds Tobacco use - cessation counseling CODE STATUS full code DISPOSITION: D/c today to f/u with PCP and cardiology o/p TIME SPENT ON DISCHARGE: Greater than 30 minutes. Vital Signs/I&Os Vital Signs Date Time Temp Pulse Resp B/P (MAP) Pulse Ox O2 Delivery O2 Flow Rate FiO2 05/23/20 08:40 90 121/70 05/23/20 06:00 98.0 18 97 Room Air 05/21/20 08:45 1.0 I&O- Last 24 Hours up to 6 AM 05/23/20 06:00 Intake Total 1710 ml Output Total 760 ml Balance 950 ml Laboratory Data Labs 24H Laboratory Tests 2 05/23/20 05:50: Immature Granulocyte % (Auto) 1.4, Neutrophils (%) (Auto) 87.8H, Lymphocytes (%) (Auto) 4.7L, Monocytes (%) (Auto) 5.9H, Eosinophils (%) (Auto) 0.1, Basophils (%) (Auto) 0.1, Neutrophils # (Auto) 9.1H, Lymphocytes # (Auto) 0.5L, Monocytes # (Auto) 0.6, Eosinophils # (Auto) 0.0, Basophils # (Auto) 0.0, Nucleated Red Blood Cells % (auto) 0.0, Anion Gap 11, Glomerular Filtration Rate > 60.0, Calcium Level 10.0, Magnesium Level 2.2 CBC/BMP Laboratory Tests 05/23/20 05:50 Microbiology Microbiology 05/19/20 Blood Culture - Preliminary, Resulted No Growth after 72 hours. All specime... 05/19/20 Respiratory Virus Panel (PCR) ([facility]) - Final, Complete 05/19/20 Blood Culture - Preliminary, Resulted No Growth after 72 hours. All specime... Discharge Medications Scheduled Albuterol Sulf (Albuterol Sulfate) 2.5 Mg/3 Ml Vial.neb, 2.5 MG INH BID, (Reported) Allopurinol (Allopurinol) 100 Mg Tablet, 100 MG PO BID, (Reported) TAKES WITH BREAKFAST AND DINNER Apixaban (Eliquis) 5 Mg Tab, 5 MG PO Q12H, (Reported) Atorvastatin Calcium (Atorvastatin Calcium) 40 Mg Tablet, 20 MG PO Q2D, (Reported) EVERY OTHER NIGHT AT BEDTIME Budesonide/Formoterol (Symbicort 160-4.5 Mcg Inhaler) 60 Puff/Inhaler Aers, 2 PUFF INH BID, (Reported) Calcium Carbonate (Calcium) 500 Mg Chw, 1,000 MG PO BID, (Reported) Ferrous Gluconate (Ferrous Gluconate) 324 Mg Tablet, 324 MG PO BID, (Reported) Folic Acid (Folic Acid) 1 Mg Tab, 1 MG PO DAILY, (Reported) Magnesium Chloride (Mag64) 64 Mg Tablet.dr, 64 MG PO BID, (Reported) Multivitamins (Thera M Plus Tablet) 1 Tab Tab, 1 TAB PO BID, (Reported) Spironolactone (Spironolactone) 25 Mg Tablet, 25 MG PO DAILY, (Reported) Tamsulosin HCl (Flomax) 0.4 Mg Cap, 0.4 MG PO DAILY, (Reported) Tiotropium [place] (Spiriva Respimat) 4 Gm Mist.inhal, 2 INHALATION INH DAILY, (Reported) Torsemide (Torsemide) 20 Mg Tablet, 10 MG PO BID TAKES AT 0500 AND 1700 Verapamil HCl (Verapamil HCl) 80 Mg Tablet, 80 MG PO TID, (Reported) Scheduled PRN Acetaminophen (Tylenol) 325 Mg Tablet, 325 MG PO Q4H PRN for PAIN, (Reported) Albuterol Sulfate (Ventolin Hfa) 18 Gm Hfa.aer.ad, 2 PUFF INH QID PRN for SHORTNESS OF BREATH, (Reported) Allergies Coded Allergies: No Known Allergies (Unverified , 09/28/18) Brandy Lucero MD May 23, 2020 20:26
== END 2020-05-23 15:44 | disposition home or self-care (01) | DRG 292 ==
LOC: M ED 08:31 → EDBD 08:31 → M ED INP 12:31 → ENRESERV 12:49 → M PCU 13:44 → M MSPAV 05-21 14:21
PROVIDERS: ADMIT General Practice; ATTEND Internal Medicine
DX: I11.0 Hypertensive heart disease with heart failure (principal); N17.9 Acute kidney failure, unspecified; I48.20 Chronic atrial fibrillation, unspecified; J44.1 Chronic obstructive pulmonary disease with (acute) exacerbation; E87.1 Hypo-osmolality and hyponatremia; I50.33 Acute on chronic diastolic (congestive) heart failure; E83.42 Hypomagnesemia; M10.9 Gout, unspecified; I27.20 Pulmonary hypertension, unspecified; Z79.01 Long term (current) use of anticoagulants; F10.20 Alcohol dependence, uncomplicated; D50.9 Iron deficiency anemia, unspecified; Z91.19 Patient's noncompliance with other medical treatment and regimen; E78.5 Hyperlipidemia, unspecified; N40.0 Benign prostatic hyperplasia without lower urinary tract symptoms; F17.200 Nicotine dependence, unspecified, uncomplicated; Z79.899 Other long term (current) drug therapy

== ENCOUNTER 2020-07-17 07:21 | Inpatient (IN) | payer MEDICARE, OTHER ==
[~2020-07-17] VITALS: Ht 177.8 cm; Wt 76.6 kg
[~2020-07-17 07:21] MED LIST changes: +SPIR12.9 INH; +VERA80TA3 PO; -VERAP80TA PO
[2020-07-17] MEDS: COMBIVENT RESPIMAT 100-20MCG INHALER 4GM INH SCH ×3 (08:15→09:13)
--- NOTE | 2020-07-17 08:20 | REP ---
INDICATION: DYSPNEA/COUGH. COMPARISON: PA and lateral chest dated 05/21/2020. TECHNIQUE: Portable AP chest with the patient sitting. Two AP views. FINDINGS: The lung lopez are clear. The previous small bilateral pleural effusions have resolved. Cardiac size is normal. The jony and mediastinum are unchanged and unremarkable. There is mild thoracic scoliosis convex right, unchanged. IMPRESSION: There are no acute cardiopulmonary findings. The previous small bilateral pleural effusions have resolved. <Electronically signed by Blair Luther > 07/17/20 0825
[2020-07-17 08:25] LABS: BASO # 0.1 10^3/uL (0.0-0.2); BASO % 0.7 % (0.0-1.0); EOS # 0.4 10^3/uL (0.0-0.5); EOS % 3.5 % (0.0-3.0); HEMATOCRIT 41.2 % (42.0-52.0); HEMOGLOBIN 14.6 g/dl (13.5-17.5); LYMPH % 9.6 % (24.0-44.0); MEAN CORPUSCULAR HEMOGLOBIN 32.3 pg (27.0-33.0); MEAN CORPUSCULAR HGB CONC 35.4 g/dl (32.0-36.5); MEAN CORPUSCULAR VOLUME 91.2 fl (80.0-96.0); MONO # 1.5 10^3/uL (0.0-0.8); MONO % 14.8 % (2.0-8.0); NEUTROPHILS # 7.2 10^3/uL (1.5-8.5); PLATELET COUNT, AUTOMATED 370 10^3/uL (150-450); RED BLOOD COUNT 4.52 10^6/uL (4.30-6.10)
[2020-07-17 08:27] LABS: WHITE BLOOD COUNT 10.2 10^3/uL (4.0-10.0)
[2020-07-17 08:54] LABS: ALBUMIN 3.9 GM/DL (3.2-5.2); ALT/SGPT 28 U/L (12-78); BILIRUBIN,DIRECT 0.2 MG/DL (0.0-0.2); BILIRUBIN,TOTAL 0.4 MG/DL (0.2-1.0); BLOOD UREA NITROGEN 19 MG/DL (7-18); CALCIUM LEVEL 9.5 MG/DL (8.8-10.2); CARBON DIOXIDE LEVEL 29 MEQ/L (21-32); CHLORIDE LEVEL 92 MEQ/L (98-107); CK-MB VALUE MASS 5.1 NG/ML (<3.6); CPK CREATINE PHOSPHOKINASE 127 U/L (39-308); CREATININE FOR GFR 0.87 MG/DL (0.70-1.30); ETHYL ALCOHOL (ETHANOL) < 0.003 % (0.000-0.010); GLOMERULAR FILTRATION RATE > 60.0 (>42); GLUCOSE, FASTING 113 MG/DL (70-100); MAGNESIUM LEVEL 1.9 MG/DL (1.8-2.4); MB/CK RELATIVE INDEX 4.02 (< OR =4); NT-PRO BNP 470 PG/ML (<450); POTASSIUM SERUM 4.1 MEQ/L (3.5-5.1); SODIUM LEVEL 129 MEQ/L (136-145); TOTAL PROTEIN 6.8 GM/DL (6.4-8.2); TROPONIN I < 0.02 NG/ML (< 0.10)
[2020-07-17] MEDS ORDERED: VERAPAMIL 80MG TABLET PO SCH ×2 (10:00→12:26)
[2020-07-17] MEDS ORDERED: COLA100C5 PO (11:18)
[2020-07-17] MEDS ORDERED: TORS20TA2 PO (11:18)
[2020-07-17] MEDS ORDERED: GNP8.6TA PO (11:18)
[2020-07-17] MEDS ORDERED: ACETAMINOPHEN TAB 650MG DOSE (2X325MG) PO PRN (11:45)
[2020-07-17] MEDS ORDERED: MAALOX 30 ML SUSP *UDC PO PRN (11:45)
[2020-07-17] MEDS ORDERED: SENNA 8.6 MG TAB (SENOKOT) PO PRN (11:45)
[2020-07-17] MEDS ORDERED: LORazepam 2 MG TAB PO PRN (11:45)
[2020-07-17] MEDS ORDERED: MOM 30ML SUSPENSION UDC PO PRN (11:45)
[2020-07-17 13:42] VITALS: BP 140/78
[2020-07-17 14:00] VITALS: BP 140/78
[2020-07-17] MEDS: CALCIUM CARBONATE 500 MG CHEW U/D PO SCH ×2 (14:04→18:10)
[2020-07-17] MEDS: THIAMINE 100 MG TAB PO SCH ×2 (14:04→20:21)
[2020-07-17] MEDS: DOCUSATE SODIUM 100MG CAPSULE PO SCH ×2 (14:04→20:21)
[2020-07-17] MEDS: methylPREDNISolone 40MG 1ML VIAL IV SCH (14:42)
[2020-07-17 15:52] VITALS: O2SAT 93
--- NOTE | 2020-07-17 16:53 | HPEPDOC ---
[facility] Medical History & Physical Date of Admission Jul 17, 2020 Date of Service: Jul 17, 2020 Attending Physician: ALEXI STOKES MD History and Physical CHIEF COMPLAINT: Dyspnea on exertion HISTORY OF PRESENT ILLNESS: Sebastian Victoria is a 75 y/o M with hx of COPD (not on home O2), HFpEF (EF 65% in last documented echo 09/04/2017), A-Fib (on Eliquis 5mg BID), HTN, FLD, pulmonary HTN and BPH, presenting to the ED cc progressively worsening dyspnea on exertion for the past 3 weeks. Per patient, he has had wheezing and worsening dyspnea on exertion for the past 3 weeks despite being compliant with his current COPD regimen (symbicort, BID albuterol and QD Tiotropium). He denied following with any donor services technician and he gets his COPD regimen from the ID clinic. He gets very short of breath walking a few feet in his house and reported using his rescue inhaler 3-4 times daily over the past 3 weeks without improvement in his symptoms. He tolerated his symptoms past and promptly called for EMS to seek emergency care today. Patient also reported associated wheezing and pale green sputum production, but denied fever, chills, leg swelling, orthopnea, CP, palpitation and significant weight c hanges. He noted that his current symptoms were similar to the symptoms he experienced 2 months ago, in which he was admitted to [facility] for acute on chronic diastolic congestive heart failure exacerbation. However, unlike his last encounter, he denied leg swelling. He also reported that despite receiving 3 doses of albuterol/ Ipratropium in the ED, he continue to have difficulty breathing when he exerted himself to put his paperwork into his bag. Patient is a current smoker and smokes 5-6 cigarettes daily since age of 13, he also reported hx of wood burning furnace up until a few years ago prior to switching to gas furnace. PAST MEDICAL HISTORY: Atrial fib, on Eliquis. 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 FAMILY HISTORY: Father: , 50 years old, leukemia Mother: , 83 years old, stroke Siblings: - Sister: Alive, 88 years old, unknown health history - Brother: , unknown age, alcoholism ALLERGIES: Please see below. REVIEW OF SYSTEMS: CONSTITUTIONAL: Denies chills, fever, weakness, fatigue, unexpected weight change, loss of appetite HEENT: Denies headaches, dizziness, vision changes, hearing changes or throat pain. CARDIOVASCULAR: Denies chest pain, palpitations, edema, but noted STARR RESPIRATORY: Noted wheezing, dyspnea and sputum production (pale green) GASTROINTESTINAL: Denies nausea, vomiting, abdominal pain, diarrhea, constipation, melena, hematochezia GENITAOURINARY: Denies dysuria, hematuria, urinary frequency, incontinence or retention. SKIN: Denies skin changes, rash, lesions MUSCULOSKELETAL: Denies weakness, muscle or joint pain. NEUROLOGICAL: Denies focal weakness, numbness HEMATOLOGICAL: Denies bruising, excessive bleeding HOME MEDICATIONS: Please see below. PHYSICAL EXAMINATION: VITAL SIGNS: See below GENERAL APPEARANCE: Reveals 75 y/o M who appears at stated age, sitting upright on cot, alert & oriented x3, No Acute Distress. HEENT Exam: Normocephalic and atraumatic, PERRLA, conjunctiva & lids normal, anicteric sclera, mucous membr. moist/pink, pharynx normal, nares patent. NECK: Supple without lymphadenopathy, JVD, thyromegaly LUNGS: Diffuse inspiratory and expiratory wheezes noted without other adventitious breath sounds. CARDIOVASCULAR: Irregularly irregular rhythm with regular rate. normal S1 & S2 without gallops, murmurs, rubs ABDOMEN: Soft, non-tender, non-distended with normal bowel sounds. No masses or ecchymosis or hepatosplenomegaly. EXTREMITIES: 2+ pulses in all extremities. No clubbing, cyanosis, edema, tenderness SKIN: Normal turgor and temperature. No rash, lesion MUSCULOSKELETAL: Strength +5/5 in all extremities without tenderness. NEUROLOGICAL: Normal speech, no gross focal neurologic deficit noted. PSYCHIATRIC: Normal mood and affect LABORATORY DATA: See below. IMAGING: PORTABLE CHEST X-RAY 07/17/20 Portable AP chest with the patient sitting. Two AP views. IMPRESSION: There are no acute cardiopulmonary findings. The previous small bilateral pleural effusions have resolved. MICROBIOLOGY: Please see below. EKG interpretation: rate of 89bpm. Atrial fibrillation with right axis deviation. ASSESSMENT: Sebastian Victoria is a 75 y/o M with hx of COPD (not on home O2), HFpEF (EF 65%), A-Fib (on Eliquis 5mg BID), HTN, FLD, pulmonary HTN and BPH, presenting to the ED cc progressively worsening dyspnea on exertion for the past 3 weeks concerning for acute COPD exacerbation. PLAN: 1. Acute COPD exacerbation - likely 2/2 patient's smoking hx and previous living condition, requiring additional management since [facility] - Start 40mg IV solu-medrol QD - Cont home COPD regimen (Symbicort 160/4.5 2 puff BID, albuterol 2 puff prn QID) - 6 minute walk test tomorrow - Goal is to send patient home tomorrow with outpatient pulmonology referral after management of acute COPD exacerbation - CXR negative for infiltrate - Sputum culture ordered and follow up 2. HTN - BP 165/65 in the ED - likely 2/2 dyspnea - Cont verapamil 80mg TID and monitor vital signs 3. Hyponatremia - Na 129 - Patient appears to be around high 120s at baseline and asymptomatic currently - Continue to monitor 4. Hx of A-fib - Currently in A-fib but rate controlled - Cont verapamil, eliquis 5mg PO BID - Telemetry overnight 5. Chronic alcohol use - Patient reported daily use of at least 2-3 cans of light beer - placed on CIWA protocol, Ativan prn 6. Heart failure with preserved ejection fraction (EF 65%) - Patient without signs of hypervolemia on examination - Last documented echo was in 09/04/2017 - Cont Torsemide and spironolactone - Monitor I&O and daily weights 7. Dyslipidemia - Cont atorvastatin 8. BPH - Cont tamsulosin 9. Tobacco use - Smoking cessation counseling 10. Hx of Gout - Cont allopurinol DVT Prophylaxis: Patient already on Eliquis 5mg BID Diet: regular Baseline ambulatory status: Ambulatory without assistance Vital Signs Vital Signs Date Time Temp Pulse Resp B/P (MAP) Pulse Ox O2 Delivery O2 Flow Rate FiO2 07/17/20 14:00 94 140/78 07/17/20 13:42 97.3 18 93 Room Air Laboratory Data Labs 24H Laboratory Tests 2 07/17/20 08:06: Immature Granulocyte % (Auto) 0.4, Neutrophils (%) (Auto) 71.0H, Lymphocytes (%) (Auto) 9.6L, Monocytes (%) (Auto) 14.8H, Eosinophils (%) (Auto) 3.5H, Basophils (%) (Auto) 0.7, Neutrophils # (Auto) 7.2, Lymphocytes # (Auto) 1.0L, Monocytes # (Auto) 1.5H, Eosinophils # (Auto) 0.4, Basophils # (Auto) 0.1, Nucleated Red Blood Cells % (auto) 0.0, Anion Gap 8, Glomerular Filtration Rate > 60.0, Lactic Acid Level 1.2, Calcium Level 9.5, Magnesium Level 1.9, Total Bilirubin 0.4, Direct Bilirubin 0.2, Aspartate Amino Transf (AST/SGOT) 22, Alanine Aminotransferase (ALT/SGPT) 28, Alkaline Phosphatase 132H, Total Creatine Kinase 127, Creatine Kinase MB 5.1H, Creatine Kinase MB Relative Index 4.02H, Troponin I < 0.02, OX-Fgf-D-Type Natriuretic Peptide 470H, Total Protein 6.8, Albumin 3.9, Albumin/Globulin Ratio 1.3, Ethyl Alcohol Level < 0.003 07/17/20 08:34: POC pH (Misc Panel) 7.455H, POC Base Excess (Misc Panel) 5.0H, POC Saturated Percent O2 (Misc) 95, POC pO2 (Misc Panel) 71.0L, POC pCO2 (Misc Panel) 40.6, POC HCO3 (Misc Panel) 28.6H, POC Total CO2 (Misc Panel) 30.0H CBC/BMP Laboratory Tests 07/17/20 08:06 Microbiology Microbiology 07/17/20 Respiratory Virus Panel (PCR) ([facility]) - Final, Complete Home Medications Scheduled Allopurinol (Allopurinol) 100 Mg Tablet, 100 MG PO BID TAKES WITH BREAKFAST AND DINNER Apixaban (Eliquis) 5 Mg Tab, 5 MG PO BID Atorvastatin Calcium (Atorvastatin Calcium) 40 Mg Tablet, 20 MG PO Q2D EVERY OTHER NIGHT AT BEDTIME Budesonide/Formoterol (Symbicort 160-4.5 Mcg Inhaler) 60 Puff/Inhaler Aers, 2 PUFF INH BID Calcium Carbonate (Calcium) 500 Mg Chw, 1,000 MG PO WM Docusate Sodium (Colace) 100 Mg Capsule, 100 MG PO BID Ferrous Gluconate (Ferrous Gluconate) 324 Mg Tablet, 324 MG PO BID Folic Acid (Folic Acid) 1 Mg Tab, 1 MG PO DAILY Levofloxacin (Levofloxacin) 500 Mg Tablet, 500 MG PO DAILY Magnesium Chloride (Mag64) 64 Mg Tablet.dr, 64 MG PO BID Multivitamins (Thera M Plus Tablet) 1 Tab Tab, 1 TAB PO BID Prednisone (Prednisone) 20 Mg Tablet, 60 MG PO DAILY Prednisone taper over 7 days: 60 mg PO x 3 days, 40 mg PO x 3 days, 20 mg PO x 1 day Spironolactone (Spironolactone) 25 Mg Tablet, 25 MG PO DAILY Tamsulosin HCl (Flomax) 0.4 Mg Cap, 0.4 MG PO QPM Tiotropium [place] (Spiriva Respimat) 4 Gm Mist.inhal, 2 INHALATION INH DAILY Torsemide (Torsemide) 20 Mg Tablet, 20 MG PO BID Verapamil HCl (Verapamil HCl) 80 Mg Tablet, 80 MG PO TID TAKES AT 0200, 1000, 1800 Scheduled PRN Acetaminophen (Tylenol) 325 Mg Tablet, 325 MG PO Q4H PRN for PAIN Albuterol Sulf (Albuterol Sulfate) 2.5 Mg/3 Ml Vial.neb, 1 VIAL NEB Q4HP PRN for wheezing Albuterol Sulfate (Ventolin Hfa) 18 Gm Hfa.aer.ad, 2 PUFF INH QID PRN for SHORTNESS OF BREATH Sennosides (Senna Lax) 8.6 Mg Tablet, 8.6 MG PO DAILY PRN for CONSTIPATION Allergies Coded Allergies: No Known Allergies (Unverified , 09/28/18) A-FIB/CHADSVASC A-FIB History Current/History of A-Fib/PAF?: Yes Current PO Anticoag Therapy: Yes GME ATTESTATION GME ATTESTATION My faculty preceptor for this patient encounter was physically present during the encounter and was fully available. All aspects of the patient interview, examination, medical decision making process, and medical care plan development were reviewed and approved by the faculty preceptor. The faculty preceptor is aware and concurs with the plan as stated in the body of this note and will attest to such by his/her cosignature. ATTENDING NOTE I, Alexi Stokes MD, have independently examined this patient and performed my own physical exam, as well as reviewed the documentation and edited where n ecessary. I have discussed in detail with the resident / student the findings and plan of treatment as documented by the resident / student and edited their note. I agree with their findings and treatment plan and have edited their documentation. NELSON VERMA OMS-3 Jul 17, 2020 16:53 ALEXI STOKES MD Jul 21, 2020 14:54
[2020-07-17] MEDS: allopurinoL 100 MG TAB PO SCH (18:10)
[2020-07-17] MEDS: VERAPAMIL 80MG TABLET PO SCH (18:10)
[2020-07-17] MEDS: SYMBICORT 160/4.5MCG INHALER 6GM INH SCH (19:40)
[2020-07-17] MEDS: ALBUTEROL 90 MCG/ACT 8GM HFA INHALER INH PRN (19:52)
[2020-07-17] MEDS: APIXABAN 5 MG TAB (ELIQUIS) PO SCH (20:21)
[2020-07-17] MEDS: TAMSULOSIN 0.4 MG CAP PO SCH (20:21)
[2020-07-17] MEDS: TORSEMIDE 20 MG TAB PO SCH (20:21)
[2020-07-17] MEDS ORDERED: DOCUSATE SODIUM 100MG CAPSULE PO SCH (21:00)
[2020-07-17 21:42] VITALS: BP 116/56
[2020-07-17 21:59] VITALS: O2SAT 91
[2020-07-17 22:00] VITALS: BP 116/56
[2020-07-18] MEDS: VERAPAMIL 80MG TABLET PO SCH ×3 (02:11→17:50)
[2020-07-18 05:00] VITALS: BP 127/70
[2020-07-18 06:00] VITALS: BP 127/70
[2020-07-18 06:30] LABS: HEMATOCRIT 38.9 % (42.0-52.0); HEMOGLOBIN 13.7 g/dl (13.5-17.5); MEAN CORPUSCULAR HEMOGLOBIN 31.1 pg (27.0-33.0); MEAN CORPUSCULAR HGB CONC 35.2 g/dl (32.0-36.5); MEAN CORPUSCULAR VOLUME 88.4 fl (80.0-96.0); PLATELET COUNT, AUTOMATED 407 10^3/uL (150-450); WHITE BLOOD COUNT 6.9 10^3/uL (4.0-10.0)
[2020-07-18 06:49] LABS: BLOOD UREA NITROGEN 25 MG/DL (7-18); CARBON DIOXIDE LEVEL 29 MEQ/L (21-32); CHLORIDE LEVEL 92 MEQ/L (98-107); CREATININE FOR GFR 1.05 MG/DL (0.70-1.30); GLOMERULAR FILTRATION RATE > 60.0 (>42); GLUCOSE, FASTING 113 MG/DL (70-100); POTASSIUM SERUM 4.1 MEQ/L (3.5-5.1); SODIUM LEVEL 128 MEQ/L (136-145)
[2020-07-18] MEDS: SYMBICORT 160/4.5MCG INHALER 6GM INH SCH ×2 (07:15→21:37)
[2020-07-18 09:00] VITALS: O2SAT 91
[2020-07-18] MEDS ORDERED: ALBUTEROL SULFATE 2.5 MG/0.5 ML INH NEB SOLN NEB PRN (09:00)
[2020-07-18] MEDS: DOCUSATE SODIUM 100MG CAPSULE PO SCH ×2 (09:21→20:22)
[2020-07-18] MEDS: THIAMINE 100 MG TAB PO SCH ×2 (09:21→20:21)
[2020-07-18] MEDS: CALCIUM CARBONATE 500 MG CHEW U/D PO SCH ×3 (09:21→17:47)
[2020-07-18] MEDS: allopurinoL 100 MG TAB PO SCH ×2 (09:21→17:47)
[2020-07-18] MEDS: FOLIC ACID 1 MG TAB PO SCH (09:21)
[2020-07-18] MEDS: SPIRONOLACTONE 25 MG TAB PO SCH (09:21)
[2020-07-18] MEDS: APIXABAN 5 MG TAB (ELIQUIS) PO SCH ×2 (09:21→20:21)
[2020-07-18] MEDS: MULTIVITAMINS/MINERALS THERAP 1 TAB PO SCH (09:22)
[2020-07-18] MEDS: TORSEMIDE 20 MG TAB PO SCH ×2 (09:22→20:21)
[2020-07-18] MEDS: methylPREDNISolone 40MG 1ML VIAL IV SCH ×2 (09:22→20:21)
[2020-07-18] MEDS: ALBUTEROL 90 MCG/ACT 8GM HFA INHALER INH PRN (09:55)
[2020-07-18] MEDS ORDERED: LEVALBUTEROL 1.25 MG/0.5 ML CONCENTRATE NEB NEB PRN (10:55)
[2020-07-18] MEDS ORDERED: methylPREDNISolone 40MG 1ML VIAL IV ONE (10:55)
[2020-07-18] MEDS: LEVALBUTEROL 1.25 MG/0.5 ML CONCENTRATE NEB NEB SCH ×3 (11:32→20:00)
[2020-07-18 14:00] VITALS: BP 121/69
--- NOTE | 2020-07-18 17:48 | ECGEPIP ---
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
[2020-07-18] MEDS: TAMSULOSIN 0.4 MG CAP PO SCH (20:21)
[2020-07-18] MEDS ORDERED: ATORVASTATIN 20 MG TAB PO SCH (21:00)
--- NOTE | 2020-07-18 21:24 | IPNPDOC ---
Date Seen The patient was seen on 07/18/20. Progress Note SUBJECTIVE: Walking test to be done today. Very wheezy b/l lung lopez, incr steroids IV, added ATC levalbuterol and PRN as well. Admits to incr SOB but denies chest pain. OBJECTIVE: PHYSICAL EXAMINATION: VITAL SIGNS: See below GENERAL APPEARANCE: Resting in bed, AAOx3 HEENT Exam: Normocephalic and atraumatic, PERRLA, conjunctiva & lids normal, anicteric sclera, mucous membr. moist/pink, pharynx normal, nares patent. NECK: Supple without lymphadenopathy, JVD, thyromegaly LUNGS: Diffuse inspiratory and expiratory wheezes noted, no rhonchi or rales CARDIOVASCULAR: Irregularly irregular rhythm with regular rate. normal S1 & S2 without gallops, murmurs, rubs ABDOMEN: thin abd, Soft, non-tender, non-distended with normal bowel sounds. No masses or ecchymosis or hepatosplenomegaly. EXTREMITIES: 2+ pulses in all extremities. No clubbing, cyanosis, edema, tenderness SKIN: Normal turgor and temperature. No rash, lesion MUSCULOSKELETAL: Strength +5/5 in all extremities without tenderness. NEUROLOGICAL: Normal speech, no gross focal neurologic deficit noted. PSYCHIATRIC: Normal mood and affect LABORATORY DATA: See below. IMAGING: CXR 07/17/20: There are no acute cardiopulmonary findings. The previous small bilateral pleural effusions have resolved. MICROBIOLOGY: EKG interpretation: rate of 89bpm. Atrial fibrillation with right axis deviation. ASSESSMENT: Sebastian Victoria is a 75 y/o M with hx of COPD (not on home O2), HFpEF (EF 65%), A-Fib (on Eliquis 5mg BID), HTN, FLD, pulmonary HTN and BPH, presenting to the ED cc progressively worsening dyspnea on exertion for the past 3 weeks concerning for acute COPD exacerbation. PLAN: Acute COPD exacerbation, hx of tobacco abuse -Walking desat test today, doing well on RA with continued mod wheezing b/l lung lopez -Incr methylprednisolone to 60 BID, levalbuterol ATC and PRN -CXR negative for infiltrate -Sputum culture pending official results -Monitor closely HTN -Stable -C/w home meds Hyponatremia,chronic - Na 128, near baseline - Continue to monitor Hx of A-fib - Rate controlled - Cont verapamil, eliquis 5mg PO BID - Telemetry overnight Chronic alcohol use - No s/s of alcohol withdrawl - Patient reported daily use of at least 2-3 cans of light beer - placed on CIWA protocol, Ativan prn Heart failure with preserved ejection fraction (EF 65%) without exacerbation - Patient without signs of hypervolemia on examination - Last documented echo was in 09/04/2017 - C/w Torsemide and spironolactone - Monitor I&O and daily weights Dyslipidemia - Cont atorvastatin BPH - Cont tamsulosin Tobacco use - Smoking cessation counseling - Not on nicotine patch Hx of Gout - Cont allopurinol DVT Prophylaxis -Eliquis 5mg BID DISPOSITION: PT/OT to assess today, f/u walking desat test. Plan is discharge home when medically improved. VS, I&O, 24H, Fishbone Vital Signs/I&O Vital Signs Date Time Temp Pulse Resp B/P (MAP) Pulse Ox O2 Delivery O2 Flow Rate FiO2 07/18/20 17:50 103 118/70 07/18/20 14:00 98.2 18 92 Room Air I&O- Last 24 Hours up to 6 AM 07/18/20 06:00 Intake Total 1150 ml Output Total 725 ml Balance 425 ml Laboratory Data 24H LABS Laboratory Tests 2 07/18/20 05:39: Nucleated Red Blood Cells % (auto) 0.0, Anion Gap 7L, Glomerular Filtration Rate > 60.0, Calcium Level 9.0 CBC/BMP Laboratory Tests 07/18/20 05:39 Microbiology Microbiology 07/18/20 Gram Stain - Final, Resulted 07/18/20 Sputum Culture, Resulted Pending 07/17/20 Respiratory Virus Panel (PCR) ([facility]) - Final, Complete Current Medications Current Medications Medications (Trade) Dose Ordered Sig/Neftali Route PRN Reason Start Time Stop Time Status Last Admin Dose Admin Acetaminophen (Tylenol Tab) 650 mg Q4H PRN PO PAIN OR FEVER 07/17/20 11:45 Al Hydrox/Mg Hydrox/Simethicone (Mylanta) 30 ml DAILY PRN PO DYSPEPSIA 07/17/20 11:45 Albuterol Sulfate (Proventil Neb) 2.5 mg Q2HP PRN NEB SOB/WHEEZING 07/18/20 09:00 07/18/20 10:56 DC Albuterol Sulfate (Proventil, Ventolin Hfa) 2 puff QID PRN INH SHORTNESS OF BREATH 07/17/20 11:45 07/18/20 09:01 DC 07/18/20 09:55 Albuterol/ Ipratropium (Combivent Respimat 100-20mcg) 4 puff Q20M INH 07/17/20 08:00 07/17/20 08:41 DC 07/17/20 09:13 Allopurinol (Zyloprim) 100 mg BID@0800,1800 PO 07/17/20 18:00 07/18/20 17:47 Apixaban (Eliquis) 5 mg BID PO 07/17/20 21:00 07/18/20 20:21 Atorvastatin Calcium (Lipitor) 20 mg Q2D@2100 PO 07/18/20 21:00 07/18/20 20:21 Budesonide/ Formoterol Fumarate (Symbicort 160/ 4.5mcg) 2 puff BID INH 07/17/20 21:00 07/18/20 07:15 Calcium Carbonate (Tums) 1,000 mg WM PO 07/17/20 12:30 07/18/20 17:47 Docusate Sodium (Colace) 100 mg BID PO 07/17/20 13:00 07/18/20 20:22 Docusate Sodium (Colace) 100 mg BID PO 07/17/20 21:00 07/17/20 12:20 DC Folic Acid (Folic Acid) 1 mg DAILY PO 07/18/20 09:00 07/18/20 09:21 Home Med (Med Rec Complete!) ASDIRECTED XX 07/17/20 11:25 07/17/20 11:26 DC Levalbuterol HCl (Xopenex Neb) 1.25 mg Q2HP PRN NEB SOB/WHEEZING 07/18/20 10:55 Levalbuterol HCl (Xopenex Neb) 1.25 mg RQID NEB 07/18/20 12:00 07/18/20 16:30 Lorazepam (Ativan) 2 mg ASDIRECTED PRN PO SEE PROTOCOL 07/17/20 11:45 Magnesium Hydroxide (Milk Of Magnesia) 30 ml DAILY PRN PO CONSTIPATION 07/17/20 11:45 Methylprednisolone (SOLU medrol) 40 mg DAILY IV 07/17/20 09:00 07/18/20 10:56 DC 07/18/20 09:22 Methylprednisolone (SOLU medrol) 60 mg BID IV 07/18/20 21:00 07/18/20 20:21 Multivitamins (Theragram-M) 1 tab DAILY PO 07/18/20 09:00 07/18/20 09:22 Senna (Senokot) 1 tab DAILY PRN PO CONSTIPATION 07/17/20 11:45 Spironolactone (Aldactone) 25 mg DAILY PO 07/18/20 09:00 07/18/20 09:21 Tamsulosin HCl (Flomax) 0.4 mg QPM PO 07/17/20 21:00 07/18/20 20:21 Thiamine HCl (Thiamine HCl) 100 mg BID PO 07/17/20 13:00 07/19/20 21:01 07/18/20 20:21 Torsemide (Demadex) 20 mg BID PO 07/17/20 21:00 07/18/20 20:21 Verapamil HCl (Isoptin, Calan) 80 mg DAILY@0200,1000,1800 PO 07/17/20 12:26 07/17/20 13:47 DC Verapamil HCl (Isoptin, Calan) 80 mg TID@0200,1000,1800 PO 07/17/20 10:00 07/17/20 13:49 DC Verapamil HCl (Isoptin, Calan) 80 mg TID@0200,1000,1800 PO 07/17/20 18:00 07/18/20 17:50 Allergies Coded Allergies: No Known Allergies (Unverified , 09/28/18) Brandy Lucero MD Jul 18, 2020 21:24
[2020-07-18 22:00] VITALS: BP 138/74; O2SAT 92
[2020-07-19] MEDS: VERAPAMIL 80MG TABLET PO SCH ×2 (02:00→12:00)
[2020-07-19 06:00] VITALS: BP 127/68
[2020-07-19 06:57] LABS: HEMATOCRIT 42.1 % (42.0-52.0); HEMOGLOBIN 14.8 g/dl (13.5-17.5); MEAN CORPUSCULAR HEMOGLOBIN 31.5 pg (27.0-33.0); MEAN CORPUSCULAR HGB CONC 35.2 g/dl (32.0-36.5); MEAN CORPUSCULAR VOLUME 89.6 fl (80.0-96.0); PLATELET COUNT, AUTOMATED 446 10^3/uL (150-450)
[2020-07-19 07:33] LABS: ALBUMIN 4.2 GM/DL (3.2-5.2); BILIRUBIN,TOTAL 0.2 MG/DL (0.2-1.0); CALCIUM LEVEL 9.6 MG/DL (8.8-10.2); CREATININE FOR GFR 1.25 MG/DL (0.70-1.30); GLOMERULAR FILTRATION RATE 59.9 (>42); POTASSIUM SERUM 3.9 MEQ/L (3.5-5.1); TOTAL PROTEIN 7.5 GM/DL (6.4-8.2)
[2020-07-19] MEDS: LEVALBUTEROL 1.25 MG/0.5 ML CONCENTRATE NEB NEB SCH ×3 (07:37→15:08)
[2020-07-19] MEDS: SYMBICORT 160/4.5MCG INHALER 6GM INH SCH (07:37)
[2020-07-19] MEDS ORDERED: ALBU83IN NEB (08:15)
[2020-07-19] MEDS ORDERED: PRED20TA PO (08:18)
[2020-07-19 08:35] VITALS: O2SAT 94
[2020-07-19] MEDS: SPIRONOLACTONE 25 MG TAB PO SCH (08:35)
[2020-07-19] MEDS: DOCUSATE SODIUM 100MG CAPSULE PO SCH (08:35)
[2020-07-19] MEDS: THIAMINE 100 MG TAB PO SCH (08:35)
[2020-07-19] MEDS: allopurinoL 100 MG TAB PO SCH (08:35)
[2020-07-19] MEDS: FOLIC ACID 1 MG TAB PO SCH (08:35)
[2020-07-19] MEDS: MULTIVITAMINS/MINERALS THERAP 1 TAB PO SCH (08:35)
[2020-07-19] MEDS: TORSEMIDE 20 MG TAB PO SCH (08:35)
[2020-07-19] MEDS: APIXABAN 5 MG TAB (ELIQUIS) PO SCH (08:35)
[2020-07-19] MEDS: CALCIUM CARBONATE 500 MG CHEW U/D PO SCH ×2 (08:36→12:00)
[2020-07-19] MEDS: methylPREDNISolone 40MG 1ML VIAL IV SCH (08:36)
[2020-07-19 12:00] VITALS: BP 153/89
--- NOTE | 2020-07-19 18:08 | DS.PDOC ---
Discharge Summary General Date of Admission Jul 18, 2020 at 11:04 Date of Discharge 07/19/20 Attending Physician: Brandy Lucero MD Discharge Summary HISTORY OF PRESENT ILLNESS: Patient is 75 y/o M with hx of COPD (not on home O2), HFpEF (EF 65% in last documented echo 09/04/2017), A-Fib (on Eliquis 5mg BID), HTN, FLD, pulmonary HTN and BPH, presenting to the ED cc progressively worsening dyspnea on exertion for the past 3 weeks. Per patient, he has had wheezing and worsening dyspnea on exertion for the past 3 weeks despite being compliant with his current COPD regimen (symbicort, BID albuterol and QD Tiotropium). He denied following with any french comber and he gets his COPD regimen from the [facility]. He gets very short of breath walking a few feet in his house and reported using his rescue inhaler 3-4 times daily over the past 3 weeks without improvement in his symptoms. He tolerated his symptoms past Easter and promptly called for EMS to seek emergency care today. Patient also reported associated wheezing and pale green sputum production, but denied fever, chills, leg swelling, orthopnea, CP, palpitation and significant weight changes. He noted that his current symptoms were similar to the symptoms he experienced 2 months ago, in which he was admitted to [facility] for acute on chronic diastolic congestive heart failure exacerbation. However, unlike his last encounter, he denied leg swelling. He also reported that despite receiving 3 doses of albuterol/ Ipratropium in the ED, he continue to have difficulty breathing when he exerted himself to put his paperwork into his bag. Patient is a current smoker and smokes 5-6 cigarettes daily since age of 13, he also reported hx of wood burning furnace up until a few years ago prior to switching to gas furnace. HOSPITAL COURSE: Patient was treated with IV methylprednisone which later needed to be increased. He also had ATC levalbuterol, PRN albuterol. He was switched to RA early in hospital course; however, he had increased wheezing, rhonchi after first day so was continued with inpatient treatment. He had walking desat test on 07/18/20 and patient remained above 90% on RA during ambulation. Although patient felt like he wasn't improved, he remained on RA saturating well. I explained his recovery might take some time and that discharge would occur on 07/19/20. He was discharged with PO prednisone taper over 7 days, albuterol neb PRN. It is recommended he f/u with Pulmonary at the [facility] in [place], as he is already connected to their system/office. It is also suggested that he not smoke anymore. PAST MEDICAL HISTORY: Atrial fib, on Eliquis. 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 FAMILY HISTORY: Father: , 50 years old, leukemia Mother: , 83 years old, stroke Siblings: - Sister: Alive, 88 years old, unknown health history - Brother: , unknown age, alcoholism PHYSICAL EXAMINATION: VITAL SIGNS: See below GENERAL APPEARANCE: Resting in bed, AAOx3 HEENT Exam: Normocephalic and atraumatic, PERRLA, conjunctiva & lids normal, ani cteric sclera, mucous membr. moist/pink, pharynx normal, nares patent. NECK: Supple without lymphadenopathy, JVD, thyromegaly LUNGS: decreased wheezing, no rhonchi or rales CARDIOVASCULAR: Irregularly irregular rhythm with regular rate. normal S1 & S2 without gallops, murmurs, rubs ABDOMEN: thin abd, Soft, non-tender, non-distended with normal bowel sounds. No masses or ecchymosis or hepatosplenomegaly. EXTREMITIES: 2+ pulses in all extremities. No clubbing, cyanosis, edema, tenderness SKIN: Normal turgor and temperature. No rash, lesion MUSCULOSKELETAL: Strength +5/5 in all extremities without tenderness. NEUROLOGICAL: Normal speech, no gross focal neurologic deficit noted. PSYCHIATRIC: Normal mood and affect LABORATORY DATA: See below. IMAGING: CXR 07/17/20: There are no acute cardiopulmonary findings. The previous small bilateral pleural effusions have resolved. MICROBIOLOGY: EKG interpretation: rate of 89bpm. Atrial fibrillation with right axis deviation. ASSESSMENT: Sebastian Victoria is a 75 y/o M with hx of COPD (not on home O2), HFpEF (EF 65%), A-Fib (on Eliquis 5mg BID), HTN, FLD, pulmonary HTN and BPH, presenting to the ED cc progressively worsening dyspnea on exertion for the past 3 weeks concerning for acute COPD exacerbation. PLAN: Acute COPD exacerbation, hx of tobacco abuse -Continued to do well on RA, incr SOB with exertion -Walking desat test done 07/18/20, did not drop less than 90% -CXR negative for infiltrate -Sputum culture pending official results -D/c home with prednisone taper, albuterol PRN for nebulizer -Advising to f/u with Pulmonary office at [facility], PCP after discharge. HTN -Stable -C/w home meds Hyponatremia,chronic - Na 128, near baseline Hx of A-fib - Rate controlled - Cont verapamil, eliquis 5mg PO BID Heart failure with preserved ejection fraction (EF 65%) without exacerbation - Patient without signs of hypervolemia on examination - Last documented echo was in 09/04/2017 - C/w Torsemide and spironolactone Dyslipidemia - Cont atorvastatin BPH - Cont tamsulosin Tobacco use - Smoking cessation counseling - Not on nicotine patch Hx of Gout - Cont allopurinol DVT Prophylaxis -Eliquis 5mg BID DISPOSITION: Discharged home today to f/u with [facility], PCP. TIME SPENT ON DISCHARGE: 35 minutes. Vital Signs/I&Os Vital Signs Date Time Temp Pulse Resp B/P (MAP) Pulse Ox O2 Delivery O2 Flow Rate FiO2 07/19/20 12:00 98 153/89 07/19/20 08:35 94 Room Air 07/19/20 06:00 98.0 18 I&O- Last 24 Hours up to 6 AM 07/19/20 06:00 Intake Total 1530 ml Output Total 2400 ml Balance -870 ml Laboratory Data Labs 24H Laboratory Tests 2 07/19/20 06:41: Nucleated Red Blood Cells % (auto) 0.0, Anion Gap 7L, Glomerular Filtration Rate 59.9, Calcium Level 9.6, Total Bilirubin 0.2, Aspartate Amino Transf (AST/SGOT) 26, Alanine Aminotransferase (ALT/SGPT) 34, Alkaline Phosphatase 127H, Total Protein 7.5, Albumin 4.2, Albumin/Globulin Ratio 1.3 CBC/BMP Laboratory Tests 07/19/20 06:41 Microbiology Microbiology 07/18/20 Gram Stain - Final, Resulted 07/18/20 Sputum Culture - Preliminary, Resulted Streptococcus Group G 07/17/20 Respiratory Virus Panel (PCR) ([facility]) - Final, Complete Discharge Medications Scheduled Allopurinol (Allopurinol) 100 Mg Tablet, 100 MG PO BID, (Reported) TAKES WITH BREAKFAST AND DINNER Apixaban (Eliquis) 5 Mg Tab, 5 MG PO BID, (Reported) Atorvastatin Calcium (Atorvastatin Calcium) 40 Mg Tablet, 20 MG PO Q2D, (Reported) EVERY OTHER NIGHT AT BEDTIME Budesonide/Formoterol (Symbicort 160-4.5 Mcg Inhaler) 60 Puff/Inhaler Aers, 2 PUFF INH BID, (Reported) Calcium Carbonate (Calcium) 500 Mg Chw, 1,000 MG PO WM, (Reported) Docusate Sodium (Colace) 100 Mg Capsule, 100 MG PO BID, (Reported) Ferrous Gluconate (Ferrous Gluconate) 324 Mg Tablet, 324 MG PO BID, (Reported) Folic Acid (Folic Acid) 1 Mg Tab, 1 MG PO DAILY, (Reported) Levofloxacin (Levofloxacin) 500 Mg Tablet, 500 MG PO DAILY Magnesium Chloride (Mag64) 64 Mg Tablet.dr, 64 MG PO BID, (Reported) Multivitamins (Thera M Plus Tablet) 1 Tab Tab, 1 TAB PO BID, (Reported) Prednisone (Prednisone) 20 Mg Tablet, 60 MG PO DAILY Prednisone taper over 7 days: 60 mg PO x 3 days, 40 mg PO x 3 days, 20 mg PO x 1 day Spironolactone (Spironolactone) 25 Mg Tablet, 25 MG PO DAILY, (Reported) Tamsulosin HCl (Flomax) 0.4 Mg Cap, 0.4 MG PO QPM, (Reported) Tiotropium [place] (Spiriva Respimat) 4 Gm Mist.inhal, 2 INHALATION INH DAILY, (Reported) Torsemide (Torsemide) 20 Mg Tablet, 20 MG PO BID, (Reported) Verapamil HCl (Verapamil HCl) 80 Mg Tablet, 80 MG PO TID, (Reported) TAKES AT 0200, 1000, 1800 Scheduled PRN Acetaminophen (Tylenol) 325 Mg Tablet, 325 MG PO Q4H PRN for PAIN, (Reported) Albuterol Sulf (Albuterol Sulfate) 2.5 Mg/3 Ml Vial.neb, 1 VIAL NEB Q4HP PRN for wheezing Albuterol Sulfate (Ventolin Hfa) 18 Gm Hfa.aer.ad, 2 PUFF INH QID PRN for SHORTNESS OF BREATH, (Reported) Sennosides (Senna Lax) 8.6 Mg Tablet, 8.6 MG PO DAILY PRN for CONSTIPATION, (Reported) Allergies Coded Allergies: No Known Allergies (Unverified , 09/28/18) Brandy Lucero MD Jul 19, 2020 18:08
[2020-07-19] MEDS ORDERED: LEVO500T3 PO (18:11)
== END 2020-07-19 16:15 | disposition home or self-care (01) | DRG 191 ==
LOC: M ED 07:21 → EDBD 07:21 → M ED INP 07:22 → ENRESERV 11:42 → M MSPAV 13:43 → OBSVTOIN 07-18 11:04 → UNDODISIN 07-19 11:45
PROVIDERS: ADMIT Internal Medicine; ATTEND Internal Medicine
DX: J44.1 Chronic obstructive pulmonary disease with (acute) exacerbation (principal); I50.32 Chronic diastolic (congestive) heart failure; E87.1 Hypo-osmolality and hyponatremia; I11.0 Hypertensive heart disease with heart failure; I48.91 Unspecified atrial fibrillation; F17.200 Nicotine dependence, unspecified, uncomplicated; M10.9 Gout, unspecified; E78.5 Hyperlipidemia, unspecified; Z79.899 Other long term (current) drug therapy; I27.20 Pulmonary hypertension, unspecified; N40.0 Benign prostatic hyperplasia without lower urinary tract symptoms; Z79.01 Long term (current) use of anticoagulants; D50.9 Iron deficiency anemia, unspecified; F10.10 Alcohol abuse, uncomplicated

== ENCOUNTER 2020-11-21 07:36 | Inpatient (IN) | payer OTHER, MEDICARE ==
[~2020-11-21] VITALS: Ht 175.3 cm; Wt 70.8 kg
[~2020-11-21 07:36] MED LIST changes: +ALB2.5NEB NEB; +COLA100C5 PO; +FERR324T21 PO; -FERR325T16 PO; +LEVO500T3 PO; +MUCI600T31 PO; +SENN-111 PO
[2020-11-21] MEDS ORDERED: COMBIVENT RESPIMAT 100-20MCG INHALER 4GM INH ONE (08:00)
[2020-11-21] MEDS ORDERED: methylPREDNISolone 125MG 2ML VIAL IV ONE (08:10)
[2020-11-21 08:13] LABS: BASO # 0.1 10^3/uL (0.0-0.2); BASO % 0.6 % (0.0-1.0); EOS # 0.2 10^3/uL (0.0-0.5); EOS % 2.4 % (0.0-3.0); HEMATOCRIT 39.3 % (42.0-52.0); HEMOGLOBIN 13.9 g/dl (13.5-17.5); LYMPH # 0.8 10^3/uL (1.5-5.0); LYMPH % 9.4 % (24.0-44.0); MEAN CORPUSCULAR HEMOGLOBIN 31.5 pg (27.0-33.0); MEAN CORPUSCULAR HGB CONC 35.4 g/dl (32.0-36.5); MEAN CORPUSCULAR VOLUME 89.1 fl (80.0-96.0); MONO # 1.3 10^3/uL (0.0-0.8); MONO % 16.3 % (2.0-8.0); NEUTROPHILS # 5.8 10^3/uL (1.5-8.5); NEUTROPHILS % 70.6 % (36.0-66.0); PLATELET COUNT, AUTOMATED 383 10^3/uL (150-450); RED BLOOD COUNT 4.41 10^6/uL (4.30-6.10); WHITE BLOOD COUNT 8.2 10^3/uL (4.0-10.0)
[2020-11-21 08:23] LABS: ABG BASE EXCESS 3.5 (-2.0-2.0); ABG HCO3 27.7 MEQ/L (22.0-26.0); ABG O2 SATURATION 94.1 % (95.0-99.0); ABG PARTIAL PRESSURE CO2 40.5 mmHg (35.0-45.0); ABG PARTIAL PRESSURE O2 68.7 mmHg (75.0-100.0); ABG STANDARD HCO3 27.5 MEQ/L (22.0-26.0); ABG pH (ARTERIAL) 7.453 UNITS (7.350-7.450)
--- NOTE | 2020-11-21 08:30 | REP ---
INDICATION: DYSPNEA/COUGH. COMPARISON: 09/25/2020. TECHNIQUE: Portable AP chest with the patient sitting. FINDINGS: The lung loepz are clear. The cardiac size is normal. There is a loop of bowel interposed between the right hemidiaphragm and dome of the liver as an interval change. As a consequence, the right hemidiaphragm is slightly elevated as an interval change. The jony, mediastinum, and skeletal structures are unremarkable. IMPRESSION: There are no acute cardiopulmonary findings. There is a loop of bowel interposed between the liver dome and right hemidiaphragm. Chiladiti's sign. <Electronically signed by Blair Luther > 11/21/20 1145
[2020-11-21 08:44] LABS: ALBUMIN 3.9 GM/DL (3.2-5.2); ALT/SGPT 37 U/L (12-78); BILIRUBIN,DIRECT 0.2 MG/DL (0.0-0.2); BILIRUBIN,TOTAL 0.6 MG/DL (0.2-1.0); BLOOD UREA NITROGEN 14 MG/DL (7-18); CALCIUM LEVEL 9.3 MG/DL (8.8-10.2); CARBON DIOXIDE LEVEL 29 MEQ/L (21-32); CHLORIDE LEVEL 89 MEQ/L (98-107); CK-MB VALUE MASS 4.8 NG/ML (<3.6); CPK CREATINE PHOSPHOKINASE 198 U/L (39-308); CREATININE FOR GFR 0.73 MG/DL (0.70-1.30); GLOMERULAR FILTRATION RATE > 60.0 (>42); GLUCOSE, FASTING 108 MG/DL (70-100); MB/CK RELATIVE INDEX 2.42 (< OR =4); NT-PRO BNP 882 PG/ML (<450); POTASSIUM SERUM 4.1 MEQ/L (3.5-5.1); SODIUM LEVEL 126 MEQ/L (136-145); TOTAL PROTEIN 7.3 GM/DL (6.4-8.2); TROPONIN I < 0.02 NG/ML (< 0.10)
[2020-11-21] MEDS: DOCUSATE SODIUM 100MG CAPSULE PO SCH ×2 (09:00→20:36)
[2020-11-21] MEDS: APIXABAN 5 MG TAB (ELIQUIS) PO SCH ×2 (09:00→20:36)
[2020-11-21] MEDS: MULTIVITAMINS/MINERALS THERAP 1 TAB PO SCH ×2 (09:00→20:36)
[2020-11-21] MEDS: allopurinoL 100 MG TAB PO SCH ×2 (09:00→20:36)
[2020-11-21] MEDS ORDERED: SENNA 8.6 MG TAB (SENOKOT) PO PRN (09:00)
[2020-11-21] MEDS: FERROUS GLUCONATE 324 MG TAB PO SCH ×2 (09:00→20:36)
[2020-11-21] MEDS ORDERED: IPRATROPIUM 0.5MG/ALBUTEROL 2.5MG INH SOL UD 3ML (DUONEB) As Ordered ONE (09:43)
[2020-11-21] MEDS ORDERED: IPRATROPIUM 0.5MG/ALBUTEROL 2.5MG INH SOL UD 3ML (DUONEB) NEB ONE ×2 (09:45→09:50)
[2020-11-21] MEDS ORDERED: HOME MED LIST COMPLETE! XX SCH (10:30)
[2020-11-21] MEDS ORDERED: LEVALBUTEROL 1.25 MG/0.5 ML CONCENTRATE NEB INH PRN (12:05)
[2020-11-21] MEDS ORDERED: ACETAMINOPHEN 325 MG TAB PO PRN (12:10)
[2020-11-21] MEDS: CALCIUM CARBONATE 500 MG CHEW U/D PO SCH ×2 (12:30→18:23)
--- NOTE | 2020-11-21 14:38 | HPEPDOC ---
[facility] Medical History & Physical Date of Admission Nov 21, 2020 Date of Service: Nov 21, 2020 Attending Physician: KELSEY MACIEL MD History and Physical CHIEF COMPLAINT: shortness of breath HISTORY OF PRESENT ILLNESS: 75 year old male who presented to the ED with shortness of breath. Patient developed difficulty breathing with activity. Patient says he doesn't remember when it started but that it has gotten worse recently and he now struggles to even get out of bead and walk a few feet without SOB. No fevers or chills. No chest pain or palpitations. Patient denies change in cough or sputum production. Patient was diagnosed with COPD by his PCP 3-4 years ago. Patient is a life long smoker. Was a pack a day smoker from 13 years old and says that he cut don to 4-5 cigarettes when he was diagnosed with COPD. PAST MEDICAL HISTORY: 1. COPD. 2. Atrial flutter. 3. Hypertension. 4. hyperlipidemia 5. Borderline DM PAST SURGICAL HISTORY: 1. MCL repair. 2. Tonsillectomy. 3. Adenoids removal. SOCIAL HISTORY: Tobacco use: Pack a day smoker from 13 -> 3-4 years ago. Now smokes 4-5 cigarettes a day. ETOH: drinks 2-3 beers every 2-3 days. Illicit drug use: Pt denies IV drug use: Pt denies FAMILY HISTORY: Father: No medical history Mother: No medical history Siblings: No medical history Children: No medical history Hereditary Diseases: Pt denies Unexpected deaths due to medical reasons: Pt denies ALLERGIES: Please see below. REVIEW OF SYSTEMS: CONSTITUTIONAL: Patient has no fever or chills. HEENT: Patient has no headaches or nuchal rigidity complaints. CARDIOVASCULAR: Patient denies chest pain or palpations. RESPIRATORY: Patient complains of SOB and dyspnea with activity but not at rest. GASTROINTESTINAL: Patient denies abdominal pain or change in stool. GENITOURINARY: Patient denies urinary pain or change in urine. SKIN: Patient denies rash or lesions NEUROLOGICAL: Patient denies tingling or numbness. PSYCHIATRIC: Pt denies change in mood. HOME MEDICATIONS: Please see below. PHYSICAL EXAMINATION: VITAL SIGNS: see below GENERAL APPEARANCE: No chills or fever. HEENT: Patient had no lymph node or thyroid enlargement. CARDIOVASCULAR: Normal S1 and S2. Patient has no murmurs or extra heart sounds. LUNGS: Patient has obvious wheezing on auscultation of lung sounds. ABDOMEN: Patient has normal bowel sounds on auscultation. Patient has no tenderness on palpation. EXTREMITIES: No edema in the feet. BL pedal and posterior tibial pulses 2/4 . NEUROLOGICAL: Patient has no weakness or loss of sensation on extremities. PSYCHIATRIC: Alert and oriented *3. LABORATORY DATA: See below. IMAGING: CXR As reported: IMPRESSION: There are no acute cardiopulmonary findings. There is a loop of bowel interposed between the liver dome and right hemidiaphragm. Chiladiti's sign. MICROBIOLOGY: Please see below. ASSESSMENT: Pt is a 75 year old male with past medical history of COPD, Atrial flutter, Hypertension, Hyperlipidemia, and Borderline DM. Patient was admitted to the hospital for difficulty breathing on exertion. SOB is likely caused by exacerbation of patients COPD. PLAN: COPD - Patient's current symptoms are believed to be caused by disease exacerbation - Levofloxacin will be given for 7 days due to recurrent COPD exacerbation, unlikely he has a bacterial PNA. - Patients home inhalers were continued -Tiotropium and Budesonide/Formoterol combination - Patient was started on Methylprednisone for acute COPD exacerbation. - will give levalbuterol nebs prn due to patient's atrial flutter instead of albuterol-containing nebs Atrial flutter - Eliquis will started for embolism prevention. - currently rate controlled without medication, will avoid starting beta harman or calcium channel harman at this time. Hyponatremia - Patients sodium was 126 at admission - Hyponatremia is being caused by compensatory response from COPD exacerbation, suspect SIADH - Patient's serum osmolality and urine osmolality will be measured. - Patient will be on fluid restriction. - Patient's Na+ will be continued to be monitored Gout - Allopurinol will be continued. BPH - Tamsulosin will be continued. Hypertension - hold home medications including torsemide, spironolactone, and verapamil Hyperlipidemia - Pt statin will be continued. Borderline DM - Patient's BG will be monitored - In the morning Patients BG was 108. DVT prophylaxis - Patient Eliquis will be continued. Disposition: admitted inpatient to med/surg with telemetry, expect at least 2 midnights stay Vital Signs Vital Signs Date Time Temp Pulse Resp B/P (MAP) Pulse Ox O2 Delivery O2 Flow Rate FiO2 11/21/20 12:30 87 20 144/70 (94) 91 Room Air 11/21/20 07:49 98.1 Laboratory Data Labs 24H Laboratory Tests 2 11/21/20 07:56: Immature Granulocyte % (Auto) 0.7, Neutrophils (%) (Auto) 70.6H, Lymphocytes (%) (Auto) 9.4L, Monocytes (%) (Auto) 16.3H, Eosinophils (%) (Auto) 2.4, Basophils (%) (Auto) 0.6, Neutrophils # (Auto) 5.8, Lymphocytes # (Auto) 0.8L, Monocytes # (Auto) 1.3H, Eosinophils # (Auto) 0.2, Basophils # (Auto) 0.1, Nucleated Red Blood Cells % (auto) 0.0, Anion Gap 8, Glomerular Filtration Rate > 60.0, Calcium Level 9.3, Total Bilirubin 0.6, Direct Bilirubin 0.2, Aspartate Amino Transf (AST/SGOT) 31, Alanine Aminotransferase (ALT/SGPT) 37, Alkaline Phosphatase 138H, Total Creatine Kinase 198, Creatine Kinase MB 4.8H, Creatine Kinase MB Relative Index 2.42, Troponin I < 0.02, WH-Tbv-D-Type Natriuretic Peptide 882H, Total Protein 7.3, Albumin 3.9, Albumin/Globulin Ratio 1.1, Thyroid Stimulating Hormone (TSH) 1.480 11/21/20 08:12: Blood Gas Bicarbonate Standard 27.5H, Arterial Blood pH 7.453H, Arterial Blood Partial Pressure CO2 40.5, Arterial Blood Partial Pressure O2 68.7L, Arterial Blood Total CO2 29.0, Arterial Blood HCO3 27.7H, Arterial Blood Base Excess 3.5H, Arterial Blood Oxygen Saturation 94.1L CBC/BMP Laboratory Tests 11/21/20 07:56 Microbiology Microbiology 11/21/20 Respiratory Virus Panel (PCR) ([facility]) - Final, Complete Home Medications Scheduled Allopurinol (Allopurinol) 100 Mg Tablet, 100 MG PO BID TAKES WITH BREAKFAST AND DINNER Apixaban (Eliquis) 5 Mg Tab, 5 MG PO BID Atorvastatin Calcium (Atorvastatin Calcium) 40 Mg Tablet, 20 MG PO DAILY Budesonide/Formoterol (Symbicort 160-4.5 Mcg Inhaler) 60 Puff/Inhaler Aers, 2 PUFF INH BID Calcium Carbonate (Calcium) 500 Mg Chw, 1,000 MG PO WM Docusate Sodium (Colace) 100 Mg Capsule, 100 MG PO BID Ferrous Gluconate (Ferrous Gluconate) 324 Mg Tablet, 324 MG PO BID Folic Acid (Folic Acid) 1 Mg Tab, 1 MG PO DAILY Magnesium Chloride (Mag64) 64 Mg Tablet.dr, 64 MG PO BID Multivitamins (Thera M Plus Tablet) 1 Tab Tab, 1 TAB PO BID Spironolactone (Spironolactone) 25 Mg Tablet, 25 MG PO DAILY Tamsulosin HCl (Flomax) 0.4 Mg Cap, 0.4 MG PO QHS Tiotropium [place] (Spiriva Respimat) 4 Gm Mist.inhal, 2 PUFF INH DAILY Torsemide (Torsemide) 20 Mg Tablet, 10 MG PO BID Verapamil HCl (Verapamil HCl) 80 Mg Tablet, 80 MG PO TID TAKES AT 0200, 1000, 1800 Scheduled PRN Acetaminophen (Tylenol) 325 Mg Tablet, 325 MG PO Q4H PRN for PAIN Albuterol Sulfate (Ventolin Hfa) 18 Gm Hfa.aer.ad, 2 PUFF INH QID PRN for SHORTNESS OF BREATH Albuterol Sulfate (Albuterol Sulfate) 2.5 Mg/0.5 Ml Vial.neb, 1 VIAL NEB Q4H PRN for SOB/WHEEZING Sennosides (Senna Lax) 8.6 Mg Tablet, 8.6 MG PO DAILY PRN for CONSTIPATION Allergies Coded Allergies: No Known Allergies (Unverified , 09/28/18) A-FIB/CHADSVASC A-FIB History Current/History of A-Fib/PAF?: Yes Current PO Anticoag Therapy: Yes Age/Risk Factor Scoring CHADSVASC: CHADSVASC Response (Comments) Value Age Risk Factor Age >/= 75 years old 2 Gender Risk Factor Male 0 Hx of CHF No 0 Hx of HTN Yes 1 Hx of Stroke/TIA/or VTE No 0 Hx of Diabetes No 0 Hx of Vascular Disease No 0 Total 3 Treatment Treatment ordered: Apixaban LIZA DIMAS S-3 Nov 21, 2020 14:38 SAM HODGES D.O. Nov 21, 2020 18:47
[2020-11-21 15:02] LABS: INR 1.02; PROTHROMBIN TIME 13.8 SECONDS (12.7-14.5)
[2020-11-21 15:03] LABS: PARTIAL THROMBOPLASTIN TIME 34.2 SECONDS (25.9-37.0)
[2020-11-21] MEDS: FOLIC ACID 1 MG TAB PO SCH (17:47)
[2020-11-21] MEDS: ATORVASTATIN 20 MG TAB PO SCH (17:47)
[2020-11-21] MEDS: LevoFLOXacin 750 MG TABLET PO SCH (17:47)
[2020-11-21 18:00] VITALS: BP 146/80
[2020-11-21 19:23] VITALS: BP 130/75
[2020-11-21] MEDS: SYMBICORT 160/4.5MCG INHALER 6GM INH SCH (19:40)
[2020-11-21] MEDS: TAMSULOSIN 0.4 MG CAP PO SCH (20:36)
[2020-11-21] MEDS: methylPREDNISolone 125MG 2ML VIAL IV SCH (20:36)
[2020-11-22 06:00] VITALS: BP 137/82
[2020-11-22 06:34] LABS: BASO % 0.1 % (0.0-1.0); EOS % 0.1 % (0.0-3.0); HEMATOCRIT 37.3 % (42.0-52.0); HEMOGLOBIN 13.1 g/dl (13.5-17.5); LYMPH # 0.5 10^3/uL (1.5-5.0); MEAN CORPUSCULAR HEMOGLOBIN 31.2 pg (27.0-33.0); MEAN CORPUSCULAR HGB CONC 35.1 g/dl (32.0-36.5); MEAN CORPUSCULAR VOLUME 88.8 fl (80.0-96.0); MONO # 0.4 10^3/uL (0.0-0.8); MONO % 5.1 % (2.0-8.0); NEUTROPHILS # 6.3 10^3/uL (1.5-8.5); NEUTROPHILS % 87.1 % (36.0-66.0); PLATELET COUNT, AUTOMATED 397 10^3/uL (150-450); WHITE BLOOD COUNT 7.3 10^3/uL (4.0-10.0)
[2020-11-22 06:51] LABS: BLOOD UREA NITROGEN 18 MG/DL (7-18); CALCIUM LEVEL 9.1 MG/DL (8.8-10.2); CARBON DIOXIDE LEVEL 29 MEQ/L (21-32); CHLORIDE LEVEL 89 MEQ/L (98-107); CREATININE FOR GFR 0.73 MG/DL (0.70-1.30); GLOMERULAR FILTRATION RATE > 60.0 (>42); GLUCOSE, FASTING 137 MG/DL (70-100); POTASSIUM SERUM 4.8 MEQ/L (3.5-5.1); SODIUM LEVEL 124 MEQ/L (136-145)
--- NOTE | 2020-11-22 07:00 | ECGEPIP ---
[facility] - ED Test Date: 2020-11-21 Pat Name: LASHAE LOUIS Department: Room: - Gender: Male [employer]: : 1945 Requested By: SHEELA Morrell Order Number: [id number] Reading MD: Agustín Buck Measurements Intervals [place] Rate: 81 P: NC: QRS: 92 QRSD: 92 T: 50 QT: 348 QTc: 404 Interpretive Statements Atrial flutter with variable AV block Rightward axis Incomplete right bundle branch block NSTTW ABNORMALITY(S) SIMILAR TO 09/25/20 Electronically Signed on 11-22-2020 6:59:45 EDT by Agustín Buck
[2020-11-22] MEDS: SYMBICORT 160/4.5MCG INHALER 6GM INH SCH ×2 (07:41→20:44)
[2020-11-22] MEDS: TIOTROPIUM INHALER/CAPSULE (SPIRIVA) INH SCH (07:41)
[2020-11-22] MEDS: LEVALBUTEROL 1.25 MG/0.5 ML CONCENTRATE NEB INH SCH ×4 (08:00→20:44)
[2020-11-22] MEDS: CALCIUM CARBONATE 500 MG CHEW U/D PO SCH ×3 (08:45→17:43)
[2020-11-22] MEDS: APIXABAN 5 MG TAB (ELIQUIS) PO SCH ×2 (08:45→20:36)
[2020-11-22] MEDS: ATORVASTATIN 20 MG TAB PO SCH (08:45)
[2020-11-22] MEDS: allopurinoL 100 MG TAB PO SCH ×2 (08:45→20:38)
[2020-11-22] MEDS: DOCUSATE SODIUM 100MG CAPSULE PO SCH ×2 (08:46→20:36)
[2020-11-22] MEDS: FERROUS GLUCONATE 324 MG TAB PO SCH ×2 (08:46→20:36)
[2020-11-22] MEDS: methylPREDNISolone 125MG 2ML VIAL IV SCH ×2 (08:46→20:36)
[2020-11-22] MEDS: FOLIC ACID 1 MG TAB PO SCH (08:46)
[2020-11-22] MEDS: MULTIVITAMINS/MINERALS THERAP 1 TAB PO SCH ×2 (08:46→20:36)
--- NOTE | 2020-11-22 09:17 | IPNPDOC ---
Text Note Date of Service The patient was seen on 11/22/20. NOTE Subjective: Patient was admitted for difficulty breathing thought to be caused by COPD exacerbation. Patient was washing his hair in the sink when seen by medical team. Patient says his SOB with movement has gotten much better than when he was admitted. Patient is not in acute distress. Review of systems: Patient denies headaches, chest pain, palpitations, ABD pain, urinary pain, dysuria or frequency, fatigue, tingling, or numbness. Patient's SOB is present but better than yesterday when he was admitted. Physical exam: General: Patient has no fever or chills Psych: Alert and oriented*3 HEENT:No enlargement of thyroid or lymph nodes Heart: Normal heart sounds S1 and S2 present. No murmurs or extra heart sounds. Auscultation at Aortic and pulmonic valve was not possible from audible wheezing (same as yesterday). Lungs: BL expiratory wheezing in all lung lopez and lobes. This finding is the same as yesterday - most likely from chronic COPD Extremities: slight pedal edema was present. Patient Neuro: Patient has no weakness or loss of sensation Assessment: Pt is a 75 year old male with past medical history of COPD, Atrial flutter, BPH, Hypertension, Hyperlipidemia, and Borderline DM. Patient was admitted to the hospital for difficulty breathing on exertion. SOB is likely caused by exacerbation of patients COPD. Patient appears better today than when we was seen yesterday - steroids seem to be helping. PLAN: COPD - Patient's current symptoms are believed to be caused by disease exacerbation - Levofloxacin will be given for 7 days due to recurrent COPD exacerbation, unlikely he has a bacterial PNA. - Patients home inhalers were continued -Tiotropium and Budesonide/Formoterol combination - Patient was started on Methylprednisone for acute COPD exacerbation. Dose will be decreased today from 60mg -> 40mg - will give levalbuterol nebs scheduled (due to patient's atrial flutter instead of albuterol-containing nebs) Atrial flutter - Eliquis for anticoagulation - currently rate controlled without medication, will avoid starting beta harman or calcium channel harman at this time. Hyponatremia, euvolemic, hypo-osmolar - Patients sodium was 126 at admission. Today Na+ was 124. - Hyponatremia is being caused by compensatory response from COPD exacerbation, suspect SIADH - Patient's serum osmolality (257) and urine osmolality (298). - Patient will be on fluid restriction. - Patient's Na+ will be continued to be monitored Gout - Allopurinol will be continued. BPH - Tamsulosin will be continued. Hypertension - hold home medications including torsemide, spironolactone, and verapamil Hyperlipidemia - Pt statin will be continued. Borderline DM - Patient's BG will be monitored - Yesterday morning the patient's BG was 108. Today it was 137 today. DVT prophylaxis - Patient Eliquis will be continued. Disposition: admitted inpatient to med/surg with telemetry, pending clinical improvement Code status: Full code VS,Fishbone, I+O VS, Fishbone, I+O Laboratory Tests 11/22/20 06:13 Vital Signs Date Time Temp Pulse Resp B/P (MAP) Pulse Ox O2 Delivery O2 Flow Rate FiO2 11/22/20 06:00 97.0 81 18 137/82 (100) 97 Room Air I&O- Last 24 Hours up to 6 AM 11/22/20 05:59 Intake Total 450 ml Output Total 375 ml Balance 75 ml LIZA DIMAS OMS-3 Nov 22, 2020 09:17 SAM HODGES D.O. Nov 22, 2020 17:37
[2020-11-22 14:00] VITALS: BP 139/77
[2020-11-22] MEDS: LevoFLOXacin 750 MG TABLET PO SCH (17:33)
[2020-11-22] MEDS: TAMSULOSIN 0.4 MG CAP PO SCH (20:36)
[2020-11-22 21:00] VITALS: BP_SYST 129; BP_SYST 137; BP_DIAS 77; BP_DIAS 81
[2020-11-23] MEDS: LEVALBUTEROL 1.25 MG/0.5 ML CONCENTRATE NEB INH SCH ×3 (00:19→07:44)
[2020-11-23 06:01] VITALS: BP 130/78
[2020-11-23 06:45] LABS: BASO % 0.1 % (0.0-1.0); HEMATOCRIT 39.2 % (42.0-52.0); HEMOGLOBIN 13.6 g/dl (13.5-17.5); LYMPH # 0.5 10^3/uL (1.5-5.0); MEAN CORPUSCULAR HEMOGLOBIN 31.7 pg (27.0-33.0); MEAN CORPUSCULAR HGB CONC 34.7 g/dl (32.0-36.5); MEAN CORPUSCULAR VOLUME 91.4 fl (80.0-96.0); MONO % 8.1 % (2.0-8.0); NEUTROPHILS # 10.6 10^3/uL (1.5-8.5); NEUTROPHILS % 87.2 % (36.0-66.0); PLATELET COUNT, AUTOMATED 432 10^3/uL (150-450); RED BLOOD COUNT 4.29 10^6/uL (4.30-6.10); WHITE BLOOD COUNT 12.1 10^3/uL (4.0-10.0)
[2020-11-23 07:06] LABS: BLOOD UREA NITROGEN 21 MG/DL (7-18); CALCIUM LEVEL 9.6 MG/DL (8.8-10.2); CARBON DIOXIDE LEVEL 26 MEQ/L (21-32); CHLORIDE LEVEL 92 MEQ/L (98-107); CREATININE FOR GFR 0.95 MG/DL (0.70-1.30); GLOMERULAR FILTRATION RATE > 60.0 (>42); GLUCOSE, FASTING 151 MG/DL (70-100); SODIUM LEVEL 128 MEQ/L (136-145)
[2020-11-23] MEDS: SYMBICORT 160/4.5MCG INHALER 6GM INH SCH (07:44)
[2020-11-23] MEDS: TIOTROPIUM INHALER/CAPSULE (SPIRIVA) INH SCH (07:44)
[2020-11-23] MEDS ORDERED: CALCIUM CARBONATE 500 MG CHEW U/D PO PRN (08:05)
[2020-11-23] MEDS: MULTIVITAMINS/MINERALS THERAP 1 TAB PO SCH (08:22)
[2020-11-23] MEDS: allopurinoL 100 MG TAB PO SCH (08:22)
[2020-11-23] MEDS: FOLIC ACID 1 MG TAB PO SCH (08:22)
[2020-11-23] MEDS: DOCUSATE SODIUM 100MG CAPSULE PO SCH (08:22)
[2020-11-23] MEDS: FERROUS GLUCONATE 324 MG TAB PO SCH (08:22)
[2020-11-23] MEDS: ATORVASTATIN 20 MG TAB PO SCH (08:22)
[2020-11-23] MEDS: APIXABAN 5 MG TAB (ELIQUIS) PO SCH (08:22)
--- NOTE | 2020-11-23 09:54 | IPNPDOC ---
Text Note Date of Service The patient was seen on 11/23/20. Subjective: Patient was admitted for COPD exacerbation. Patient was seen today sitting at the side of his bed. Patient did not appear to be in acute distress when he was seen. Patient says that SOB with exertion is the same as yesterday. Patient has tachycardia even at rest. Review of systems: Patient denies headaches, palpitations, SOB, dyspnea, N/V, numbness, tingling, ABD pain, or difficulty urinating. Physical exam: General: no fever or chills. Psych: Alert and oriented*3 HEENT: No thyroid or ;ymph node enlargement is visible. VS,Fishbone, I+O VS, Fishbone, I+O Laboratory Tests 11/23/20 06:26 Vital Signs Date Time Temp Pulse Resp B/P (MAP) Pulse Ox O2 Delivery O2 Flow Rate FiO2 11/23/20 06:01 97.7 104 18 130/78 (95) 96 Room Air l I&O- Last 24 Hours up to 6 AM 11/23/20 06:00 Intake Total 620 ml Output Total 800 ml Balance -180 ml LIZA DIMAS OMS-3 Nov 23, 2020 09:54
--- NOTE | 2020-11-23 10:45 | DS.PDOC ---
Discharge Summary General Date of Admission Nov 21, 2020 at 11:44 Date of Discharge 11/23/20 Attending Physician: KELSEY MACIEL MD Discharge Summary PROCEDURES PERFORMED DURING STAY: None. ADMITTING DIAGNOSES: 1. COPD 2. Atrial fibrillation/ flutter 3. Hyponatremia 4. HTN 5. Gout 6. BPH 7. hyperlipidemia 8. Borderline DM DISCHARGE DIAGNOSES: 1. COPD 2. Atrial fibrillation/ flutter 3. Hyponatremia 4. HTN 5. Gout 6. BPH 7. hyperlipidemia 8. Borderline DM CHIEF COMPLAINT: SOB HISTORY OF PRESENT ILLNESS: 75 year old male who presented to the ED with shortness of breath. Patient developed difficulty breathing with activity. Patient says he doesn't remember when it started but that it has gotten worse recently and he now struggles to even get out of bead and walk a few feet without SOB. No fevers or chills. No chest pain or palpitations. Patient denies change in cough or sputum production. Patient was diagnosed with COPD by his PCP 3-4 years ago. Patient is a life long smoker. Was a pack a day smoker from 13 years old and says that he cut don to 4-5 cigarettes when he was diagnosed with COPD. In the emergency department, the patient was noted to have significant diffuse bilateral wheezing in his lungs even after IV steroids were given. Hospitalist team was called for admission. HOSPITAL COURSE: Patient was admitted to the hospital and continued on IV steroids as well as oral Levaquin for recurrent COPD exacerbation. There was not concern for superimposed bacterial pneumonia given the normal chest x-ray, lack of additional symptoms such as fever cough and sputum production. His wheezing significantly improved. The patient was noted to be tachycardic, and therefore was not given any nebulizer or albuterol in them. He does have a history of atrial fibrillation which is normally rate controlled per the patient. Instead of albuterol, the patient was treated with levalbuterol nebulizers every 4 hours. The patient's wheezing significantly improved. The patient was the escalated to oral prednisone which she will continue for a 5-day course when discharged. The patient will not continue on the Levaquin after discharge as we are not concerned for bacterial pneumonia. DISCHARGE MEDICATIONS: Please see below. ALLERGIES: Please see below. PHYSICAL EXAMINATION ON DISCHARGE: VITAL SIGNS: Please see below. GENERAL: No fever or chills HEENT: No enlargement of thyroid or lymph node visible on exam CARDIOVASCULAR EXAMINATION: Normal S1 and S2 cannot be heard at Aortic and Pulmonic Valve. Heart sounds at Tricuspid and Mitral valves have S1 and S2 - irregular rate and rythym. No extra heart sounds or murmur. Telometry shows elevated HR of 100-110 in the morning. RESPIRATORY EXAMINATION: BL wheezing on expiration present in every lobe ABDOMINAL EXAMINATION: Normal sounds on auscultation and no pain or tenderness on palpation EXTREMITIES: Slight edema of the legs (trace to 1+) BL. NEUROLOGICAL EXAMINATION: No weakness or loss of sensation in Arms or legs BL PSYCHIATRIC EXAMINATION: Alert and oriented *3 LABORATORY DATA: Please see below. IMAGING: No new imaging PROGNOSIS: Good ACTIVITY: As tolerated. DIET: Fluid restriction DISCHARGE PLAN/DISPOSITION: Home DISCHARGE INSTRUCTIONS: Continue prednisone 40mg daily for 5 days. ITEMS TO FOLLOWUP ON ON OUTPATIENT: 1. Patient should see PCP within a week. DISCHARGE CONDITION: Stable. TIME SPENT ON DISCHARGE: 35 minutes. Vital Signs/I&Os Vital Signs Date Time Temp Pulse Resp B/P (MAP) Pulse Ox O2 Delivery O2 Flow Rate FiO2 11/23/20 06:01 97.7 104 18 130/78 (95) 96 Room Air I&O- Last 24 Hours up to 6 AM 11/23/20 06:00 Intake Total 620 ml Output Total 800 ml Balance -180 ml Laboratory Data Labs 24H Laboratory Tests 2 11/23/20 06:26: Immature Granulocyte % (Auto) 0.6, Neutrophils (%) (Auto) 87.2H, Lymphocytes (%) (Auto) 4.0L, Monocytes (%) (Auto) 8.1H, Eosinophils (%) (Auto) 0.0, Basophils (%) (Auto) 0.1, Neutrophils # (Auto) 10.6H, Lymphocytes # (Auto) 0.5L, Monocytes # (Auto) 1.0H, Eosinophils # (Auto) 0.0, Basophils # (Auto) 0.0, Nucleated Red Blood Cells % (auto) 0.0, Anion Gap 10, Glomerular Filtration Rate > 60.0, Calcium Level 9.6 CBC/BMP Laboratory Tests 11/23/20 06:26 Microbiology Microbiology 11/21/20 Respiratory Virus Panel (PCR) ([facility]) - Final, Complete Discharge Medications Scheduled Allopurinol (Allopurinol) 100 Mg Tablet, 100 MG PO BID, (Reported) TAKES WITH BREAKFAST AND DINNER Apixaban (Eliquis) 5 Mg Tab, 5 MG PO BID, (Reported) Atorvastatin Calcium (Atorvastatin Calcium) 40 Mg Tablet, 20 MG PO DAILY, (Reported) Budesonide/Formoterol (Symbicort 160-4.5 Mcg Inhaler) 60 Puff/Inhaler Aers, 2 PUFF INH BID, (Reported) Calcium Carbonate (Calcium) 500 Mg Chw, 1,000 MG PO WM, (Reported) Docusate Sodium (Colace) 100 Mg Capsule, 100 MG PO BID, (Reported) Ferrous Gluconate (Ferrous Gluconate) 324 Mg Tablet, 324 MG PO BID, (Reported) Folic Acid (Folic Acid) 1 Mg Tab, 1 MG PO DAILY, (Reported) Magnesium Chloride (Mag64) 64 Mg Tablet.dr, 64 MG PO BID, (Reported) Multivitamins (Thera M Plus Tablet) 1 Tab Tab, 1 TAB PO BID, (Reported) Prednisone (Prednisone) 20 Mg Tablet, 2 TAB PO DAILY Spironolactone (Spironolactone) 25 Mg Tablet, 25 MG PO DAILY, (Reported) Tamsulosin HCl (Flomax) 0.4 Mg Cap, 0.4 MG PO QHS, (Reported) Tiotropium [place] (Spiriva Respimat) 4 Gm Mist.inhal, 2 PUFF INH DAILY, (Reported) Torsemide (Torsemide) 20 Mg Tablet, 10 MG PO BID, (Reported) Verapamil HCl (Verapamil HCl) 80 Mg Tablet, 80 MG PO TID, (Reported) TAKES AT 0200, 1000, 1800 Scheduled PRN Acetaminophen (Tylenol) 325 Mg Tablet, 325 MG PO Q4H PRN for PAIN, (Reported) Albuterol Sulfate (Ventolin Hfa) 18 Gm Hfa.aer.ad, 2 PUFF INH QID PRN for SHORTNESS OF BREATH, (Reported) Albuterol Sulfate (Albuterol Sulfate) 2.5 Mg/0.5 Ml Vial.neb, 1 VIAL NEB Q4H PRN for SOB/WHEEZING, (Reported) Sennosides (Senna Lax) 8.6 Mg Tablet, 8.6 MG PO DAILY PRN for CONSTIPATION, (Reported) Allergies Coded Allergies: No Known Allergies (Unverified , 09/28/18) LIZA DIMAS OMS-3 Nov 23, 2020 10:45 SAM HODGES D.O. Nov 23, 2020 17:17
[2020-11-23] MEDS ORDERED: PRED20TA PO (12:14)
[2020-11-23] MEDS ORDERED: methylPREDNISolone 40MG 1ML VIAL IV SCH (20:00)
== END 2020-11-23 14:45 | disposition home or self-care (01) | DRG 191 ==
LOC: M ED 07:36 → EDSEX 07:36 → EDBD 07:36 → M ED INP 11:44 → ENRESERV 14:53 → M MSPAV 16:41
PROVIDERS: ADMIT Internal Medicine; ATTEND Internal Medicine
DX: J44.1 Chronic obstructive pulmonary disease with (acute) exacerbation (principal); I48.92 Unspecified atrial flutter; E87.1 Hypo-osmolality and hyponatremia; I10 Essential (primary) hypertension; N40.0 Benign prostatic hyperplasia without lower urinary tract symptoms; E11.9 Type 2 diabetes mellitus without complications; E78.5 Hyperlipidemia, unspecified; M10.9 Gout, unspecified; I48.91 Unspecified atrial fibrillation; Z79.899 Other long term (current) drug therapy; F17.210 Nicotine dependence, cigarettes, uncomplicated

== ENCOUNTER 2021-03-29 13:22 | Inpatient (IN) | payer MEDICARE, OTHER ==
[~2021-03-29] VITALS: Ht 175.3 cm; Wt 69.6 kg
--- NOTE | 2021-03-29 14:03 | REPVR ---
PROCEDURE INFORMATION: Exam: CT Head Without Contrast Exam date and time: 03/29/2021 1:26 PM Age: 75 years old Clinical indication: Injury or trauma; Fall; Blunt trauma (contusions or hematomas) TECHNIQUE: Imaging protocol: Computed tomography of the head without contrast. Radiation optimization: All CT scans at this facility use at least one of these dose optimization techniques: automated exposure control; mA and/or kV adjustment per patient size (includes targeted exams where dose is matched to clinical indication); or iterative reconstruction. COMPARISON: CT Head without contrast 09/28/2018 4:54 PM FINDINGS: Brain: There is no acute intracranial hemorrhage or mass effect. [id number] diffuse volume loss is within the range of normal for patient age. There are small vessel ischemic changes within the periventricular and subcortical white matter, but the normal de la fuente-white matter delineation is maintained. There is a presumed left middle cranial fossa arachnoid cyst, unchanged. Cerebral ventricles: No ventriculomegaly. Paranasal sinuses: Visualized sinuses are unremarkable. No fluid levels. Mastoid air cells: Visualized mastoid air cells are well aerated. Bones/joints: Unremarkable. No acute fracture. Soft tissues: Unremarkable. IMPRESSION: No acute hemorrhage or calvarial fracture. Electronically signed by: Beatrice Weinstein On 03/29/2021 14:03:28 PM
--- NOTE | 2021-03-29 14:07 | REP ---
INDICATION: dizziness COMPARISON: 11/21/2020 TECHNIQUE: Portable AP view of the chest FINDINGS: Cardiomegaly and diffuse chronic interstitial changes are appreciated. Superimposed subtle airspace disease in the left perihilar mid lung and right base are suspected. No effusion. No pneumothorax. IMPRESSION: Chronic changes with superimposed bilateral airspace disease. Differential diagnosis includes multifocal pneumonia and COVID-19 pulmonary disease. Correlation and follow-up recommended. <Electronically signed by Tyrese Moser > 03/29/21 [id number]
--- NOTE | 2021-03-29 14:10 | REPVR ---
PROCEDURE INFORMATION: Exam: CT Cervical Spine Without Contrast Exam date and time: 03/29/2021 1:26 PM Age: 75 years old Clinical indication: Injury or trauma; Fall; Blunt trauma TECHNIQUE: Imaging protocol: Computed tomography images of the cervical spine without contrast. Radiation optimization: All CT scans at this facility use at least one of these dose optimization techniques: automated exposure control; mA and/or kV adjustment per patient size (includes targeted exams where dose is matched to clinical indication); or iterative reconstruction. COMPARISON: CT Spine,cervical w/o contrast 12/11/2015 6:36 PM FINDINGS: Image quality is degraded by motion. Bones/joints: There is 2 mm of grade 1 anterolisthesis of C7 with respect to T1. Normal vertebral body alignment is otherwise preserved. Vertebral body heights are within normal limits. Discs/Spinal canal/Neural foramina: There is severe intervertebral disc space loss at C5/6 and C6/7. There is multilevel facet hypertrophy. Lungs: Lung apices are normal. Soft tissues: Unremarkable. IMPRESSION: No acute fracture. Chronic changes. Electronically signed by: Beatrice Weinstein On 03/29/2021 14:10:14 PM
[2021-03-29] MEDS ORDERED: COMBIVENT RESPIMAT 100-20MCG INHALER 4GM INH ONE (14:30)
[2021-03-29 14:39] LABS: BASO % 0.2 % (0.0-1.0); EOS % 0.2 % (0.0-3.0); HEMATOCRIT 34.4 % (42.0-52.0); HEMOGLOBIN 12.2 g/dl (13.5-17.5); LYMPH # 0.7 10^3/uL (1.5-5.0); LYMPH % 3.8 % (24.0-44.0); MEAN CORPUSCULAR HEMOGLOBIN 31.5 pg (27.0-33.0); MEAN CORPUSCULAR HGB CONC 35.5 g/dl (32.0-36.5); MEAN CORPUSCULAR VOLUME 88.9 fl (80.0-96.0); MONO # 1.5 10^3/uL (0.0-0.8); MONO % 7.8 % (2.0-8.0); NEUTROPHILS # 16.8 10^3/uL (1.5-8.5); NEUTROPHILS % 87.3 % (36.0-66.0); PLATELET COUNT, AUTOMATED 390 10^3/uL (150-450); RED BLOOD COUNT 3.87 10^6/uL (4.30-6.10); WHITE BLOOD COUNT 19.3 10^3/uL (4.0-10.0)
--- NOTE | 2021-03-29 14:49 | REP ---
INDICATION: SOB eval for pneumonia COMPARISON: None TECHNIQUE: Axial noncontrast images from the thoracic inlet to the upper abdomen with coronal and sagittal reformations. This CT examination was performed using the following dose reduction techniques: Automated exposure control, adjustment of mA and/or kv according to the patient's size, and use of iterative reconstruction technique. FINDINGS: Lung lopez demonstrate chronic emphysematous changes. There is a moderate consolidation involving the apical left lower lobe as well as smaller patchy areas of opacity at the lingula, right middle lobe and right lower lobe along with reactive adenopathy. No effusion. No pneumothorax. Tracheobronchial tree is patent Further mediastinum demonstrates atherosclerotic changes to the thoracic aorta and coronary arteries without aortic aneurysm. Mild cardiomegaly is suggested without pericardial effusion. IMPRESSION: Moderate consolidation in the apical left lower lobe with smaller patchy bilateral opacities consistent with multifocal pneumonia. Follow-up to resolution recommended. <Electronically signed by Tyrese Moser > 03/29/21 [id number]
[2021-03-29 14:59] LABS: BLOOD UREA NITROGEN 12 MG/DL (7-18); CARBON DIOXIDE LEVEL 24 MEQ/L (21-32); CHLORIDE LEVEL 85 MEQ/L (98-107); GLOMERULAR FILTRATION RATE > 60.0 (>42); GLUCOSE, FASTING 94 MG/DL (70-100); POTASSIUM SERUM 4.9 MEQ/L (3.5-5.1); SODIUM LEVEL 120 MEQ/L (136-145)
[2021-03-29 16:23] LABS: OSMOLALITY SERUM 254 MOSM/KG (280-301)
[2021-03-29 16:39] LABS: ALBUMIN 3.3 GM/DL (3.2-5.2); ALT/SGPT 43 U/L (12-78); BILIRUBIN,DIRECT 0.2 MG/DL (0.0-0.2); BILIRUBIN,TOTAL 0.5 MG/DL (0.2-1.0); C REACTIVE PROTEIN QUANTITATIV 4.28 MG/DL (0.00-0.30); FERRITIN 661 NG/ML (26-388); LDH LACTATE DEHYDROGENASE 122 U/L (87-241); TOTAL PROTEIN 6.3 GM/DL (6.4-8.2)
--- NOTE | 2021-03-29 16:42 | HPEPDOC ---
[facility] Medical History & Physical Date of Admission Mar 29, 2021 Date of Service: Mar 29, 2021 History and Physical CHIEF COMPLAINT: " I lost my balance and fell backwards onto my night dresser." HISTORY OF PRESENT ILLNESS: 75-year-old male with history of chronic A. fib on Eliquis syncope severe pulmonary hypertension diastolic heart failure EF 65% COPD not oxygen or steroid-dependent hypertension presents emergency room after losing his balance today and falling backwards hitting the back of his head on the night dresser. Patient denies any loss of consciousness, palpitations, chest pain pressure tightness lightheadedness dizziness prior to the episode. He has been in his usual state of health and denies any fever or chills, but has a chronic cough which is unchanged. CT head was negative for intracranial hemorrhage patient had bleeding at the top of his head which subsided without intervention and did not require stitches. Chest x-ray showed bilateral infiltrates coronavirus negative CT chest shows consolidation at the left base with patchy infiltrates bilaterally. Hospitalist was called to admit the patient for bilateral community-acquired pneumonia and recent fall with head trauma and bleeding of the scalp not requiring sutures, in the setting of chronic Eliquis. 10 point review of system otherwise negative. PAST MEDICAL HISTORY: Atrial fib, on Eliquis. Hypomagnesemia Gout Iron deficiency anemia H/O Syncopal episode Severe pulmonary hypertension CHF/ Diastolic dysfunction with left ventricular ejection fraction 65% Hypertension Dyslipidemia Chronic obstructive pulmonary disease BPH Alcohol use Tobacco use PSHX: Left knee arthroscopy Colonoscopy SOCHX: Resides in: [facility] Marital Status: Employment: Retired [employer] de[employer] Tobacco use: 1 ppd x 50 years, recently 4-5 per day ETOH: 4-5 beers per day hx, currently states to drink 3x/week Illicit Drugs: Denies Advanced directives: none, Full Code FAMHX: Father: , 50 years old, leukemia Mother: , 83 years old, stroke Siblings: - Sister: Alive, 88 years old, unknown health history - Brother: , unknown age, alcoholism REVIEW OF SYSTEMS: 10 POINT SYSTEMS NEGATIVE ASIDE FROM + findings on HPI ALLERGIES: Please see below. HOME MEDICATIONS: Please see below. PHYSICAL EXAMINATION: Vital signs: See below GENERAL: Patient has dried blood on his scalp at the top of his head. He is in no distress speaks in full sentences face is symmetric Awake alert oriented to person place and time. No cyanosis pallor HEENT: Skin tear in the scalp at the top of his head with dried blood not bruising anymore. PERRLA, EOM intact moist oral mucous membranes no JVD or thyromegaly no lymphadenopathy, no carotid bruit. No stridor or tracheal deviation . Heart: irregularly irregular rhythm, S1S2 normal not tachycardic . Lungs: Minich breath sounds with bilateral wheezing crackles at the left base . Abdomen: BS positive in 4 quadrants, soft, nontender, nondistended, no rebound or guarding, no organomegaly . Ext: Positive pitting edema 1+ bilaterally Laboratory data/imaging studies/microbiology: See below Assessment and plan: 75-year-old male with history of chronic A. fib on Eliquis syncope severe pulmonary hypertension diastolic heart failure EF 65% COPD not oxygen or steroid-dependent hypertension presents emergency room after losing his balance today and falling backwards hitting the back of his head on the night dresser. Patient denies any loss of consciousness, palpitations, chest pain pressure tightness lightheadedness dizziness prior to the episode. He has been in his usual state of health and denies any fever or chills, but has a chronic cough which is unchanged. CT head was negative for intracranial hemorrhage patient had bleeding at the top of his head which subsided without intervention and did not require stitches. Chest x-ray showed bilateral infiltrates coronavirus negative CT chest shows consolidation at the left base with patchy infiltrates bilaterally. Hospitalist was called to admit the patient for bilateral community-acquired pneumonia and recent fall with head trauma and bleeding of the scalp not requiring sutures, in the setting of chronic Eliquis. Mechanical fall -Resulting in head trauma with scalp bleeding having of chronic Eliquis use -abated without intervention, not require stitches -Assisted ambulation fall precautions PT OT evaluation -Hold anticoagulation for 1 day resume in the morning if no other issues overnight Scalp bleeding status post head trauma from mechanical fall in the setting of chronic Eliquis use -CT head negative for intracranial hemorrhage or subdural hematoma -Hold Eliquis for 24 hours resume in the morning Bilateral community-acquired multifocal pneumonia -Check MRSA screen, urine streptococcal antigen, Legionella antigen, 2 sets of blood cultures, sputum culture -On ceftriaxone and doxycycline for 7 days -COVID-19 negative. Check inflammatory markers -Not hypoxic, no need for supplemental oxygen -Nebulizers every 4 and nightly as needed diastolic congestive heart failure ejection fraction 65% with preserved systolic function -Compensated -Strict I's and O's, daily weights, fluid restriction 1.5 liters daily -Resumed home medications Hyponatremia -Check serum and urine osmolarity, urine sodium -Serial metabolic panel every 6 hours -Sodium chloride tablets 3 times daily with meals -Monitor for mental status changes Acute decompensated COPD exacerbation -Solu-Medrol IV every every 12 hours -IV ceftriaxone and IV doxycycline -Bronchodilators History of alcohol abuse -[facility] protocol -Multivitamin thiamine and folate Chronic atrial fib -Rate controlled resumed on home medications. -Hold Eliquis due to recent scalp bleeding from the mechanical fall and head trauma -May resume Eliquis in the morning if no other issues overnight Gout -Chronic Iron deficiency anemia -Chronic Severe pulmonary hypertension -Complicating care Hypertension -Controlled Dyslipidemia -Chronic BPH -Resume home meds Tobacco use - cessation counseling CODE STATUS full code Diet regular DVT prophylaxis: Compression stockings while off Eliquis due to recent scalp bleed Vital Signs Vital Signs Date Time Temp Pulse Resp B/P (MAP) Pulse Ox O2 Delivery O2 Flow Rate FiO2 03/29/21 14:29 72 140/63 (88) 72 131/63 (85) 74 150/67 (94) 03/29/21 13:47 98.9 24 95 Room Air Laboratory Data Labs 24H Laboratory Tests 2 03/29/21 13:55: Immature Granulocyte % (Auto) 0.7, Neutrophils (%) (Auto) 87.3H, Lymphocytes (%) (Auto) 3.8L, Monocytes (%) (Auto) 7.8, Eosinophils (%) (Auto) 0.2, Basophils (%) (Auto) 0.2, Neutrophils # (Auto) 16.8H, Lymphocytes # (Auto) 0.7L, Monocytes # (Auto) 1.5H, Eosinophils # (Auto) 0.0, Basophils # (Auto) 0.0, Nucleated Red Blo od Cells % (auto) 0.0, Anion Gap 11, Glomerular Filtration Rate > 60.0, Calcium Level 9.0 03/29/21 14:24: POC Troponin I (Misc) 0.02 CBC/BMP Laboratory Tests 03/29/21 13:55 Microbiology Microbiology 03/29/21 Respiratory Virus Panel (PCR) ([facility]), Received Pending 03/29/21 Blood Culture, Received Pending 03/29/21 Blood Culture, Received Pending Home Medications Scheduled Allopurinol (Allopurinol) 100 Mg Tablet, 100 MG PO BID TAKES WITH BREAKFAST AND DINNER Apixaban (Eliquis) 5 Mg Tab, 5 MG PO BID Atorvastatin Calcium (Atorvastatin Calcium) 40 Mg Tablet, 20 MG PO DAILY Budesonide/Formoterol (Symbicort 160-4.5 Mcg Inhaler) 60 Puff/Inhaler Aers, 2 PUFF INH BID Calcium Carbonate (Calcium) 500 Mg Chw, 1,000 MG PO WM Docusate Sodium (Colace) 100 Mg Capsule, 100 MG PO BID Ferrous Gluconate (Ferrous Gluconate) 324 Mg Tablet, 324 MG PO BID Folic Acid (Folic Acid) 1 Mg Tab, 1 MG PO DAILY Magnesium Chloride (Mag64) 64 Mg Tablet.dr, 64 MG PO BID Multivitamins (Thera M Plus Tablet) 1 Tab Tab, 1 TAB PO BID Prednisone (Prednisone) 20 Mg Tablet, 2 TAB PO DAILY Spironolactone (Spironolactone) 25 Mg Tablet, 25 MG PO DAILY Tamsulosin HCl (Flomax) 0.4 Mg Cap, 0.4 MG PO QHS Tiotropium Basco (Spiriva Respimat) 4 Gm Mist.inhal, 2 PUFF INH DAILY Torsemide (Torsemide) 20 Mg Tablet, 10 MG PO BID Verapamil HCl (Verapamil HCl) 80 Mg Tablet, 80 MG PO TID TAKES AT 0200, 1000, 1800 Scheduled PRN Acetaminophen (Tylenol) 325 Mg Tablet, 325 MG PO Q4H PRN for PAIN Albuterol Sulfate (Ventolin Hfa) 18 Gm Hfa.aer.ad, 2 PUFF INH QID PRN for SHORTNESS OF BREATH Albuterol Sulfate (Albuterol Sulfate) 2.5 Mg/0.5 Ml Vial.neb, 1 VIAL NEB Q4H PRN for SOB/WHEEZING Sennosides (Senna Lax) 8.6 Mg Tablet, 8.6 MG PO DAILY PRN for CONSTIPATION Allergies Coded Allergies: No Known Allergies (Unverified , 09/28/18) A-FIB/CHADSVASC A-FIB History Current/History of A-Fib/PAF?: Yes Current PO Anticoag Therapy: No Age/Risk Factor Scoring CHADSVASC: CHADSVASC Response (Comments) Value Age Risk Factor Age >/= 75 years old 2 Gender Risk Factor Male 0 Hx of CHF Yes 1 Hx of HTN Yes 1 Hx of Stroke/TIA/or VTE No 0 Hx of Diabetes No 0 Hx of Vascular Disease No 0 Total 4 Treatment Treatment ordered: NONE Reason Anticoagulant not given: Current bleeding CONY RIVERA MD Mar 29, 2021 16:12
[2021-03-29 16:46] LABS: ERYTHROCYTE SEDIMENTATION RATE 35 mm/hr (0-20)
[2021-03-29 17:01] LABS: NT-PRO BNP 1426 PG/ML (<450)
[2021-03-29 17:06] LABS: FIBRINOGEN 547 MG/DL (268-480); INR 1.08; PARTIAL THROMBOPLASTIN TIME 37.9 SECONDS (25.9-37.0); PROTHROMBIN TIME 14.4 SECONDS (12.7-14.5)
[2021-03-29 17:28] LABS: D-DIMER QUANT > 4000 ng/ml (<500)
[2021-03-29] MEDS ORDERED: HOME MED LIST COMPLETE! XX SCH (17:35)
[2021-03-29] MEDS: cefTRIAXone SOD 2 GM in D5W MINI-BAG PLUS 50 ML IV SCH (18:33)
--- NOTE | 2021-03-29 18:46 | ECGEPIP ---
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
[2021-03-29] MEDS ORDERED: SENNA 8.6 MG TAB (SENOKOT) PO PRN (18:50)
[2021-03-29] MEDS ORDERED: ALBUTEROL 90 MCG/ACT 8GM HFA INHALER INH PRN (18:50)
[2021-03-29 20:11] VITALS: BP 139/77
[2021-03-29] MEDS: DOXYCYCLINE HYCLATE 100 MG in D5W MINI-BAG PLUS 100 ML IV SCH (20:34)
[2021-03-29] MEDS: predniSONE 20 MG TAB PO SCH (20:35)
[2021-03-29] MEDS: FERROUS GLUCONATE 324 MG TAB PO SCH (20:35)
[2021-03-29] MEDS: TAMSULOSIN 0.4 MG CAP PO SCH (20:35)
[2021-03-29] MEDS: MULTIVITAMINS/MINERALS THERAP 1 TAB PO SCH (20:35)
[2021-03-29] MEDS: allopurinoL 100 MG TAB PO SCH (20:35)
[2021-03-29] MEDS: TORSEMIDE 10 MG TABLET PO SCH (20:35)
[2021-03-29] MEDS: APIXABAN 5 MG TAB (ELIQUIS) PO SCH (20:35)
[2021-03-29] MEDS: SYMBICORT 160/4.5MCG INHALER 6GM INH SCH (20:54)
[2021-03-29] MEDS: SODIUM CHLORIDE 1 GM TAB PO SCH (21:46)
[2021-03-29] MEDS: VERAPAMIL 80MG TABLET PO SCH (21:46)
[2021-03-29 22:11] LABS: SODIUM,RANDOM URINE 37 MEQ/L
[2021-03-29 22:15] LABS: OSMOLALITY URINE 166 MOSM/KG (50-1400)
[2021-03-30] MEDS: VERAPAMIL 80MG TABLET PO SCH ×3 (02:38→17:16)
[2021-03-30 02:39] VITALS: BP 133/76
[2021-03-30 04:00] VITALS: BP 137/61
[2021-03-30 05:59] LABS: HEMATOCRIT 34.9 % (42.0-52.0); HEMOGLOBIN 12.3 g/dl (13.5-17.5); LYMPH # 0.4 10^3/uL (1.5-5.0); LYMPH % 3.7 % (24.0-44.0); MEAN CORPUSCULAR HEMOGLOBIN 31.3 pg (27.0-33.0); MEAN CORPUSCULAR HGB CONC 35.2 g/dl (32.0-36.5); MEAN CORPUSCULAR VOLUME 88.8 fl (80.0-96.0); MONO # 0.5 10^3/uL (0.0-0.8); MONO % 4.9 % (2.0-8.0); NEUTROPHILS # 8.7 10^3/uL (1.5-8.5); NEUTROPHILS % 90.8 % (36.0-66.0); PLATELET COUNT, AUTOMATED 393 10^3/uL (150-450); RED BLOOD COUNT 3.93 10^6/uL (4.30-6.10); WHITE BLOOD COUNT 9.6 10^3/uL (4.0-10.0)
[2021-03-30 06:16] LABS: BLOOD UREA NITROGEN 14 MG/DL (7-18); CARBON DIOXIDE LEVEL 27 MEQ/L (21-32); CHLORIDE LEVEL 88 MEQ/L (98-107); CREATININE FOR GFR 0.75 MG/DL (0.70-1.30); GLOMERULAR FILTRATION RATE > 60.0 (>42); GLUCOSE, FASTING 133 MG/DL (70-100); POTASSIUM SERUM 4.6 MEQ/L (3.5-5.1); SODIUM LEVEL 123 MEQ/L (136-145)
[2021-03-30] MEDS: SYMBICORT 160/4.5MCG INHALER 6GM INH SCH ×2 (07:15→19:59)
[2021-03-30] MEDS: DOXYCYCLINE HYCLATE 100 MG in D5W MINI-BAG PLUS 100 ML IV SCH ×2 (08:19→21:12)
[2021-03-30] MEDS: FERROUS GLUCONATE 324 MG TAB PO SCH ×2 (08:21→21:12)
[2021-03-30] MEDS: allopurinoL 100 MG TAB PO SCH ×2 (08:21→17:15)
[2021-03-30] MEDS: APIXABAN 5 MG TAB (ELIQUIS) PO SCH ×2 (08:21→21:12)
[2021-03-30] MEDS: ATORVASTATIN 20 MG TAB PO SCH (08:21)
[2021-03-30] MEDS: FOLIC ACID 1 MG TAB PO SCH (08:21)
[2021-03-30] MEDS: TORSEMIDE 10 MG TABLET PO SCH ×2 (08:22→17:15)
[2021-03-30] MEDS: SODIUM CHLORIDE 1 GM TAB PO SCH ×3 (08:22→21:12)
[2021-03-30] MEDS: predniSONE 20 MG TAB PO SCH (08:22)
[2021-03-30] MEDS: MULTIVITAMINS/MINERALS THERAP 1 TAB PO SCH ×2 (08:22→21:12)
[2021-03-30] MEDS ORDERED: SPIRONOLACTONE 25 MG TAB PO SCH (09:00)
[2021-03-30] MEDS ORDERED: FLUBLOK(EGG FREE)(QUAD)INFLUENZA VACC 0.5ML SYRINGE 18YRS & OLDER IM ONE (09:00)
[2021-03-30 14:41] VITALS: BP 152/77
--- NOTE | 2021-03-30 15:57 | IPNPDOC ---
Text Note Date of Service The patient was seen on 03/30/21. NOTE Subjective: 75-year-old male presented to the ED after following a fall, with trauma to his head. Denied loosing consciousness. CT-scan of the chest noted moderate consolidations in the apical left lower lobe with small patchy bilateral opacities concerning for multifocal pneumonia. Patient was seen and examined at bedside this morning. He reported feeling short of breath for the last several weeks which has been worsening and he attributes his fall to this. He reports some improvement in his breathing but does not feel he is back at baseline. He was on 2 L nasal cannula, which he does not use at home. He denied chest pain, abdominal pain, nausea, vomiting, problem with urination and bowel movements. Review of systems: 10 point review of system was negative except for what is noted in the HPI Physical exam: General: Lying in bed, no acute distress Head/Neck/Throat: Trachea midline, mucous membranes moist Eyes: Sclera anicteric, erythema or discharge appreciated bilaterally Thorax: Normal respiratory effort on 2 L nasal cannula. Bilateral wheezing Cardiovascular: Normal rate, irregularly irregular rhythm, normal S1, S2 Abdomen: Bowel sounds present, soft/nontender/nondistended Genitourinary: No CVA tenderness, no Hodge in place Musculoskeletal: Moving all extremities, no edema Skin: Warm, dry Neurologic: AAOx3. Has hard time recollecting past medical history and course of events. Labs: See below Imaging: Please see imaging section Assessment/plan: 75-year-old male presented emergency room department after losing his balance today and falling backwards hitting his head against a night dresser. He attributes his fall to his dyspnea that has been worsening over the last several weeks. He has a chronic cough, which has recently increased in production. His sputum remains clear. A CT scan of the chest was done that noted findings con sistent with multifocal pneumonia. #Mechanical fall -Denies losing consciousness. There was superficial laceration to the scalp which did not require any stitches. CT scan of the head was negative. -PT/OT #Scalp laceration -CT scan that is negative. No signs of bleeding or stitches required. #Multifocal pneumonia -Worsening shortness of breath, increased sputum production, and CT-scan findin gs are consistent with PNA. Although procalcitonin levels are wnl, there is clinical suspicion for pna, thus will continue with antibiotics. #COPD exacerbation -Wheezing this morning with some bronchospasm. Will switch po steroids to iv, and start DuoNebs in addition to his ambulatory Symbicort. #Pulmonary hypertension -Complicates care #Electrolyte abnormality -History of chronic hyponatremia - baseline 128-130. It is hypotonic hyponatremia, will hold diuretics and monitor sodium. #Diastolic congestive heart failure -No signs of acute exacerbation. Hold diuretics due to hyponatremia. Continue monitor I/os. #Chronic a.fib -Rate controlled with verapamil; Eliquis was resumed. #Iron deficiency anemia -Chronic, continue with iron supplementation #Gout -Continue w/ allopurinol #BPH -Tamsulosin #Etoh abuse -CIWA this morning was 0. Continue with ciwa protocol, multivitamins, folic acid, and thiamine #Nicotine use -nicotine patch #DVT ppx -offered by apixaban Disposition: Pending respiratory status improvement VS,Fishbone, I+O VS, Fishbone, I+O Laboratory Tests 03/30/21 05:40 Vital Signs Date Time Temp Pulse Resp B/P (MAP) Pulse Ox O2 Delivery O2 Flow Rate FiO2 03/30/21 09:04 74 133/62 03/30/21 09:00 2.0 03/30/21 04:00 97.3 20 96 Nasal Cannula I&O- Last 24 Hours up to 6 AM 03/30/21 06:00 Intake Total 530 ml Output Total 500 ml Balance 30 ml MEDHAT RUSSO M.D. Mar 30, 2021 15:57
[2021-03-30] MEDS: cefTRIAXone SOD 2 GM in D5W MINI-BAG PLUS 50 ML IV SCH (17:15)
[2021-03-30] MEDS: methylPREDNISolone 40MG 1ML VIAL IV SCH (17:15)
[2021-03-30 20:00] VITALS: BP 122/74
[2021-03-30] MEDS: IPRATROPIUM 0.5MG/ALBUTEROL 2.5MG INH SOL UD 3ML (DUONEB) NEB SCH ×2 (20:01→23:35)
[2021-03-30] MEDS: TAMSULOSIN 0.4 MG CAP PO SCH (21:12)
[2021-03-30 22:00] VITALS: BP 122/74
[2021-03-31] VITALS: BP 130/74
[2021-03-31] MEDS: VERAPAMIL 80MG TABLET PO SCH ×3 (00:56→17:42)
[2021-03-31] MEDS: IPRATROPIUM 0.5MG/ALBUTEROL 2.5MG INH SOL UD 3ML (DUONEB) NEB SCH ×5 (03:16→19:53)
[2021-03-31 04:00] VITALS: BP 146/72
[2021-03-31] MEDS: methylPREDNISolone 40MG 1ML VIAL IV SCH ×2 (05:53→17:41)
[2021-03-31] MEDS: SYMBICORT 160/4.5MCG INHALER 6GM INH SCH ×2 (07:19→19:54)
[2021-03-31 07:23] LABS: BASO % 0.1 % (0.0-1.0); HEMOGLOBIN 12.7 g/dl (13.5-17.5); LYMPH # 0.5 10^3/uL (1.5-5.0); LYMPH % 4.5 % (24.0-44.0); MEAN CORPUSCULAR HEMOGLOBIN 31.8 pg (27.0-33.0); MEAN CORPUSCULAR HGB CONC 35.3 g/dl (32.0-36.5); MEAN CORPUSCULAR VOLUME 90.2 fl (80.0-96.0); MONO # 0.6 10^3/uL (0.0-0.8); NEUTROPHILS # 8.9 10^3/uL (1.5-8.5); NEUTROPHILS % 88.8 % (36.0-66.0); PLATELET COUNT, AUTOMATED 422 10^3/uL (150-450); RED BLOOD COUNT 3.99 10^6/uL (4.30-6.10)
[2021-03-31 07:45] LABS: MAGNESIUM LEVEL 2.2 MG/DL (1.8-2.4); PHOSPHORUS LEVEL 3.6 MG/DL (2.5-4.9)
[2021-03-31 08:01] LABS: BLOOD UREA NITROGEN 21 MG/DL (7-18); CARBON DIOXIDE LEVEL 27 MEQ/L (21-32); CHLORIDE LEVEL 94 MEQ/L (98-107); CREATININE FOR GFR 0.73 MG/DL (0.70-1.30); GLOMERULAR FILTRATION RATE > 60.0 (>42); GLUCOSE, FASTING 138 MG/DL (70-100); POTASSIUM SERUM 4.5 MEQ/L (3.5-5.1); SODIUM LEVEL 129 MEQ/L (136-145)
[2021-03-31] MEDS: allopurinoL 100 MG TAB PO SCH ×2 (08:48→17:42)
[2021-03-31] MEDS: FERROUS GLUCONATE 324 MG TAB PO SCH ×2 (08:48→19:56)
[2021-03-31] MEDS: MULTIVITAMINS/MINERALS THERAP 1 TAB PO SCH ×2 (08:48→19:56)
[2021-03-31] MEDS: APIXABAN 5 MG TAB (ELIQUIS) PO SCH ×2 (08:48→19:56)
[2021-03-31] MEDS: DOXYCYCLINE HYCLATE 100 MG in D5W MINI-BAG PLUS 100 ML IV SCH ×2 (08:48→19:57)
[2021-03-31] MEDS: FOLIC ACID 1 MG TAB PO SCH (08:48)
[2021-03-31] MEDS: ATORVASTATIN 20 MG TAB PO SCH (08:48)
--- NOTE | 2021-03-31 09:49 | IPNPDOC ---
Text Note Date of Service The patient was seen on 03/31/21. NOTE Subjective: 75-year-old male presented to the ED after following a fall, with trauma to his head. Denied loosing consciousness. CT-scan of the chest noted moderate consolidations in the apical left lower lobe with small patchy bilateral opacities concerning for multifocal pneumonia. Patient was seen and examined at bedside this morning. When asked if he feels his shortness of breath is improving, he reports he does not know as he is not trying to get out of bed. He denies chest pain, abdominal pain, nausea, vomiting, problems with urination and bowel movements. Review of systems: 10 point review of system was negative except for what is noted in the HPI Physical exam: General: Lying in bed, no acute distress Head/Neck/Throat: Trachea midline, mucous membranes moist Eyes: Sclera anicteric, erythema or discharge appreciated bilaterally Thorax: Normal respiratory effort on 2 L nasal cannula. Wheezing bilaterally, no crackles appreciated Cardiovascular: Normal rate, irregularly irregular rhythm, normal S1, S2 Abdomen: Bowel sounds present, soft/nontender/nondistended Genitourinary: No CVA tenderness, no Hodge in place Musculoskeletal: Moving all extremities, no edema Skin: Warm, dry Neurologic: AAOx3. Has hard time recollecting past medical history and course of events. Labs: See below Imaging: Please see imaging section Assessment/plan: 75-year-old male presented emergency room department after losing his balance today and falling backwards hitting his head against a night dresser. He attributes his fall to his dyspnea that has been worsening over the last several weeks. He has a chronic cough, which has recently increased in production. His sputum remains clear. A CT scan of the chest was done that noted findings consistent with multifocal pneumonia. #Mechanical fall -Denies losing consciousness. There was superficial laceration to the scalp which did not require any stitches. CT scan of the head was negative. -PT/OT #Scalp laceration -CT scan that is negative. No signs of bleeding or stitches required. #Multifocal pneumonia -Worsening shortness of breath, increased sputum production, and CT-scan findings are consistent with PNA. Although procalcitonin levels are wnl, there is clinical suspicion for pna, thus will continue with antibiotics for a total of 7 days. #COPD exacerbation -Continue with IV steroids, DuoNebs in addition to his ambulatory Symbicort. #Pulmonary hypertension -Complicates care #Electrolyte abnormality -History of chronic hyponatremia - baseline 128-130. Urine osmo > 100, and Urine Na > 30 suggestive of diuretics cause; which have been held and there has been improvement in his Na #Diastolic congestive heart failure -No signs of acute exacerbation. Once sodium improves will resume diuretics. Continue monitor I/os, and daily weights. #Chronic a.fib -Rate controlled with verapamil; Eliquis was resumed. #Iron deficiency anemia -Chronic, continue with iron supplementation #Gout -Continue w/ allopurinol #BPH -Continue with tamsulosin #Etoh abuse -CIWA this morning was 0. Continue with ciwa protocol, multivitamins, folic acid, and thiamine #Nicotine use -nicotine patch #DVT ppx -offered by apixaban Disposition: Pending respiratory status improvement VS,Fishbone, I+O VS, Fishbone, I+O Laboratory Tests 03/31/21 07:00 Vital Signs Date Time Temp Pulse Resp B/P (MAP) Pulse Ox O2 Delivery O2 Flow Rate FiO2 03/31/21 04:00 97.5 84 19 146/72 (96) 98 Nasal Cannula 2.0 I&O- Last 24 Hours up to 6 AM 03/31/21 06:00 Intake Total 360 ml Output Total 1350 ml Balance -990 ml MEDHAT RUSSO M.D. Mar 31, 2021 09:49
[2021-03-31] MEDS: cefTRIAXone SOD 2 GM in D5W MINI-BAG PLUS 50 ML IV SCH (16:52)
[2021-03-31] MEDS: TAMSULOSIN 0.4 MG CAP PO SCH (19:56)
[2021-03-31 22:00] VITALS: BP 131/70
[2021-04-01] MEDS: IPRATROPIUM 0.5MG/ALBUTEROL 2.5MG INH SOL UD 3ML (DUONEB) NEB SCH ×7 (00:21→23:39)
[2021-04-01] MEDS: VERAPAMIL 80MG TABLET PO SCH ×3 (01:01→17:22)
[2021-04-01 06:00] VITALS: BP 146/75
[2021-04-01] MEDS: methylPREDNISolone 40MG 1ML VIAL IV SCH ×2 (06:03→17:23)
[2021-04-01] MEDS: SYMBICORT 160/4.5MCG INHALER 6GM INH SCH ×2 (07:12→19:35)
[2021-04-01 07:59] LABS: BASO % 0.1 % (0.0-1.0); HEMATOCRIT 35.9 % (42.0-52.0); HEMOGLOBIN 12.3 g/dl (13.5-17.5); LYMPH # 0.4 10^3/uL (1.5-5.0); LYMPH % 3.4 % (24.0-44.0); MEAN CORPUSCULAR HEMOGLOBIN 31.2 pg (27.0-33.0); MEAN CORPUSCULAR HGB CONC 34.3 g/dl (32.0-36.5); MEAN CORPUSCULAR VOLUME 91.1 fl (80.0-96.0); MONO # 0.6 10^3/uL (0.0-0.8); MONO % 4.7 % (2.0-8.0); NEUTROPHILS # 11.6 10^3/uL (1.5-8.5); NEUTROPHILS % 91.1 % (36.0-66.0); PLATELET COUNT, AUTOMATED 439 10^3/uL (150-450); RED BLOOD COUNT 3.94 10^6/uL (4.30-6.10); WHITE BLOOD COUNT 12.7 10^3/uL (4.0-10.0)
[2021-04-01] MEDS: APIXABAN 5 MG TAB (ELIQUIS) PO SCH ×2 (08:14→20:17)
[2021-04-01] MEDS: DOXYCYCLINE HYCLATE 100 MG in D5W MINI-BAG PLUS 100 ML IV SCH ×2 (08:14→20:17)
[2021-04-01] MEDS: FOLIC ACID 1 MG TAB PO SCH (08:14)
[2021-04-01] MEDS: allopurinoL 100 MG TAB PO SCH ×2 (08:14→17:22)
[2021-04-01] MEDS: MULTIVITAMINS/MINERALS THERAP 1 TAB PO SCH ×2 (08:15→20:17)
[2021-04-01] MEDS: FERROUS GLUCONATE 324 MG TAB PO SCH ×2 (08:15→20:17)
[2021-04-01] MEDS: ATORVASTATIN 20 MG TAB PO SCH (08:15)
[2021-04-01 08:23] LABS: BLOOD UREA NITROGEN 21 MG/DL (7-18); CALCIUM LEVEL 9.5 MG/DL (8.8-10.2); CARBON DIOXIDE LEVEL 28 MEQ/L (21-32); CHLORIDE LEVEL 97 MEQ/L (98-107); CREATININE FOR GFR 0.74 MG/DL (0.70-1.30); GLOMERULAR FILTRATION RATE > 60.0 (>42); GLUCOSE, FASTING 156 MG/DL (70-100); MAGNESIUM LEVEL 2.4 MG/DL (1.8-2.4); PHOSPHORUS LEVEL 3.2 MG/DL (2.5-4.9); POTASSIUM SERUM 4.2 MEQ/L (3.5-5.1); SODIUM LEVEL 132 MEQ/L (136-145)
[2021-04-01] MEDS ORDERED: FUROSEMIDE 20MG/2ML VIAL (J1940) IV ONE (08:40)
--- NOTE | 2021-04-01 08:43 | IPNPDOC ---
Text Note Date of Service The patient was seen on 04/01/21. NOTE Subjective: 75-year-old male presented to the ED after following a fall, with trauma to his head. Denied loosing consciousness. CT-scan of the chest noted moderate consolidations in the apical left lower lobe with small patchy bilateral opacities concerning for multifocal pneumonia. Patient was seen and examined at bedside this morning. He reports some improvement in his breathing but has not been able to come off of supplemental oxygen. He was able to get out of bed and walk, but reported having to have a break due to feeling short of breath. Review of systems: 10 point review of system was negative except for what is noted in the HPI Physical exam: General: Lying in bed, no acute distress Head/Neck/Throat: Trachea midline, mucous membranes moist Eyes: Sclera anicteric, erythema or discharge appreciated bilaterally Thorax: Normal respiratory effort on 2 L nasal cannula. wheezing appreciated b/l. No crackles appreciated. Cardiovascular: Normal rate, irregularly irregular rhythm, normal S1 and s2. Mild pedal edema Abdomen: Bowel sounds present, soft/nontender/nondistended Genitourinary: No CVA tenderness, no Hodge in place Musculoskeletal: Moving all extremities, Skin: Warm, dry Neurologic: AAOx3. Labs: See below Imaging: Please see imaging section Assessment/plan: 75-year-old male presented emergency room department after losing his balance today and falling backwards hitting his head against a night dresser. He attributes his fall to his dyspnea that has been worsening over the last several weeks. He has a chronic cough, which has recently increased in production. His sputum remains clear. A CT scan of the chest was done that noted findings consistent with multifocal pneumonia. #Mechanical fall -Denies losing consciousness. There was superficial laceration to the scalp which did not require any stitches. CT scan of the head was negative. -PT/OT #Scalp laceration -CT scan that is negative. No signs of bleeding or stitches required. #Multifocal pneumonia -Worsening shortness of breath, increased sputum production, and CT-scan findings are consistent with PNA. Although procalcitonin levels are wnl, there is clinical suspicion for pna, thus will continue with antibiotics for a total of 7 days. #COPD exacerbation -continues to wheeze, will increase steroids to q8 hours for today. C/w DuoNeb in addition to his ambulatory Symbicort. -02 protocol, with sp02 goal of 88-92% #Pulmonary hypertension -Complicates care #Electrolyte abnormality -Hyponatremia continues to improve, this was likely due to his diuretics use. #Diastolic congestive heart failure -No signs of acute exacerbation. However, there is mild pedal edema appreciated today, thus will give furesomide x 1 considering Na has improved. Continue monitor I/os, and daily weights. #Chronic a.fib -Rate controlled with verapamil; Eliquis was resumed. #Iron deficiency anemia -Chronic, continue with iron supplementation #Gout -Continue w/ allopurinol #BPH -Continue with tamsulosin #Etoh abuse -CIWA this morning was 0. Continue with ciwa protocol, multivitamins, folic acid, and thiamine #Nicotine use -nicotine patch #DVT ppx -offered by apixaban Disposition: Pending respiratory status improvement VS,Fishbone, I+O VS, Fishbone, I+O Laboratory Tests 04/01/21 07:43 Vital Signs Date Time Temp Pulse Resp B/P (MAP) Pulse Ox O2 Delivery O2 Flow Rate FiO2 04/01/21 08:15 77 146/75 04/01/21 06:00 97.3 24 98 Nasal Cannula 2.0 I&O- Last 24 Hours up to 6 AM 04/01/21 06:00 Intake Total 1320 ml Output Total 725 ml Balance 595 ml MEDHAT RUSSO M.D. Apr 01, 2021 08:43
[2021-04-01] MEDS ORDERED: methylPREDNISolone 40MG 1ML VIAL IV SCH (09:00)
[2021-04-01 09:20] LABS: OSMOLALITY SERUM 292 MOSM/KG (280-301)
[2021-04-01 14:00] VITALS: BP 147/76
[2021-04-01] MEDS: MONTELUKAST 10 MG TAB PO SCH (14:11)
[2021-04-01 15:39] LABS: OSMOLALITY URINE 367 MOSM/KG (50-1400)
[2021-04-01 15:42] LABS: SODIUM,RANDOM URINE 40 MEQ/L
[2021-04-01] MEDS: cefTRIAXone SOD 2 GM in D5W MINI-BAG PLUS 50 ML IV SCH (17:23)
[2021-04-01] MEDS: TAMSULOSIN 0.4 MG CAP PO SCH (20:17)
[2021-04-01 22:00] VITALS: BP 146/73
[2021-04-02] MEDS: methylPREDNISolone 40MG 1ML VIAL IV SCH ×3 (01:19→17:23)
[2021-04-02] MEDS: VERAPAMIL 80MG TABLET PO SCH ×3 (01:22→17:26)
[2021-04-02 01:30] VITALS: BP 150/88
[2021-04-02] MEDS: IPRATROPIUM 0.5MG/ALBUTEROL 2.5MG INH SOL UD 3ML (DUONEB) NEB SCH ×6 (03:18→23:37)
[2021-04-02 06:00] VITALS: BP 148/87
[2021-04-02 06:43] LABS: HEMATOCRIT 35.8 % (42.0-52.0); HEMOGLOBIN 12.2 g/dl (13.5-17.5); LYMPH # 0.4 10^3/uL (1.5-5.0); LYMPH % 3.7 % (24.0-44.0); MEAN CORPUSCULAR HEMOGLOBIN 31.3 pg (27.0-33.0); MEAN CORPUSCULAR HGB CONC 34.1 g/dl (32.0-36.5); MEAN CORPUSCULAR VOLUME 91.8 fl (80.0-96.0); MONO # 0.6 10^3/uL (0.0-0.8); MONO % 4.7 % (2.0-8.0); NEUTROPHILS # 10.7 10^3/uL (1.5-8.5); NEUTROPHILS % 90.9 % (36.0-66.0); PLATELET COUNT, AUTOMATED 413 10^3/uL (150-450); WHITE BLOOD COUNT 11.7 10^3/uL (4.0-10.0)
[2021-04-02 07:07] LABS: BLOOD UREA NITROGEN 23 MG/DL (7-18); CALCIUM LEVEL 9.3 MG/DL (8.8-10.2); CARBON DIOXIDE LEVEL 28 MEQ/L (21-32); CHLORIDE LEVEL 97 MEQ/L (98-107); CREATININE FOR GFR 0.77 MG/DL (0.70-1.30); GLOMERULAR FILTRATION RATE > 60.0 (>42); GLUCOSE, FASTING 141 MG/DL (70-100); MAGNESIUM LEVEL 2.4 MG/DL (1.8-2.4); PHOSPHORUS LEVEL 2.9 MG/DL (2.5-4.9); POTASSIUM SERUM 4.4 MEQ/L (3.5-5.1); SODIUM LEVEL 132 MEQ/L (136-145)
[2021-04-02] MEDS: SYMBICORT 160/4.5MCG INHALER 6GM INH SCH ×2 (07:41→20:05)
[2021-04-02] MEDS: MONTELUKAST 10 MG TAB PO SCH (08:40)
[2021-04-02] MEDS: allopurinoL 100 MG TAB PO SCH ×2 (08:40→17:23)
[2021-04-02] MEDS: FERROUS GLUCONATE 324 MG TAB PO SCH ×2 (08:40→20:29)
[2021-04-02] MEDS: DOXYCYCLINE HYCLATE 100 MG in D5W MINI-BAG PLUS 100 ML IV SCH (08:40)
[2021-04-02] MEDS: APIXABAN 5 MG TAB (ELIQUIS) PO SCH ×2 (08:40→20:29)
[2021-04-02] MEDS: FOLIC ACID 1 MG TAB PO SCH (08:40)
[2021-04-02] MEDS: ATORVASTATIN 20 MG TAB PO SCH (08:40)
[2021-04-02] MEDS: MULTIVITAMINS/MINERALS THERAP 1 TAB PO SCH ×2 (08:40→20:29)
[2021-04-02] MEDS: CEFUROXIME 500 MG TAB PO SCH ×3 (09:00→20:29)
--- NOTE | 2021-04-02 09:07 | IPNPDOC ---
Text Note Date of Service The patient was seen on 04/02/21. NOTE Subjective: 75-year-old male presented to the ED after following a fall, with trauma to his head. Denied loosing consciousness. CT-scan of the chest noted moderate consolidations in the apical left lower lobe with small patchy bilateral opacities concerning for multifocal pneumonia. Patient was seen and examined at bedside this morning. He reports some improvement in his breathing and was able to come off his oxygen. He was in good spirits, and wanted to go for a walk in the halls to see if he became short of breath. He denies chest pain, abd pain, n/v. Review of systems: 10 point review of system was negative except for what is noted in the HPI Physical exam: General: Lying in bed, no acute distress Head/Neck/Throat: Trachea midline, mucous membranes moist Eyes: Sclera anicteric, erythema or discharge appreciated bilaterally Thorax: Normal respiratory effort on room air. mild wheezing appreciated b/l. No crackles appreciated. Cardiovascular: Normal rate, irregularly irregular rhythm, normal S1 and s2. Mild pedal edema Abdomen: Bowel sounds present, soft/nontender/nondistended Genitourinary: No CVA tenderness, no Hodge in place Musculoskeletal: Moving all extremities, Skin: Warm, dry Neurologic: AAOx3. Labs: See below Imaging: Please see imaging section Assessment/plan: 75-year-old male presented emergency room department after losing his balance today and falling backwards hitting his head against a night dresser. He attributes his fall to his dyspnea that has been worsening over the last several weeks. He has a chronic cough, which has recently increased in production. His sputum remains clear. A CT scan of the chest was done that noted findings consistent with multifocal pneumonia. #Mechanical fall -Denies losing consciousness. There was superficial laceration to the scalp which did not require any stitches. CT scan of the head was negative. -PT/OT #Scalp laceration -CT scan that is negative. No signs of bleeding or stitches required. #Multifocal pneumonia -Had worsening shortness of breath, increased sputum production, and CT-scan findings are consistent with PNA. Although procalcitonin levels are wnl, there is clinical suspicion for pna, thus will continue with antibiotics for a total of 7 days. #COPD exacerbation -Doing better with increased steroids will keep it at q8 hours today, and began to taper tomorrow. C/w DuoNeb in addition to his ambulatory Symbicort. -02 protocol, with sp02 goal of 88-92% #Pulmonary hypertension -Complicates care #Electrolyte abnormality -He has chronic hyponatremia, and his sodium now is at baseline. Upon discharge we will hold his spironolactone. #Diastolic congestive heart failure -No signs of acute exacerbation. Resume ambulatory . Continue monitor I/os, and daily weights. #Chronic a.fib -Rate controlled with verapamil; Eliquis was resumed. #Iron deficiency anemia -Chronic, continue with iron supplementation #Gout -Continue w/ allopurinol #BPH -Continue with tamsulosin #Etoh abuse -CIWA this morning was 0. Continue with ciwa protocol, multivitamins, folic acid, and thiamine #Nicotine use -nicotine patch #DVT ppx -offered by apixaban Disposition: Pending respiratory status improvement VS,Fishbone, I+O VS, Fishbone, I+O Laboratory Tests 04/02/21 06:28 Vital Signs Date Time Temp Pulse Resp B/P (MAP) Pulse Ox O2 Delivery O2 Flow Rate FiO2 04/02/21 08:40 81 148/87 04/02/21 06:00 97.3 18 91 Room Air 04/01/21 22:00 I&O- Last 24 Hours up to 6 AM 04/02/21 06:00 Intake Total 1660 ml Output Total 1725 ml Balance -65 ml MEDHAT RUSSO M.D. Apr 02, 2021 09:07
[2021-04-02] MEDS: TORSEMIDE 10 MG TABLET PO SCH ×2 (10:26→17:23)
--- NOTE | 2021-04-02 11:55 | REP ---
INDICATION: r/o PE COMPARISON: Standard helical CT of the chest without contrast dated 03/29/2021 the latest prior TECHNIQUE: CT angiography of the chest attention pulmonary arteries after the intravenous administration of 75 cc Isovue 370. FINDINGS: There is excellent visualization of the pulmonary arterial vasculature. There are no focal filling defects present that would be considered consistent with acute pulmonary emboli. There is no gross abnormality seen involving the thoracic aorta. The mediastinum and pulmonary jony appear stable. There are no pleural or pericardial effusions. There is no significant change in appearance of the imaged osseous structures. There are spinal degenerative changes status quo. Evaluation of the lung lopez shows improved patchy airspace opacities in the superior segment of the left lower lobe. Improved airspace opacities are also seen in the inferior lingula and inferior right middle lobe. No new abnormal nodules, masses, or opacities have developed. IMPRESSION: 1. There is no evidence of a pulmonary embolism. 2. Improved lung field findings as described above. 3. There is mild stable appearing adenopathy. <Electronically signed by David Conteh > 04/02/21 0688
[2021-04-02 14:00] VITALS: BP 149/86
[2021-04-02] MEDS: DOXYCYCLINE HYCLATE 100MG TABLET PO SCH (17:23)
[2021-04-02] MEDS: TAMSULOSIN 0.4 MG CAP PO SCH (20:29)
[2021-04-02 22:00] VITALS: BP 164/82
[2021-04-03] MEDS: VERAPAMIL 80MG TABLET PO SCH ×2 (01:02→09:07)
[2021-04-03] MEDS: methylPREDNISolone 40MG 1ML VIAL IV SCH ×2 (01:02→09:03)
[2021-04-03] MEDS: IPRATROPIUM 0.5MG/ALBUTEROL 2.5MG INH SOL UD 3ML (DUONEB) NEB SCH ×4 (04:32→15:13)
[2021-04-03 04:50] VITALS: BP 120/76
[2021-04-03] MEDS: DOXYCYCLINE HYCLATE 100MG TABLET PO SCH (05:56)
[2021-04-03 06:12] LABS: BASO % 0.1 % (0.0-1.0); HEMATOCRIT 35.8 % (42.0-52.0); HEMOGLOBIN 12.1 g/dl (13.5-17.5); LYMPH # 0.4 10^3/uL (1.5-5.0); LYMPH % 4.3 % (24.0-44.0); MEAN CORPUSCULAR HEMOGLOBIN 30.9 pg (27.0-33.0); MEAN CORPUSCULAR HGB CONC 33.8 g/dl (32.0-36.5); MEAN CORPUSCULAR VOLUME 91.6 fl (80.0-96.0); MONO # 0.6 10^3/uL (0.0-0.8); MONO % 6.1 % (2.0-8.0); NEUTROPHILS # 9.1 10^3/uL (1.5-8.5); NEUTROPHILS % 88.8 % (36.0-66.0); PLATELET COUNT, AUTOMATED 405 10^3/uL (150-450); RED BLOOD COUNT 3.91 10^6/uL (4.30-6.10); WHITE BLOOD COUNT 10.2 10^3/uL (4.0-10.0)
[2021-04-03 06:32] LABS: BLOOD UREA NITROGEN 28 MG/DL (7-18); CARBON DIOXIDE LEVEL 27 MEQ/L (21-32); CHLORIDE LEVEL 97 MEQ/L (98-107); CREATININE FOR GFR 0.84 MG/DL (0.70-1.30); GLOMERULAR FILTRATION RATE > 60.0 (>42); GLUCOSE, FASTING 163 MG/DL (70-100); POTASSIUM SERUM 4.4 MEQ/L (3.5-5.1); SODIUM LEVEL 133 MEQ/L (136-145)
[2021-04-03] MEDS: SYMBICORT 160/4.5MCG INHALER 6GM INH SCH (08:35)
[2021-04-03] MEDS: MONTELUKAST 10 MG TAB PO SCH (09:03)
[2021-04-03] MEDS: APIXABAN 5 MG TAB (ELIQUIS) PO SCH (09:03)
[2021-04-03] MEDS: CEFUROXIME 500 MG TAB PO SCH (09:03)
[2021-04-03] MEDS: FOLIC ACID 1 MG TAB PO SCH (09:04)
[2021-04-03] MEDS: allopurinoL 100 MG TAB PO SCH (09:04)
[2021-04-03] MEDS: ATORVASTATIN 20 MG TAB PO SCH (09:04)
[2021-04-03] MEDS: FERROUS GLUCONATE 324 MG TAB PO SCH (09:04)
[2021-04-03] MEDS: TORSEMIDE 10 MG TABLET PO SCH (09:04)
[2021-04-03] MEDS: MULTIVITAMINS/MINERALS THERAP 1 TAB PO SCH (09:04)
[2021-04-03 09:07] VITALS: BP 120/76
[2021-04-03] MEDS ORDERED: PRED10TA2 PO (13:42)
[2021-04-03] MEDS ORDERED: CEFU50TA PO (13:42)
[2021-04-03] MEDS ORDERED: DOXY100T PO (13:42)
[2021-04-03] MEDS ORDERED: MONT10TA10 PO (13:42)
[2021-04-03 14:00] VITALS: BP 158/97
[2021-04-03 14:08] LABS: BODY FLUID CULTURE Not indicated. (.); LEGIONELLA ANTIGEN URINE Negative (Negative); ORGANISM ID Not indicated. (.); SPECIMEN SOURCE Urine (.); URINE STREP PNEUMONIAE ANTIGEN Negative (Negative)
--- NOTE | 2021-04-03 17:20 | DS.PDOC ---
Discharge Summary General Date of Admission Mar 29, 2021 at 15:33 Date of Discharge 04/03/21 Discharge Summary DISCHARGE DIAGNOSES: #Mechanical fall #Scalp laceration #Multifocal pneumonia #COPD exacerbation #Pulmonary hypertension #Electrolyte abnormality #Diastolic congestive heart failure #Chronic a.fib #Iron deficiency anemia #Gout #BPH #Etoh abuse #Nicotine use COMPLICATIONS/CHIEF COMPLAINT: Multifocal Pneumonia. HOSPITAL COURSE: Mr. Victoria, is a 75-year-old male who presented to [facility] on 03/29/2021 after losing his balance and falling backwards hitting his head on a dresser. He denied losing consciousness. He attributed his fall to being short of breath. He reported worsening dyspnea over the last several weeks. He also reported having a chronic cough which had increased in production. CT scan of the chest was done noted findings are consistent with multifocal pneumonia. There was a scalp laceration which did not require any stitches. CT scan of the head was negative. There is no focal deficits appreciated on exam during hospitalization. His pneumonia was treated with ceftriaxone and doxycycline. He was also noted to have COPD exacerbation which was secondary to his underlying pneumonia. This was treated with IV steroids and duo nebs. He initially required oxygen supplementation but was successfully weaned off and did not qualify for home O2. He was discharged home with antibiotics as well as a steroid taper. He was also started on Singulair. He was asked to follow-up with a multi punch operator for his COPD and pulmonary hypertension. Of note, he had elevated D-dimer and CTA of the chest was negative. There was mild stable appearing adenopathy that was appreciated, he is aware of this and will be following up with his primary care physician peer He was also noted to have hyponatremia. This was attributed to his toresmide and spironolactone based on osmolarity and urine studies. Once these were held sodium returned to baseline. He was asked to hold his spironolactone on discharge and was resumed on torsemide. He was explained at length to follow-up with his primary care physician and possibly a geothermal field technician to have repeat blood work done to ensure his electrolytes are within normal limits. DISCHARGE MEDICATIONS: Please see below. ALLERGIES: Please see below. PHYSICAL EXAMINATION ON DISCHARGE: VITAL SIGNS: Please see below. General: Lying in bed, no acute distress Head/Neck/Throat: Trachea midline, mucous membranes moist Eyes: Sclera anicteric, erythema or discharge appreciated bilaterally Thorax: Normal respiratory effort on room air. Clear to auscultation bilaterally, no crackles appreciated Cardiovascular: Normal rate, irregularly irregular rhythm, normal S1 and s2. Mild pedal edema Abdomen: Bowel sounds present, soft/nontender/nondistended Genitourinary: No CVA tenderness, no Hodge in place Musculoskeletal: Moving all extremities, Skin: Warm, dry Neurologic: AAOx3. LABORATORY DATA: Please see below. IMAGING: Please refer to imaging section. Patient is encouraged to obtain all imaging results for his records and appropriate follow-up PROGNOSIS: Good ACTIVITY: As tolerated DIET: Regular DISPOSITION: Home DISCHARGE CONDITION: Stable TIME SPENT ON DISCHARGE: 30 minutes. Vital Signs/I&Os Vital Signs Date Time Temp Pulse Resp B/P (MAP) Pulse Ox O2 Delivery O2 Flow Rate FiO2 04/03/21 14:00 97.9 98 18 158/97 (117) 93 Room Air 04/01/21 22:00 I&O- Last 24 Hours up to 6 AM 04/03/21 06:00 Intake Total 940 ml Output Total 2125 ml Balance -1185 ml Laboratory Data Labs 24H Laboratory Tests 2 04/03/21 05:49: Immature Granulocyte % (Auto) 0.7, Neutrophils (%) (Auto) 88.8H, Lymphocytes (%) (Auto) 4.3L, Monocytes (%) (Auto) 6.1, Eosinophils (%) (Auto) 0.0, Basophils (%) (Auto) 0.1, Neutrophils # (Auto) 9.1H, Lymphocytes # (Auto) 0.4L, Monocytes # (Auto) 0.6, Eosinophils # (Auto) 0.0, Basophils # (Auto) 0.0, Nucleated Red Blood Cells % (auto) 0.0, Anion Gap 9, Glomerular Filtration Rate > 60.0, Calcium Level 9.0 CBC/BMP Laboratory Tests 04/03/21 05:49 Microbiology Microbiology 04/01/21 Gram Stain - Final, Complete 04/01/21 Sputum Culture - Final, Complete Mold Like Organism 03/29/21 Respiratory Virus Panel (PCR) ([facility]) - Final, Complete 03/29/21 Blood Culture - Final, Complete NO GROWTH AFTER 5 DAYS 03/29/21 Blood Culture - Final, Complete NO GROWTH AFTER 5 DAYS Discharge Medications Scheduled Albuterol Sulfate (Albuterol Sulfate) 2.5 Mg/0.5 Ml Vial.neb, 1 VIAL NEB TID, (Reported) Allopurinol (Allopurinol) 100 Mg Tablet, 100 MG PO BID, (Reported) TAKES WITH BREAKFAST AND DINNER Apixaban (Eliquis) 5 Mg Tab, 5 MG PO BID, (Reported) Atorvastatin Calcium (Atorvastatin Calcium) 40 Mg Tablet, 20 MG PO DAILY, (Reported) Budesonide/Formoterol (Symbicort 160-4.5 Mcg Inhaler) 60 Puff/Inhaler Aers, 2 PUFF INH BID, (Reported) Cefuroxime Axetil (Cefuroxime) 500 Mg Tablet, 500 MG PO BID Doxycycline Hyclate (Doxycycline Hyclate) 100 Mg Tablet, 100 MG PO BID@0600,1800 Ferrous Gluconate (Ferrous Gluconate) 324 Mg Tablet, 324 MG PO BID, (Reported) Folic Acid (Folic Acid) 1 Mg Tab, 1 MG PO DAILY, (Reported) Magnesium Chloride (Mag64) 64 Mg Tablet.dr, 64 MG PO BID, (Reported) Montelukast Sodium (Montelukast Sodium) 10 Mg Tablet, 10 MG PO DAILY Multivitamins (Thera M Plus Tablet) 1 Tab Tab, 1 TAB PO BID, (Reported) Prednisone (Prednisone) 10 Mg Tablet, 10 MG PO TAPER Take 4 tabs daily x 3 days, then 3 tabs daily x 3 days, then 2 tabs daily x 3 days, then 1 tab daily x 3 days and stop Tamsulosin HCl (Flomax) 0.4 Mg Cap, 0.4 MG PO QHS, (Reported) Tiotropium [place] (Spiriva Respimat) 4 Gm Mist.inhal, 2 PUFF INH DAILY, (Report ed) Torsemide (Torsemide) 20 Mg Tablet, 10 MG PO BID, (Reported) Verapamil HCl (Verapamil HCl) 80 Mg Tablet, 80 MG PO TID, (Reported) TAKES AT 0200, 1000, 1800 Scheduled PRN Albuterol Sulfate (Ventolin Hfa) 18 Gm Hfa.aer.ad, 2 PUFF INH QID PRN for SHORTNESS OF BREATH, (Reported) Sennosides (Senna Lax) 8.6 Mg Tablet, 8.6 MG PO DAILY PRN for CONSTIPATION, (Reported) Allergies Coded Allergies: No Known Allergies (Unverified , 09/28/18) MEDHAT RUSSO M.D. Apr 03, 2021 17:20
== END 2021-04-03 16:20 | disposition home health service (06) | DRG 194 ==
LOC: EDBD 13:22 → M ED 13:22 → M ED INP 15:33 → M MS5PR 20:20
PROVIDERS: ADMIT General Practice; ATTEND Internal Medicine
DX: J18.9 Pneumonia, unspecified organism (principal); I50.32 Chronic diastolic (congestive) heart failure; E87.1 Hypo-osmolality and hyponatremia; J44.1 Chronic obstructive pulmonary disease with (acute) exacerbation; J44.0 Chronic obstructive pulmonary disease with (acute) lower respiratory infection; I48.20 Chronic atrial fibrillation, unspecified; E83.42 Hypomagnesemia; M10.9 Gout, unspecified; D50.9 Iron deficiency anemia, unspecified; I27.20 Pulmonary hypertension, unspecified; I11.0 Hypertensive heart disease with heart failure; E78.5 Hyperlipidemia, unspecified; N40.0 Benign prostatic hyperplasia without lower urinary tract symptoms; F10.10 Alcohol abuse, uncomplicated; F17.200 Nicotine dependence, unspecified, uncomplicated; S01.01XA Laceration without foreign body of scalp, initial encounter; W18.09XA Striking against other object with subsequent fall, initial encounter; Y92.013 Bedroom of single-family (private) house as the place of occurrence of the external cause; Y93.89 Activity, other specified; Y99.8 Other external cause status; Z79.01 Long term (current) use of anticoagulants; Z79.899 Other long term (current) drug therapy; Z79.52 Long term (current) use of systemic steroids

== ENCOUNTER 2021-08-06 07:49 | Observation (INO) | payer MEDICARE, OTHER ==
[~2021-08-06] VITALS: Ht 175.3 cm; Wt 68.8 kg
[~2021-08-06 07:49] MED LIST changes: +ADV250INH INH; +AZIT-12 PO; +CEFU50TA PO; +DOXY100T PO; +FLUT1BLS2 IH; -LEVO500T3 PO; +LEVO500T4 PO; +MONT10TA97 PO
[2021-08-06] MEDS ORDERED: methylPREDNISolone 125MG 2ML VIAL IV ONE (09:00)
[2021-08-06 09:05] LABS: BASO % 0.4 % (0.0-1.0); EOS % 0.4 % (0.0-3.0); HEMATOCRIT 39.8 % (42.0-52.0); HEMOGLOBIN 13.7 g/dl (13.5-17.5); LYMPH # 0.8 10^3/uL (1.5-5.0); LYMPH % 8.1 % (24.0-44.0); MEAN CORPUSCULAR HEMOGLOBIN 30.2 pg (27.0-33.0); MEAN CORPUSCULAR HGB CONC 34.4 g/dl (32.0-36.5); MEAN CORPUSCULAR VOLUME 87.9 fl (80.0-96.0); MONO # 1.1 10^3/uL (0.0-0.8); MONO % 11.5 % (2.0-8.0); NEUTROPHILS # 7.6 10^3/uL (1.5-8.5); NEUTROPHILS % 79.1 % (36.0-66.0); PLATELET COUNT, AUTOMATED 316 10^3/uL (150-450); RED BLOOD COUNT 4.53 10^6/uL (4.30-6.10); WHITE BLOOD COUNT 9.7 10^3/uL (4.0-10.0)
[2021-08-06 09:07] LABS: VENOUS BASE EXCESS 3.4 (-2.0-2.0); VENOUS O2 SATURATION 90.2 % (60.0-80.0); VENOUS PARTIAL PRESSURE CO2 47.5 mmHg (38.0-50.0); VENOUS PARTIAL PRESSURE O2 58.6 mmHg (30.0-50.0); VENOUS PH 7.403 UNITS (7.330-7.430); VENOUS STANDARD HCO3 27.3 MEQ/L; VENOUS TOTAL CO2 30.4 MEQ/L (24.0-28.0)
[2021-08-06] MEDS: COMBIVENT RESPIMAT 100-20MCG INHALER 4GM INH SCH ×3 (09:21→09:58)
[2021-08-06 09:55] LABS: ALBUMIN 3.5 GM/DL (3.2-5.2); ALT/SGPT 41 U/L (12-78); BILIRUBIN,DIRECT < 0.1 MG/DL (0.0-0.2); BILIRUBIN,TOTAL 0.4 MG/DL (0.2-1.0); BLOOD UREA NITROGEN 18 MG/DL (7-18); CALCIUM LEVEL 9.5 MG/DL (8.8-10.2); CARBON DIOXIDE LEVEL 29 MEQ/L (21-32); CHLORIDE LEVEL 92 MEQ/L (98-107); CREATININE FOR GFR 0.77 MG/DL (0.70-1.30); GLOMERULAR FILTRATION RATE > 60.0 (>42); GLUCOSE, FASTING 116 MG/DL (70-100); NT-PRO BNP 351 PG/ML (<450); POTASSIUM SERUM 4.4 MEQ/L (3.5-5.1); SODIUM LEVEL 127 MEQ/L (136-145); TOTAL PROTEIN 7.1 GM/DL (6.4-8.2)
[2021-08-06] MEDS ORDERED: ACETAMINOPHEN TAB 650MG DOSE (2X325MG) PO PRN (11:10)
[2021-08-06] MEDS ORDERED: ALBUTEROL SULFATE 2.5 MG/0.5 ML INH NEB SOLN NEB PRN (11:10)
[2021-08-06] MEDS ORDERED: NICOTINE 14 MG/24 HR TRANSDERMAL TD PRN (11:50)
[2021-08-06] MEDS: IPRATROPIUM 0.5MG/ALBUTEROL 2.5MG INH SOL UD 3ML (DUONEB) NEB SCH ×3 (12:00→19:45)
[2021-08-06] MEDS ORDERED: LORazepam 2 MG TAB PO PRN (13:10)
[2021-08-06] MEDS ORDERED: CALC500T68 PO (13:29)
[2021-08-06] MEDS ORDERED: ATOR1TAB21 PO (13:29)
[2021-08-06] MEDS ORDERED: FLUT1BLS2 IH (13:29)
[2021-08-06] MEDS ORDERED: HOME MED LIST COMPLETE! XX SCH (13:30)
[2021-08-06 15:40] VITALS: BP 131/86
[2021-08-06 15:45] VITALS: BP 131/86
[2021-08-06] MEDS: THIAMINE 100 MG TAB PO SCH ×2 (16:45→21:31)
[2021-08-06] MEDS: TORSEMIDE 20 MG TAB PO SCH (16:47)
[2021-08-06] MEDS: CALCIUM CARBONATE 500 MG CHEW U/D PO SCH ×2 (16:47→21:30)
[2021-08-06] MEDS: VERAPAMIL 80MG TABLET PO SCH ×2 (16:48→21:33)
[2021-08-06] MEDS: ADVAIR HFA 230/21MCG INHALER INH SCH (19:46)
[2021-08-06] MEDS ORDERED: methylPREDNISolone 125MG 2ML VIAL IV SCH (21:00)
[2021-08-06] MEDS: allopurinoL 100 MG TAB PO SCH (21:31)
[2021-08-06] MEDS: FERROUS GLUCONATE 324 MG TAB PO SCH (21:31)
[2021-08-06] MEDS: methylPREDNISolone 125MG 2ML VIAL IV SCH (21:31)
[2021-08-06] MEDS: APIXABAN 5 MG TAB (ELIQUIS) PO SCH (21:31)
[2021-08-06 21:35] VITALS: BP 127/69
[2021-08-06 22:00] VITALS: BP 129/71
[2021-08-07] MEDS: methylPREDNISolone 125MG 2ML VIAL IV SCH ×3 (04:47→20:13)
[2021-08-07 06:00] VITALS: BP 122/54
[2021-08-07 06:53] LABS: HEMATOCRIT 41.4 % (42.0-52.0); HEMOGLOBIN 14.2 g/dl (13.5-17.5); MEAN CORPUSCULAR HGB CONC 34.3 g/dl (32.0-36.5); MEAN CORPUSCULAR VOLUME 87.3 fl (80.0-96.0); PLATELET COUNT, AUTOMATED 347 10^3/uL (150-450); RED BLOOD COUNT 4.74 10^6/uL (4.30-6.10); WHITE BLOOD COUNT 4.8 10^3/uL (4.0-10.0)
[2021-08-07 07:17] LABS: BLOOD UREA NITROGEN 25 MG/DL (7-18); CREATININE FOR GFR 0.93 MG/DL (0.70-1.30); GLOMERULAR FILTRATION RATE > 60.0 (>42); GLUCOSE, FASTING 156 MG/DL (70-100)
[2021-08-07 07:18] LABS: ALBUMIN 3.5 GM/DL (3.2-5.2); ALT/SGPT 42 U/L (12-78); BILIRUBIN,TOTAL 0.5 MG/DL (0.2-1.0); CALCIUM LEVEL 9.5 MG/DL (8.8-10.2); CARBON DIOXIDE LEVEL 31 MEQ/L (21-32); CHLORIDE LEVEL 91 MEQ/L (98-107); POTASSIUM SERUM 4.6 MEQ/L (3.5-5.1); SODIUM LEVEL 130 MEQ/L (136-145); TOTAL PROTEIN 6.8 GM/DL (6.4-8.2)
[2021-08-07] MEDS: IPRATROPIUM 0.5MG/ALBUTEROL 2.5MG INH SOL UD 3ML (DUONEB) NEB SCH ×4 (08:00→20:24)
[2021-08-07] MEDS: ADVAIR HFA 230/21MCG INHALER INH SCH ×2 (08:10→20:24)
[2021-08-07] MEDS: TIOTROPIUM INHALER/CAPSULE (SPIRIVA) INH SCH (08:10)
[2021-08-07 08:37] VITALS: BP 122/54
[2021-08-07] MEDS: VERAPAMIL 80MG TABLET PO SCH ×3 (08:48→20:13)
[2021-08-07] MEDS: MULTIVITAMINS/MINERALS THERAP 1 TAB PO SCH (08:48)
[2021-08-07] MEDS: SPIRONOLACTONE 25 MG TAB PO SCH (08:48)
[2021-08-07] MEDS: APIXABAN 5 MG TAB (ELIQUIS) PO SCH ×2 (08:48→20:13)
[2021-08-07] MEDS: TAMSULOSIN 0.4 MG CAP PO SCH (08:49)
[2021-08-07] MEDS: CALCIUM CARBONATE 500 MG CHEW U/D PO SCH ×3 (08:49→20:13)
[2021-08-07] MEDS: THIAMINE 100 MG TAB PO SCH ×2 (08:49→20:13)
[2021-08-07] MEDS: allopurinoL 100 MG TAB PO SCH ×2 (08:49→20:13)
[2021-08-07] MEDS: FOLIC ACID 1 MG TAB PO SCH (08:49)
[2021-08-07] MEDS: TORSEMIDE 20 MG TAB PO SCH ×2 (08:49→15:47)
[2021-08-07] MEDS: FERROUS GLUCONATE 324 MG TAB PO SCH ×2 (08:49→20:13)
[2021-08-07 14:00] VITALS: BP 140/74
[2021-08-07 20:10] VITALS: BP 141/76
[2021-08-08 04:53] VITALS: BP 133/77
[2021-08-08] MEDS: methylPREDNISolone 125MG 2ML VIAL IV SCH ×3 (05:50→20:50)
[2021-08-08 06:43] LABS: HEMATOCRIT 38.9 % (42.0-52.0); HEMOGLOBIN 13.5 g/dl (13.5-17.5); MEAN CORPUSCULAR HEMOGLOBIN 30.3 pg (27.0-33.0); MEAN CORPUSCULAR HGB CONC 34.7 g/dl (32.0-36.5); MEAN CORPUSCULAR VOLUME 87.2 fl (80.0-96.0); PLATELET COUNT, AUTOMATED 356 10^3/uL (150-450); RED BLOOD COUNT 4.46 10^6/uL (4.30-6.10); WHITE BLOOD COUNT 10.7 10^3/uL (4.0-10.0)
[2021-08-08 07:03] LABS: ALBUMIN 3.2 GM/DL (3.2-5.2); ALT/SGPT 39 U/L (12-78); BILIRUBIN,TOTAL 0.3 MG/DL (0.2-1.0); BLOOD UREA NITROGEN 32 MG/DL (7-18); CALCIUM LEVEL 9.1 MG/DL (8.8-10.2); CARBON DIOXIDE LEVEL 32 MEQ/L (21-32); CHLORIDE LEVEL 97 MEQ/L (98-107); CREATININE FOR GFR 0.96 MG/DL (0.70-1.30); GLOMERULAR FILTRATION RATE > 60.0 (>42); GLUCOSE, FASTING 150 MG/DL (70-100); POTASSIUM SERUM 3.7 MEQ/L (3.5-5.1); SODIUM LEVEL 133 MEQ/L (136-145); TOTAL PROTEIN 6.6 GM/DL (6.4-8.2)
[2021-08-08] MEDS: TIOTROPIUM INHALER/CAPSULE (SPIRIVA) INH SCH (07:49)
[2021-08-08] MEDS: IPRATROPIUM 0.5MG/ALBUTEROL 2.5MG INH SOL UD 3ML (DUONEB) NEB SCH ×4 (07:49→20:23)
[2021-08-08] MEDS: ADVAIR HFA 230/21MCG INHALER INH SCH ×2 (07:49→20:23)
[2021-08-08] MEDS ORDERED: ATORVASTATIN 20 MG TAB PO SCH (09:00)
[2021-08-08] MEDS: THIAMINE 100 MG TAB PO SCH ×2 (09:59→20:48)
[2021-08-08] MEDS: CALCIUM CARBONATE 500 MG CHEW U/D PO SCH ×3 (09:59→20:48)
[2021-08-08] MEDS: MULTIVITAMINS/MINERALS THERAP 1 TAB PO SCH (09:59)
[2021-08-08] MEDS: TORSEMIDE 20 MG TAB PO SCH ×2 (09:59→17:38)
[2021-08-08] MEDS: FERROUS GLUCONATE 324 MG TAB PO SCH ×2 (09:59→20:48)
[2021-08-08] MEDS: allopurinoL 100 MG TAB PO SCH ×2 (09:59→20:48)
[2021-08-08] MEDS: FOLIC ACID 1 MG TAB PO SCH (09:59)
[2021-08-08] MEDS: TAMSULOSIN 0.4 MG CAP PO SCH (09:59)
[2021-08-08] MEDS: APIXABAN 5 MG TAB (ELIQUIS) PO SCH ×2 (10:00→20:48)
[2021-08-08] MEDS: VERAPAMIL 80MG TABLET PO SCH ×3 (10:01→20:50)
[2021-08-08] MEDS: SPIRONOLACTONE 25 MG TAB PO SCH (10:02)
[2021-08-08] MEDS ORDERED: TORSEMIDE 20 MG TAB PO ONE (14:30)
[2021-08-08 22:00] VITALS: BP 141/85
[2021-08-09] MEDS: methylPREDNISolone 125MG 2ML VIAL IV SCH ×2 (05:20→12:57)
[2021-08-09 06:00] VITALS: BP 136/85
[2021-08-09] MEDS: TIOTROPIUM INHALER/CAPSULE (SPIRIVA) INH SCH (07:26)
[2021-08-09] MEDS: ADVAIR HFA 230/21MCG INHALER INH SCH (07:27)
[2021-08-09] MEDS: IPRATROPIUM 0.5MG/ALBUTEROL 2.5MG INH SOL UD 3ML (DUONEB) NEB SCH ×3 (07:27→15:11)
[2021-08-09] MEDS: TORSEMIDE 20 MG TAB PO SCH (09:06)
[2021-08-09] MEDS: SPIRONOLACTONE 25 MG TAB PO SCH (09:06)
[2021-08-09] MEDS: APIXABAN 5 MG TAB (ELIQUIS) PO SCH (09:06)
[2021-08-09] MEDS: FERROUS GLUCONATE 324 MG TAB PO SCH (09:06)
[2021-08-09] MEDS: FOLIC ACID 1 MG TAB PO SCH (09:07)
[2021-08-09] MEDS: TAMSULOSIN 0.4 MG CAP PO SCH (09:07)
[2021-08-09 09:08] VITALS: BP 136/85
[2021-08-09] MEDS: CALCIUM CARBONATE 500 MG CHEW U/D PO SCH (09:08)
[2021-08-09] MEDS: MULTIVITAMINS/MINERALS THERAP 1 TAB PO SCH (09:08)
[2021-08-09] MEDS: VERAPAMIL 80MG TABLET PO SCH (09:08)
[2021-08-09] MEDS: allopurinoL 100 MG TAB PO SCH (09:08)
[2021-08-09 10:21] LABS: BASO % 0.1 % (0.0-1.0); HEMATOCRIT 40.4 % (42.0-52.0); HEMOGLOBIN 13.8 g/dl (13.5-17.5); LYMPH # 0.3 10^3/uL (1.5-5.0); LYMPH % 2.8 % (24.0-44.0); MEAN CORPUSCULAR HEMOGLOBIN 30.2 pg (27.0-33.0); MEAN CORPUSCULAR HGB CONC 34.2 g/dl (32.0-36.5); MEAN CORPUSCULAR VOLUME 88.4 fl (80.0-96.0); MONO # 0.3 10^3/uL (0.0-0.8); MONO % 2.7 % (2.0-8.0); NEUTROPHILS # 9.4 10^3/uL (1.5-8.5); NEUTROPHILS % 93.9 % (36.0-66.0); PLATELET COUNT, AUTOMATED 389 10^3/uL (150-450); RED BLOOD COUNT 4.57 10^6/uL (4.30-6.10)
[2021-08-09 10:53] LABS: ALBUMIN 3.5 GM/DL (3.2-5.2); BILIRUBIN,TOTAL 0.3 MG/DL (0.2-1.0); CALCIUM LEVEL 9.1 MG/DL (8.8-10.2); CREATININE FOR GFR 1.37 MG/DL (0.70-1.30); GLOMERULAR FILTRATION RATE 53.8 (>42); MAGNESIUM LEVEL 1.9 MG/DL (1.8-2.4); POTASSIUM SERUM 3.5 MEQ/L (3.5-5.1); TOTAL PROTEIN 6.7 GM/DL (6.4-8.2)
[2021-08-09] MEDS ORDERED: SPIR12.9 INH (12:17)
[2021-08-09] MEDS ORDERED: ELIQ5TAB PO (12:17)
[2021-08-09] MEDS ORDERED: TORS20TA2 PO (12:17)
[2021-08-09] MEDS ORDERED: VENTAER INH (12:17)
[2021-08-09] MEDS ORDERED: SPIR-10 PO (12:17)
[2021-08-09] MEDS ORDERED: PRED10TA2 PO (12:17)
[2021-08-09] MEDS ORDERED: FLUT1BLS2 IH (12:17)
[2021-08-09] MEDS ORDERED: VERA80TA3 PO (12:17)
[2021-08-09] MEDS ORDERED: ALB2.5NEB NEB (12:17)
== END 2021-08-09 16:00 | disposition home or self-care (01) ==
LOC: M ED 07:49 → UNDOADMIN 11:07 → M ED INP 11:07 → ENRESERV 13:53 → M MSPAV 15:37
PROVIDERS: ADMIT Internal Medicine; ATTEND Family Medicine
DX: J44.1 Chronic obstructive pulmonary disease with (acute) exacerbation (principal); B97.81 Human metapneumovirus as the cause of diseases classified elsewhere; I11.9 Hypertensive heart disease without heart failure; E87.1 Hypo-osmolality and hyponatremia; F10.20 Alcohol dependence, uncomplicated; I50.9 Heart failure, unspecified; E78.5 Hyperlipidemia, unspecified; N40.0 Benign prostatic hyperplasia without lower urinary tract symptoms; F17.218 Nicotine dependence, cigarettes, with other nicotine-induced disorders; Z79.899 Other long term (current) drug therapy; I48.91 Unspecified atrial fibrillation; Z79.01 Long term (current) use of anticoagulants; I27.20 Pulmonary hypertension, unspecified; Z79.51 Long term (current) use of inhaled steroids; M10.9 Gout, unspecified
CPT/HCPCS: 36415; 71045; 80048; 80053; 80076; 82803; 83735; 83880; 84443; 84484; 85025; 85027; 87040; 87077; 87798; 93005; 93041; 94640; 94760; 96374; 96376; 97116; 97161; 97530; 99285; G0378; J2930

== ENCOUNTER 2021-09-13 07:17 | Emergency (ER) | payer MEDICARE, OTHER ==
[~2021-09-13] VITALS: Ht 172.7 cm; Wt 72.7 kg
[~2021-09-13 07:17] MED LIST changes: +ALBU2.5V10 INH; +ALBU2.5V10 NEB; -ALBU83IN INH; -ALBU83IN NEB; +CALC500T68 PO
[2021-09-13] MEDS ORDERED: dexameTHASONE 20MG/5ML VIAL (J1100 PER 1MG) IV ONE (08:00)
[2021-09-13] MEDS: IPRATROPIUM 0.5MG/ALBUTEROL 2.5MG INH SOL UD 3ML (DUONEB) NEB PRN ×3 (08:14→09:06)
[2021-09-13] MEDS: IPRATROPIUM 0.5MG/ALBUTEROL 2.5MG INH SOL UD 3ML (DUONEB) NEB SCH ×3 (10:30→12:08)
[2021-09-13] MEDS ORDERED: VERAPAMIL 40 MG TAB PO ONE (14:15)
[2021-09-13 14:17] VITALS: BP 118/84
[2021-09-13] MEDS ORDERED: PRED10TA2 PO (14:18)
[2021-09-13 14:44] VITALS: BP 140/91
== END 2021-09-13 15:10 | disposition home or self-care (01) ==
LOC: EDBD 07:17 → M ED 07:17
DX: J44.1 Chronic obstructive pulmonary disease with (acute) exacerbation (principal); I48.91 Unspecified atrial fibrillation; I50.9 Heart failure, unspecified; I11.0 Hypertensive heart disease with heart failure; F17.210 Nicotine dependence, cigarettes, uncomplicated; F10.20 Alcohol dependence, uncomplicated; Z79.51 Long term (current) use of inhaled steroids; Z79.899 Other long term (current) drug therapy
CPT/HCPCS: 94640; 96374; 99285; J1100

== ENCOUNTER 2021-11-02 12:51 | Inpatient (IN) | payer OTHER, MEDICARE ==
[2021-11-02] MEDS ORDERED: BOOSTRIX/ADACEL VACCINE (DIPHTH/PERTUSS/ACELL/TETANUS) 0.5ML SYR IM.IMMUN ONE (13:30)
[2021-11-02 13:41] LABS: BASO # 0.1 10^3/uL (0.0-0.2); BASO % 0.3 % (0.0-1.0); EOS % 0.2 % (0.0-3.0); HEMATOCRIT 37.9 % (42.0-52.0); HEMOGLOBIN 13.1 g/dl (13.5-17.5); LYMPH # 0.8 10^3/uL (1.5-5.0); LYMPH % 4.9 % (24.0-44.0); MEAN CORPUSCULAR HGB CONC 34.6 g/dl (32.0-36.5); MEAN CORPUSCULAR VOLUME 89.6 fl (80.0-96.0); MONO % 9.9 % (2.0-8.0); NEUTROPHILS % 84.3 % (36.0-66.0); PLATELET COUNT, AUTOMATED 419 10^3/uL (150-450); RED BLOOD COUNT 4.23 10^6/uL (4.30-6.10); WHITE BLOOD COUNT 16.7 10^3/uL (4.0-10.0)
[2021-11-02] MEDS ORDERED: ISOVUE-370 76% 100ML VIAL As Ordered ONE (13:56)
[2021-11-02 13:57] LABS: INR 1.15; PROTHROMBIN TIME 15.1 SECONDS (12.7-14.5)
[2021-11-02 13:58] LABS: PARTIAL THROMBOPLASTIN TIME 34.4 SECONDS (25.9-37.0)
[2021-11-02 14:00] VITALS: BP 140/77
[2021-11-02 14:06] LABS: MONO # 1.7 10^3/uL (0.0-0.8)
[2021-11-02 14:07] LABS: BLOOD UREA NITROGEN 16 MG/DL (7-18); CALCIUM LEVEL 9.6 MG/DL (8.8-10.2); CARBON DIOXIDE LEVEL 29 MEQ/L (21-32); CHLORIDE LEVEL 89 MEQ/L (98-107); CREATININE FOR GFR 0.82 MG/DL (0.70-1.30); GLOMERULAR FILTRATION RATE > 60.0 (>42); GLUCOSE, FASTING 105 MG/DL (70-100); POTASSIUM SERUM 4.6 MEQ/L (3.5-5.1); SODIUM LEVEL 124 MEQ/L (136-145)
[2021-11-02 14:13] LABS: CK-MB VALUE MASS 6.8 NG/ML (<3.6); MB/CK RELATIVE INDEX 1.99 (< OR =4)
[2021-11-02 14:15] VITALS: BP 142/78
[2021-11-02 14:25] LABS: RSV AMPLIFICATION NEGATIVE (NEGATIVE)
[2021-11-02 14:30] VITALS: BP 137/72
[2021-11-02] MEDS ORDERED: VENTAER INH (14:39)
[2021-11-02] MEDS ORDERED: VERA80TA3 PO (14:39)
[2021-11-02] MEDS ORDERED: SPIR-10 PO (14:39)
[2021-11-02] MEDS ORDERED: SPIR12.9 INH (14:39)
[2021-11-02] MEDS ORDERED: TORS20TA2 PO (14:39)
[2021-11-02] MEDS ORDERED: FLUT1BLS2 IH (14:39)
[2021-11-02] MEDS ORDERED: ALBU2.5V10 INH (14:39)
[2021-11-02] MEDS ORDERED: ELIQ2.5T PO (14:39)
[2021-11-02] MEDS ORDERED: HOME MED LIST COMPLETE! XX SCH (14:40)
[2021-11-02 14:45] VITALS: BP 145/75
[2021-11-02] MEDS ORDERED: ALBUTEROL 90 MCG/ACT 8GM HFA INHALER INH PRN (15:25)
[2021-11-02] MEDS ORDERED: traMADol 50 MG TAB PO PRN (15:50)
[2021-11-02] MEDS ORDERED: ACETAMINOPHEN TAB 650MG DOSE (2X325MG) PO PRN (15:50)
[2021-11-02] MEDS ORDERED: TOLVAPTAN 7.5 MG HALF-TAB PO ONE (16:00)
[2021-11-02] MEDS: CALCIUM CARBONATE 500 MG CHEW U/D PO SCH ×2 (17:09→21:00)
[2021-11-02] MEDS: VERAPAMIL 80MG TABLET PO SCH ×2 (17:09→21:00)
[2021-11-02] MEDS: TORSEMIDE 20 MG TAB PO SCH (17:09)
[2021-11-02] MEDS ORDERED: LEVALBUTEROL 1.25 MG/0.5 ML CONCENTRATE NEB INH PRN (17:10)
[2021-11-02] MEDS ORDERED: IPRATROPIUM 0.02% SOLN 0.5MG 2.5ML NEB INH PRN (17:10)
[2021-11-02 17:12] LABS: CREATININE,RANDOM URINE 27.8 MG/DL
[2021-11-02] MEDS: MOXIFLOXACIN 400 MG TAB PO SCH (18:00)
[2021-11-02] MEDS ORDERED: MONTELUKAST 10 MG TAB PO ONE (18:00)
[2021-11-02] MEDS ORDERED: CETIRIZINE (ZyrTEC) 10 MG TAB PO ONE (18:00)
[2021-11-02] MEDS ORDERED: methylPREDNISolone 125MG 2ML VIAL IV ONE (18:00)
[2021-11-02] MEDS: guaiFENesin ER 600 MG TAB PO SCH (18:40)
[2021-11-02] MEDS: LACTOBACILLUS ACIDOPHILUS CAP (BACID) PO SCH (18:40)
[2021-11-02] MEDS: LEVALBUTEROL 1.25 MG/0.5 ML CONCENTRATE NEB INH SCH ×2 (20:00→23:01)
[2021-11-02] MEDS: IPRATROPIUM 0.02% SOLN 0.5MG 2.5ML NEB INH SCH ×2 (20:00→23:01)
[2021-11-02] MEDS: ADVAIR HFA 230/21MCG INHALER INH SCH (20:49)
[2021-11-02] MEDS: MULTIVITAMINS/MINERALS THERAP 1 TAB PO SCH (21:00)
[2021-11-02] MEDS: allopurinoL 100 MG TAB PO SCH (21:00)
[2021-11-02] MEDS: APIXABAN 2.5 MG TAB (ELIQUIS) PO SCH (21:00)
[2021-11-02] MEDS ORDERED: ENTER DRUG NAME HERE (PATIENT'S OWN MED) INH SCH (21:00)
[2021-11-02] MEDS ORDERED: ENTER DRUG NAME HERE (PATIENT'S OWN MED) PO SCH (21:00)
[2021-11-02 21:45] VITALS: BP 132/67
[2021-11-02 23:05] LABS: BLOOD UREA NITROGEN 15 MG/DL (7-18); CALCIUM LEVEL 9.3 MG/DL (8.8-10.2); CARBON DIOXIDE LEVEL 28 MEQ/L (21-32); CHLORIDE LEVEL 88 MEQ/L (98-107); GLOMERULAR FILTRATION RATE > 60.0 (>42); GLUCOSE, FASTING 159 MG/DL (70-100); POTASSIUM SERUM 4.2 MEQ/L (3.5-5.1); SODIUM LEVEL 126 MEQ/L (136-145)
[2021-11-02 23:15] VITALS: BP_SYST 117; BP_SYST 121; BP_SYST 125; BP_DIAS 62; BP_DIAS 65; BP_DIAS 70
[2021-11-02] MEDS: FERROUS GLUCONATE 324 MG TAB PO SCH (23:36)
[2021-11-02] MEDS: methylPREDNISolone 40MG 1ML VIAL IV SCH (23:37)
[2021-11-03 03:39] LABS: BLOOD UREA NITROGEN 15 MG/DL (7-18); CALCIUM LEVEL 9.3 MG/DL (8.8-10.2); CARBON DIOXIDE LEVEL 30 MEQ/L (21-32); CHLORIDE LEVEL 90 MEQ/L (98-107); CREATININE FOR GFR 0.78 MG/DL (0.70-1.30); GLOMERULAR FILTRATION RATE > 60.0 (>42); GLUCOSE, FASTING 147 MG/DL (70-100); POTASSIUM SERUM 4.4 MEQ/L (3.5-5.1); SODIUM LEVEL 128 MEQ/L (136-145)
[2021-11-03] MEDS: LEVALBUTEROL 1.25 MG/0.5 ML CONCENTRATE NEB INH SCH ×5 (04:33→19:06)
[2021-11-03] MEDS: IPRATROPIUM 0.02% SOLN 0.5MG 2.5ML NEB INH SCH ×5 (04:33→19:06)
[2021-11-03 05:00] VITALS: BP_SYST 115; BP_SYST 119; BP_SYST 122; BP_DIAS 70; BP_DIAS 71; BP_DIAS 74
[2021-11-03] MEDS: guaiFENesin ER 600 MG TAB PO SCH ×2 (05:27→16:51)
[2021-11-03] MEDS: MOXIFLOXACIN 400 MG TAB PO SCH (05:27)
[2021-11-03] MEDS: methylPREDNISolone 40MG 1ML VIAL IV SCH ×3 (05:27→16:52)
[2021-11-03] MEDS: TIOTROPIUM INHALER/CAPSULE (SPIRIVA) INH SCH (07:23)
[2021-11-03] MEDS: ADVAIR HFA 230/21MCG INHALER INH SCH ×2 (07:23→20:36)
[2021-11-03 08:19] LABS: HEMATOCRIT 39.4 % (42.0-52.0); HEMOGLOBIN 13.4 g/dl (13.5-17.5); LYMPH # 0.3 10^3/uL (1.5-5.0); MEAN CORPUSCULAR HEMOGLOBIN 30.2 pg (27.0-33.0); MEAN CORPUSCULAR VOLUME 88.9 fl (80.0-96.0); MONO # 0.2 10^3/uL (0.0-0.8); MONO % 2.1 % (2.0-8.0); NEUTROPHILS # 8.4 10^3/uL (1.5-8.5); NEUTROPHILS % 94.2 % (36.0-66.0); PLATELET COUNT, AUTOMATED 433 10^3/uL (150-450); RED BLOOD COUNT 4.43 10^6/uL (4.30-6.10); WHITE BLOOD COUNT 8.9 10^3/uL (4.0-10.0)
[2021-11-03 08:48] LABS: BLOOD UREA NITROGEN 16 MG/DL (7-18); CALCIUM LEVEL 9.5 MG/DL (8.8-10.2); CARBON DIOXIDE LEVEL 30 MEQ/L (21-32); CHLORIDE LEVEL 89 MEQ/L (98-107); CREATININE FOR GFR 0.98 MG/DL (0.70-1.30); GLOMERULAR FILTRATION RATE > 60.0 (>42); GLUCOSE, FASTING 157 MG/DL (70-100); POTASSIUM SERUM 4.9 MEQ/L (3.5-5.1); SODIUM LEVEL 126 MEQ/L (136-145)
[2021-11-03] MEDS ORDERED: TOLVAPTAN 15 MG TAB (SAMSCA) PO ONE (09:00)
[2021-11-03] MEDS: SPIRONOLACTONE 25 MG TAB PO SCH (09:00)
[2021-11-03] MEDS: CALCIUM CARBONATE 500 MG CHEW U/D PO SCH ×3 (09:38→20:59)
[2021-11-03] MEDS: FOLIC ACID 1 MG TAB PO SCH (09:39)
[2021-11-03] MEDS: TORSEMIDE 20 MG TAB PO SCH ×2 (09:39→16:51)
[2021-11-03] MEDS: FERROUS GLUCONATE 324 MG TAB PO SCH ×2 (09:39→20:59)
[2021-11-03] MEDS: APIXABAN 2.5 MG TAB (ELIQUIS) PO SCH ×2 (09:39→20:59)
[2021-11-03] MEDS: ATORVASTATIN 20 MG TAB PO SCH (09:39)
[2021-11-03] MEDS: LACTOBACILLUS ACIDOPHILUS CAP (BACID) PO SCH ×2 (09:39→16:51)
[2021-11-03] MEDS: TAMSULOSIN 0.4 MG CAP PO SCH (09:40)
[2021-11-03] MEDS: MULTIVITAMINS/MINERALS THERAP 1 TAB PO SCH ×2 (09:40→20:58)
[2021-11-03] MEDS: CETIRIZINE (ZyrTEC) 10 MG TAB PO SCH (09:40)
[2021-11-03] MEDS: VERAPAMIL 80MG TABLET PO SCH ×3 (09:40→20:59)
[2021-11-03] MEDS: MONTELUKAST 10 MG TAB PO SCH (09:40)
[2021-11-03] MEDS: allopurinoL 100 MG TAB PO SCH ×2 (09:40→20:59)
[2021-11-03] MEDS: MAGNESIUM OXIDE 400MG TAB (MAG-OX) PO SCH (09:41)
[2021-11-03 10:21] VITALS: BP_SYST 120; BP_SYST 122; BP_DIAS 60; BP_DIAS 70; BP_DIAS 72
[2021-11-03 14:00] VITALS: BP 123/59
[2021-11-03 22:00] VITALS: BP 124/52
[2021-11-04] MEDS: methylPREDNISolone 40MG 1ML VIAL IV SCH ×2 (00:52→05:32)
[2021-11-04] MEDS: LEVALBUTEROL 1.25 MG/0.5 ML CONCENTRATE NEB INH SCH ×7 (01:01→23:42)
[2021-11-04] MEDS: IPRATROPIUM 0.02% SOLN 0.5MG 2.5ML NEB INH SCH ×7 (01:01→23:42)
[2021-11-04] MEDS: guaiFENesin ER 600 MG TAB PO SCH ×2 (05:32→17:55)
[2021-11-04] MEDS: MOXIFLOXACIN 400 MG TAB PO SCH (05:32)
[2021-11-04 06:37] LABS: BASO % 0.1 % (0.0-1.0); HEMATOCRIT 35.9 % (42.0-52.0); HEMOGLOBIN 12.3 g/dl (13.5-17.5); LYMPH # 0.3 10^3/uL (1.5-5.0); LYMPH % 3.2 % (24.0-44.0); MEAN CORPUSCULAR HEMOGLOBIN 30.4 pg (27.0-33.0); MEAN CORPUSCULAR HGB CONC 34.3 g/dl (32.0-36.5); MEAN CORPUSCULAR VOLUME 88.9 fl (80.0-96.0); MONO # 0.5 10^3/uL (0.0-0.8); NEUTROPHILS % 91.2 % (36.0-66.0); PLATELET COUNT, AUTOMATED 427 10^3/uL (150-450); RED BLOOD COUNT 4.04 10^6/uL (4.30-6.10); WHITE BLOOD COUNT 9.9 10^3/uL (4.0-10.0)
[2021-11-04 07:05] LABS: BLOOD UREA NITROGEN 32 MG/DL (7-18); CALCIUM LEVEL 9.4 MG/DL (8.8-10.2); CARBON DIOXIDE LEVEL 27 MEQ/L (21-32); CHLORIDE LEVEL 96 MEQ/L (98-107); CREATININE FOR GFR 1.03 MG/DL (0.70-1.30); GLOMERULAR FILTRATION RATE > 60.0 (>42); GLUCOSE, FASTING 162 MG/DL (70-100); POTASSIUM SERUM 4.2 MEQ/L (3.5-5.1); SODIUM LEVEL 132 MEQ/L (136-145)
[2021-11-04] MEDS: TIOTROPIUM INHALER/CAPSULE (SPIRIVA) INH SCH (07:22)
[2021-11-04] MEDS: ADVAIR HFA 230/21MCG INHALER INH SCH ×2 (07:22→20:00)
[2021-11-04] MEDS: allopurinoL 100 MG TAB PO SCH ×2 (08:18→20:32)
[2021-11-04] MEDS: MONTELUKAST 10 MG TAB PO SCH (08:18)
[2021-11-04] MEDS: SPIRONOLACTONE 25 MG TAB PO SCH (08:18)
[2021-11-04] MEDS: predniSONE 20 MG TAB PO SCH ×2 (08:19→20:33)
[2021-11-04] MEDS: FOLIC ACID 1 MG TAB PO SCH (08:19)
[2021-11-04] MEDS: FERROUS GLUCONATE 324 MG TAB PO SCH ×2 (08:19→20:34)
[2021-11-04] MEDS: MAGNESIUM OXIDE 400MG TAB (MAG-OX) PO SCH (08:19)
[2021-11-04] MEDS: MULTIVITAMINS/MINERALS THERAP 1 TAB PO SCH ×2 (08:19→20:32)
[2021-11-04] MEDS: CALCIUM CARBONATE 500 MG CHEW U/D PO SCH ×3 (08:19→20:33)
[2021-11-04] MEDS: LACTOBACILLUS ACIDOPHILUS CAP (BACID) PO SCH ×2 (08:19→17:55)
[2021-11-04] MEDS: APIXABAN 2.5 MG TAB (ELIQUIS) PO SCH ×2 (08:20→20:33)
[2021-11-04] MEDS: TORSEMIDE 20 MG TAB PO SCH ×2 (08:20→16:34)
[2021-11-04] MEDS: TAMSULOSIN 0.4 MG CAP PO SCH (08:20)
[2021-11-04] MEDS: CETIRIZINE (ZyrTEC) 10 MG TAB PO SCH (08:20)
[2021-11-04] MEDS: VERAPAMIL 80MG TABLET PO SCH ×3 (08:22→20:34)
[2021-11-05] MEDS: IPRATROPIUM 0.02% SOLN 0.5MG 2.5ML NEB INH SCH ×5 (04:00→20:32)
[2021-11-05] MEDS: LEVALBUTEROL 1.25 MG/0.5 ML CONCENTRATE NEB INH SCH ×5 (04:00→20:33)
[2021-11-05] MEDS: MOXIFLOXACIN 400 MG TAB PO SCH (05:05)
[2021-11-05] MEDS: guaiFENesin ER 600 MG TAB PO SCH ×2 (05:06→17:44)
[2021-11-05 06:00] VITALS: BP 136/73
[2021-11-05] MEDS: ADVAIR HFA 230/21MCG INHALER INH SCH ×2 (07:14→20:30)
[2021-11-05] MEDS: TIOTROPIUM INHALER/CAPSULE (SPIRIVA) INH SCH (07:14)
[2021-11-05 07:44] LABS: HEMATOCRIT 35.7 % (42.0-52.0); HEMOGLOBIN 12.3 g/dl (13.5-17.5); LYMPH # 0.3 10^3/uL (1.5-5.0); LYMPH % 1.9 % (24.0-44.0); MEAN CORPUSCULAR HEMOGLOBIN 31.5 pg (27.0-33.0); MEAN CORPUSCULAR HGB CONC 34.5 g/dl (32.0-36.5); MEAN CORPUSCULAR VOLUME 91.3 fl (80.0-96.0); MONO # 1.2 10^3/uL (0.0-0.8); NEUTROPHILS # 13.4 10^3/uL (1.5-8.5); NEUTROPHILS % 89.4 % (36.0-66.0); PLATELET COUNT, AUTOMATED 448 10^3/uL (150-450); RED BLOOD COUNT 3.91 10^6/uL (4.30-6.10)
[2021-11-05 08:12] LABS: BLOOD UREA NITROGEN 38 MG/DL (7-18); CALCIUM LEVEL 9.7 MG/DL (8.8-10.2); CARBON DIOXIDE LEVEL 29 MEQ/L (21-32); CHLORIDE LEVEL 97 MEQ/L (98-107); CREATININE FOR GFR 1.04 MG/DL (0.70-1.30); GLOMERULAR FILTRATION RATE > 60.0 (>42); GLUCOSE, FASTING 127 MG/DL (70-100); POTASSIUM SERUM 4.3 MEQ/L (3.5-5.1); SODIUM LEVEL 135 MEQ/L (136-145)
[2021-11-05] MEDS: MULTIVITAMINS/MINERALS THERAP 1 TAB PO SCH ×2 (08:33→21:18)
[2021-11-05] MEDS: TAMSULOSIN 0.4 MG CAP PO SCH (08:33)
[2021-11-05] MEDS: SPIRONOLACTONE 25 MG TAB PO SCH (08:33)
[2021-11-05] MEDS: ATORVASTATIN 20 MG TAB PO SCH (08:33)
[2021-11-05] MEDS: VERAPAMIL 80MG TABLET PO SCH ×3 (08:33→21:26)
[2021-11-05] MEDS: allopurinoL 100 MG TAB PO SCH ×2 (08:33→21:18)
[2021-11-05] MEDS: TORSEMIDE 20 MG TAB PO SCH ×2 (08:33→17:43)
[2021-11-05] MEDS: predniSONE 20 MG TAB PO SCH ×2 (08:33→21:20)
[2021-11-05] MEDS: MONTELUKAST 10 MG TAB PO SCH (08:33)
[2021-11-05] MEDS: LACTOBACILLUS ACIDOPHILUS CAP (BACID) PO SCH ×2 (08:33→17:43)
[2021-11-05] MEDS: FERROUS GLUCONATE 324 MG TAB PO SCH ×2 (08:33→21:20)
[2021-11-05] MEDS: CALCIUM CARBONATE 500 MG CHEW U/D PO SCH ×3 (08:34→21:21)
[2021-11-05] MEDS: MAGNESIUM OXIDE 400MG TAB (MAG-OX) PO SCH (08:34)
[2021-11-05] MEDS: CETIRIZINE (ZyrTEC) 10 MG TAB PO SCH (08:34)
[2021-11-05] MEDS: FOLIC ACID 1 MG TAB PO SCH (08:34)
[2021-11-05] MEDS: APIXABAN 2.5 MG TAB (ELIQUIS) PO SCH ×2 (08:34→21:21)
[2021-11-05 18:40] VITALS: BP 158/72
[2021-11-05 21:25] VITALS: BP 138/73
[2021-11-06] MEDS: IPRATROPIUM 0.02% SOLN 0.5MG 2.5ML NEB INH SCH ×6 (00:40→20:00)
[2021-11-06] MEDS: LEVALBUTEROL 1.25 MG/0.5 ML CONCENTRATE NEB INH SCH ×6 (00:41→20:00)
[2021-11-06] MEDS: MOXIFLOXACIN 400 MG TAB PO SCH (05:21)
[2021-11-06] MEDS: guaiFENesin ER 600 MG TAB PO SCH ×2 (05:21→17:12)
[2021-11-06 06:00] VITALS: BP 139/71
[2021-11-06 06:40] LABS: BASO % 0.1 % (0.0-1.0); HEMATOCRIT 35.9 % (42.0-52.0); HEMOGLOBIN 12.4 g/dl (13.5-17.5); LYMPH # 0.3 10^3/uL (1.5-5.0); LYMPH % 2.7 % (24.0-44.0); MEAN CORPUSCULAR HEMOGLOBIN 31.2 pg (27.0-33.0); MEAN CORPUSCULAR HGB CONC 34.5 g/dl (32.0-36.5); MEAN CORPUSCULAR VOLUME 90.4 fl (80.0-96.0); MONO # 0.9 10^3/uL (0.0-0.8); MONO % 7.9 % (2.0-8.0); NEUTROPHILS # 9.9 10^3/uL (1.5-8.5); NEUTROPHILS % 88.6 % (36.0-66.0); PLATELET COUNT, AUTOMATED 412 10^3/uL (150-450); RED BLOOD COUNT 3.97 10^6/uL (4.30-6.10); WHITE BLOOD COUNT 11.1 10^3/uL (4.0-10.0)
[2021-11-06 07:16] LABS: BLOOD UREA NITROGEN 40 MG/DL (7-18); CHLORIDE LEVEL 97 MEQ/L (98-107); CREATININE FOR GFR 0.94 MG/DL (0.70-1.30); GLOMERULAR FILTRATION RATE > 60.0 (>42); GLUCOSE, FASTING 147 MG/DL (70-100); POTASSIUM SERUM 3.9 MEQ/L (3.5-5.1); SODIUM LEVEL 136 MEQ/L (136-145)
[2021-11-06 07:17] LABS: CALCIUM LEVEL 9.8 MG/DL (8.8-10.2); CARBON DIOXIDE LEVEL 32 mmol/L (20-29)
[2021-11-06] MEDS: TIOTROPIUM INHALER/CAPSULE (SPIRIVA) INH SCH (07:29)
[2021-11-06] MEDS: ADVAIR HFA 230/21MCG INHALER INH SCH ×2 (07:29→19:59)
[2021-11-06] MEDS: LACTOBACILLUS ACIDOPHILUS CAP (BACID) PO SCH ×2 (08:37→17:12)
[2021-11-06] MEDS: TAMSULOSIN 0.4 MG CAP PO SCH (08:37)
[2021-11-06] MEDS: SPIRONOLACTONE 25 MG TAB PO SCH (08:37)
[2021-11-06] MEDS: CETIRIZINE (ZyrTEC) 10 MG TAB PO SCH (08:37)
[2021-11-06] MEDS: CALCIUM CARBONATE 500 MG CHEW U/D PO SCH ×3 (08:37→20:35)
[2021-11-06] MEDS: APIXABAN 2.5 MG TAB (ELIQUIS) PO SCH ×2 (08:37→20:37)
[2021-11-06] MEDS: predniSONE 20 MG TAB PO SCH ×2 (08:37→20:36)
[2021-11-06] MEDS: MONTELUKAST 10 MG TAB PO SCH (08:38)
[2021-11-06] MEDS: MULTIVITAMINS/MINERALS THERAP 1 TAB PO SCH ×2 (08:38→20:36)
[2021-11-06] MEDS: TORSEMIDE 20 MG TAB PO SCH ×2 (08:38→17:12)
[2021-11-06] MEDS: FERROUS GLUCONATE 324 MG TAB PO SCH ×2 (08:38→20:37)
[2021-11-06] MEDS: allopurinoL 100 MG TAB PO SCH ×2 (08:38→20:37)
[2021-11-06] MEDS: FOLIC ACID 1 MG TAB PO SCH (08:38)
[2021-11-06] MEDS: VERAPAMIL 80MG TABLET PO SCH ×3 (08:38→20:36)
[2021-11-06] MEDS: MAGNESIUM OXIDE 400MG TAB (MAG-OX) PO SCH (08:38)
[2021-11-06 17:11] VITALS: BP 148/74
[2021-11-06] MEDS ORDERED: SENNA 8.6 MG TAB (SENOKOT) PO PRN (19:55)
[2021-11-07 04:32] VITALS: BP 156/87
[2021-11-07] MEDS: guaiFENesin ER 600 MG TAB PO SCH (05:02)
[2021-11-07 06:27] LABS: BASO % 0.1 % (0.0-1.0); HEMATOCRIT 35.8 % (42.0-52.0); HEMOGLOBIN 12.2 g/dl (13.5-17.5); LYMPH # 0.3 10^3/uL (1.5-5.0); LYMPH % 2.2 % (24.0-44.0); MEAN CORPUSCULAR HEMOGLOBIN 31.3 pg (27.0-33.0); MEAN CORPUSCULAR HGB CONC 34.1 g/dl (32.0-36.5); MEAN CORPUSCULAR VOLUME 91.8 fl (80.0-96.0); MONO # 1.1 10^3/uL (0.0-0.8); MONO % 7.9 % (2.0-8.0); NEUTROPHILS # 12.4 10^3/uL (1.5-8.5); PLATELET COUNT, AUTOMATED 419 10^3/uL (150-450); WHITE BLOOD COUNT 13.9 10^3/uL (4.0-10.0)
[2021-11-07 06:40] LABS: BLOOD UREA NITROGEN 36 MG/DL (7-18); CARBON DIOXIDE LEVEL 33 MEQ/L (21-32); CHLORIDE LEVEL 99 MEQ/L (98-107); GLOMERULAR FILTRATION RATE > 60.0 (>42); GLUCOSE, FASTING 127 MG/DL (70-100); POTASSIUM SERUM 3.7 MEQ/L (3.5-5.1); SODIUM LEVEL 139 MEQ/L (136-145)
[2021-11-07 06:41] LABS: CALCIUM LEVEL 9.6 MG/DL (8.8-10.2)
[2021-11-07] MEDS: IPRATROPIUM 0.02% SOLN 0.5MG 2.5ML NEB INH SCH ×4 (07:47→11:16)
[2021-11-07] MEDS: LEVALBUTEROL 1.25 MG/0.5 ML CONCENTRATE NEB INH SCH ×4 (07:48→11:16)
[2021-11-07] MEDS: TIOTROPIUM INHALER/CAPSULE (SPIRIVA) INH SCH (08:12)
[2021-11-07] MEDS: ADVAIR HFA 230/21MCG INHALER INH SCH (08:12)
[2021-11-07] MEDS: APIXABAN 2.5 MG TAB (ELIQUIS) PO SCH (08:33)
[2021-11-07 08:34] VITALS: BP 147/75
[2021-11-07] MEDS: SPIRONOLACTONE 25 MG TAB PO SCH (08:34)
[2021-11-07] MEDS: MAGNESIUM OXIDE 400MG TAB (MAG-OX) PO SCH (08:34)
[2021-11-07] MEDS: CALCIUM CARBONATE 500 MG CHEW U/D PO SCH (08:34)
[2021-11-07] MEDS: FERROUS GLUCONATE 324 MG TAB PO SCH (08:34)
[2021-11-07] MEDS: VERAPAMIL 80MG TABLET PO SCH (08:34)
[2021-11-07] MEDS: ATORVASTATIN 20 MG TAB PO SCH (08:35)
[2021-11-07] MEDS: MONTELUKAST 10 MG TAB PO SCH (08:35)
[2021-11-07] MEDS: CETIRIZINE (ZyrTEC) 10 MG TAB PO SCH (08:35)
[2021-11-07] MEDS: TORSEMIDE 20 MG TAB PO SCH (08:35)
[2021-11-07] MEDS: allopurinoL 100 MG TAB PO SCH (08:35)
[2021-11-07] MEDS: predniSONE 20 MG TAB PO SCH (08:35)
[2021-11-07] MEDS: MULTIVITAMINS/MINERALS THERAP 1 TAB PO SCH (08:35)
[2021-11-07] MEDS: LACTOBACILLUS ACIDOPHILUS CAP (BACID) PO SCH (08:35)
[2021-11-07] MEDS: FOLIC ACID 1 MG TAB PO SCH (08:35)
[2021-11-07] MEDS: TAMSULOSIN 0.4 MG CAP PO SCH (08:36)
[2021-11-07] MEDS ORDERED: MIRALAX *UNIT DOSE* 17GM PACKET PO SCH (09:00)
[2021-11-07] MEDS ORDERED: PRED10TA2 PO (13:57)
[2021-11-07] MEDS ORDERED: VENTAER INH (13:57)
[2021-11-07] MEDS ORDERED: AMOX875T2 PO (13:57)
[2021-11-07] MEDS ORDERED: METO25TA PO (13:57)
[2021-11-07] MEDS ORDERED: PRED20TA PO (13:57)
[2021-11-07] MEDS ORDERED: MONT10TA97 PO (13:57)
[2021-11-09] MEDS ORDERED: predniSONE 50 MG TAB PO SCH (09:00)
[2021-11-11] MEDS ORDERED: predniSONE 10 MG TAB PO SCH (09:00)
== END 2021-11-07 15:10 | disposition home health service (06) | DRG 191 ==
LOC: EDBD 12:51 → M ED 12:51 → M ED INP 15:17 → M MS5PR 21:52
PROVIDERS: ADMIT General Practice; ATTEND General Practice
DX: J44.1 Chronic obstructive pulmonary disease with (acute) exacerbation (principal); E87.1 Hypo-osmolality and hyponatremia; I48.20 Chronic atrial fibrillation, unspecified; I50.32 Chronic diastolic (congestive) heart failure; I27.20 Pulmonary hypertension, unspecified; I11.0 Hypertensive heart disease with heart failure; D50.9 Iron deficiency anemia, unspecified; N40.0 Benign prostatic hyperplasia without lower urinary tract symptoms; E78.5 Hyperlipidemia, unspecified; S00.81XA Abrasion of other part of head, initial encounter; M10.9 Gout, unspecified; F17.200 Nicotine dependence, unspecified, uncomplicated; I65.23 Occlusion and stenosis of bilateral carotid arteries; Z79.899 Other long term (current) drug therapy; F10.10 Alcohol abuse, uncomplicated; W18.30XA Fall on same level, unspecified, initial encounter; Y92.009 Unspecified place in unspecified non-institutional (private) residence as the place of occurrence of the external cause

== ENCOUNTER 2021-12-01 17:33 | Inpatient (IN) | payer MEDICARE, OTHER ==
[~2021-12-01] VITALS: Ht 175.3 cm; Wt 63.3 kg
[~2021-12-01 17:33] MED LIST changes: +AMOX875T2 PO; +ELIQ2.5T PO; +LEVO1TAB39 PO; -LEVO500T4 PO; +METO25TA PO
[2021-12-01] MEDS ORDERED: IPRATROPIUM 0.5MG/ALBUTEROL 2.5MG INH SOL UD 3ML (DUONEB) NEB ONE (19:25)
[2021-12-01 19:55] LABS: BASO % 0.6 % (0.0-1.0); EOS % 0.6 % (0.0-3.0); HEMATOCRIT 34.3 % (42.0-52.0); HEMOGLOBIN 11.8 g/dl (13.5-17.5); LYMPH # 0.3 10^3/uL (1.5-5.0); LYMPH % 8.3 % (24.0-44.0); MEAN CORPUSCULAR HEMOGLOBIN 30.5 pg (27.0-33.0); MEAN CORPUSCULAR HGB CONC 34.4 g/dl (32.0-36.5); MEAN CORPUSCULAR VOLUME 88.6 fl (80.0-96.0); MONO # 0.8 10^3/uL (0.0-0.8); MONO % 25.6 % (2.0-8.0); PLATELET COUNT, AUTOMATED 414 10^3/uL (150-450); RED BLOOD COUNT 3.87 10^6/uL (4.30-6.10); WHITE BLOOD COUNT 3.1 10^3/uL (4.0-10.0)
[2021-12-01 20:30] LABS: ALT/SGPT 39 U/L (12-78); BILIRUBIN,TOTAL 0.3 MG/DL (0.2-1.0); BLOOD UREA NITROGEN 22 MG/DL (7-18); CALCIUM LEVEL 8.6 MG/DL (8.8-10.2); CARBON DIOXIDE LEVEL 26 MEQ/L (21-32); CHLORIDE LEVEL 88 MEQ/L (98-107); CREATININE FOR GFR 0.96 MG/DL (0.70-1.30); GLOMERULAR FILTRATION RATE > 60.0 (>42); GLUCOSE, FASTING 88 MG/DL (70-100); LIPASE 200 U/L (73-393); MAGNESIUM LEVEL 1.8 MG/DL (1.8-2.4); SODIUM LEVEL 122 MEQ/L (136-145); TOTAL PROTEIN 6.6 GM/DL (6.4-8.2)
[2021-12-01 20:40] LABS: CK-MB VALUE MASS 2.6 NG/ML (<3.6); MB/CK RELATIVE INDEX 1.76 (< OR =4)
[2021-12-01] MEDS ORDERED: methylPREDNISolone 125MG 2ML VIAL IV ONE (21:05)
[2021-12-01] MEDS ORDERED: ACETAMINOPHEN TAB 650MG DOSE (2X325MG) PO ONE (21:30)
[2021-12-01 21:54] LABS: NT-PRO BNP 1510 PG/ML (<450)
[2021-12-01] MEDS ORDERED: VENTAER INH (23:01)
[2021-12-01] MEDS ORDERED: ATOR40TA75 PO (23:01)
[2021-12-01] MEDS ORDERED: MONT10TA97 PO (23:01)
[2021-12-01] MEDS ORDERED: ELIQ5TAB PO (23:01)
[2021-12-01] MEDS ORDERED: HOME MED LIST COMPLETE! XX SCH (23:05)
[2021-12-01] MEDS ORDERED: ALBUTEROL 90 MCG/ACT 8GM HFA INHALER INH PRN (23:05)
[2021-12-01] MEDS ORDERED: MAALOX 30 ML SUSP *UDC PO PRN (23:10)
[2021-12-01] MEDS ORDERED: ACETAMINOPHEN TAB 650MG DOSE (2X325MG) PO PRN (23:10)
[2021-12-01] MEDS ORDERED: NS 1,000 ML IV SCH (23:15)
[2021-12-02 00:10] VITALS: BP 136/76
[2021-12-02] MEDS: IPRATROPIUM 0.5MG/ALBUTEROL 2.5MG INH SOL UD 3ML (DUONEB) NEB SCH ×2 (01:34→07:23)
[2021-12-02] MEDS ORDERED: NICOTINE 14 MG/24 HR TRANSDERMAL TD PRN (02:05)
[2021-12-02 05:30] VITALS: BP 134/75
[2021-12-02 05:31] VITALS: BP 134/75
[2021-12-02 06:48] LABS: HEMATOCRIT 33.9 % (42.0-52.0); HEMOGLOBIN 11.9 g/dl (13.5-17.5); MEAN CORPUSCULAR HEMOGLOBIN 31.1 pg (27.0-33.0); MEAN CORPUSCULAR HGB CONC 35.1 g/dl (32.0-36.5); MEAN CORPUSCULAR VOLUME 88.5 fl (80.0-96.0); PLATELET COUNT, AUTOMATED 407 10^3/uL (150-450); RED BLOOD COUNT 3.83 10^6/uL (4.30-6.10)
[2021-12-02 06:52] LABS: WHITE BLOOD COUNT 0.9 10^3/uL (4.0-10.0)
[2021-12-02 07:20] LABS: BLOOD UREA NITROGEN 18 MG/DL (7-18); CALCIUM LEVEL 8.7 MG/DL (8.8-10.2); CARBON DIOXIDE LEVEL 23 MEQ/L (21-32); CHLORIDE LEVEL 92 MEQ/L (98-107); GLOMERULAR FILTRATION RATE > 60.0 (>42); GLUCOSE, FASTING 164 MG/DL (70-100); POTASSIUM SERUM 4.8 MEQ/L (3.5-5.1); SODIUM LEVEL 123 MEQ/L (136-145)
[2021-12-02] MEDS: SPIRONOLACTONE 25 MG TAB PO SCH (08:26)
[2021-12-02] MEDS: APIXABAN 5 MG TAB (ELIQUIS) PO SCH ×2 (08:26→20:17)
[2021-12-02] MEDS: MONTELUKAST 10 MG TAB PO SCH (08:26)
[2021-12-02] MEDS: VERAPAMIL 80MG TABLET PO SCH ×3 (08:26→20:17)
[2021-12-02] MEDS: allopurinoL 100 MG TAB PO SCH ×2 (08:26→20:18)
[2021-12-02] MEDS: TAMSULOSIN 0.4 MG CAP PO SCH (08:26)
[2021-12-02] MEDS: TORSEMIDE 20 MG TAB PO SCH ×2 (08:26→20:17)
[2021-12-02] MEDS: AZITHROMYCIN 250MG TABLET PO SCH (08:27)
[2021-12-02] MEDS: FERROUS GLUCONATE 324 MG TAB PO SCH ×2 (08:27→20:17)
[2021-12-02] MEDS: FOLIC ACID 1MG TAB PO SCH (08:27)
[2021-12-02] MEDS: MULTIVITAMINS/MINERALS THERAP 1 TAB PO SCH ×2 (08:27→20:18)
[2021-12-02] MEDS ORDERED: FILGRASTIM 300 MCG/0.5 ML SYRINGE **SC ADMINISTRATION ONLY SC SCH (09:00)
[2021-12-02] MEDS ORDERED: predniSONE 20 MG TAB PO SCH (09:00)
[2021-12-02] MEDS ORDERED: IPRATROPIUM 0.5MG/ALBUTEROL 2.5MG INH SOL UD 3ML (DUONEB) NEB ONE (10:00)
[2021-12-02 10:12] LABS: BASO % 1.1 % (0.0-1.0); LYMPH # 0.2 10^3/uL (1.5-5.0); LYMPH % 18.3 % (24.0-44.0); MONO # 0.1 10^3/uL (0.0-0.8); MONO % 10.8 % (2.0-8.0); NEUTROPHILS % 66.6 % (36.0-66.0)
[2021-12-02 10:32] LABS: NEUTROPHILS # 0.6 10^3/uL (1.5-8.5)
[2021-12-02 11:38] LABS: BASO % 0.8 % (0.0-1.0); HEMATOCRIT 36.4 % (42.0-52.0); HEMOGLOBIN 12.2 g/dl (13.5-17.5); LYMPH # 0.3 10^3/uL (1.5-5.0); LYMPH % 24.2 % (24.0-44.0); MEAN CORPUSCULAR HEMOGLOBIN 30.1 pg (27.0-33.0); MEAN CORPUSCULAR HGB CONC 33.5 g/dl (32.0-36.5); MEAN CORPUSCULAR VOLUME 89.9 fl (80.0-96.0); MONO # 0.1 10^3/uL (0.0-0.8); MONO % 11.7 % (2.0-8.0); NEUTROPHILS % 62.5 % (36.0-66.0); RED BLOOD COUNT 4.05 10^6/uL (4.30-6.10); WHITE BLOOD COUNT 1.2 10^3/uL (4.0-10.0)
[2021-12-02] MEDS: LEVALBUTEROL 1.25 MG/0.5 ML CONCENTRATE NEB INH SCH ×4 (12:00→23:30)
[2021-12-02] MEDS: IPRATROPIUM 0.02% SOLN 0.5MG 2.5ML NEB INH SCH ×4 (12:00→23:30)
[2021-12-02] MEDS ORDERED: TOLVAPTAN 7.5 MG HALF-TAB PO ONE (12:00)
[2021-12-02 12:01] LABS: NEUTROPHILS # 0.8 10^3/uL (1.5-8.5)
[2021-12-02 12:19] LABS: BLOOD UREA NITROGEN 24 MG/DL (7-18); CALCIUM LEVEL 8.3 MG/DL (8.8-10.2); CARBON DIOXIDE LEVEL 24 MEQ/L (21-32); CHLORIDE LEVEL 95 MEQ/L (98-107); CREATININE FOR GFR 0.97 MG/DL (0.70-1.30); GLOMERULAR FILTRATION RATE > 60.0 (>42); GLUCOSE, FASTING 198 MG/DL (70-100); POTASSIUM SERUM 4.5 MEQ/L (3.5-5.1); SODIUM LEVEL 128 MEQ/L (136-145)
[2021-12-02 15:00] VITALS: BP 116/70
[2021-12-02] MEDS: methylPREDNISolone 40MG 1ML VIAL IV SCH ×2 (15:41→20:18)
[2021-12-02 18:36] LABS: BLOOD UREA NITROGEN 30 MG/DL (7-18); CALCIUM LEVEL 8.5 MG/DL (8.8-10.2); CARBON DIOXIDE LEVEL 22 MEQ/L (21-32); CHLORIDE LEVEL 98 MEQ/L (98-107); CREATININE FOR GFR 0.79 MG/DL (0.70-1.30); GLOMERULAR FILTRATION RATE > 60.0 (>42); GLUCOSE, FASTING 157 MG/DL (70-100); POTASSIUM SERUM 4.5 MEQ/L (3.5-5.1); SODIUM LEVEL 129 MEQ/L (136-145)
[2021-12-02 22:00] VITALS: BP 118/63
[2021-12-03 01:18] LABS: BLOOD UREA NITROGEN 35 MG/DL (7-18); CALCIUM LEVEL 8.5 MG/DL (8.8-10.2); CARBON DIOXIDE LEVEL 22 MEQ/L (21-32); CHLORIDE LEVEL 95 MEQ/L (98-107); CREATININE FOR GFR 1.08 MG/DL (0.70-1.30); GLOMERULAR FILTRATION RATE > 60.0 (>42); GLUCOSE, FASTING 230 MG/DL (70-100); POTASSIUM SERUM 4.2 MEQ/L (3.5-5.1); SODIUM LEVEL 130 MEQ/L (136-145)
[2021-12-03] MEDS: LEVALBUTEROL 1.25 MG/0.5 ML CONCENTRATE NEB INH SCH ×5 (03:33→20:43)
[2021-12-03] MEDS: IPRATROPIUM 0.02% SOLN 0.5MG 2.5ML NEB INH SCH ×5 (03:33→20:55)
[2021-12-03] MEDS: methylPREDNISolone 40MG 1ML VIAL IV SCH ×4 (03:39→20:24)
[2021-12-03 06:00] VITALS: BP 141/82
[2021-12-03 06:59] LABS: BLOOD UREA NITROGEN 33 MG/DL (7-18); CALCIUM LEVEL 8.6 MG/DL (8.8-10.2); CARBON DIOXIDE LEVEL 27 MEQ/L (21-32); CHLORIDE LEVEL 96 MEQ/L (98-107); CREATININE FOR GFR 0.94 MG/DL (0.70-1.30); GLOMERULAR FILTRATION RATE > 60.0 (>42); GLUCOSE, FASTING 165 MG/DL (70-100); POTASSIUM SERUM 3.4 MEQ/L (3.5-5.1); SODIUM LEVEL 132 MEQ/L (136-145)
[2021-12-03 07:16] LABS: HEMOGLOBIN 11.5 g/dl (13.5-17.5); MEAN CORPUSCULAR HEMOGLOBIN 31.2 pg (27.0-33.0); MEAN CORPUSCULAR HGB CONC 34.8 g/dl (32.0-36.5); MEAN CORPUSCULAR VOLUME 89.4 fl (80.0-96.0); PLATELET COUNT, AUTOMATED 453 10^3/uL (150-450); RED BLOOD COUNT 3.69 10^6/uL (4.30-6.10)
[2021-12-03 07:30] LABS: WHITE BLOOD COUNT 41.1 10^3/uL (4.0-10.0)
[2021-12-03 08:23] LABS: LYMPHOCYTES 5 % (16-44); MONOCYTES 4 % (0-5); NEUTROPHILS 79 % (28-66)
[2021-12-03 08:24] LABS: PLATELET ESTIMATE INCREASED (NORMAL)
[2021-12-03 08:25] LABS: ANISOCYTOSIS 1+; TOXIC GRANULATION 1+
[2021-12-03] MEDS: FOLIC ACID 1MG TAB PO SCH (08:47)
[2021-12-03] MEDS: AZITHROMYCIN 250MG TABLET PO SCH (08:47)
[2021-12-03] MEDS: SPIRONOLACTONE 25 MG TAB PO SCH (08:47)
[2021-12-03] MEDS: TAMSULOSIN 0.4 MG CAP PO SCH (08:48)
[2021-12-03] MEDS: allopurinoL 100 MG TAB PO SCH ×2 (08:48→20:26)
[2021-12-03] MEDS: TORSEMIDE 20 MG TAB PO SCH ×2 (08:48→20:24)
[2021-12-03] MEDS: MONTELUKAST 10 MG TAB PO SCH (08:48)
[2021-12-03] MEDS: FERROUS GLUCONATE 324 MG TAB PO SCH ×2 (08:48→20:26)
[2021-12-03] MEDS: APIXABAN 5 MG TAB (ELIQUIS) PO SCH ×2 (08:48→20:25)
[2021-12-03] MEDS: MULTIVITAMINS/MINERALS THERAP 1 TAB PO SCH ×2 (08:49→20:25)
[2021-12-03] MEDS: ATORVASTATIN 20 MG TAB PO SCH (08:49)
[2021-12-03 08:50] VITALS: BP 147/77
[2021-12-03] MEDS ORDERED: IPRATROPIUM 0.5MG/ALBUTEROL 2.5MG INH SOL UD 3ML (DUONEB) NEB ONE (08:50)
[2021-12-03 09:00] VITALS: BP 147/77
[2021-12-03] MEDS ORDERED: POTASSIUM CHLORIDE 10MEQ SR TABLET PO ONE (09:00)
[2021-12-03] MEDS: VERAPAMIL 80MG TABLET PO SCH ×3 (09:07→20:25)
[2021-12-03 12:27] LABS: BLOOD UREA NITROGEN 33 MG/DL (7-18); CALCIUM LEVEL 8.7 MG/DL (8.8-10.2); CARBON DIOXIDE LEVEL 23 MEQ/L (21-32); CHLORIDE LEVEL 96 MEQ/L (98-107); CREATININE FOR GFR 1.06 MG/DL (0.70-1.30); GLOMERULAR FILTRATION RATE > 60.0 (>42); GLUCOSE, FASTING 192 MG/DL (70-100); POTASSIUM SERUM 3.5 MEQ/L (3.5-5.1); SODIUM LEVEL 129 MEQ/L (136-145)
[2021-12-03 14:00] VITALS: BP 142/61
[2021-12-03 18:18] LABS: BLOOD UREA NITROGEN 33 MG/DL (7-18); CALCIUM LEVEL 9.1 MG/DL (8.8-10.2); CARBON DIOXIDE LEVEL 24 MEQ/L (21-32); CHLORIDE LEVEL 97 MEQ/L (98-107); CREATININE FOR GFR 1.04 MG/DL (0.70-1.30); GLOMERULAR FILTRATION RATE > 60.0 (>42); GLUCOSE, FASTING 158 MG/DL (70-100); POTASSIUM SERUM 3.6 MEQ/L (3.5-5.1); SODIUM LEVEL 128 MEQ/L (136-145)
[2021-12-03 21:00] VITALS: BP 120/60
[2021-12-04] MEDS: IPRATROPIUM 0.02% SOLN 0.5MG 2.5ML NEB INH SCH ×6 (00:34→20:27)
[2021-12-04] MEDS: LEVALBUTEROL 1.25 MG/0.5 ML CONCENTRATE NEB INH SCH ×6 (00:34→20:27)
[2021-12-04 00:46] LABS: BLOOD UREA NITROGEN 38 MG/DL (7-18); CALCIUM LEVEL 8.6 MG/DL (8.8-10.2); CARBON DIOXIDE LEVEL 27 MEQ/L (21-32); CHLORIDE LEVEL 98 MEQ/L (98-107); CREATININE FOR GFR 0.95 MG/DL (0.70-1.30); GLOMERULAR FILTRATION RATE > 60.0 (>42); GLUCOSE, FASTING 161 MG/DL (70-100); POTASSIUM SERUM 3.7 MEQ/L (3.5-5.1); SODIUM LEVEL 133 MEQ/L (136-145)
[2021-12-04] MEDS: methylPREDNISolone 40MG 1ML VIAL IV SCH ×2 (03:23→09:08)
[2021-12-04 06:00] VITALS: BP 142/74
[2021-12-04 06:58] LABS: HEMATOCRIT 33.8 % (42.0-52.0); HEMOGLOBIN 11.5 g/dl (13.5-17.5); MEAN CORPUSCULAR HEMOGLOBIN 30.6 pg (27.0-33.0); MEAN CORPUSCULAR VOLUME 89.9 fl (80.0-96.0); PLATELET COUNT, AUTOMATED 488 10^3/uL (150-450); RED BLOOD COUNT 3.76 10^6/uL (4.30-6.10)
[2021-12-04 07:00] LABS: WHITE BLOOD COUNT 37.3 10^3/uL (4.0-10.0)
[2021-12-04 07:19] LABS: BLOOD UREA NITROGEN 32 MG/DL (7-18); CALCIUM LEVEL 9.2 MG/DL (8.8-10.2); CARBON DIOXIDE LEVEL 27 MEQ/L (21-32); CHLORIDE LEVEL 94 MEQ/L (98-107); CREATININE FOR GFR 0.93 MG/DL (0.70-1.30); GLOMERULAR FILTRATION RATE > 60.0 (>42); GLUCOSE, FASTING 148 MG/DL (70-100); POTASSIUM SERUM 3.4 MEQ/L (3.5-5.1); SODIUM LEVEL 130 MEQ/L (136-145)
[2021-12-04 07:37] LABS: LYMPHOCYTES 1 % (16-44); MONOCYTES 2 % (0-5); NEUTROPHILS 91 % (28-66)
[2021-12-04 07:38] LABS: PLATELET ESTIMATE NORMAL (NORMAL)
[2021-12-04] MEDS ORDERED: POTASSIUM CHLORIDE 10MEQ SR TABLET PO ONE (07:55)
[2021-12-04] MEDS: TORSEMIDE 20 MG TAB PO SCH ×2 (09:05→20:32)
[2021-12-04] MEDS: FERROUS GLUCONATE 324 MG TAB PO SCH ×2 (09:05→20:31)
[2021-12-04] MEDS: MONTELUKAST 10 MG TAB PO SCH (09:07)
[2021-12-04] MEDS: TAMSULOSIN 0.4 MG CAP PO SCH (09:07)
[2021-12-04] MEDS: APIXABAN 5 MG TAB (ELIQUIS) PO SCH ×2 (09:07→20:31)
[2021-12-04] MEDS: AZITHROMYCIN 250MG TABLET PO SCH (09:07)
[2021-12-04] MEDS: MULTIVITAMINS/MINERALS THERAP 1 TAB PO SCH ×2 (09:07→20:31)
[2021-12-04] MEDS: allopurinoL 100 MG TAB PO SCH ×2 (09:07→20:31)
[2021-12-04] MEDS: SPIRONOLACTONE 25 MG TAB PO SCH (09:07)
[2021-12-04] MEDS: FOLIC ACID 1MG TAB PO SCH (09:07)
[2021-12-04] MEDS ORDERED: IPRATROPIUM 0.5MG/ALBUTEROL 2.5MG INH SOL UD 3ML (DUONEB) NEB PRN (09:10)
[2021-12-04] MEDS: VERAPAMIL 80MG TABLET PO SCH ×3 (09:13→20:32)
[2021-12-04 10:00] VITALS: BP 132/71
[2021-12-04 13:09] LABS: BLOOD UREA NITROGEN 39 MG/DL (7-18); CALCIUM LEVEL 9.2 MG/DL (8.8-10.2); CARBON DIOXIDE LEVEL 28 MEQ/L (21-32); CHLORIDE LEVEL 96 MEQ/L (98-107); CREATININE FOR GFR 1.08 MG/DL (0.70-1.30); GLOMERULAR FILTRATION RATE > 60.0 (>42); GLUCOSE, FASTING 170 MG/DL (70-100); POTASSIUM SERUM 3.7 MEQ/L (3.5-5.1); SODIUM LEVEL 132 MEQ/L (136-145)
[2021-12-04 14:00] VITALS: BP 126/68
[2021-12-04] MEDS: predniSONE 10 MG TAB PO SCH (17:28)
[2021-12-04 19:12] LABS: BLOOD UREA NITROGEN 42 MG/DL (7-18); CALCIUM LEVEL 9.3 MG/DL (8.8-10.2); CARBON DIOXIDE LEVEL 27 MEQ/L (21-32); CHLORIDE LEVEL 95 MEQ/L (98-107); CREATININE FOR GFR 1.15 MG/DL (0.70-1.30); GLOMERULAR FILTRATION RATE > 60.0 (>42); GLUCOSE, FASTING 177 MG/DL (70-100); POTASSIUM SERUM 4.2 MEQ/L (3.5-5.1); SODIUM LEVEL 130 MEQ/L (136-145)
[2021-12-04 20:00] VITALS: BP 136/103
[2021-12-04 22:00] VITALS: BP 136/103
[2021-12-05] MEDS: LEVALBUTEROL 1.25 MG/0.5 ML CONCENTRATE NEB INH SCH ×6 (00:18→20:39)
[2021-12-05] MEDS: IPRATROPIUM 0.02% SOLN 0.5MG 2.5ML NEB INH SCH ×6 (00:18→20:40)
[2021-12-05 00:56] LABS: BLOOD UREA NITROGEN 44 MG/DL (7-18); CALCIUM LEVEL 9.1 MG/DL (8.8-10.2); CARBON DIOXIDE LEVEL 31 MEQ/L (21-32); CHLORIDE LEVEL 95 MEQ/L (98-107); CREATININE FOR GFR 1.17 MG/DL (0.70-1.30); GLOMERULAR FILTRATION RATE > 60.0 (>42); GLUCOSE, FASTING 175 MG/DL (70-100); SODIUM LEVEL 134 MEQ/L (136-145)
[2021-12-05 06:00] VITALS: BP 139/91
[2021-12-05 06:01] VITALS: BP 139/91
[2021-12-05 06:45] LABS: BASO # 0.1 10^3/uL (0.0-0.2); BASO % 0.2 % (0.0-1.0); HEMATOCRIT 36.9 % (42.0-52.0); HEMOGLOBIN 12.3 g/dl (13.5-17.5); LYMPH # 1.4 10^3/uL (1.5-5.0); LYMPH % 4.1 % (24.0-44.0); MEAN CORPUSCULAR HEMOGLOBIN 30.2 pg (27.0-33.0); MEAN CORPUSCULAR HGB CONC 33.3 g/dl (32.0-36.5); MEAN CORPUSCULAR VOLUME 90.7 fl (80.0-96.0); MONO % 4.9 % (2.0-8.0); NEUTROPHILS # 30.1 10^3/uL (1.5-8.5); NEUTROPHILS % 88.3 % (36.0-66.0); PLATELET COUNT, AUTOMATED 493 10^3/uL (150-450); RED BLOOD COUNT 4.07 10^6/uL (4.30-6.10)
[2021-12-05 07:05] LABS: MONO # 1.7 10^3/uL (0.0-0.8); WHITE BLOOD COUNT 34.1 10^3/uL (4.0-10.0)
[2021-12-05 07:17] LABS: BLOOD UREA NITROGEN 38 MG/DL (7-18); C REACTIVE PROTEIN QUANTITATIV 0.72 MG/DL (0.00-0.30); CALCIUM LEVEL 9.2 MG/DL (8.8-10.2); CARBON DIOXIDE LEVEL 31 MEQ/L (21-32); CHLORIDE LEVEL 92 MEQ/L (98-107); CREATININE FOR GFR 1.18 MG/DL (0.70-1.30); FERRITIN 1098 NG/ML (26-388); GLOMERULAR FILTRATION RATE > 60.0 (>42); GLUCOSE, FASTING 160 MG/DL (70-100); IRON (FE) 189 UG/DL (65-175); PERCENT SATURATION 64.5 % (19.7-50.0); POTASSIUM SERUM 3.6 MEQ/L (3.5-5.1); SODIUM LEVEL 133 MEQ/L (136-145); TOTAL IRON BINDING CAPACITY 293 UG/DL (250-450)
[2021-12-05 07:26] VITALS: BP 130/72
[2021-12-05 08:48] LABS: VITAMIN B12 LEVEL 1692 PG/ML (247-911)
[2021-12-05 08:59] LABS: HEPATITIS B SURFACE ANTIGEN NEGATIVE (NEGATIVE)
[2021-12-05] MEDS: SPIRONOLACTONE 25 MG TAB PO SCH (08:59)
[2021-12-05] MEDS: allopurinoL 100 MG TAB PO SCH ×2 (09:00→20:16)
[2021-12-05] MEDS: TAMSULOSIN 0.4 MG CAP PO SCH (09:00)
[2021-12-05] MEDS: VERAPAMIL 80MG TABLET PO SCH ×3 (09:00→20:18)
[2021-12-05] MEDS: FERROUS GLUCONATE 324 MG TAB PO SCH ×2 (09:00→20:16)
[2021-12-05] MEDS: predniSONE 10 MG TAB PO SCH (09:01)
[2021-12-05] MEDS: ATORVASTATIN 20 MG TAB PO SCH (09:01)
[2021-12-05] MEDS: MONTELUKAST 10 MG TAB PO SCH (09:01)
[2021-12-05] MEDS: MULTIVITAMINS/MINERALS THERAP 1 TAB PO SCH ×2 (09:01→20:16)
[2021-12-05] MEDS: FOLIC ACID 1MG TAB PO SCH (09:02)
[2021-12-05] MEDS: TORSEMIDE 20 MG TAB PO SCH ×2 (09:02→20:17)
[2021-12-05] MEDS: APIXABAN 5 MG TAB (ELIQUIS) PO SCH ×2 (09:02→20:16)
[2021-12-05 09:27] LABS: HIV 1&2 SCREEN CENTAUR NEGATIVE (NEGATIVE)
[2021-12-05 12:47] LABS: BLOOD UREA NITROGEN 43 MG/DL (7-18); CALCIUM LEVEL 9.5 MG/DL (8.8-10.2); CARBON DIOXIDE LEVEL 32 MEQ/L (21-32); CHLORIDE LEVEL 92 MEQ/L (98-107); CREATININE FOR GFR 1.21 MG/DL (0.70-1.30); GLOMERULAR FILTRATION RATE > 60.0 (>42); GLUCOSE, FASTING 95 MG/DL (70-100); POTASSIUM SERUM 3.7 MEQ/L (3.5-5.1); SODIUM LEVEL 134 MEQ/L (136-145)
[2021-12-05 15:00] VITALS: BP 140/71
[2021-12-05 19:16] LABS: CALCIUM LEVEL 9.2 MG/DL (8.8-10.2); CREATININE FOR GFR 1.38 MG/DL (0.70-1.30); GLOMERULAR FILTRATION RATE 53.3 (>42); POTASSIUM SERUM 4.2 MEQ/L (3.5-5.1)
[2021-12-05 20:19] VITALS: BP 135/89
[2021-12-06 01:47] LABS: CALCIUM LEVEL 8.9 MG/DL (8.8-10.2); CREATININE FOR GFR 1.32 MG/DL (0.70-1.30); GLOMERULAR FILTRATION RATE 56.1 (>42); POTASSIUM SERUM 3.6 MEQ/L (3.5-5.1)
[2021-12-06] MEDS: IPRATROPIUM 0.02% SOLN 0.5MG 2.5ML NEB INH SCH ×5 (04:00→15:06)
[2021-12-06] MEDS: LEVALBUTEROL 1.25 MG/0.5 ML CONCENTRATE NEB INH SCH ×5 (04:00→15:06)
[2021-12-06 05:04] VITALS: BP 121/60
[2021-12-06 06:34] LABS: HEMOGLOBIN 12.2 g/dl (13.5-17.5); MEAN CORPUSCULAR HEMOGLOBIN 31.1 pg (27.0-33.0); MEAN CORPUSCULAR HGB CONC 34.9 g/dl (32.0-36.5); MEAN CORPUSCULAR VOLUME 89.3 fl (80.0-96.0); PLATELET COUNT, AUTOMATED 475 10^3/uL (150-450); RED BLOOD COUNT 3.92 10^6/uL (4.30-6.10); WHITE BLOOD COUNT 23.7 10^3/uL (4.0-10.0)
[2021-12-06 07:11] LABS: BLOOD UREA NITROGEN 46 MG/DL (7-18); CALCIUM LEVEL 9.1 MG/DL (8.8-10.2); CARBON DIOXIDE LEVEL 35 MEQ/L (21-32); CHLORIDE LEVEL 91 MEQ/L (98-107); CREATININE FOR GFR 1.05 MG/DL (0.70-1.30); GLOMERULAR FILTRATION RATE > 60.0 (>42); GLUCOSE, FASTING 101 MG/DL (70-100); POTASSIUM SERUM 3.1 MEQ/L (3.5-5.1); SODIUM LEVEL 133 MEQ/L (136-145)
[2021-12-06 08:00] LABS: ATYPICAL LYMPH 3 % (0-5); LYMPHOCYTES 13 % (16-44); MONOCYTES 1 % (0-5); MYELOCYTES 3 % (0-0); NEUTROPHILS 79 % (28-66)
[2021-12-06 08:01] LABS: ANISOCYTOSIS 1+; PLATELET ESTIMATE INCREASED (NORMAL)
[2021-12-06] MEDS: MONTELUKAST 10 MG TAB PO SCH (08:59)
[2021-12-06] MEDS ORDERED: POTASSIUM CHLORIDE 10MEQ SR TABLET PO ONE (09:00)
[2021-12-06] MEDS ORDERED: guaiFENesin 200 MG TAB PO SCH (09:00)
[2021-12-06] MEDS: predniSONE 10 MG TAB PO SCH (09:00)
[2021-12-06] MEDS: TAMSULOSIN 0.4 MG CAP PO SCH (09:00)
[2021-12-06] MEDS: SPIRONOLACTONE 25 MG TAB PO SCH (09:00)
[2021-12-06] MEDS: allopurinoL 100 MG TAB PO SCH (09:01)
[2021-12-06] MEDS: FERROUS GLUCONATE 324 MG TAB PO SCH (09:01)
[2021-12-06] MEDS: FOLIC ACID 1MG TAB PO SCH (09:01)
[2021-12-06] MEDS: APIXABAN 5 MG TAB (ELIQUIS) PO SCH (09:01)
[2021-12-06] MEDS: TORSEMIDE 20 MG TAB PO SCH (09:01)
[2021-12-06 09:02] VITALS: BP 124/64
[2021-12-06] MEDS: MULTIVITAMINS/MINERALS THERAP 1 TAB PO SCH (09:02)
[2021-12-06] MEDS: VERAPAMIL 80MG TABLET PO SCH (09:02)
[2021-12-06 09:11] VITALS: BP 124/65
[2021-12-06 10:56] VITALS: BP 124/64
[2021-12-06] MEDS ORDERED: ALBU2.5V10 INH (12:25)
[2021-12-06] MEDS ORDERED: GUAI20TA PO (12:25)
[2021-12-06] MEDS ORDERED: VENTAER INH (12:25)
[2021-12-06] MEDS ORDERED: PRED10TA2 PO (12:25)
[2021-12-06] MEDS ORDERED: FLUT1BLS2 IH (12:25)
[2021-12-06 13:00] LABS: BLOOD UREA NITROGEN 48 MG/DL (7-18); CALCIUM LEVEL 8.9 MG/DL (8.8-10.2); CARBON DIOXIDE LEVEL 32 MEQ/L (21-32); CHLORIDE LEVEL 92 MEQ/L (98-107); CREATININE FOR GFR 1.14 MG/DL (0.70-1.30); GLOMERULAR FILTRATION RATE > 60.0 (>42); GLUCOSE, FASTING 72 MG/DL (70-100); POTASSIUM SERUM 3.6 MEQ/L (3.5-5.1); SODIUM LEVEL 130 MEQ/L (136-145)
[2021-12-07 08:09] LABS: ANTINUCLEAR ANTIBODIES DIRECT Negative (Negative); BETA 2 MICROGLOBULIN 2.9 mg/L (0.6-2.4); HEPATITIS B CORE ANTIBODY IGG Negative (Negative)
== END 2021-12-06 16:30 | disposition home or self-care (01) | DRG 191 ==
LOC: M ED 17:33 → EDBD 17:33 → M ED INP 22:06 → M MSPAV 23:56
PROVIDERS: ADMIT Family Medicine; ATTEND Family Medicine
DX: J44.1 Chronic obstructive pulmonary disease with (acute) exacerbation (principal); E87.1 Hypo-osmolality and hyponatremia; I50.32 Chronic diastolic (congestive) heart failure; I48.20 Chronic atrial fibrillation, unspecified; F10.20 Alcohol dependence, uncomplicated; D50.9 Iron deficiency anemia, unspecified; I27.20 Pulmonary hypertension, unspecified; I11.0 Hypertensive heart disease with heart failure; M10.9 Gout, unspecified; E78.5 Hyperlipidemia, unspecified; N40.0 Benign prostatic hyperplasia without lower urinary tract symptoms; F17.210 Nicotine dependence, cigarettes, uncomplicated; Z79.01 Long term (current) use of anticoagulants; Z79.899 Other long term (current) drug therapy; D72.819 Decreased white blood cell count, unspecified; Z20.822 Contact with and (suspected) exposure to COVID-19; D63.8 Anemia in other chronic diseases classified elsewhere

== ENCOUNTER 2022-02-05 20:35 | Inpatient (IN) | payer OTHER ==
[~2022-02-05 20:35] MED LIST changes: +GUAI20TA PO
[2022-02-05] MEDS: IPRATROPIUM 0.5MG/ALBUTEROL 2.5MG INH SOL UD 3ML (DUONEB) NEB PRN ×3 (20:42→21:25)
[2022-02-05 20:57] LABS: BASO # 0.1 10^3/uL (0.0-0.2); BASO % 0.5 % (0.0-1.0); EOS # 0.1 10^3/uL (0.0-0.5); EOS % 1.4 % (0.0-3.0); HEMATOCRIT 32.7 % (42.0-52.0); HEMOGLOBIN 11.4 g/dl (13.5-17.5); LYMPH # 0.8 10^3/uL (1.5-5.0); MEAN CORPUSCULAR HEMOGLOBIN 30.6 pg (27.0-33.0); MEAN CORPUSCULAR HGB CONC 34.9 g/dl (32.0-36.5); MEAN CORPUSCULAR VOLUME 87.7 fl (80.0-96.0); MONO % 17.9 % (2.0-8.0); NEUTROPHILS % 71.7 % (36.0-66.0); PLATELET COUNT, AUTOMATED 457 10^3/uL (150-450); RED BLOOD COUNT 3.73 10^6/uL (4.30-6.10); WHITE BLOOD COUNT 9.7 10^3/uL (4.0-10.0)
[2022-02-05 20:59] LABS: ABG pH (ARTERIAL) 7.466 UNITS (7.350-7.450)
[2022-02-05 21:00] LABS: ABG O2 SATURATION 99.1 % (95.0-99.0); ABG PARTIAL PRESSURE CO2 39.7 mmHg (35.0-45.0); ABG PARTIAL PRESSURE O2 178.5 mmHg (75.0-100.0); ABG STANDARD HCO3 28.1 MEQ/L (22.0-26.0); ABG TOTAL CO2 29.2 MEQ/L (23.0-31.0)
[2022-02-05 21:25] LABS: MONO # 1.7 10^3/uL (0.0-0.8)
[2022-02-05 21:30] LABS: CK-MB VALUE MASS 7.9 NG/ML (<3.6); MB/CK RELATIVE INDEX 2.96 (< OR =4)
[2022-02-05 21:38] LABS: ALBUMIN 3.3 GM/DL (3.2-5.2); ALT/SGPT 41 U/L (12-78); BILIRUBIN,DIRECT 0.2 MG/DL (0.0-0.2); BILIRUBIN,TOTAL 0.4 MG/DL (0.2-1.0); BLOOD UREA NITROGEN 28 MG/DL (7-18); CALCIUM LEVEL 8.9 MG/DL (8.8-10.2); CARBON DIOXIDE LEVEL 28 MEQ/L (21-32); CHLORIDE LEVEL 85 MEQ/L (98-107); CREATININE FOR GFR 0.92 MG/DL (0.70-1.30); GLOMERULAR FILTRATION RATE > 60.0 (>42); GLUCOSE, FASTING 112 MG/DL (70-100); NT-PRO BNP 2899 PG/ML (<450); POTASSIUM SERUM 4.8 MEQ/L (3.5-5.1); SODIUM LEVEL 122 MEQ/L (136-145); TOTAL PROTEIN 6.9 GM/DL (6.4-8.2)
[2022-02-05 22:54] LABS: ABG BASE EXCESS 4.7 (-2.0-2.0); ABG HCO3 28.8 MEQ/L (22.0-26.0); ABG O2 SATURATION 93.9 % (95.0-99.0); ABG PARTIAL PRESSURE O2 71.1 mmHg (75.0-100.0); ABG STANDARD HCO3 28.6 MEQ/L (22.0-26.0); ABG TOTAL CO2 30.1 MEQ/L (23.0-31.0); ABG pH (ARTERIAL) 7.465 UNITS (7.350-7.450)
[2022-02-06] MEDS: IPRATROPIUM 0.5MG/ALBUTEROL 2.5MG INH SOL UD 3ML (DUONEB) NEB SCH ×2 (02:00→08:00)
[2022-02-06] MEDS ORDERED: cefTRIAXone SOD 1 GM in D5W MINI-BAG PLUS 50 ML IV SCH (02:00)
[2022-02-06] MEDS ORDERED: FLUT1BLS3 INH (03:15)
[2022-02-06] MEDS ORDERED: ALBU8.5H INH (03:15)
[2022-02-06] MEDS ORDERED: ALBU2.5V10 INH (03:15)
[2022-02-06] MEDS ORDERED: CALC500T61 PO (03:15)
[2022-02-06] MEDS ORDERED: HOME MED LIST COMPLETE! XX SCH (03:20)
[2022-02-06] MEDS: IPRATROPIUM 0.5MG/ALBUTEROL 2.5MG INH SOL UD 3ML (DUONEB) NEB PRN ×2 (05:30→10:00)
[2022-02-06] MEDS: allopurinoL 100 MG TAB PO SCH ×2 (09:00→20:10)
[2022-02-06] MEDS ORDERED: predniSONE 20 MG TAB PO SCH (09:00)
[2022-02-06] MEDS: TAMSULOSIN 0.4 MG CAP PO SCH (09:15)
[2022-02-06] MEDS: FUROSEMIDE 40MG/4ML VIAL (J1940) IV SCH ×2 (09:15→18:03)
[2022-02-06] MEDS: ATORVASTATIN 20 MG TAB PO SCH (09:16)
[2022-02-06] MEDS: APIXABAN 5 MG TAB (ELIQUIS) PO SCH ×2 (09:16→20:10)
[2022-02-06] MEDS: DOXYCYCLINE HYCLATE 100MG TABLET PO SCH ×2 (09:16→20:10)
[2022-02-06] MEDS: VERAPAMIL 80MG TABLET PO SCH ×2 (09:17→20:12)
[2022-02-06] MEDS: SPIRONOLACTONE 25 MG TAB PO SCH (09:17)
[2022-02-06] MEDS: SYMBICORT 160/4.5MCG INHALER 6GM INH SCH ×2 (10:02→20:03)
[2022-02-06] MEDS: COMBIVENT RESPIMAT 100-20MCG INHALER 4GM INH SCH ×4 (11:11→23:03)
[2022-02-06] MEDS: methylPREDNISolone 125MG 2ML VIAL IV SCH ×2 (13:00→18:03)
[2022-02-06] MEDS: PANTOPRAZOLE 40MG TAB (PROTONIX) PO SCH (13:00)
[2022-02-06 16:52] VITALS: BP 146/64
[2022-02-06 18:01] LABS: BLOOD UREA NITROGEN 28 MG/DL (7-18); CALCIUM LEVEL 8.8 MG/DL (8.8-10.2); CARBON DIOXIDE LEVEL 29 MEQ/L (21-32); CHLORIDE LEVEL 89 MEQ/L (98-107); CREATININE FOR GFR 0.82 MG/DL (0.70-1.30); GLOMERULAR FILTRATION RATE > 60.0 (>42); GLUCOSE, FASTING 137 MG/DL (70-100); SODIUM LEVEL 124 MEQ/L (136-145)
[2022-02-06 20:17] VITALS: BP 130/65
[2022-02-06] MEDS ORDERED: LORazepam 2 MG TAB PO PRN (23:20)
[2022-02-06 23:25] VITALS: BP 119/59
[2022-02-07] MEDS: methylPREDNISolone 125MG 2ML VIAL IV SCH ×4 (00:27→18:07)
[2022-02-07] MEDS: THIAMINE 100 MG TAB PO SCH ×3 (00:27→20:15)
[2022-02-07] MEDS: COMBIVENT RESPIMAT 100-20MCG INHALER 4GM INH SCH ×6 (03:28→23:32)
[2022-02-07 04:32] VITALS: BP 118/70
[2022-02-07 08:00] VITALS: BP 141/69
[2022-02-07] MEDS: APIXABAN 5 MG TAB (ELIQUIS) PO SCH ×2 (08:01→20:16)
[2022-02-07] MEDS: SPIRONOLACTONE 25 MG TAB PO SCH (08:01)
[2022-02-07] MEDS: FOLIC ACID 1MG TAB PO SCH (08:02)
[2022-02-07] MEDS: TAMSULOSIN 0.4 MG CAP PO SCH (08:02)
[2022-02-07] MEDS: VERAPAMIL 80MG TABLET PO SCH ×2 (08:03→20:16)
[2022-02-07] MEDS: allopurinoL 100 MG TAB PO SCH ×2 (08:03→20:16)
[2022-02-07] MEDS: DOXYCYCLINE HYCLATE 100MG TABLET PO SCH ×2 (08:03→20:16)
[2022-02-07] MEDS: MULTIVITAMINS/MINERALS THERAP 1 TAB PO SCH (08:03)
[2022-02-07] MEDS: PANTOPRAZOLE 40MG TAB (PROTONIX) PO SCH (08:03)
[2022-02-07] MEDS: FUROSEMIDE 40MG/4ML VIAL (J1940) IV SCH ×2 (08:06→18:08)
[2022-02-07] MEDS: cefTRIAXone SOD 2 GM in D5W MINI-BAG PLUS 50 ML IV SCH (08:06)
[2022-02-07] MEDS: SYMBICORT 160/4.5MCG INHALER 6GM INH SCH ×2 (08:25→20:39)
[2022-02-07] MEDS ORDERED: FLUBLOK(EGG FREE)(QUAD)INFLUENZA VACC 0.5ML SYRINGE 18YRS & OLDER IM.IMMUN ONE (09:00)
[2022-02-07 12:00] VITALS: BP 130/59
[2022-02-07 15:39] VITALS: BP 138/63
[2022-02-07 20:00] VITALS: BP 144/73
[2022-02-08] VITALS: BP 146/65
[2022-02-08] MEDS: methylPREDNISolone 125MG 2ML VIAL IV SCH ×2 (02:37→06:35)
[2022-02-08] MEDS: COMBIVENT RESPIMAT 100-20MCG INHALER 4GM INH SCH ×6 (02:55→23:09)
[2022-02-08 04:00] VITALS: BP 150/75
[2022-02-08] MEDS: SYMBICORT 160/4.5MCG INHALER 6GM INH SCH ×2 (07:36→19:14)
[2022-02-08 08:02] VITALS: BP 147/85
[2022-02-08 08:18] LABS: HEMATOCRIT 34.7 % (42.0-52.0); HEMOGLOBIN 11.8 g/dl (13.5-17.5); LYMPH # 0.4 10^3/uL (1.5-5.0); LYMPH % 4.1 % (24.0-44.0); MEAN CORPUSCULAR HEMOGLOBIN 30.4 pg (27.0-33.0); MEAN CORPUSCULAR VOLUME 89.4 fl (80.0-96.0); MONO # 0.5 10^3/uL (0.0-0.8); MONO % 4.3 % (2.0-8.0); NEUTROPHILS # 9.9 10^3/uL (1.5-8.5); NEUTROPHILS % 91.1 % (36.0-66.0); PLATELET COUNT, AUTOMATED 582 10^3/uL (150-450); RED BLOOD COUNT 3.88 10^6/uL (4.30-6.10); WHITE BLOOD COUNT 10.8 10^3/uL (4.0-10.0)
[2022-02-08 08:58] LABS: BLOOD UREA NITROGEN 31 MG/DL (7-18); CALCIUM LEVEL 9.7 MG/DL (8.8-10.2); CARBON DIOXIDE LEVEL 30 MEQ/L (21-32); CHLORIDE LEVEL 97 MEQ/L (98-107); CREATININE FOR GFR 0.83 MG/DL (0.70-1.30); GLOMERULAR FILTRATION RATE > 60.0 (>42); GLUCOSE, FASTING 154 MG/DL (70-100); MAGNESIUM LEVEL 2.2 MG/DL (1.8-2.4); POTASSIUM SERUM 4.2 MEQ/L (3.5-5.1); SODIUM LEVEL 131 MEQ/L (136-145)
[2022-02-08] MEDS ORDERED: TOLVAPTAN 15 MG TAB (SAMSCA) PO ONE (09:00)
[2022-02-08] MEDS: TAMSULOSIN 0.4 MG CAP PO SCH (09:10)
[2022-02-08] MEDS: SPIRONOLACTONE 25 MG TAB PO SCH (09:10)
[2022-02-08] MEDS: APIXABAN 5 MG TAB (ELIQUIS) PO SCH ×2 (09:10→20:31)
[2022-02-08] MEDS: FOLIC ACID 1MG TAB PO SCH (09:10)
[2022-02-08] MEDS: DOXYCYCLINE HYCLATE 100MG TABLET PO SCH ×2 (09:11→20:31)
[2022-02-08] MEDS: THIAMINE 100 MG TAB PO SCH ×2 (09:11→20:30)
[2022-02-08] MEDS: MULTIVITAMINS/MINERALS THERAP 1 TAB PO SCH (09:11)
[2022-02-08] MEDS: cefTRIAXone SOD 2 GM in D5W MINI-BAG PLUS 50 ML IV SCH (09:12)
[2022-02-08] MEDS: FUROSEMIDE 40MG/4ML VIAL (J1940) IV SCH ×2 (09:12→17:08)
[2022-02-08] MEDS: PANTOPRAZOLE 40MG TAB (PROTONIX) PO SCH (09:12)
[2022-02-08] MEDS: VERAPAMIL 80MG TABLET PO SCH ×2 (09:13→20:31)
[2022-02-08] MEDS: ATORVASTATIN 20 MG TAB PO SCH (09:13)
[2022-02-08] MEDS: allopurinoL 100 MG TAB PO SCH ×2 (09:17→20:31)
[2022-02-08 11:22] LABS: SODIUM,RANDOM URINE 30 MEQ/L
[2022-02-08 11:53] LABS: OSMOLALITY URINE 382 MOSM/KG (50-1400)
[2022-02-08] MEDS: guaiFENesin ER 600 MG TAB PO SCH ×2 (12:42→20:31)
[2022-02-08 14:21] VITALS: BP 137/78
[2022-02-08 15:23] VITALS: BP 142/66
[2022-02-08] MEDS: methylPREDNISolone 40MG 1ML VIAL IV SCH ×2 (15:27→23:47)
[2022-02-08 20:00] VITALS: BP 140/64
[2022-02-09] MEDS: COMBIVENT RESPIMAT 100-20MCG INHALER 4GM INH SCH ×6 (03:16→23:34)
[2022-02-09 04:00] VITALS: BP 156/82
[2022-02-09] MEDS: methylPREDNISolone 40MG 1ML VIAL IV SCH ×3 (06:40→22:05)
[2022-02-09] MEDS: SYMBICORT 160/4.5MCG INHALER 6GM INH SCH ×2 (07:51→20:37)
[2022-02-09 07:57] VITALS: BP 144/71
[2022-02-09] MEDS: SPIRONOLACTONE 25 MG TAB PO SCH (09:33)
[2022-02-09] MEDS: FOLIC ACID 1MG TAB PO SCH (09:33)
[2022-02-09] MEDS: cefTRIAXone SOD 2 GM in D5W MINI-BAG PLUS 50 ML IV SCH (09:33)
[2022-02-09] MEDS: THIAMINE 100 MG TAB PO SCH (09:33)
[2022-02-09] MEDS: FUROSEMIDE 40MG/4ML VIAL (J1940) IV SCH ×2 (09:33→16:16)
[2022-02-09] MEDS: MULTIVITAMINS/MINERALS THERAP 1 TAB PO SCH (09:33)
[2022-02-09] MEDS: TAMSULOSIN 0.4 MG CAP PO SCH (09:34)
[2022-02-09] MEDS: DOXYCYCLINE HYCLATE 100MG TABLET PO SCH ×2 (09:34→22:02)
[2022-02-09] MEDS: guaiFENesin ER 600 MG TAB PO SCH ×2 (09:34→22:02)
[2022-02-09] MEDS: APIXABAN 5 MG TAB (ELIQUIS) PO SCH ×2 (09:34→22:02)
[2022-02-09] MEDS: PANTOPRAZOLE 40MG TAB (PROTONIX) PO SCH (09:34)
[2022-02-09] MEDS: VERAPAMIL 80MG TABLET PO SCH ×2 (09:34→22:04)
[2022-02-09] MEDS: allopurinoL 100 MG TAB PO SCH ×2 (09:43→22:02)
[2022-02-09 11:28] LABS: HEMATOCRIT 36.8 % (42.0-52.0); HEMOGLOBIN 12.2 g/dl (13.5-17.5); LYMPH # 0.4 10^3/uL (1.5-5.0); LYMPH % 3.5 % (24.0-44.0); MEAN CORPUSCULAR HGB CONC 33.2 g/dl (32.0-36.5); MEAN CORPUSCULAR VOLUME 90.6 fl (80.0-96.0); MONO # 0.8 10^3/uL (0.0-0.8); MONO % 8.2 % (2.0-8.0); NEUTROPHILS % 87.9 % (36.0-66.0); PLATELET COUNT, AUTOMATED 578 10^3/uL (150-450); RED BLOOD COUNT 4.06 10^6/uL (4.30-6.10); WHITE BLOOD COUNT 10.2 10^3/uL (4.0-10.0)
[2022-02-09 12:28] LABS: BLOOD UREA NITROGEN 35 MG/DL (7-18); CALCIUM LEVEL 9.3 MG/DL (8.8-10.2); CARBON DIOXIDE LEVEL 31 MEQ/L (21-32); CHLORIDE LEVEL 96 MEQ/L (98-107); CREATININE FOR GFR 0.87 MG/DL (0.70-1.30); GLOMERULAR FILTRATION RATE > 60.0 (>42); GLUCOSE, FASTING 193 MG/DL (70-100); MAGNESIUM LEVEL 1.9 MG/DL (1.8-2.4); POTASSIUM SERUM 3.7 MEQ/L (3.5-5.1); SODIUM LEVEL 133 MEQ/L (136-145)
[2022-02-09 14:00] VITALS: BP 146/86
[2022-02-09] MEDS: IPRATROPIUM 0.5MG/ALBUTEROL 2.5MG INH SOL UD 3ML (DUONEB) NEB PRN (15:29)
[2022-02-09 21:00] VITALS: BP 144/86
[2022-02-10] MEDS: COMBIVENT RESPIMAT 100-20MCG INHALER 4GM INH SCH ×6 (03:20→23:13)
[2022-02-10 05:48] VITALS: BP 165/96
[2022-02-10 06:09] LABS: BASO % 0.1 % (0.0-1.0); HEMATOCRIT 37.1 % (42.0-52.0); HEMOGLOBIN 11.9 g/dl (13.5-17.5); LYMPH # 0.5 10^3/uL (1.5-5.0); LYMPH % 4.5 % (24.0-44.0); MEAN CORPUSCULAR HEMOGLOBIN 29.7 pg (27.0-33.0); MEAN CORPUSCULAR HGB CONC 32.1 g/dl (32.0-36.5); MEAN CORPUSCULAR VOLUME 92.5 fl (80.0-96.0); MONO # 0.7 10^3/uL (0.0-0.8); MONO % 6.5 % (2.0-8.0); NEUTROPHILS # 8.8 10^3/uL (1.5-8.5); NEUTROPHILS % 88.2 % (36.0-66.0); PLATELET COUNT, AUTOMATED 565 10^3/uL (150-450); RED BLOOD COUNT 4.01 10^6/uL (4.30-6.10)
[2022-02-10] MEDS: methylPREDNISolone 40MG 1ML VIAL IV SCH (06:21)
[2022-02-10 06:41] LABS: BLOOD UREA NITROGEN 34 MG/DL (7-18); CALCIUM LEVEL 9.3 MG/DL (8.8-10.2); CARBON DIOXIDE LEVEL 32 MEQ/L (21-32); CHLORIDE LEVEL 96 MEQ/L (98-107); CREATININE FOR GFR 0.97 MG/DL (0.70-1.30); GLOMERULAR FILTRATION RATE > 60.0 (>42); GLUCOSE, FASTING 162 MG/DL (70-100); POTASSIUM SERUM 4.2 MEQ/L (3.5-5.1); SODIUM LEVEL 132 MEQ/L (136-145)
[2022-02-10] MEDS: SYMBICORT 160/4.5MCG INHALER 6GM INH SCH ×2 (07:31→19:29)
[2022-02-10] MEDS ORDERED: VERAPAMIL 80MG TABLET PO ONE ×2 (09:30→21:00)
[2022-02-10] MEDS: cefTRIAXone SOD 2 GM in D5W MINI-BAG PLUS 50 ML IV SCH (10:09)
[2022-02-10] MEDS: guaiFENesin ER 600 MG TAB PO SCH ×2 (10:09→21:09)
[2022-02-10] MEDS: FUROSEMIDE 40MG/4ML VIAL (J1940) IV SCH ×2 (10:09→16:40)
[2022-02-10] MEDS: MULTIVITAMINS/MINERALS THERAP 1 TAB PO SCH (10:10)
[2022-02-10] MEDS: PANTOPRAZOLE 40MG TAB (PROTONIX) PO SCH (10:10)
[2022-02-10] MEDS: APIXABAN 5 MG TAB (ELIQUIS) PO SCH ×2 (10:10→21:09)
[2022-02-10] MEDS: SPIRONOLACTONE 25 MG TAB PO SCH (10:10)
[2022-02-10] MEDS: ATORVASTATIN 20 MG TAB PO SCH (10:10)
[2022-02-10] MEDS: TAMSULOSIN 0.4 MG CAP PO SCH (10:10)
[2022-02-10] MEDS: DOXYCYCLINE HYCLATE 100MG TABLET PO SCH ×2 (10:10→21:09)
[2022-02-10] MEDS: allopurinoL 100 MG TAB PO SCH ×2 (10:10→21:09)
[2022-02-10] MEDS: FOLIC ACID 1MG TAB PO SCH (10:10)
[2022-02-10 14:00] VITALS: BP 135/71
[2022-02-10 16:11] LABS: BODY FLUID CULTURE Not indicated. (.); LEGIONELLA ANTIGEN URINE Negative (Negative); ORGANISM ID Not indicated. (.); SPECIMEN SOURCE Urine (.); URINE STREP PNEUMONIAE ANTIGEN Negative (Negative)
[2022-02-10] MEDS: predniSONE 20 MG TAB PO SCH (16:40)
[2022-02-10 19:53] VITALS: BP 140/74
[2022-02-11] MEDS: COMBIVENT RESPIMAT 100-20MCG INHALER 4GM INH SCH ×6 (03:14→23:06)
[2022-02-11 05:19] VITALS: BP 142/71
[2022-02-11 06:39] LABS: BASO % 0.1 % (0.0-1.0); HEMATOCRIT 38.3 % (42.0-52.0); HEMOGLOBIN 12.7 g/dl (13.5-17.5); LYMPH # 0.7 10^3/uL (1.5-5.0); LYMPH % 5.6 % (24.0-44.0); MEAN CORPUSCULAR HEMOGLOBIN 30.1 pg (27.0-33.0); MEAN CORPUSCULAR HGB CONC 33.2 g/dl (32.0-36.5); MEAN CORPUSCULAR VOLUME 90.8 fl (80.0-96.0); MONO # 1.2 10^3/uL (0.0-0.8); MONO % 9.4 % (2.0-8.0); NEUTROPHILS # 10.2 10^3/uL (1.5-8.5); NEUTROPHILS % 84.1 % (36.0-66.0); PLATELET COUNT, AUTOMATED 541 10^3/uL (150-450); RED BLOOD COUNT 4.22 10^6/uL (4.30-6.10); WHITE BLOOD COUNT 12.2 10^3/uL (4.0-10.0)
[2022-02-11 07:06] LABS: BLOOD UREA NITROGEN 38 MG/DL (7-18); CALCIUM LEVEL 9.2 MG/DL (8.8-10.2); CARBON DIOXIDE LEVEL 35 MEQ/L (21-32); CHLORIDE LEVEL 95 MEQ/L (98-107); CREATININE FOR GFR 0.87 MG/DL (0.70-1.30); GLOMERULAR FILTRATION RATE > 60.0 (>42); GLUCOSE, FASTING 126 MG/DL (70-100); POTASSIUM SERUM 4.2 MEQ/L (3.5-5.1); SODIUM LEVEL 134 MEQ/L (136-145)
[2022-02-11] MEDS: SYMBICORT 160/4.5MCG INHALER 6GM INH SCH ×2 (08:01→19:14)
[2022-02-11] MEDS: VERAPAMIL 80MG TABLET PO SCH ×4 (09:00→20:56)
[2022-02-11] MEDS: FUROSEMIDE 40MG/4ML VIAL (J1940) IV SCH ×2 (09:28→16:08)
[2022-02-11] MEDS: SPIRONOLACTONE 25 MG TAB PO SCH (09:30)
[2022-02-11] MEDS: cefTRIAXone SOD 2 GM in D5W MINI-BAG PLUS 50 ML IV SCH (09:30)
[2022-02-11] MEDS: APIXABAN 5 MG TAB (ELIQUIS) PO SCH ×2 (09:31→20:56)
[2022-02-11] MEDS: PANTOPRAZOLE 40MG TAB (PROTONIX) PO SCH (09:31)
[2022-02-11] MEDS: guaiFENesin ER 600 MG TAB PO SCH ×2 (09:31→20:56)
[2022-02-11] MEDS: TAMSULOSIN 0.4 MG CAP PO SCH (09:31)
[2022-02-11] MEDS: FOLIC ACID 1MG TAB PO SCH (09:31)
[2022-02-11] MEDS: MULTIVITAMINS/MINERALS THERAP 1 TAB PO SCH (09:31)
[2022-02-11] MEDS: allopurinoL 100 MG TAB PO SCH ×2 (09:31→20:57)
[2022-02-11] MEDS: DOXYCYCLINE HYCLATE 100MG TABLET PO SCH ×2 (09:31→20:57)
[2022-02-11] MEDS: predniSONE 20 MG TAB PO SCH (09:31)
[2022-02-11 14:12] VITALS: BP 151/101
[2022-02-11 14:15] VITALS: BP 142/78
[2022-02-11 16:06] VITALS: BP 149/100
[2022-02-11 20:30] VITALS: BP 152/84
[2022-02-12] MEDS: COMBIVENT RESPIMAT 100-20MCG INHALER 4GM INH SCH ×3 (03:24→11:47)
[2022-02-12 04:10] VITALS: BP 158/96
[2022-02-12 07:08] LABS: BASO % 0.3 % (0.0-1.0); EOS # 0.3 10^3/uL (0.0-0.5); EOS % 2.2 % (0.0-3.0); HEMATOCRIT 41.1 % (42.0-52.0); HEMOGLOBIN 13.4 g/dl (13.5-17.5); LYMPH # 1.6 10^3/uL (1.5-5.0); LYMPH % 11.9 % (24.0-44.0); MEAN CORPUSCULAR HEMOGLOBIN 30.2 pg (27.0-33.0); MEAN CORPUSCULAR HGB CONC 32.6 g/dl (32.0-36.5); MEAN CORPUSCULAR VOLUME 92.8 fl (80.0-96.0); MONO % 12.7 % (2.0-8.0); NEUTROPHILS # 9.3 10^3/uL (1.5-8.5); NEUTROPHILS % 71.4 % (36.0-66.0); RED BLOOD COUNT 4.43 10^6/uL (4.30-6.10)
[2022-02-12 07:29] LABS: BLOOD UREA NITROGEN 39 MG/DL (7-18); CALCIUM LEVEL 9.6 MG/DL (8.8-10.2); CARBON DIOXIDE LEVEL 36 MEQ/L (21-32); CHLORIDE LEVEL 95 MEQ/L (98-107); CREATININE FOR GFR 0.87 MG/DL (0.70-1.30); GLOMERULAR FILTRATION RATE > 60.0 (>42); GLUCOSE, FASTING 85 MG/DL (70-100); POTASSIUM SERUM 4.1 MEQ/L (3.5-5.1); SODIUM LEVEL 137 MEQ/L (136-145)
[2022-02-12 08:10] VITALS: BP 155/80
[2022-02-12] MEDS: SYMBICORT 160/4.5MCG INHALER 6GM INH SCH (08:18)
[2022-02-12 08:32] LABS: MONO # 1.7 10^3/uL (0.0-0.8); PLATELET COUNT, AUTOMATED 537 10^3/uL (150-450)
[2022-02-12] MEDS: ATORVASTATIN 20 MG TAB PO SCH (08:33)
[2022-02-12] MEDS: SPIRONOLACTONE 25 MG TAB PO SCH (08:33)
[2022-02-12 08:54] VITALS: BP 155/80
[2022-02-12] MEDS: PANTOPRAZOLE 40MG TAB (PROTONIX) PO SCH (08:54)
[2022-02-12] MEDS: TAMSULOSIN 0.4 MG CAP PO SCH (08:54)
[2022-02-12] MEDS: VERAPAMIL 80MG TABLET PO SCH (08:54)
[2022-02-12] MEDS: guaiFENesin ER 600 MG TAB PO SCH (08:54)
[2022-02-12] MEDS: FOLIC ACID 1MG TAB PO SCH (08:54)
[2022-02-12] MEDS: MULTIVITAMINS/MINERALS THERAP 1 TAB PO SCH (08:54)
[2022-02-12] MEDS: predniSONE 20 MG TAB PO SCH (08:54)
[2022-02-12] MEDS: FUROSEMIDE 40MG/4ML VIAL (J1940) IV SCH (08:54)
[2022-02-12] MEDS: APIXABAN 5 MG TAB (ELIQUIS) PO SCH (08:55)
[2022-02-12] MEDS: allopurinoL 100 MG TAB PO SCH (08:55)
[2022-02-12] MEDS: DOXYCYCLINE HYCLATE 100MG TABLET PO SCH (08:55)
[2022-02-12] MEDS ORDERED: CEFDINIR 300 MG CAP (OMNICEF) PO SCH (09:00)
[2022-02-12] MEDS ORDERED: DOXY100T PO (09:26)
[2022-02-12] MEDS ORDERED: PRED20TA PO (09:26)
[2022-02-12] MEDS ORDERED: MUCI600T31 PO (09:26)
[2022-02-12] MEDS ORDERED: CEFD300CAP PO (09:26)
[2022-02-12 14:00] VITALS: BP 134/95
== END 2022-02-12 15:31 | disposition home health service (06) | DRG 193 ==
LOC: EDBD 20:35 → M ED 20:35 → M ED INP 22:47 → ENRESERV 02-06 15:04 → M PCU 02-06 16:50 → M MSPAV 02-09 10:16
PROVIDERS: ADMIT Family Medicine; ATTEND Internal Medicine
DX: J18.9 Pneumonia, unspecified organism (principal); I50.33 Acute on chronic diastolic (congestive) heart failure; J44.1 Chronic obstructive pulmonary disease with (acute) exacerbation; I48.20 Chronic atrial fibrillation, unspecified; J44.0 Chronic obstructive pulmonary disease with (acute) lower respiratory infection; E87.1 Hypo-osmolality and hyponatremia; I11.0 Hypertensive heart disease with heart failure; E78.5 Hyperlipidemia, unspecified; I27.20 Pulmonary hypertension, unspecified; N40.0 Benign prostatic hyperplasia without lower urinary tract symptoms; M10.9 Gout, unspecified; D50.9 Iron deficiency anemia, unspecified; Z79.01 Long term (current) use of anticoagulants; F10.20 Alcohol dependence, uncomplicated; F17.200 Nicotine dependence, unspecified, uncomplicated; R26.89 Other abnormalities of gait and mobility; Z79.899 Other long term (current) drug therapy; R91.1 Solitary pulmonary nodule

== ENCOUNTER 2022-05-05 09:02 | Inpatient (IN) | payer OTHER, MEDICARE ==
[~2022-05-05] VITALS: Ht 172.7 cm; Wt 64.0 kg
[~2022-05-05 09:02] MED LIST changes: +ALBU8.5H INH; +CALC500T61 PO; +CEFD300CAP PO; +FLUT1BLS3 INH
[2022-05-05] MEDS ORDERED: methylPREDNISolone 125MG 2ML VIAL IV ONE ×2 (09:45→20:00)
[2022-05-05] MEDS ORDERED: ALBUTEROL SULFATE 2.5MG/0.5ML INH NEB SOLN INH ONE (09:45)
[2022-05-05] MEDS ORDERED: IPRATROPIUM 0.5MG/ALBUTEROL 2.5MG INH SOL UD 3ML (DUONEB) NEB ONE (09:45)
[2022-05-05 10:15] LABS: ABG BASE EXCESS 4.3 (-2.0-2.0); ABG HCO3 28.4 MEQ/L (22.0-26.0); ABG O2 SATURATION 97.1 % (95.0-99.0); ABG PARTIAL PRESSURE CO2 40.8 mmHg (35.0-45.0); ABG PARTIAL PRESSURE O2 89.4 mmHg (75.0-100.0); ABG STANDARD HCO3 28.3 MEQ/L (22.0-26.0); ABG TOTAL CO2 29.7 MEQ/L (23.0-31.0); ABG pH (ARTERIAL) 7.461 UNITS (7.350-7.450)
[2022-05-05 10:28] LABS: BASO % 0.5 % (0.0-1.0); EOS # 0.1 10^3/uL (0.0-0.5); EOS % 0.6 % (0.0-3.0); HEMOGLOBIN 13.6 g/dl (13.5-17.5); LYMPH # 0.8 10^3/uL (1.5-5.0); LYMPH % 9.9 % (24.0-44.0); MEAN CORPUSCULAR HEMOGLOBIN 28.6 pg (27.0-33.0); MEAN CORPUSCULAR HGB CONC 33.2 g/dl (32.0-36.5); MEAN CORPUSCULAR VOLUME 86.3 fl (80.0-96.0); MONO # 1.1 10^3/uL (0.0-0.8); MONO % 13.7 % (2.0-8.0); NEUTROPHILS % 74.9 % (36.0-66.0); PLATELET COUNT, AUTOMATED 415 10^3/uL (150-450); RED BLOOD COUNT 4.75 10^6/uL (4.30-6.10)
[2022-05-05 10:38] LABS: INR 1.13; PROTHROMBIN TIME 14.7 SECONDS (12.5-14.5)
[2022-05-05 10:39] LABS: PARTIAL THROMBOPLASTIN TIME 35.3 SECONDS (24.8-34.2)
[2022-05-05 10:47] LABS: LIPASE 39 U/L (12-53)
[2022-05-05 10:49] LABS: ALBUMIN 3.9 G/DL (3.2-5.2); ALKALINE PHOSPHATASE 180 U/L (46-116); ALT/SGPT 37 U/L (7.0-40); AST/SGOT 40 U/L (<34); BILIRUBIN,DIRECT 0.2 MG/DL (<0.4); BILIRUBIN,TOTAL 0.6 MG/DL (0.3-1.2); CK-MB VALUE MASS 6.2 NG/ML (<3.6); CPK CREATINE PHOSPHOKINASE 143 U/L (46-171); MB/CK RELATIVE INDEX 4.33 (< OR =4); TOTAL PROTEIN 7.3 G/DL (5.7-8.2)
[2022-05-05 10:54] LABS: FREE T4 1.21 NG/DL (0.89-1.76)
[2022-05-05 11:04] LABS: RSV AMPLIFICATION NEGATIVE (NEGATIVE)
[2022-05-05 11:13] LABS: BLOOD UREA NITROGEN 26 MG/DL (9-23); CALCIUM LEVEL 9.7 MG/DL (8.3-10.6); CARBON DIOXIDE LEVEL 31 MMOL/L (20-31); CHLORIDE LEVEL 89 MMOL/L (98-107); CREATININE FOR GFR 0.89 MG/DL (0.70-1.30); GLOMERULAR FILTRATION RATE > 60.0 (>42); GLUCOSE, FASTING 98 MG/DL (74-106); POTASSIUM SERUM 4.5 MMOL/L (3.5-5.1); SODIUM LEVEL 129 MMOL/L (136-145)
[2022-05-05] MEDS ORDERED: ISOVUE-370 76% 100ML VIAL As Ordered ONE (11:17)
[2022-05-05 12:26] LABS: CK-MB VALUE MASS 4.4 NG/ML (<3.6); MB/CK RELATIVE INDEX 3.09 (< OR =4)
[2022-05-05] MEDS ORDERED: AZITHROMYCIN INJ 500 MG, VIAL MATE ADAPTER 1 EACH in D5W 250 ML IV ONE (12:40)
[2022-05-05] MEDS ORDERED: cefTRIAXone SOD 1 GM in D5W MINI-BAG PLUS 50 ML IV ONE (12:40)
[2022-05-05] MEDS ORDERED: HOME MED LIST COMPLETE! XX SCH (14:15)
[2022-05-05] MEDS ORDERED: ALBUTEROL SULFATE 2.5MG/0.5ML INH NEB SOLN INH PRN (14:15)
[2022-05-05] MEDS: TORSEMIDE 20 MG TAB PO SCH (18:14)
[2022-05-05] MEDS: OYSTER SHELL CALCIUM 500 MG TAB PO SCH (18:14)
[2022-05-05 18:15] VITALS: BP 119/73
[2022-05-05 19:15] VITALS: BP 119/73
[2022-05-05] MEDS: VERAPAMIL 80MG TABLET PO SCH ×2 (20:17→22:02)
[2022-05-05] MEDS: ADVAIR HFA 115/21MCG INHALER INH SCH (20:34)
[2022-05-05] MEDS: FERROUS GLUCONATE 324 MG TAB PO SCH (21:18)
[2022-05-05] MEDS: APIXABAN 5 MG TAB (ELIQUIS) PO SCH (21:18)
[2022-05-05] MEDS: allopurinoL 100 MG TAB PO SCH (21:18)
[2022-05-05] MEDS: DOXYCYCLINE HYCLATE 100MG TABLET PO SCH (21:18)
[2022-05-05] MEDS: MULTIVITAMINS/MINERALS THERAP 1 TAB PO SCH (21:18)
[2022-05-05] MEDS: CEFDINIR 300 MG CAP (OMNICEF) PO SCH (21:18)
[2022-05-06 06:00] VITALS: BP 130/75
[2022-05-06 06:22] LABS: HEMATOCRIT 41.9 % (42.0-52.0); HEMOGLOBIN 13.8 g/dl (13.5-17.5); MEAN CORPUSCULAR HEMOGLOBIN 28.3 pg (27.0-33.0); MEAN CORPUSCULAR HGB CONC 32.9 g/dl (32.0-36.5); MEAN CORPUSCULAR VOLUME 85.9 fl (80.0-96.0); PLATELET COUNT, AUTOMATED 415 10^3/uL (150-450); RED BLOOD COUNT 4.88 10^6/uL (4.30-6.10); WHITE BLOOD COUNT 4.8 10^3/uL (4.0-10.0)
[2022-05-06 06:52] LABS: MAGNESIUM LEVEL 2.3 MG/DL (1.8-2.4)
[2022-05-06 06:55] LABS: ALBUMIN 3.8 G/DL (3.2-5.2); ALKALINE PHOSPHATASE 172 U/L (46-116); ALT/SGPT 38 U/L (7.0-40); AST/SGOT 39 U/L (<34); BILIRUBIN,TOTAL 0.3 MG/DL (0.3-1.2); BLOOD UREA NITROGEN 38 MG/DL (9-23); CALCIUM LEVEL 9.3 MG/DL (8.3-10.6); CARBON DIOXIDE LEVEL 28 MMOL/L (20-31); CHLORIDE LEVEL 91 MMOL/L (98-107); CREATININE FOR GFR 1.13 MG/DL (0.70-1.30); GLOMERULAR FILTRATION RATE > 60.0 (>42); GLUCOSE, FASTING 170 MG/DL (74-106); POTASSIUM SERUM 4.8 MMOL/L (3.5-5.1); SODIUM LEVEL 127 MMOL/L (136-145); TOTAL PROTEIN 7.8 G/DL (5.7-8.2)
[2022-05-06] MEDS: ADVAIR HFA 115/21MCG INHALER INH SCH ×2 (07:44→19:28)
[2022-05-06] MEDS: TIOTROPIUM INHALER/CAPSULE (SPIRIVA) INH SCH (07:44)
[2022-05-06] MEDS: MULTIVITAMINS/MINERALS THERAP 1 TAB PO SCH ×2 (09:19→22:24)
[2022-05-06] MEDS: TAMSULOSIN 0.4 MG CAP PO SCH (09:19)
[2022-05-06] MEDS: VERAPAMIL 80MG TABLET PO SCH ×3 (09:19→20:32)
[2022-05-06] MEDS: predniSONE 20 MG TAB PO SCH (09:20)
[2022-05-06] MEDS: FERROUS GLUCONATE 324 MG TAB PO SCH ×2 (09:20→22:24)
[2022-05-06] MEDS: CEFDINIR 300 MG CAP (OMNICEF) PO SCH ×2 (09:20→22:24)
[2022-05-06] MEDS: OYSTER SHELL CALCIUM 500 MG TAB PO SCH ×3 (09:20→17:36)
[2022-05-06] MEDS: allopurinoL 100 MG TAB PO SCH ×2 (09:20→22:24)
[2022-05-06] MEDS: FOLIC ACID 1MG TAB PO SCH (09:20)
[2022-05-06] MEDS: TORSEMIDE 20 MG TAB PO SCH ×2 (09:21→17:36)
[2022-05-06] MEDS: SPIRONOLACTONE 25 MG TAB PO SCH (09:21)
[2022-05-06] MEDS: DOXYCYCLINE HYCLATE 100MG TABLET PO SCH ×2 (09:21→22:25)
[2022-05-06] MEDS: APIXABAN 5 MG TAB (ELIQUIS) PO SCH ×2 (09:21→22:24)
[2022-05-06] MEDS ORDERED: NS 1,000 ML IV SCH (11:00)
[2022-05-06 11:17] LABS: APPEARANCE, URINE MANUAL CLEAR (CLEAR); COLOR, URINE MANUAL YELLOW (YELLOW); SPECIFIC GRAVITY,URINE MANUAL 1.025 (1.002-1.035)
[2022-05-06 11:22] LABS: BILIRUBIN, URINE MANUAL NEGATIVE (NEGATIVE); BLOOD URINE MANUAL NEGATIVE (NEGATIVE); GLUCOSE, URINE (UA) MANUAL NEGATIVE (NEGATIVE); KETONE, URINE MANUAL NEGATIVE (NEGATIVE); LEUKOCYTE ESTERASE, URINE MAN NEGATIVE (NEGATIVE); NITRITE, URINE MANUAL NEGATIVE (NEGATIVE); PROTEIN, URINE MANUAL NEGATIVE (NEGATIVE); UROBILINOGEN, URINE MANUAL NORMAL (NORMAL)
[2022-05-06 14:00] VITALS: BP 128/71
[2022-05-06] MEDS: ALBUTEROL 90 MCG/ACT 8GM HFA INHALER INH PRN ×2 (15:59→22:29)
[2022-05-06 17:58] LABS: BLOOD UREA NITROGEN 47 MG/DL (9-23); CARBON DIOXIDE LEVEL 27 MMOL/L (20-31); CHLORIDE LEVEL 94 MMOL/L (98-107); CREATININE FOR GFR 1.05 MG/DL (0.70-1.30); GLOMERULAR FILTRATION RATE > 60.0 (>42); GLUCOSE, FASTING 136 MG/DL (74-106); POTASSIUM SERUM 4.9 MMOL/L (3.5-5.1); SODIUM LEVEL 129 MMOL/L (136-145)
[2022-05-06] MEDS: COMBIVENT RESPIMAT 100-20MCG INHALER 4GM INH SCH (19:29)
[2022-05-06 19:41] VITALS: BP 107/68
[2022-05-07] MEDS: COMBIVENT RESPIMAT 100-20MCG INHALER 4GM INH SCH ×4 (01:23→22:43)
[2022-05-07 05:35] VITALS: BP 119/71
[2022-05-07] MEDS: ADVAIR HFA 115/21MCG INHALER INH SCH ×2 (07:56→20:00)
[2022-05-07] MEDS: TIOTROPIUM INHALER/CAPSULE (SPIRIVA) INH SCH (07:56)
[2022-05-07 08:06] LABS: BASO % 0.1 % (0.0-1.0); EOS % 0.1 % (0.0-3.0); HEMATOCRIT 36.1 % (42.0-52.0); LYMPH # 0.9 10^3/uL (1.5-5.0); LYMPH % 7.2 % (24.0-44.0); MEAN CORPUSCULAR HEMOGLOBIN 28.9 pg (27.0-33.0); MEAN CORPUSCULAR HGB CONC 32.7 g/dl (32.0-36.5); MEAN CORPUSCULAR VOLUME 88.5 fl (80.0-96.0); MONO % 12.8 % (2.0-8.0); NEUTROPHILS # 9.6 10^3/uL (1.5-8.5); NEUTROPHILS % 79.4 % (36.0-66.0); PLATELET COUNT, AUTOMATED 379 10^3/uL (150-450); RED BLOOD COUNT 4.08 10^6/uL (4.30-6.10); WHITE BLOOD COUNT 12.1 10^3/uL (4.0-10.0)
[2022-05-07] MEDS: VERAPAMIL 80MG TABLET PO SCH ×3 (08:07→21:15)
[2022-05-07] MEDS: CEFDINIR 300 MG CAP (OMNICEF) PO SCH ×2 (08:07→21:15)
[2022-05-07] MEDS: TAMSULOSIN 0.4 MG CAP PO SCH (08:07)
[2022-05-07] MEDS: FERROUS GLUCONATE 324 MG TAB PO SCH ×2 (08:07→21:15)
[2022-05-07] MEDS: FOLIC ACID 1MG TAB PO SCH (08:07)
[2022-05-07] MEDS: DOXYCYCLINE HYCLATE 100MG TABLET PO SCH ×2 (08:07→21:15)
[2022-05-07] MEDS: APIXABAN 5 MG TAB (ELIQUIS) PO SCH ×2 (08:07→21:15)
[2022-05-07] MEDS: MULTIVITAMINS/MINERALS THERAP 1 TAB PO SCH ×2 (08:07→21:15)
[2022-05-07] MEDS: OYSTER SHELL CALCIUM 500 MG TAB PO SCH ×3 (08:08→17:03)
[2022-05-07] MEDS: predniSONE 20 MG TAB PO SCH (08:08)
[2022-05-07] MEDS: allopurinoL 100 MG TAB PO SCH ×2 (08:08→21:15)
[2022-05-07 08:16] LABS: MONO # 1.6 10^3/uL (0.0-0.8)
[2022-05-07 08:17] LABS: HEMOGLOBIN 11.8 g/dl (13.5-17.5)
[2022-05-07 08:24] LABS: BLOOD UREA NITROGEN 41 MG/DL (9-23); CARBON DIOXIDE LEVEL 30 MMOL/L (20-31); CHLORIDE LEVEL 97 MMOL/L (98-107); CREATININE FOR GFR 0.88 MG/DL (0.70-1.30); GLOMERULAR FILTRATION RATE > 60.0 (>42); GLUCOSE, FASTING 121 MG/DL (74-106); POTASSIUM SERUM 4.5 MMOL/L (3.5-5.1); SODIUM LEVEL 133 MMOL/L (136-145)
[2022-05-07] MEDS ORDERED: ATORVASTATIN 20 MG TAB PO SCH (09:00)
[2022-05-07] MEDS ORDERED: ISOVUE-370 76% 100ML VIAL As Ordered ONE (09:18)
[2022-05-07] MEDS: TORSEMIDE 20 MG TAB PO SCH (17:03)
[2022-05-07 22:00] VITALS: BP 131/77
[2022-05-08] MEDS: COMBIVENT RESPIMAT 100-20MCG INHALER 4GM INH SCH ×2 (03:30→07:56)
[2022-05-08 06:00] VITALS: BP 131/76
[2022-05-08 06:01] LABS: BASO % 0.1 % (0.0-1.0); EOS % 0.2 % (0.0-3.0); HEMATOCRIT 37.4 % (42.0-52.0); HEMOGLOBIN 12.1 g/dl (13.5-17.5); LYMPH # 1.2 10^3/uL (1.5-5.0); LYMPH % 12.2 % (24.0-44.0); MEAN CORPUSCULAR HEMOGLOBIN 28.7 pg (27.0-33.0); MEAN CORPUSCULAR HGB CONC 32.4 g/dl (32.0-36.5); MEAN CORPUSCULAR VOLUME 88.8 fl (80.0-96.0); MONO # 1.3 10^3/uL (0.0-0.8); MONO % 13.5 % (2.0-8.0); NEUTROPHILS % 73.6 % (36.0-66.0); PLATELET COUNT, AUTOMATED 359 10^3/uL (150-450); RED BLOOD COUNT 4.21 10^6/uL (4.30-6.10); WHITE BLOOD COUNT 9.5 10^3/uL (4.0-10.0)
[2022-05-08 06:32] LABS: MAGNESIUM LEVEL 1.9 MG/DL (1.8-2.4)
[2022-05-08 06:33] LABS: BLOOD UREA NITROGEN 33 MG/DL (9-23); CALCIUM LEVEL 9.2 MG/DL (8.3-10.6); CARBON DIOXIDE LEVEL 31 MMOL/L (20-31); CHLORIDE LEVEL 95 MMOL/L (98-107); CREATININE FOR GFR 0.79 MG/DL (0.70-1.30); GLOMERULAR FILTRATION RATE > 60.0 (>42); GLUCOSE, FASTING 114 MG/DL (74-106); POTASSIUM SERUM 4.4 MMOL/L (3.5-5.1); SODIUM LEVEL 132 MMOL/L (136-145)
[2022-05-08] MEDS: TIOTROPIUM INHALER/CAPSULE (SPIRIVA) INH SCH (07:55)
[2022-05-08] MEDS: ADVAIR HFA 115/21MCG INHALER INH SCH (07:55)
[2022-05-08] MEDS ORDERED: DIMETHICONE 2% OINTMENT(VANICREAM) 70GM TUBE TOP SCH (09:00)
[2022-05-08] MEDS: FERROUS GLUCONATE 324 MG TAB PO SCH (09:12)
[2022-05-08 09:13] VITALS: BP 131/76
[2022-05-08] MEDS: SPIRONOLACTONE 25 MG TAB PO SCH (09:13)
[2022-05-08] MEDS: VERAPAMIL 80MG TABLET PO SCH (09:13)
[2022-05-08] MEDS: APIXABAN 5 MG TAB (ELIQUIS) PO SCH (09:13)
[2022-05-08] MEDS: MULTIVITAMINS/MINERALS THERAP 1 TAB PO SCH (09:13)
[2022-05-08] MEDS: predniSONE 20 MG TAB PO SCH (09:13)
[2022-05-08] MEDS: FOLIC ACID 1MG TAB PO SCH (09:13)
[2022-05-08] MEDS: CEFDINIR 300 MG CAP (OMNICEF) PO SCH (09:13)
[2022-05-08] MEDS: TORSEMIDE 20 MG TAB PO SCH (09:13)
[2022-05-08] MEDS: TAMSULOSIN 0.4 MG CAP PO SCH (09:13)
[2022-05-08] MEDS: allopurinoL 100 MG TAB PO SCH (09:14)
[2022-05-08] MEDS: DOXYCYCLINE HYCLATE 100MG TABLET PO SCH (09:14)
[2022-05-08] MEDS: OYSTER SHELL CALCIUM 500 MG TAB PO SCH ×2 (09:14→12:51)
[2022-05-08] MEDS ORDERED: PRED20TA PO (10:34)
[2022-05-08] MEDS ORDERED: DOXY100T PO (10:34)
[2022-05-08] MEDS ORDERED: PRED10TA2 PO (10:34)
[2022-05-08] MEDS ORDERED: AMOX875T2 PO (10:34)
[2022-05-08] MEDS ORDERED: CEFD300CAP PO (10:34)
== END 2022-05-08 14:15 | disposition home health service (06) | DRG 177 ==
LOC: M ED 09:02 → M ED INP 14:34 → M MSPAV 19:17
PROVIDERS: ADMIT Internal Medicine; ATTEND Internal Medicine
DX: U07.1 COVID-19 (principal); J15.9 Unspecified bacterial pneumonia; J44.1 Chronic obstructive pulmonary disease with (acute) exacerbation; I50.32 Chronic diastolic (congestive) heart failure; E87.1 Hypo-osmolality and hyponatremia; J44.0 Chronic obstructive pulmonary disease with (acute) lower respiratory infection; I27.20 Pulmonary hypertension, unspecified; M10.9 Gout, unspecified; N40.0 Benign prostatic hyperplasia without lower urinary tract symptoms; I48.91 Unspecified atrial fibrillation; Z79.01 Long term (current) use of anticoagulants; D50.9 Iron deficiency anemia, unspecified; F17.200 Nicotine dependence, unspecified, uncomplicated; D72.829 Elevated white blood cell count, unspecified; Z79.899 Other long term (current) drug therapy; M79.89 Other specified soft tissue disorders

== ENCOUNTER → 2022-06-27 | Outpatient (REF) | payer MEDICARE, OTHER ==
[2022-06-27 16:41] LABS: BLOOD UREA NITROGEN 25 MG/DL (9-23); CALCIUM LEVEL 8.8 MG/DL (8.3-10.6); CARBON DIOXIDE LEVEL 34 MMOL/L (20-31); CHLORIDE LEVEL 96 MMOL/L (98-107); CREATININE FOR GFR 0.73 MG/DL (0.70-1.30); GLOMERULAR FILTRATION RATE > 60.0 (>42); GLUCOSE, FASTING 66 MG/DL (74-106); MAGNESIUM LEVEL 1.8 MG/DL (1.8-2.4); POTASSIUM SERUM 4.3 MMOL/L (3.5-5.1); SODIUM LEVEL 136 MMOL/L (136-145)
== END ==
LOC: M SHH 15:15
PROVIDERS: ATTEND Internal Medicine
DX: Z79.899 Other long term (current) drug therapy (principal)

== ENCOUNTER 2022-07-03 10:59 | Inpatient (IN) | payer MEDICARE ==
[~2022-07-03] VITALS: Ht 172.7 cm; Wt 71.3 kg
[2022-07-03] MEDS ORDERED: ALBUTEROL SULFATE 2.5MG/0.5ML INH NEB SOLN NEB ONE (12:15)
[2022-07-03] MEDS ORDERED: IPRATROPIUM 0.5MG/ALBUTEROL 2.5MG INH SOL UD 3ML (DUONEB) NEB ONE (12:15)
[2022-07-03] MEDS ORDERED: methylPREDNISolone 125MG 2ML VIAL IV ONE (12:15)
[2022-07-03 12:20] LABS: BASO # 0.1 10^3/uL (0.0-0.2); BASO % 0.5 % (0.0-1.0); EOS # 0.1 10^3/uL (0.0-0.5); EOS % 1.1 % (0.0-3.0); HEMATOCRIT 35.3 % (42.0-52.0); HEMOGLOBIN 11.5 g/dl (13.5-17.5); LYMPH # 0.8 10^3/uL (1.5-5.0); LYMPH % 8.4 % (24.0-44.0); MEAN CORPUSCULAR HEMOGLOBIN 29.6 pg (27.0-33.0); MEAN CORPUSCULAR HGB CONC 32.6 g/dl (32.0-36.5); MEAN CORPUSCULAR VOLUME 90.7 fl (80.0-96.0); MONO # 1.2 10^3/uL (0.0-0.8); MONO % 12.5 % (2.0-8.0); NEUTROPHILS # 7.2 10^3/uL (1.5-8.5); NEUTROPHILS % 77.1 % (36.0-66.0); PLATELET COUNT, AUTOMATED 530 10^3/uL (150-450); RED BLOOD COUNT 3.89 10^6/uL (4.30-6.10); WHITE BLOOD COUNT 9.4 10^3/uL (4.0-10.0)
[2022-07-03 12:35] VITALS: O2SAT 94
[2022-07-03 12:51] LABS: ALBUMIN 3.4 G/DL (3.2-5.2); ALKALINE PHOSPHATASE 121 U/L (46-116); ALT/SGPT 35 U/L (7.0-40); AST/SGOT 45 U/L (<34); BILIRUBIN,DIRECT < 0.1 MG/DL (<0.4); BILIRUBIN,TOTAL 0.3 MG/DL (0.3-1.2); BLOOD UREA NITROGEN 28 MG/DL (9-23); CALCIUM LEVEL 9.1 MG/DL (8.3-10.6); CARBON DIOXIDE LEVEL 35 MMOL/L (20-31); CHLORIDE LEVEL 90 MMOL/L (98-107); CK-MB VALUE MASS 6.7 NG/ML (<3.6); GLOMERULAR FILTRATION RATE > 60.0 (>42); GLUCOSE, FASTING 73 MG/DL (74-106); POTASSIUM SERUM 4.5 MMOL/L (3.5-5.1); SODIUM LEVEL 131 MMOL/L (136-145); TOTAL PROTEIN 6.8 G/DL (5.7-8.2)
[2022-07-03 12:52] LABS: CPK CREATINE PHOSPHOKINASE 249 U/L (46-171); MB/CK RELATIVE INDEX 2.69 (< OR =4)
[2022-07-03] MEDS ORDERED: FUROSEMIDE 40MG/4ML VIAL IV ONE ×2 (13:00→15:00)
[2022-07-03] MEDS ORDERED: IPRATROPIUM 0.5MG/ALBUTEROL 2.5MG INH SOL UD 3ML (DUONEB) NEB PRN (14:40)
[2022-07-03] MEDS ORDERED: HEPARIN SOD (PORCINE) 5000UNITS/ML 1ML VIAL/SYRINGE SC SCH (14:45)
[2022-07-03] MEDS ORDERED: ISOVUE-370 76% 100ML VIAL As Ordered ONE (14:58)
[2022-07-03] MEDS: IPRATROPIUM 0.5MG/ALBUTEROL 2.5MG INH SOL UD 3ML (DUONEB) NEB SCH ×3 (15:16→23:42)
[2022-07-03 15:27] LABS: ABG BASE EXCESS 7.7 (-2.0-2.0); ABG HCO3 32.3 MEQ/L (22.0-26.0); ABG O2 SATURATION 95.2 % (95.0-99.0); ABG PARTIAL PRESSURE CO2 45.3 mmHg (35.0-45.0); ABG PARTIAL PRESSURE O2 74.5 mmHg (75.0-100.0); ABG STANDARD HCO3 31.4 MEQ/L (22.0-26.0); ABG TOTAL CO2 33.7 MEQ/L (23.0-31.0); ABG pH (ARTERIAL) 7.471 UNITS (7.350-7.450)
[2022-07-03] MEDS ORDERED: HOME MED LIST COMPLETE! XX SCH (15:50)
[2022-07-03] MEDS: DOXYCYCLINE HYCLATE 100MG TABLET PO SCH (16:00)
[2022-07-03 16:51] VITALS: BP 132/77
[2022-07-03] MEDS: cefTRIAXone SOD 1 GM in D5W MINI-BAG PLUS 50 ML IV SCH (18:12)
[2022-07-03] MEDS: methylPREDNISolone 40MG 1ML VIAL IV SCH ×2 (18:12→23:54)
[2022-07-03] MEDS: ADVAIR HFA 230/21MCG INHALER INH SCH (19:16)
[2022-07-03] MEDS: OYSTER SHELL CALCIUM 500 MG TAB PO SCH (19:21)
[2022-07-03] MEDS ORDERED: ALBUTEROL SULFATE 2.5MG/0.5ML INH NEB SOLN NEB PRN (20:00)
[2022-07-03 20:24] LABS: IRON (FE) 23 UG/DL (65-175); PERCENT SATURATION 7.1 % (19.7-50.0); TOTAL IRON BINDING CAPACITY 322 UG/DL (250-425)
[2022-07-03 20:25] LABS: FERRITIN 228.4 NG/ML (10.5-307.3)
[2022-07-03 20:26] LABS: VITAMIN B12 LEVEL 995 PG/ML (211-911)
[2022-07-03 20:31] LABS: FOLATE > 24.0 NG/ML (>5.4)
[2022-07-03 20:40] VITALS: BP 115/59
[2022-07-03] MEDS: APIXABAN 5 MG TAB (ELIQUIS) PO SCH (20:50)
[2022-07-03] MEDS: MULTIVITAMINS/MINERALS THERAP 1 TAB PO SCH (20:50)
[2022-07-03] MEDS: FERROUS GLUCONATE 324 MG TAB PO SCH (20:50)
[2022-07-03] MEDS: allopurinoL 100 MG TAB PO SCH (20:50)
[2022-07-03] MEDS: VERAPAMIL 80MG TABLET PO SCH (20:52)
[2022-07-04] VITALS: BP 112/70
[2022-07-04] MEDS: IPRATROPIUM 0.5MG/ALBUTEROL 2.5MG INH SOL UD 3ML (DUONEB) NEB SCH ×6 (03:41→23:37)
[2022-07-04 03:59] VITALS: BP 144/63
[2022-07-04] MEDS: DOXYCYCLINE HYCLATE 100MG TABLET PO SCH ×2 (04:04→15:43)
[2022-07-04] MEDS: methylPREDNISolone 40MG 1ML VIAL IV SCH ×4 (06:26→23:44)
[2022-07-04] MEDS: ADVAIR HFA 230/21MCG INHALER INH SCH ×2 (07:42→19:14)
[2022-07-04 07:50] VITALS: BP 138/62
[2022-07-04] MEDS: VERAPAMIL 80MG TABLET PO SCH ×3 (08:55→20:45)
[2022-07-04] MEDS: OYSTER SHELL CALCIUM 500 MG TAB PO SCH ×3 (08:55→17:35)
[2022-07-04] MEDS: ATORVASTATIN 20 MG TAB PO SCH (08:56)
[2022-07-04] MEDS: allopurinoL 100 MG TAB PO SCH ×2 (08:56→20:46)
[2022-07-04] MEDS: FOLIC ACID 1MG TAB PO SCH (08:56)
[2022-07-04] MEDS: TAMSULOSIN 0.4 MG CAP PO SCH (08:56)
[2022-07-04] MEDS: APIXABAN 5 MG TAB (ELIQUIS) PO SCH ×2 (08:56→20:46)
[2022-07-04] MEDS: FERROUS GLUCONATE 324 MG TAB PO SCH ×2 (08:56→20:45)
[2022-07-04] MEDS: MULTIVITAMINS/MINERALS THERAP 1 TAB PO SCH ×2 (08:56→20:45)
[2022-07-04] MEDS ORDERED: TORSEMIDE 20 MG TAB PO SCH (09:00)
[2022-07-04 12:00] VITALS: BP 129/58
[2022-07-04] MEDS ORDERED: IRON SUCROSE 200 MG in NS 100 ML IV ONE (13:00)
[2022-07-04] MEDS: FUROSEMIDE 40MG/4ML VIAL IV SCH ×2 (15:43→23:44)
[2022-07-04 16:13] VITALS: BP 143/65
[2022-07-04] MEDS ORDERED: FUROSEMIDE 40MG/4ML VIAL IV SCH (17:00)
[2022-07-04] MEDS: cefTRIAXone SOD 1 GM in D5W MINI-BAG PLUS 50 ML IV SCH (17:35)
[2022-07-04 21:34] VITALS: BP 121/55
[2022-07-05 04:00] VITALS: BP 132/64
[2022-07-05] MEDS: IPRATROPIUM 0.5MG/ALBUTEROL 2.5MG INH SOL UD 3ML (DUONEB) NEB SCH ×6 (04:00→23:19)
[2022-07-05] MEDS: DOXYCYCLINE HYCLATE 100MG TABLET PO SCH ×2 (05:27→16:01)
[2022-07-05] MEDS: methylPREDNISolone 40MG 1ML VIAL IV SCH ×4 (05:27→23:24)
[2022-07-05 05:50] LABS: BASO % 0.1 % (0.0-1.0); HEMATOCRIT 33.7 % (42.0-52.0); HEMOGLOBIN 10.8 g/dl (13.5-17.5); LYMPH # 0.5 10^3/uL (1.5-5.0); LYMPH % 4.3 % (24.0-44.0); MEAN CORPUSCULAR VOLUME 90.3 fl (80.0-96.0); MONO # 0.5 10^3/uL (0.0-0.8); MONO % 4.3 % (2.0-8.0); NEUTROPHILS # 10.9 10^3/uL (1.5-8.5); NEUTROPHILS % 90.8 % (36.0-66.0); PLATELET COUNT, AUTOMATED 500 10^3/uL (150-450); RED BLOOD COUNT 3.73 10^6/uL (4.30-6.10)
[2022-07-05 06:17] LABS: ALBUMIN 3.3 G/DL (3.2-5.2); ALKALINE PHOSPHATASE 104 U/L (46-116); ALT/SGPT 32 U/L (7.0-40); AST/SGOT 30 U/L (<34); BILIRUBIN,TOTAL 0.2 MG/DL (0.3-1.2); BLOOD UREA NITROGEN 36 MG/DL (9-23); CALCIUM LEVEL 9.3 MG/DL (8.3-10.6); CARBON DIOXIDE LEVEL 34 MMOL/L (20-31); CHLORIDE LEVEL 93 MMOL/L (98-107); GLOMERULAR FILTRATION RATE > 60.0 (>42); GLUCOSE, FASTING 166 MG/DL (74-106); POTASSIUM SERUM 3.9 MMOL/L (3.5-5.1); SODIUM LEVEL 134 MMOL/L (136-145); TOTAL PROTEIN 6.4 G/DL (5.7-8.2)
[2022-07-05] MEDS: ADVAIR HFA 230/21MCG INHALER INH SCH ×2 (07:25→20:30)
[2022-07-05 08:05] VITALS: BP 148/81
[2022-07-05] MEDS: OYSTER SHELL CALCIUM 500 MG TAB PO SCH ×3 (08:32→17:38)
[2022-07-05] MEDS: FERROUS GLUCONATE 324 MG TAB PO SCH ×2 (08:33→20:27)
[2022-07-05] MEDS: FOLIC ACID 1MG TAB PO SCH (08:33)
[2022-07-05] MEDS: allopurinoL 100 MG TAB PO SCH ×2 (08:33→20:27)
[2022-07-05] MEDS: TAMSULOSIN 0.4 MG CAP PO SCH (08:33)
[2022-07-05] MEDS: VERAPAMIL 80MG TABLET PO SCH ×3 (08:33→20:29)
[2022-07-05] MEDS: MULTIVITAMINS/MINERALS THERAP 1 TAB PO SCH ×2 (08:33→20:27)
[2022-07-05] MEDS: APIXABAN 5 MG TAB (ELIQUIS) PO SCH ×2 (08:33→20:27)
[2022-07-05] MEDS: FUROSEMIDE 40MG/4ML VIAL IV SCH ×3 (08:34→23:25)
[2022-07-05 11:53] VITALS: BP 131/59
[2022-07-05 15:58] VITALS: BP 138/70
[2022-07-05] MEDS: cefTRIAXone SOD 1 GM in D5W MINI-BAG PLUS 50 ML IV SCH (17:38)
[2022-07-05 20:11] VITALS: BP 116/56
[2022-07-05 23:32] VITALS: BP 120/78
[2022-07-06] VITALS (7 sets, daily range): BP systolic 130–156; BP diastolic 63–95
[2022-07-06] MEDS: IPRATROPIUM 0.5MG/ALBUTEROL 2.5MG INH SOL UD 3ML (DUONEB) NEB SCH ×7 (03:37→23:57)
[2022-07-06] MEDS: DOXYCYCLINE HYCLATE 100MG TABLET PO SCH ×2 (04:10→16:22)
[2022-07-06] MEDS: methylPREDNISolone 40MG 1ML VIAL IV SCH (05:03)
[2022-07-06] MEDS: ADVAIR HFA 230/21MCG INHALER INH SCH ×2 (07:17→20:15)
[2022-07-06 07:28] LABS: BASO % 0.1 % (0.0-1.0); HEMOGLOBIN 11.7 g/dl (13.5-17.5); LYMPH # 0.3 10^3/uL (1.5-5.0); LYMPH % 2.8 % (24.0-44.0); MEAN CORPUSCULAR HEMOGLOBIN 29.8 pg (27.0-33.0); MEAN CORPUSCULAR HGB CONC 32.5 g/dl (32.0-36.5); MEAN CORPUSCULAR VOLUME 91.6 fl (80.0-96.0); MONO # 0.5 10^3/uL (0.0-0.8); MONO % 4.3 % (2.0-8.0); NEUTROPHILS # 11.1 10^3/uL (1.5-8.5); NEUTROPHILS % 92.4 % (36.0-66.0); PLATELET COUNT, AUTOMATED 510 10^3/uL (150-450); RED BLOOD COUNT 3.93 10^6/uL (4.30-6.10)
[2022-07-06 08:01] LABS: ALBUMIN 3.4 G/DL (3.2-5.2); ALKALINE PHOSPHATASE 103 U/L (46-116); ALT/SGPT 38 U/L (7.0-40); AST/SGOT 31 U/L (<34); BILIRUBIN,TOTAL 0.3 MG/DL (0.3-1.2); BLOOD UREA NITROGEN 40 MG/DL (9-23); CALCIUM LEVEL 9.6 MG/DL (8.3-10.6); CARBON DIOXIDE LEVEL 34 MMOL/L (20-31); CHLORIDE LEVEL 93 MMOL/L (98-107); CREATININE FOR GFR 0.79 MG/DL (0.70-1.30); GLOMERULAR FILTRATION RATE > 60.0 (>42); GLUCOSE, FASTING 144 MG/DL (74-106); POTASSIUM SERUM 3.9 MMOL/L (3.5-5.1); SODIUM LEVEL 134 MMOL/L (136-145); TOTAL PROTEIN 6.6 G/DL (5.7-8.2)
[2022-07-06] MEDS: FUROSEMIDE 40MG/4ML VIAL IV SCH ×3 (08:05→23:32)
[2022-07-06] MEDS: OYSTER SHELL CALCIUM 500 MG TAB PO SCH ×3 (08:05→17:59)
[2022-07-06] MEDS: APIXABAN 5 MG TAB (ELIQUIS) PO SCH ×2 (08:06→20:00)
[2022-07-06] MEDS: TAMSULOSIN 0.4 MG CAP PO SCH (08:06)
[2022-07-06] MEDS: VERAPAMIL 80MG TABLET PO SCH ×3 (08:06→20:03)
[2022-07-06] MEDS: FOLIC ACID 1MG TAB PO SCH (08:06)
[2022-07-06] MEDS: MULTIVITAMINS/MINERALS THERAP 1 TAB PO SCH ×2 (08:06→20:00)
[2022-07-06] MEDS: allopurinoL 100 MG TAB PO SCH ×2 (08:06→20:00)
[2022-07-06] MEDS: FERROUS GLUCONATE 324 MG TAB PO SCH ×2 (08:06→20:00)
[2022-07-06] MEDS: ATORVASTATIN 20 MG TAB PO SCH (08:06)
[2022-07-06] MEDS: methylPREDNISolone 125MG 2ML VIAL IV SCH ×3 (12:17→23:32)
[2022-07-06] MEDS: cefTRIAXone SOD 1 GM in D5W MINI-BAG PLUS 50 ML IV SCH (17:59)
[2022-07-07] MEDS: IPRATROPIUM 0.5MG/ALBUTEROL 2.5MG INH SOL UD 3ML (DUONEB) NEB SCH ×3 (03:07→12:24)
[2022-07-07] MEDS: DOXYCYCLINE HYCLATE 100MG TABLET PO SCH (03:14)
[2022-07-07 03:29] VITALS: BP 142/77
[2022-07-07] MEDS: methylPREDNISolone 125MG 2ML VIAL IV SCH ×2 (05:09→11:30)
[2022-07-07 05:42] LABS: BASO % 0.1 % (0.0-1.0); EOS % 0.1 % (0.0-3.0); HEMATOCRIT 35.7 % (42.0-52.0); HEMOGLOBIN 11.7 g/dl (13.5-17.5); LYMPH # 0.3 10^3/uL (1.5-5.0); LYMPH % 2.9 % (24.0-44.0); MEAN CORPUSCULAR HEMOGLOBIN 29.8 pg (27.0-33.0); MEAN CORPUSCULAR HGB CONC 32.8 g/dl (32.0-36.5); MEAN CORPUSCULAR VOLUME 91.1 fl (80.0-96.0); MONO # 0.6 10^3/uL (0.0-0.8); MONO % 5.4 % (2.0-8.0); NEUTROPHILS # 9.5 10^3/uL (1.5-8.5); NEUTROPHILS % 90.9 % (36.0-66.0); PLATELET COUNT, AUTOMATED 509 10^3/uL (150-450); RED BLOOD COUNT 3.92 10^6/uL (4.30-6.10); WHITE BLOOD COUNT 10.5 10^3/uL (4.0-10.0)
[2022-07-07 06:08] LABS: ALBUMIN 3.2 G/DL (3.2-5.2); ALKALINE PHOSPHATASE 96 U/L (46-116); ALT/SGPT 53 U/L (7.0-40); AST/SGOT 41 U/L (<34); BILIRUBIN,TOTAL 0.3 MG/DL (0.3-1.2); BLOOD UREA NITROGEN 39 MG/DL (9-23); CALCIUM LEVEL 9.3 MG/DL (8.3-10.6); CARBON DIOXIDE LEVEL 33 MMOL/L (20-31); CHLORIDE LEVEL 95 MMOL/L (98-107); CREATININE FOR GFR 0.78 MG/DL (0.70-1.30); GLOMERULAR FILTRATION RATE > 60.0 (>42); GLUCOSE, FASTING 159 MG/DL (74-106); MAGNESIUM LEVEL 1.7 MG/DL (1.8-2.4); PHOSPHORUS LEVEL 3.2 MG/DL (2.4-5.1); POTASSIUM SERUM 3.6 MMOL/L (3.5-5.1); SODIUM LEVEL 136 MMOL/L (136-145); TOTAL PROTEIN 6.3 G/DL (5.7-8.2)
[2022-07-07] MEDS ORDERED: MAGNESIUM OXIDE 400MG TAB (MAG-OX) PO ONE (07:00)
[2022-07-07 07:34] VITALS: BP 127/73
[2022-07-07] MEDS: FUROSEMIDE 40MG/4ML VIAL IV SCH (07:57)
[2022-07-07] MEDS: OYSTER SHELL CALCIUM 500 MG TAB PO SCH ×2 (07:57→11:30)
[2022-07-07] MEDS: MULTIVITAMINS/MINERALS THERAP 1 TAB PO SCH (07:58)
[2022-07-07] MEDS: TAMSULOSIN 0.4 MG CAP PO SCH (07:58)
[2022-07-07] MEDS: FOLIC ACID 1MG TAB PO SCH (07:58)
[2022-07-07] MEDS: VERAPAMIL 80MG TABLET PO SCH (07:58)
[2022-07-07] MEDS: allopurinoL 100 MG TAB PO SCH (07:59)
[2022-07-07] MEDS: APIXABAN 5 MG TAB (ELIQUIS) PO SCH (07:59)
[2022-07-07] MEDS: FERROUS GLUCONATE 324 MG TAB PO SCH (07:59)
[2022-07-07] MEDS: ADVAIR HFA 230/21MCG INHALER INH SCH (09:05)
[2022-07-07] MEDS ORDERED: LevoFLOXacin 750 MG TABLET PO SCH (09:35)
[2022-07-07] MEDS ORDERED: LACTOBACILLUS ACIDOPHILUS CAP (BACID) PO SCH (09:35)
[2022-07-07] MEDS ORDERED: PRED10TA2 PO (10:18)
[2022-07-07] MEDS ORDERED: LEVO1TAB40 PO (10:18)
[2022-07-09 18:08] LABS: BODY FLUID CULTURE Not indicated. (.); LEGIONELLA ANTIGEN URINE Negative (Negative); ORGANISM ID Not indicated. (.); SPECIMEN SOURCE Urine (.); URINE STREP PNEUMONIAE ANTIGEN Negative (Negative)
== END 2022-07-07 14:33 | disposition home or self-care (01) | DRG 193 ==
LOC: M ED 10:59 → M ED INP 14:43 → ENRESERV 16:12 → M PCU 16:40
PROVIDERS: ADMIT Internal Medicine; ATTEND Internal Medicine
DX: J18.9 Pneumonia, unspecified organism (principal); I50.33 Acute on chronic diastolic (congestive) heart failure; J44.1 Chronic obstructive pulmonary disease with (acute) exacerbation; E87.1 Hypo-osmolality and hyponatremia; J44.0 Chronic obstructive pulmonary disease with (acute) lower respiratory infection; I27.20 Pulmonary hypertension, unspecified; I11.0 Hypertensive heart disease with heart failure; D50.9 Iron deficiency anemia, unspecified; I48.91 Unspecified atrial fibrillation; E78.5 Hyperlipidemia, unspecified; E87.8 Other disorders of electrolyte and fluid balance, not elsewhere classified; F17.210 Nicotine dependence, cigarettes, uncomplicated; M10.9 Gout, unspecified; N40.0 Benign prostatic hyperplasia without lower urinary tract symptoms; I27.81 Cor pulmonale (chronic); Z79.899 Other long term (current) drug therapy; Z79.01 Long term (current) use of anticoagulants

== ENCOUNTER 2022-07-30 11:56 | Inpatient (IN) | payer MEDICARE, OTHER ==
[~2022-07-30] VITALS: Ht 175.3 cm; Wt 97.2 kg
[~2022-07-30 11:56] MED LIST changes: +LEVO1TAB40 PO; +MIRA3350 PO; -SENN-111 PO; +SENN-188 PO; +SENN8.6T28 PO; +TREL1AER PO
[2022-07-30 13:27] LABS: BASO % 0.3 % (0.0-1.0); EOS # 0.1 10^3/uL (0.0-0.5); EOS % 0.8 % (0.0-3.0); HEMATOCRIT 29.1 % (42.0-52.0); HEMOGLOBIN 9.5 g/dl (13.5-17.5); LYMPH # 0.8 10^3/uL (1.5-5.0); LYMPH % 8.7 % (24.0-44.0); MEAN CORPUSCULAR HEMOGLOBIN 30.1 pg (27.0-33.0); MEAN CORPUSCULAR HGB CONC 32.6 g/dl (32.0-36.5); MEAN CORPUSCULAR VOLUME 92.1 fl (80.0-96.0); MONO % 11.2 % (2.0-8.0); NEUTROPHILS # 7.3 10^3/uL (1.5-8.5); NEUTROPHILS % 78.6 % (36.0-66.0); PLATELET COUNT, AUTOMATED 359 10^3/uL (150-450); RED BLOOD COUNT 3.16 10^6/uL (4.30-6.10); WHITE BLOOD COUNT 9.2 10^3/uL (4.0-10.0)
[2022-07-30 13:59] LABS: ALKALINE PHOSPHATASE 125 U/L (46-116); ALT/SGPT 41 U/L (7.0-40); AST/SGOT 38 U/L (<34); BILIRUBIN,DIRECT 0.2 MG/DL (<0.4); BILIRUBIN,TOTAL 0.6 MG/DL (0.3-1.2); BLOOD UREA NITROGEN 18 MG/DL (9-23); CARBON DIOXIDE LEVEL 23 MMOL/L (20-31); CHLORIDE LEVEL 100 MMOL/L (98-107); CK-MB VALUE MASS 2.3 NG/ML (<3.6); CREATININE FOR GFR 0.72 MG/DL (0.70-1.30); GLOMERULAR FILTRATION RATE > 60.0 (>42); GLUCOSE, FASTING 80 MG/DL (74-106); POTASSIUM SERUM 4.3 MMOL/L (3.5-5.1); SODIUM LEVEL 133 MMOL/L (136-145); TOTAL PROTEIN 6.1 G/DL (5.7-8.2)
[2022-07-30 14:04] LABS: THYROID STIMULATING HORMONE 1.779 uIU/ML (0.55-4.78); THYROXINE (T4) 8.3 UG/DL (4.5-10.9)
[2022-07-30 14:13] LABS: CPK CREATINE PHOSPHOKINASE 92 U/L (46-171)
[2022-07-30] MEDS ORDERED: FUROSEMIDE 100MG/10ML VIAL IV ONE (14:15)
[2022-07-30] MEDS ORDERED: FLOM0.4C39 PO (16:04)
[2022-07-30] MEDS ORDERED: TREL1AER IN (16:04)
[2022-07-30] MEDS ORDERED: ACET-907 PO (16:04)
[2022-07-30] MEDS ORDERED: SENN-186 PO (16:04)
[2022-07-30] MEDS ORDERED: HOME MED LIST COMPLETE! XX SCH (16:10)
[2022-07-30] MEDS ORDERED: ACETAMINOPHEN TAB 650MG DOSE (2X325MG) PO PRN (17:45)
[2022-07-30] MEDS ORDERED: ALBUTEROL 90 MCG/ACT 8GM HFA INHALER INH PRN (17:45)
[2022-07-30] MEDS ORDERED: SENNA 8.6 MG TAB (SENOKOT) PO PRN (17:45)
[2022-07-30 17:49] LABS: RSV AMPLIFICATION NEGATIVE (NEGATIVE)
[2022-07-30 18:15] VITALS: BP 126/67
[2022-07-30 19:45] LABS: CK-MB VALUE MASS 2.4 NG/ML (<3.6)
[2022-07-30] MEDS: OYSTER SHELL CALCIUM 500 MG TAB PO SCH (20:04)
[2022-07-30] MEDS: MULTIVITAMINS/MINERALS THERAP 1 TAB PO SCH (20:05)
[2022-07-30] MEDS: allopurinoL 100 MG TAB PO SCH (20:06)
[2022-07-30] MEDS: TAMSULOSIN 0.4 MG CAP PO SCH (20:06)
[2022-07-30] MEDS: FERROUS GLUCONATE 324 MG TAB PO SCH (20:07)
[2022-07-30 22:00] VITALS: BP 108/65
[2022-07-30] MEDS: VERAPAMIL 80MG TABLET PO SCH (23:15)
[2022-07-31 04:30] VITALS: BP 105/61
[2022-07-31] MEDS: VERAPAMIL 80MG TABLET PO SCH ×3 (06:22→22:38)
[2022-07-31 06:35] LABS: HEMATOCRIT 26.7 % (42.0-52.0); HEMOGLOBIN 8.7 g/dl (13.5-17.5); MEAN CORPUSCULAR HGB CONC 32.6 g/dl (32.0-36.5); MEAN CORPUSCULAR VOLUME 92.1 fl (80.0-96.0); PLATELET COUNT, AUTOMATED 323 10^3/uL (150-450); WHITE BLOOD COUNT 6.6 10^3/uL (4.0-10.0)
[2022-07-31 06:47] LABS: ALBUMIN 2.2 G/DL (3.2-5.2); ALKALINE PHOSPHATASE 106 U/L (46-116); ALT/SGPT 33 U/L (7.0-40); AST/SGOT 29 U/L (<34); BILIRUBIN,DIRECT 0.1 MG/DL (<0.4); BILIRUBIN,TOTAL 0.3 MG/DL (0.3-1.2); BLOOD UREA NITROGEN 15 MG/DL (9-23); CALCIUM LEVEL 8.4 MG/DL (8.3-10.6); CARBON DIOXIDE LEVEL 29 MMOL/L (20-31); CHLORIDE LEVEL 101 MMOL/L (98-107); CREATININE FOR GFR 0.81 MG/DL (0.70-1.30); GLOMERULAR FILTRATION RATE > 60.0 (>42); GLUCOSE, FASTING 83 MG/DL (74-106); POTASSIUM SERUM 4.4 MMOL/L (3.5-5.1); SODIUM LEVEL 136 MMOL/L (136-145); TOTAL PROTEIN 4.8 G/DL (5.7-8.2)
[2022-07-31] MEDS: TIOTROPIUM INHALER/CAPSULE (SPIRIVA) INH SCH (08:38)
[2022-07-31] MEDS: ALBUTEROL SULFATE 2.5MG/0.5ML INH NEB SOLN INH PRN ×2 (08:42→20:30)
[2022-07-31] MEDS: FUROSEMIDE 40MG/4ML VIAL IV SCH ×2 (09:00→19:27)
[2022-07-31] MEDS ORDERED: ATORVASTATIN 20 MG TAB PO SCH (09:00)
[2022-07-31] MEDS: allopurinoL 100 MG TAB PO SCH ×2 (09:36→20:24)
[2022-07-31] MEDS: FERROUS GLUCONATE 324 MG TAB PO SCH ×2 (09:36→20:24)
[2022-07-31] MEDS: OYSTER SHELL CALCIUM 500 MG TAB PO SCH ×3 (09:36→18:52)
[2022-07-31] MEDS: TAMSULOSIN 0.4 MG CAP PO SCH ×3 (09:36→20:24)
[2022-07-31] MEDS: FOLIC ACID 1MG TAB PO SCH (09:36)
[2022-07-31] MEDS: MULTIVITAMINS/MINERALS THERAP 1 TAB PO SCH ×2 (09:36→20:24)
[2022-07-31 14:00] VITALS: BP 125/67
[2022-07-31 17:44] VITALS: BP 125/78
[2022-07-31 20:55] VITALS: BP 134/73
[2022-08-01] MEDS: ALBUTEROL SULFATE 2.5MG/0.5ML INH NEB SOLN INH PRN ×5 (01:52→11:13)
[2022-08-01 06:00] VITALS: BP 110/61
[2022-08-01] MEDS: VERAPAMIL 80MG TABLET PO SCH ×2 (06:17→13:33)
[2022-08-01] MEDS: TIOTROPIUM INHALER/CAPSULE (SPIRIVA) INH SCH (07:35)
[2022-08-01] MEDS: ADVAIR HFA 115/21MCG INHALER INH SCH ×3 (07:36→11:13)
[2022-08-01 08:33] VITALS: BP 111/50
[2022-08-01] MEDS: FOLIC ACID 1MG TAB PO SCH (08:35)
[2022-08-01] MEDS: allopurinoL 100 MG TAB PO SCH (08:35)
[2022-08-01] MEDS: FUROSEMIDE 40MG/4ML VIAL IV SCH (08:35)
[2022-08-01] MEDS: TAMSULOSIN 0.4 MG CAP PO SCH (08:35)
[2022-08-01] MEDS: MULTIVITAMINS/MINERALS THERAP 1 TAB PO SCH (08:35)
[2022-08-01] MEDS: FERROUS GLUCONATE 324 MG TAB PO SCH (08:35)
[2022-08-01] MEDS: OYSTER SHELL CALCIUM 500 MG TAB PO SCH ×2 (08:36→13:34)
[2022-08-01 08:56] LABS: HEMATOCRIT 27.5 % (42.0-52.0); HEMOGLOBIN 8.9 g/dl (13.5-17.5); MEAN CORPUSCULAR HGB CONC 32.4 g/dl (32.0-36.5); MEAN CORPUSCULAR VOLUME 92.6 fl (80.0-96.0); PLATELET COUNT, AUTOMATED 389 10^3/uL (150-450); RED BLOOD COUNT 2.97 10^6/uL (4.30-6.10); WHITE BLOOD COUNT 7.1 10^3/uL (4.0-10.0)
[2022-08-01 09:17] LABS: BLOOD UREA NITROGEN 13 MG/DL (9-23); CARBON DIOXIDE LEVEL 27 MMOL/L (20-31); CHLORIDE LEVEL 99 MMOL/L (98-107); CREATININE FOR GFR 0.72 MG/DL (0.70-1.30); GLOMERULAR FILTRATION RATE > 60.0 (>42); GLUCOSE, FASTING 194 MG/DL (74-106); POTASSIUM SERUM 3.8 MMOL/L (3.5-5.1); SODIUM LEVEL 132 MMOL/L (136-145)
[2022-08-01 13:33] VITALS: BP 135/71
[2022-08-01] MEDS ORDERED: TORSEMIDE 20 MG TAB PO SCH (16:00)
[2022-08-02] MEDS ORDERED: SPIRONOLACTONE 25 MG TAB PO SCH (09:00)
== END 2022-08-01 14:48 | disposition home health service (06) | DRG 291 ==
LOC: M ED 11:56 → M ED INP 14:50 → M MSPAV 18:22
PROVIDERS: ADMIT Internal Medicine; ATTEND Internal Medicine
DX: I11.0 Hypertensive heart disease with heart failure (principal); I50.33 Acute on chronic diastolic (congestive) heart failure; J44.9 Chronic obstructive pulmonary disease, unspecified; I48.91 Unspecified atrial fibrillation; M10.9 Gout, unspecified; F17.210 Nicotine dependence, cigarettes, uncomplicated; D50.9 Iron deficiency anemia, unspecified; R74.01 Elevation of levels of liver transaminase levels; I27.20 Pulmonary hypertension, unspecified; E78.5 Hyperlipidemia, unspecified; N40.0 Benign prostatic hyperplasia without lower urinary tract symptoms; Z79.01 Long term (current) use of anticoagulants; Z79.899 Other long term (current) drug therapy; Z20.822 Contact with and (suspected) exposure to COVID-19

== ENCOUNTER → 2024-02-23 | Outpatient (CLI) | payer MEDICARE, OTHER ==
[~2024-02-23] MED LIST changes: +SENN-186 PO; +TREL1AER IN
== END ==
LOC: M PLARAD 13:31
PROVIDERS: ATTEND Internal Medicine
DX: C34.32 Malignant neoplasm of lower lobe, left bronchus or lung (principal)
CPT/HCPCS: 78815; A9552

== ENCOUNTER → 2024-04-15 | Outpatient (CLI) | payer MEDICARE, OTHER ==
[~2024-04-15] MED LIST changes: -ADV250INH INH; +ADVA1AER9 INH
== END ==
LOC: M ONCR 13:44
PROVIDERS: ATTEND General Practice
DX: C34.32 Malignant neoplasm of lower lobe, left bronchus or lung (principal); Z87.891 Personal history of nicotine dependence; Z79.01 Long term (current) use of anticoagulants; Z79.51 Long term (current) use of inhaled steroids; Z79.899 Other long term (current) drug therapy

== ENCOUNTER 2024-05-10 07:43 | Outpatient (RCR) | payer OTHER, MEDICARE | END 2024-05-14 | LOC: M ONCR 07:43 | PROVIDERS: ATTEND General Practice | DX: Z51.0 Encounter for antineoplastic radiation therapy (principal); C34.32 Malignant neoplasm of lower lobe, left bronchus or lung ==

== ENCOUNTER 2024-06-03 14:35 | Outpatient (RCR) | payer OTHER, MEDICARE ==
[~2024-06-03 14:35] MED LIST changes: +CEPH500T PO
[2024-06-12] MEDS ORDERED: TORS10TA3 PO ×2 (17:55)
[2024-06-12] MEDS ORDERED: PANT-23 PO (17:55)
[2024-06-12] MEDS ORDERED: FLUT1BLS3 INH (18:01)
== END 2024-06-11 ==
LOC: M ONCR 14:35
PROVIDERS: ATTEND General Practice
DX: Z51.0 Encounter for antineoplastic radiation therapy (principal); C34.32 Malignant neoplasm of lower lobe, left bronchus or lung

== ENCOUNTER 2024-06-12 10:53 | Inpatient (IN) | payer OTHER, MEDICARE ==
[~2024-06-12] VITALS: Ht 177.8 cm; Wt 73.0 kg
[2024-06-12 12:46] LABS: BASO # 0.1 10^3/uL (0.0-0.2); BASO % 0.9 % (0.0-1.0); EOS # 0.1 10^3/uL (0.0-0.5); EOS % 1.1 % (0.0-3.0); HEMATOCRIT 32.4 % (42.0-52.0); HEMOGLOBIN 10.3 g/dl (13.5-17.5); LYMPH # 0.6 10^3/uL (1.5-5.0); LYMPH % 7.8 % (24.0-44.0); MEAN CORPUSCULAR HEMOGLOBIN 29.9 pg (27.0-33.0); MEAN CORPUSCULAR HGB CONC 31.8 g/dl (32.0-36.5); MEAN CORPUSCULAR VOLUME 94.2 fl (80.0-96.0); MONO # 0.8 10^3/uL (0.0-0.8); MONO % 9.6 % (2.0-8.0); NEUTROPHILS # 6.3 10^3/uL (1.5-8.5); NEUTROPHILS % 80.1 % (36.0-66.0); PLATELET COUNT, AUTOMATED 368 10^3/uL (150-450); RED BLOOD COUNT 3.44 10^6/uL (4.30-6.10); WHITE BLOOD COUNT 7.9 10^3/uL (4.0-10.0)
[2024-06-12] MEDS: IPRATROPIUM 0.5MG/ALBUTEROL 2.5MG INH SOL UD 3ML (DUONEB) NEB PRN (13:02)
[2024-06-12 13:11] LABS: INR 1.8; PARTIAL THROMBOPLASTIN TIME 39.2 SECONDS (24.8-34.2); PROTHROMBIN TIME 21.1 SECONDS (12.5-14.5)
[2024-06-12] MEDS: methylPREDNISolone 125MG 2ML VIAL IV ONE (13:12)
[2024-06-12 13:13] LABS: ABG BASE EXCESS -5.6 (-2.0-2.0); ABG HCO3 18.8 MMOL/L (22.0-26.0); ABG O2 SATURATION 92.5 % (95.0-99.0); ABG PARTIAL PRESSURE CO2 33.1 mmHg (35.0-45.0); ABG PARTIAL PRESSURE O2 71.4 mmHg (75.0-100.0); ABG STANDARD HCO3 19.7 MMOL/L. (22.0-26.0); ABG TOTAL CO2 19.9 MMOL/L (23.0-31.0); ABG pH (ARTERIAL) 7.373 UNITS (7.350-7.450)
[2024-06-12 13:24] LABS: ALBUMIN 3.8 G/DL (3.2-5.2); BILIRUBIN,DIRECT 0.2 MG/DL (<0.4); BILIRUBIN,TOTAL 0.5 MG/DL (0.3-1.2); CALCIUM LEVEL 8.9 MG/DL (8.3-10.6); CK-MB VALUE MASS 7.9 NG/ML (<3.6); CREATININE FOR GFR 1.26 MG/DL (0.70-1.30); FREE T4 1.39 NG/DL (0.89-1.76); GLOMERULAR FILTRATION RATE 58.8 (>42); MB/CK RELATIVE INDEX 3.95 (< OR =4); POTASSIUM SERUM 6.3 MMOL/L (3.5-5.1); THYROID STIMULATING HORMONE 2.888 uIU/ML (0.55-4.78); TOTAL PROTEIN 7.1 G/DL (5.7-8.2)
[2024-06-12] MEDS ORDERED: ISOVUE-370 76% 100ML VIAL As Ordered ONE (13:35)
[2024-06-12] MEDS: HumuLIN R (REGULAR) INSULIN (NovoLIN R) **100U/ML** PER UNIT IV ONE (14:09)
[2024-06-12] MEDS: CALCIUM GLUCONATE 1,000 MG in DEXTROSE 5% (D5W) MINI-BAG PLU 100 ML IV ONE (14:09)
[2024-06-12] MEDS: DEXTROSE 50% 50ML SYRINGE IV STA ×2 (14:09→20:53)
[2024-06-12 14:27] LABS: CK-MB VALUE MASS 7.3 NG/ML (<3.6)
[2024-06-12 14:29] LABS: MB/CK RELATIVE INDEX 4.1 (< OR =4)
[2024-06-12] MEDS: PATIROMER SORBITEX CALCIUM 8.4 GM POWDER PACKET (VELTASSA) PO ONE (14:50)
[2024-06-12] MEDS: AZITHROMYCIN 250MG TABLET PO ONE (15:08)
[2024-06-12] MEDS: IPRATROPIUM 0.5MG/ALBUTEROL 2.5MG INH SOL UD 3ML (DUONEB) NEB SCH (16:00)
[2024-06-12] MEDS: cefTRIAXone SOD 1 GM in DEXTROSE 5% (D5W) ADV/MINI-BAG 50 ML IV ONE (16:13)
[2024-06-12] MEDS ORDERED: TORS10TA3 PO ×2 (17:55)
[2024-06-12] MEDS ORDERED: PANT-23 PO (17:55)
[2024-06-12] MEDS ORDERED: FLUT1BLS3 INH (18:01)
[2024-06-12] MEDS ORDERED: HOME MED LIST COMPLETE! XX SCH (18:05)
[2024-06-12] MEDS: FUROSEMIDE 100MG/10ML VIAL IV ONE (18:08)
[2024-06-12] MEDS: BUDESONIDE 0.5 MG/2 ML INHALATION SUSPENSION NEB SCH (19:29)
[2024-06-12] MEDS: FORMOTEROL FUMARATE 20 MCG/2 ML INHALATION SOLUTION (PERFOROMIST) INH SCH (19:29)
[2024-06-12 19:31] LABS: BLOOD UREA NITROGEN 49 MG/DL (9-23); CALCIUM LEVEL 9.2 MG/DL (8.3-10.6); CARBON DIOXIDE LEVEL 21 MMOL/L (20-31); CHLORIDE LEVEL 105 MMOL/L (98-107); GLOMERULAR FILTRATION RATE > 60.0 (>42); GLUCOSE, FASTING 87 MG/DL (74-106); POTASSIUM SERUM 6.3 MMOL/L (3.5-5.1); SODIUM LEVEL 136 MMOL/L (136-145)
[2024-06-12] MEDS: HumuLIN R (REGULAR) INSULIN (NovoLIN R) **100U/ML** PER UNIT IV STA (20:52)
[2024-06-12] MEDS: DOCUSATE SODIUM 100MG CAPSULE PO SCH (20:54)
[2024-06-12] MEDS: PANTOPRAZOLE 40MG TAB (PROTONIX) PO SCH (20:55)
[2024-06-12] MEDS: allopurinoL 100 MG TAB PO SCH (20:56)
[2024-06-12] MEDS: APIXABAN 5 MG TAB (ELIQUIS) PO SCH (20:56)
[2024-06-12] MEDS ORDERED: VERAPAMIL 80MG TABLET PO SCH (21:00)
[2024-06-12 22:07] VITALS: BP 148/62; TEMP 97; O2SAT 95
[2024-06-12] MEDS: VERAPAMIL 40 MG TAB PO SCH (23:01)
[2024-06-12] MEDS: FERROUS GLUCONATE 324 MG TAB PO SCH (23:01)
[2024-06-12 23:31] LABS: CALCIUM LEVEL 8.7 MG/DL (8.3-10.6); CREATININE FOR GFR 1.26 MG/DL (0.70-1.30); GLOMERULAR FILTRATION RATE 58.8 (>42); MAGNESIUM LEVEL 2.7 MG/DL (1.8-2.4); POTASSIUM SERUM 5.8 MMOL/L (3.5-5.1)
[2024-06-13] MEDS: SOD POLYSTYRENE SULFONATE SUSP 15GM 60ML UD PO ONE (03:04)
[2024-06-13] MEDS: FUROSEMIDE 40MG/4ML VIAL IV SCH ×2 (03:04→16:03)
[2024-06-13 03:57] VITALS: BP 121/56; TEMP 98; O2SAT 93
[2024-06-13 06:47] LABS: HEMATOCRIT 29.6 % (42.0-52.0); HEMOGLOBIN 9.5 g/dl (13.5-17.5); LYMPH # 0.3 10^3/uL (1.5-5.0); LYMPH % 5.3 % (24.0-44.0); MEAN CORPUSCULAR HEMOGLOBIN 29.9 pg (27.0-33.0); MEAN CORPUSCULAR HGB CONC 32.1 g/dl (32.0-36.5); MEAN CORPUSCULAR VOLUME 93.1 fl (80.0-96.0); MONO # 0.1 10^3/uL (0.0-0.8); NEUTROPHILS # 5.5 10^3/uL (1.5-8.5); NEUTROPHILS % 93.4 % (36.0-66.0); PLATELET COUNT, AUTOMATED 356 10^3/uL (150-450); RED BLOOD COUNT 3.18 10^6/uL (4.30-6.10); WHITE BLOOD COUNT 5.9 10^3/uL (4.0-10.0)
[2024-06-13] MEDS: TIOTROPIUM INHALER/CAPSULE (SPIRIVA) INH SCH (07:00)
[2024-06-13 07:23] LABS: CALCIUM LEVEL 8.7 MG/DL (8.3-10.6); CREATININE FOR GFR 1.33 MG/DL (0.70-1.30); GLOMERULAR FILTRATION RATE 55.2 (>42)
[2024-06-13 07:37] VITALS: BP 145/68; TEMP 98.1; O2SAT 92
[2024-06-13] MEDS: TAMSULOSIN 0.4 MG CAP PO SCH (09:38)
[2024-06-13] MEDS: FOLIC ACID 1MG TAB PO SCH (09:38)
[2024-06-13] MEDS: AZITHROMYCIN 250MG TABLET PO SCH (09:38)
[2024-06-13 11:52] VITALS: BP 143/60; TEMP 97.9; O2SAT 93
[2024-06-13 15:55] VITALS: BP 132/66; TEMP 97.6; O2SAT 98
[2024-06-13] MEDS: cefTRIAXone SOD 1 GM in DEXTROSE 5% (D5W) ADV/MINI-BAG 50 ML IV SCH (16:04)
[2024-06-13 20:03] VITALS: BP 125/69; O2SAT 92
[2024-06-13 23:45] VITALS: BP 145/60; TEMP 97.6; O2SAT 95
[2024-06-14] VITALS (7 sets, daily range): BP systolic 133–147; BP diastolic 57–86; TEMP 97.4–99; O2SAT 90–96
[2024-06-14] MEDS: ACETAMINOPHEN 325 MG TAB PO PRN (04:11)
[2024-06-14 06:28] LABS: BASO % 0.1 % (0.0-1.0); HEMATOCRIT 29.9 % (42.0-52.0); HEMOGLOBIN 9.7 g/dl (13.5-17.5); LYMPH # 0.2 10^3/uL (1.5-5.0); LYMPH % 2.7 % (24.0-44.0); MEAN CORPUSCULAR HEMOGLOBIN 29.8 pg (27.0-33.0); MEAN CORPUSCULAR HGB CONC 32.4 g/dl (32.0-36.5); MONO # 0.4 10^3/uL (0.0-0.8); MONO % 5.1 % (2.0-8.0); NEUTROPHILS # 6.8 10^3/uL (1.5-8.5); NEUTROPHILS % 91.6 % (36.0-66.0); PLATELET COUNT, AUTOMATED 381 10^3/uL (150-450); RED BLOOD COUNT 3.25 10^6/uL (4.30-6.10); WHITE BLOOD COUNT 7.4 10^3/uL (4.0-10.0)
[2024-06-14 07:14] LABS: ALBUMIN 3.5 G/DL (3.2-5.2); BILIRUBIN,DIRECT 0.1 MG/DL (<0.4); BILIRUBIN,TOTAL 0.4 MG/DL (0.3-1.2); CALCIUM LEVEL 8.3 MG/DL (8.3-10.6); CREATININE FOR GFR 1.31 MG/DL (0.70-1.30); GLOMERULAR FILTRATION RATE 56.2 (>42); POTASSIUM SERUM 4.3 MMOL/L (3.5-5.1); TOTAL PROTEIN 6.6 G/DL (5.7-8.2)
[2024-06-15] VITALS (7 sets, daily range): BP systolic 130–141; BP diastolic 61–80; TEMP 97.2–98.3; O2SAT 92–99
[2024-06-15 06:22] LABS: BASO % 0.1 % (0.0-1.0); HEMATOCRIT 31.6 % (42.0-52.0); HEMOGLOBIN 10.3 g/dl (13.5-17.5); LYMPH # 0.2 10^3/uL (1.5-5.0); MEAN CORPUSCULAR HEMOGLOBIN 30.2 pg (27.0-33.0); MEAN CORPUSCULAR HGB CONC 32.6 g/dl (32.0-36.5); MEAN CORPUSCULAR VOLUME 92.7 fl (80.0-96.0); MONO # 0.3 10^3/uL (0.0-0.8); MONO % 4.4 % (2.0-8.0); NEUTROPHILS # 6.7 10^3/uL (1.5-8.5); NEUTROPHILS % 92.1 % (36.0-66.0); PLATELET COUNT, AUTOMATED 374 10^3/uL (150-450); RED BLOOD COUNT 3.41 10^6/uL (4.30-6.10); WHITE BLOOD COUNT 7.2 10^3/uL (4.0-10.0)
[2024-06-15 06:39] LABS: BLOOD UREA NITROGEN 57 MG/DL (9-23); CALCIUM LEVEL 8.1 MG/DL (8.3-10.6); CARBON DIOXIDE LEVEL 26 MMOL/L (20-31); CHLORIDE LEVEL 101 MMOL/L (98-107); CREATININE FOR GFR 1.16 MG/DL (0.70-1.30); GLOMERULAR FILTRATION RATE > 60.0 (>42); GLUCOSE, FASTING 149 MG/DL (74-106); SODIUM LEVEL 138 MMOL/L (136-145)
[2024-06-15 06:51] LABS: PROCALCITONIN 0.14 ng/ml
[2024-06-15] MEDS ORDERED: cefTRIAXone SOD 1 GM in DEXTROSE 5% (D5W) ADV/MINI-BAG 50 ML IV SCH (16:00)
[2024-06-15] MEDS: ATORVASTATIN 20 MG TAB PO SCH (17:36)
[2024-06-15] MEDS: CEFDINIR 300 MG CAP (OMNICEF) PO SCH (20:28)
[2024-06-16 04:40] VITALS: BP 130/59; TEMP 97.7; O2SAT 92
[2024-06-16 06:31] LABS: BASO % 0.1 % (0.0-1.0); HEMATOCRIT 34.5 % (42.0-52.0); HEMOGLOBIN 11.1 g/dl (13.5-17.5); LYMPH # 0.2 10^3/uL (1.5-5.0); LYMPH % 2.7 % (24.0-44.0); MEAN CORPUSCULAR HEMOGLOBIN 29.5 pg (27.0-33.0); MEAN CORPUSCULAR HGB CONC 32.2 g/dl (32.0-36.5); MEAN CORPUSCULAR VOLUME 91.8 fl (80.0-96.0); MONO # 0.8 10^3/uL (0.0-0.8); MONO % 8.6 % (2.0-8.0); NEUTROPHILS # 7.8 10^3/uL (1.5-8.5); NEUTROPHILS % 87.8 % (36.0-66.0); PLATELET COUNT, AUTOMATED 393 10^3/uL (150-450); RED BLOOD COUNT 3.76 10^6/uL (4.30-6.10); WHITE BLOOD COUNT 8.9 10^3/uL (4.0-10.0)
[2024-06-16 06:52] LABS: BLOOD UREA NITROGEN 61 MG/DL (9-23); CALCIUM LEVEL 8.6 MG/DL (8.3-10.6); CARBON DIOXIDE LEVEL 28 MMOL/L (20-31); CHLORIDE LEVEL 102 MMOL/L (98-107); CREATININE FOR GFR 1.15 MG/DL (0.70-1.30); GLOMERULAR FILTRATION RATE > 60.0 (>42); GLUCOSE, FASTING 145 MG/DL (74-106); POTASSIUM SERUM 4.1 MMOL/L (3.5-5.1); SODIUM LEVEL 141 MMOL/L (136-145)
[2024-06-16 07:25] VITALS: BP 145/87; TEMP 97.8; O2SAT 94
[2024-06-16] MEDS: predniSONE 20 MG TAB PO SCH (08:50)
[2024-06-16] MEDS: TORSEMIDE 10 MG TABLET PO SCH ×2 (08:51→17:21)
[2024-06-16 12:20] VITALS: BP 146/65; TEMP 97.4; O2SAT 93
[2024-06-16 20:10] VITALS: BP 135/73; TEMP 97.2; O2SAT 93
[2024-06-16 22:18] VITALS: BP 163/89; TEMP 97.5; O2SAT 93
[2024-06-17 04:04] VITALS: BP 154/87; TEMP 97.3; O2SAT 93
[2024-06-17 07:34] LABS: BASO % 0.1 % (0.0-1.0); HEMATOCRIT 38.5 % (42.0-52.0); HEMOGLOBIN 12.5 g/dl (13.5-17.5); LYMPH # 0.6 10^3/uL (1.5-5.0); MEAN CORPUSCULAR HEMOGLOBIN 30.1 pg (27.0-33.0); MEAN CORPUSCULAR HGB CONC 32.5 g/dl (32.0-36.5); MEAN CORPUSCULAR VOLUME 92.8 fl (80.0-96.0); MONO # 1.8 10^3/uL (0.0-0.8); MONO % 12.8 % (2.0-8.0); NEUTROPHILS # 11.5 10^3/uL (1.5-8.5); NEUTROPHILS % 82.3 % (36.0-66.0); PLATELET COUNT, AUTOMATED 379 10^3/uL (150-450); RED BLOOD COUNT 4.15 10^6/uL (4.30-6.10)
[2024-06-17 07:54] LABS: ALBUMIN 3.5 G/DL (3.2-5.2); ALKALINE PHOSPHATASE 115 U/L (40-129); ALT/SGPT 123 U/L (7.0-40); AST/SGOT 61 U/L (<34); BILIRUBIN,TOTAL 0.5 MG/DL (0.3-1.2); BLOOD UREA NITROGEN 58 MG/DL (9-23); CALCIUM LEVEL 8.9 MG/DL (8.3-10.6); CARBON DIOXIDE LEVEL 31 MMOL/L (20-31); CHLORIDE LEVEL 99 MMOL/L (98-107); CREATININE FOR GFR 1.08 MG/DL (0.70-1.30); GLOMERULAR FILTRATION RATE > 60.0 (>42); GLUCOSE, FASTING 96 MG/DL (74-106); POTASSIUM SERUM 4.4 MMOL/L (3.5-5.1); SODIUM LEVEL 139 MMOL/L (136-145); TOTAL PROTEIN 6.8 G/DL (5.7-8.2)
[2024-06-17 08:34] VITALS: BP 149/84
[2024-06-17] MEDS: BISACODYL 10MG SUPP PR ONE (08:34)
[2024-06-17] MEDS ORDERED: CEFD300CAP PO (10:28)
[2024-06-17] MEDS ORDERED: TORS10TA3 PO ×2 (10:28)
[2024-06-17] MEDS ORDERED: MIRA3350 PO (10:28)
[2024-06-17] MEDS ORDERED: COLA100C5 PO (10:28)
[2024-06-17] MEDS ORDERED: PRED10TA2 PO (10:28)
[2024-06-17] MEDS ORDERED: METO25TA PO (10:31)
[2024-06-17] MEDS ORDERED: PRED20TA PO (10:31)
[2024-06-17] MEDS ORDERED: IPRA0.00 INH (10:31)
[2024-06-17 12:00] VITALS: BP 150/81; TEMP 97.5; O2SAT 98
== END 2024-06-17 14:42 | disposition home health service (06) | DRG 291 ==
LOC: M ED 10:53 → M ED INP 16:33 → M PCU 22:01 → M MS5PR 06-16 22:14
PROVIDERS: ADMIT Internal Medicine Nephrology; ATTEND Internal Medicine
DX: I11.0 Hypertensive heart disease with heart failure (principal); I50.33 Acute on chronic diastolic (congestive) heart failure; J18.9 Pneumonia, unspecified organism; J96.01 Acute respiratory failure with hypoxia; C34.32 Malignant neoplasm of lower lobe, left bronchus or lung; J44.1 Chronic obstructive pulmonary disease with (acute) exacerbation; I48.21 Permanent atrial fibrillation; J44.0 Chronic obstructive pulmonary disease with (acute) lower respiratory infection; I27.20 Pulmonary hypertension, unspecified; D50.9 Iron deficiency anemia, unspecified; K76.1 Chronic passive congestion of liver; E78.5 Hyperlipidemia, unspecified; J20.9 Acute bronchitis, unspecified; E87.5 Hyperkalemia; N40.0 Benign prostatic hyperplasia without lower urinary tract symptoms; Z92.3 Personal history of irradiation; Z79.899 Other long term (current) drug therapy; Z79.01 Long term (current) use of anticoagulants; M10.9 Gout, unspecified; Z87.891 Personal history of nicotine dependence

== ENCOUNTER → 2024-08-24 | Outpatient (CLI) | payer OTHER, MEDICARE ==
[~2024-08-24] MED LIST changes: -FLOM0.4C39 PO; +IPRA0.00 INH; +PANT-23 PO; +TAMS-18 PO; +TORS10TA3 PO
[2024-08-24 08:42] LABS: ALBUMIN 3.6 G/DL (3.2-5.2); BILIRUBIN,TOTAL 0.4 MG/DL (0.3-1.2); CALCIUM LEVEL 8.5 MG/DL (8.3-10.6); CREATININE FOR GFR 1.16 MG/DL (0.70-1.30); GLOMERULAR FILTRATION RATE 64.1 (>42); POTASSIUM SERUM 4.5 MMOL/L (3.5-5.1)
== END ==
LOC: M ONCM 07:52
PROVIDERS: ATTEND General Practice
DX: C34.32 Malignant neoplasm of lower lobe, left bronchus or lung (principal)

== ENCOUNTER → 2024-09-01 | Outpatient (CLI) | payer OTHER, MEDICARE ==
[~2024-09-01] MED LIST changes: +TREL1AER INH
[2024-09-01 14:22] LABS: ALBUMIN 3.7 G/DL (3.2-5.2); BILIRUBIN,TOTAL 0.5 MG/DL (0.3-1.2); CALCIUM LEVEL 8.7 MG/DL (8.3-10.6); CREATININE FOR GFR 0.96 MG/DL (0.70-1.30); GLOMERULAR FILTRATION RATE 80.4 (>42); TOTAL PROTEIN 6.9 G/DL (5.7-8.2)
== END ==
LOC: M ONCR 12:45
PROVIDERS: ATTEND General Practice
DX: C34.32 Malignant neoplasm of lower lobe, left bronchus or lung (principal); Z79.84 Long term (current) use of oral hypoglycemic drugs; Z79.899 Other long term (current) drug therapy; Z87.891 Personal history of nicotine dependence; Z92.3 Personal history of irradiation
CPT/HCPCS: 36415; 80053; G0463

== ENCOUNTER → 2024-09-02 | Outpatient (CLI) | payer OTHER, MEDICARE ==
[~2024-09-02] MED LIST changes: +ISOVUE-370 76% 100ML VIAL As Ordered ONE
== END ==
LOC: M RAD 08:06
PROVIDERS: ATTEND General Practice
DX: C34.32 Malignant neoplasm of lower lobe, left bronchus or lung (principal); J44.9 Chronic obstructive pulmonary disease, unspecified; R59.0 Localized enlarged lymph nodes
CPT/HCPCS: 71260; Q9967

== ENCOUNTER → 2024-12-29 | Outpatient (CLI) | payer MEDICARE, OTHER ==
[~2024-12-29] MED LIST changes: -ISOVUE-370 76% 100ML VIAL As Ordered ONE; +LISI40TA10 PO; -LISI40TA4 PO
== END ==
LOC: M RAD 12:08
PROVIDERS: ATTEND Internal Medicine
DX: N18.9 Chronic kidney disease, unspecified (principal)

== ENCOUNTER 2025-01-15 19:30 | Inpatient (IN) | payer OTHER ==
[~2025-01-15] VITALS: Ht 175.3 cm; Wt 78.3 kg
[2025-01-15 20:43] LABS: BASO # 0.1 10^3/uL (0.0-0.2); BASO % 1.1 % (0.0-1.0); EOS # 0.2 10^3/uL (0.0-0.5); EOS % 2.5 % (0.0-3.0); LYMPH # 1.1 10^3/uL (1.5-5.0); LYMPH % 12.7 % (24.0-44.0); MONO # 1.0 10^3/uL (0.0-0.8); MONO % 11.5 % (2.0-8.0); NEUTROPHILS # 6.3 10^3/uL (1.5-8.5); NEUTROPHILS % 71.9 % (36.0-66.0); PLATELET COUNT, AUTOMATED 318 10^3/uL (150-450)
[2025-01-15] MEDS: IPRATROPIUM 0.5 MG/ALBUTEROL 2.5 MG INH SOL UD 3 ML NEB ONE (20:47)
[2025-01-15 20:51] LABS: ALT/SGPT 26.0 U/L (7.0-40); AST/SGOT 31.0 U/L (<34); CALCIUM LEVEL 8.3 MG/DL (8.3-10.6); CARBON DIOXIDE LEVEL 21.0 MMOL/L (20-31); CHLORIDE LEVEL 109.0 MMOL/L (98-107); CREATININE FOR GFR 1.15 MG/DL (0.70-1.30); GLOMERULAR FILTRATION RATE 64.7 (>42); POTASSIUM SERUM 6.0 MMOL/L (3.5-5.1); SODIUM LEVEL 137.0 MMOL/L (136-145)
[2025-01-16] VITALS (11 sets, daily range): BP systolic 13–137; BP diastolic 61–68; TEMP 97.7–98.1; O2SAT 91–98
[2025-01-16] MEDS: DOXYCYCLINE HYCLATE 100 MG in DEXTROSE 5% (D5W) MINI-BAG PLU 100 ML IV ONE
[2025-01-16] MEDS ORDERED: ACETAMINOPHEN 325 MG TAB PO PRN (02:00)
[2025-01-16] MEDS ORDERED: MAALOX 30 ML SUSP *UDC PO PRN (02:00)
[2025-01-16] MEDS: DEXTROSE 50% 50 ML SYRINGE IV STA (02:05)
[2025-01-16] MEDS: HumuLIN R (REGULAR) INSULIN (NovoLIN R) **100 U/ML** PER UNIT IV STA (02:06)
[2025-01-16] MEDS ORDERED: ISOVUE-370 76% 100 ML VIAL As Ordered ONE (02:16)
[2025-01-16] MEDS: CALCIUM GLUCONATE 1,000 MG in DEXTROSE 5% (D5W) MINI-BAG PLU 100 ML IV ONE (02:21)
[2025-01-16] MEDS: SODIUM CHLORIDE 0.9% 1000 ML IV SCH (02:25)
[2025-01-16] MEDS: ALBUTEROL SULFATE 2.5 MG/0.5 ML INH CONCENTRATE NEB SOLN NEB SCH (02:38)
[2025-01-16] MEDS: FUROSEMIDE 40 MG/4 ML VIAL IV ONE (02:41)
[2025-01-16] MEDS: NS (Normal Saline) 0.9% 1,000 ML IV SCH (02:42)
[2025-01-16] MEDS: AZITHROMYCIN INJ 500 MG, VIAL MATE ADAPTER 1 EACH in NS 250 ML IV SCH (03:30)
[2025-01-16 04:19] LABS: PLATELET COUNT, AUTOMATED 319 10^3/uL (150-450)
[2025-01-16 04:47] LABS: CALCIUM LEVEL 8.4 MG/DL (8.3-10.6); CARBON DIOXIDE LEVEL 20.0 MMOL/L (20-31); CHLORIDE LEVEL 108.0 MMOL/L (98-107); CREATININE FOR GFR 1.03 MG/DL (0.70-1.30); GLOMERULAR FILTRATION RATE 73.9 (>42); MAGNESIUM LEVEL 2.4 MG/DL (1.8-2.4); POTASSIUM SERUM 5.5 MMOL/L (3.5-5.1); SODIUM LEVEL 137.0 MMOL/L (136-145)
[2025-01-16] MEDS ORDERED: SYMBICORT 160/4.5MCG INHALER 6GM INH SCH (09:00)
[2025-01-16] MEDS ORDERED: APIXABAN 5 MG TAB PO SCH (09:00)
[2025-01-16] MEDS: DOCUSATE SODIUM 100 MG CAPSULE PO SCH (09:28)
[2025-01-16] MEDS: guaiFENesin ER TABLET 600 MG TAB PO SCH (09:28)
[2025-01-16] MEDS: PATIROMER SORBITEX CALCIUM 8.4GM POWDER PACKET PO ONE (09:28)
[2025-01-16] MEDS: PANTOPRAZOLE 40MG VIAL IV SCH (09:28)
[2025-01-16] MEDS: cefTRIAXone SOD 2 GM in DEXTROSE 5% (D5W) ADV/MINI-BAG 50 ML IV SCH (09:29)
[2025-01-16] MEDS ORDERED: ADVA1AER10 INH (11:52)
[2025-01-16] MEDS ORDERED: HOME MED LIST COMPLETE! XX SCH (11:55)
[2025-01-16] MEDS ORDERED: TORS20TA2 PO (12:09)
[2025-01-16] MEDS: TIOTROPIUM BROM 2.5MCG/ACTUATION 4GM INH INH SCH (13:34)
[2025-01-16] MEDS: ADVAIR HFA 230/21 MCG INHALER INH SCH (13:34)
[2025-01-16] MEDS: TORSEMIDE 20 MG TAB PO SCH (13:59)
[2025-01-16] MEDS: ATORVASTATIN 20 MG TAB PO SCH (13:59)
[2025-01-16] MEDS: APIXABAN 5 MG TAB PO SCH (14:00)
[2025-01-16] MEDS ORDERED: VERAPAMIL 80MG TABLET PO SCH (16:00)
[2025-01-16] MEDS: OYSTER SHELL CALCIUM 500 MG TAB PO SCH (16:02)
[2025-01-16] MEDS: MAGNESIUM GLUCONATE 500 MG TAB PO SCH (21:20)
[2025-01-16] MEDS: FERROUS GLUCONATE 324 MG TAB PO SCH (21:20)
[2025-01-17 03:25] VITALS: BP 126/62; TEMP 98.2; O2SAT 93
[2025-01-17 08:08] VITALS: BP 139/78; TEMP 97.7; O2SAT 95
[2025-01-17] MEDS: FOLIC ACID 1 MG TAB PO SCH (08:23)
[2025-01-17] MEDS: TAMSULOSIN 0.4 MG CAP PO SCH (08:24)
[2025-01-17 09:28] LABS: PLATELET COUNT, AUTOMATED 333 10^3/uL (150-450)
[2025-01-17 10:14] LABS: CALCIUM LEVEL 8.7 MG/DL (8.3-10.6); CARBON DIOXIDE LEVEL 19.0 MMOL/L (20-31); CHLORIDE LEVEL 106.0 MMOL/L (98-107); CREATININE FOR GFR 1.1 MG/DL (0.70-1.30); GLOMERULAR FILTRATION RATE 68.3 (>42); MAGNESIUM LEVEL 2.1 MG/DL (1.8-2.4); POTASSIUM SERUM 4.2 MMOL/L (3.5-5.1); SODIUM LEVEL 139.0 MMOL/L (136-145)
[2025-01-17 12:00] VITALS: BP 127/68; TEMP 97.9; O2SAT 97
[2025-01-17 16:21] VITALS: BP 131/70; TEMP 97.5; O2SAT 92
[2025-01-17 20:26] VITALS: BP 136/69; TEMP 97.9; O2SAT 92
[2025-01-18 00:08] VITALS: BP 131/67; TEMP 98.1; O2SAT 94
[2025-01-18 03:06] VITALS: BP 143/68; TEMP 97.9; O2SAT 94
[2025-01-18] MEDS ORDERED: BISACODYL 10 MG SUPP PR PRN (07:55)
[2025-01-18] MEDS: predniSONE 20 MG TAB PO SCH (07:58)
[2025-01-18 08:00] VITALS: BP 114/69; TEMP 97.9; O2SAT 92
[2025-01-18] MEDS: SENNOSIDES/DOCUSATE SODIUM 8.6 MG/50MG TAB PO SCH (08:00)
[2025-01-18 08:11] LABS: CALCIUM LEVEL 8.6 MG/DL (8.3-10.6); CARBON DIOXIDE LEVEL 24.0 MMOL/L (20-31); CHLORIDE LEVEL 106.0 MMOL/L (98-107); CREATININE FOR GFR 1.01 MG/DL (0.70-1.30); GLOMERULAR FILTRATION RATE 75.7 (>42); MAGNESIUM LEVEL 1.9 MG/DL (1.8-2.4); POTASSIUM SERUM 3.8 MMOL/L (3.5-5.1); SODIUM LEVEL 141.0 MMOL/L (136-145)
[2025-01-18 11:42] VITALS: BP 147/67; TEMP 98.6; O2SAT 95
[2025-01-18 16:45] VITALS: BP 147/93; TEMP 98.8; O2SAT 93
[2025-01-18 20:13] VITALS: BP 148/92; TEMP 98.8; O2SAT 94
[2025-01-19 00:43] VITALS: BP 142/96; TEMP 98.6; O2SAT 95
[2025-01-19 03:11] VITALS: BP 165/71; TEMP 98.8; O2SAT 93
[2025-01-19 06:46] LABS: CALCIUM LEVEL 8.4 MG/DL (8.3-10.6); CARBON DIOXIDE LEVEL 26.0 MMOL/L (20-31); CHLORIDE LEVEL 104.0 MMOL/L (98-107); CREATININE FOR GFR 1.05 MG/DL (0.70-1.30); GLOMERULAR FILTRATION RATE 72.2 (>42); MAGNESIUM LEVEL 1.7 MG/DL (1.8-2.4); POTASSIUM SERUM 3.2 MMOL/L (3.5-5.1); SODIUM LEVEL 141.0 MMOL/L (136-145)
[2025-01-19 08:00] VITALS: BP 142/61; TEMP 98.1; O2SAT 92
[2025-01-19] MEDS: MAG SULF 1GM/100ML (MAG RUN) 1 GM in IV 1 EA IV SCH (10:04)
[2025-01-19] MEDS: POTASSIUM CHLORIDE 10MEQ SR TABLET PO ONE (10:05)
[2025-01-19] MEDS: KCL 10MEQ/100ML SWI (KRUN) 10 MEQ in IV 1 EA IV SCH (10:07)
[2025-01-19 10:08] VITALS: BP 142/61
[2025-01-19 14:47] LABS: CALCIUM LEVEL 8.6 MG/DL (8.3-10.6); CARBON DIOXIDE LEVEL 25.0 MMOL/L (20-31); CHLORIDE LEVEL 103.0 MMOL/L (98-107); CREATININE FOR GFR 0.97 MG/DL (0.70-1.30); GLOMERULAR FILTRATION RATE 79.4 (>42); MAGNESIUM LEVEL 2.2 MG/DL (1.8-2.4); POTASSIUM SERUM 3.8 MMOL/L (3.5-5.1); SODIUM LEVEL 141.0 MMOL/L (136-145)
[2025-01-19] MEDS ORDERED: PRED10TA2 PO (15:18)
[2025-01-19] MEDS ORDERED: CEFD1CAP9 PO (15:18)
[2025-01-19] MEDS ORDERED: AZIT500T5 PO (15:18)
[2025-01-19] MEDS ORDERED: POTA-151 PO (15:18)
== END 2025-01-19 17:11 | disposition home health service (06) | DRG 190 ==
LOC: M ED 19:30 → M ED INP 01-16 01:52 → M MSPAV 01-16 02:52
PROVIDERS: ADMIT Student in an Organized Health Care Education/Training Program; ATTEND Student in an Organized Health Care Education/Training Program
PROC: B246ZZZ Ultrasonography of Right and Left Heart (ICD-10-PCS; principal; 2025-01-16)
DX: J44.0 Chronic obstructive pulmonary disease with (acute) lower respiratory infection (principal); J18.9 Pneumonia, unspecified organism; I50.32 Chronic diastolic (congestive) heart failure; I48.21 Permanent atrial fibrillation; J90 Pleural effusion, not elsewhere classified; J44.1 Chronic obstructive pulmonary disease with (acute) exacerbation; K21.9 Gastro-esophageal reflux disease without esophagitis; I27.20 Pulmonary hypertension, unspecified; I11.0 Hypertensive heart disease with heart failure; E78.5 Hyperlipidemia, unspecified; E83.42 Hypomagnesemia; I89.0 Lymphedema, not elsewhere classified; D50.9 Iron deficiency anemia, unspecified; N40.0 Benign prostatic hyperplasia without lower urinary tract symptoms; E87.5 Hyperkalemia; S91.302A Unspecified open wound, left foot, initial encounter; Z85.118 Personal history of other malignant neoplasm of bronchus and lung; X58.XXXA Exposure to other specified factors, initial encounter; Y92.9 Unspecified place or not applicable; Z79.01 Long term (current) use of anticoagulants; Z79.899 Other long term (current) drug therapy; Z92.3 Personal history of irradiation; Z87.891 Personal history of nicotine dependence

== ENCOUNTER 2025-02-16 06:02 | Emergency (ER) | payer OTHER ==
[~2025-02-16] VITALS: Ht 175.3 cm; Wt 78.3 kg
[~2025-02-16 06:02] MED LIST changes: +ADVA1AER10 INH; +CEFD1CAP9 PO; +POTA-151 PO
[2025-02-16 06:43] LABS: PLATELET COUNT, AUTOMATED 302 10^3/uL (150-450)
[2025-02-16 07:04] LABS: CALCIUM LEVEL 8.8 MG/DL (8.3-10.6); CARBON DIOXIDE LEVEL 24.0 MMOL/L (20-31); CHLORIDE LEVEL 108.0 MMOL/L (98-107); CREATININE FOR GFR 1.13 MG/DL (0.70-1.30); GLOMERULAR FILTRATION RATE 66.1 (>42); POTASSIUM SERUM 5.3 MMOL/L (3.5-5.1); SODIUM LEVEL 142.0 MMOL/L (136-145)
[2025-02-16] MEDS: TETANUS/DIPHTH/ACEL. PERTUSSIS 0.5 ML SYR IM.IMMUN ONE (08:11)
[2025-02-16] MEDS ORDERED: BACI500O8 TOP (08:15)
[2025-02-16 08:32] VITALS: O2SAT 92
[2025-02-16 08:46] VITALS: BP 146/85; TEMP 96.7
== END 2025-02-16 09:03 | disposition home or self-care (01) ==
LOC: M ED 06:02
DX: S51.012A Laceration without foreign body of left elbow, initial encounter (principal); E87.5 Hyperkalemia; W01.198A Fall on same level from slipping, tripping and stumbling with subsequent striking against other object, initial encounter; I10 Essential (primary) hypertension; J44.9 Chronic obstructive pulmonary disease, unspecified; E78.5 Hyperlipidemia, unspecified; Z86.79 Personal history of other diseases of the circulatory system; Z87.891 Personal history of nicotine dependence; Z79.01 Long term (current) use of anticoagulants; Y92.009 Unspecified place in unspecified non-institutional (private) residence as the place of occurrence of the external cause; Y93.89 Activity, other specified; Y99.9 Unspecified external cause status; Z79.1 Long term (current) use of non-steroidal anti-inflammatories (NSAID); Z79.52 Long term (current) use of systemic steroids; Z79.899 Other long term (current) drug therapy; Z79.2 Long term (current) use of antibiotics; Z23 Encounter for immunization

== ENCOUNTER → 2025-02-23 | Outpatient (CLI) | payer MEDICARE, OTHER ==
[~2025-02-23] MED LIST changes: +BACI500O8 TOP
== END ==
LOC: M RAD 12:47
PROVIDERS: ATTEND General Practice
DX: C34.32 Malignant neoplasm of lower lobe, left bronchus or lung (principal); J43.9 Emphysema, unspecified; J98.11 Atelectasis

== ENCOUNTER → 2025-03-02 | Outpatient (CLI) | payer MEDICARE, OTHER ==
[~2025-03-02] MED LIST changes: +BUDE10.7 IH
== END ==
LOC: M ONCR 13:10
PROVIDERS: ATTEND General Practice
DX: C34.32 Malignant neoplasm of lower lobe, left bronchus or lung (principal); J44.9 Chronic obstructive pulmonary disease, unspecified; Z79.01 Long term (current) use of anticoagulants; Z79.899 Other long term (current) drug therapy; Z87.891 Personal history of nicotine dependence; Z92.3 Personal history of irradiation